=== PATIENT | male | born 1955 | race Two or more races ===

== ENCOUNTER 2024-11-05 14:52 | Inpatient (IN) | payer MEDICARE, MEDICAID ==
[~2024-11-05] VITALS: Ht 182.9 cm; Wt 135.0 kg
--- NOTE | 2024-11-05 15:59 | ED.PDOC ---
History of Present Illness HPI Comments Patient is a 69-year-old male with a past medical history of coronary artery disease, [place] s/p CABG, atrial fibrillation type 2 diabetes mellitus, end-stage renal disease on dialysis Friday was brought to the ED via EMS after having chest pain at the dialysis center. Patient was at the dialysis center and about 1.27 L of fluid was removed with a target of 2.5 when he started to complain of chest pain in the left lower chest, nonradiating, pressure-like following which EMS were called. On arrival of the EMS patient is alert pressure was noted to be 66/31 mmHg and was consistently low following which the patient is given about 150 mL of fluid and on rechecking the blood p ressure as per the EMS was at 133/113 mmHg. Patient was confused brought to ED. family reported that this was baseline mental status. Patient has been getting hemodialysis with the last 18 years and recently has been bed-bound. He also has pressure ulcers on his bilateral lower extremities. According with the family patient has not been able to complete his dialysis recently test to be aborted earlier than the planned amount of fluid which has to be referred because the patient gets hypotensive and not able to tolerate it. He has been on midodrine 10 mg b.i.d. because of hypotension. Attestation note: Dr. Funk: I was the supervising attending for this ED encounter. Please see the resident's notes. I was available for questions and consultations. Differential diagnosis: DDX include CVA, TGA, cerebellar ischemia/infarct, carotid stenosis, Intracranial mass/infection/bleed, encephalopathy, electrolyte abnormality, thyroid disease, hydrocephalus, hypoglycemia, drug toxicity, cardiac arrhythmia, seizure, infection in the elderly, Hyperammonemia., kidney failure., sepsis. MDM: Patient presented with the above HPI.---post dialysis hypotension and altered level of consciousness---workup was initiated. patient was found with the above mentioned diagnosis. the following medications were ordered: please refer to order lists of meds and tests obtained by myself Dr. Funk. Patient ED course and VS have been stabilized. Patient has been reassessed in the ED and remained in a stable condition. Pertinent incidental findings were discussed with the patient and/or family. Patient/family voices understanding and is agreeable with plan. Patient has been observed in the ED adequate length of time to insure improvement/stability. Escalation of care considered: Consideration of escalation to observation or admission Patient was ADMITTED to the medicine team for further evaluation and treatment of their presentation. However I was informed that the patient and family are leaving against medical advice. All the reports of any imaging studies that were ordered by myself were reviewed by myself. Chief Complaint: Chest Pain Time Seen by MD: 15:24 Reviewed Notes: Nurses Notes, Track Manager Notes, Medications, Allergies Allergies: Coded Allergies: NO KNOWN ALLERGIES (Unverified , 11/05/24) Home Meds Reported Medications Clindamycin Hcl (CLEOCIN) 150 Mg Cap, 300 MG PO TID for 14 Days, CAP 11/07/24 Levofloxacin Hemihydrate (LEVOFLOXACIN) 500 Mg Tab, 500 MG PO DAILY, MG 11/07/24 Atorvastatin Calcium (ATORVASTATIN CALCIUM) 40 Mg Tab, 40 MG PO DAILY, TAB 11/05/24 Montelukast Sodium (MONTELUKAST SODIUM) 10 Mg Tab, 1 TAB PO DAILY, #90 TAB 3 Refills 11/05/24 Quetiapine Fumerate (Seroquel) 50 Mg Tab, 25 MG PO DAILY, TAB 11/05/24 B-Complex W/ C & Folic Acid (Jaki-Sharonda) Tab, 1 OR, TAB 11/05/24 Pantoprazole Sodium (PANTOPRAZOLE SODIUM) 40 Mg Inj, 40 MG PO DAILY, INJ 11/05/24 Midodrine HCl (Midodrine HCl) 10 Mg Tab, 10 MG GT BID, TAB 11/05/24 Levetiracetam (Keppra) 500 Mg Tab, 100 MG PO BID, TAB 11/05/24 Apixaban Base (ELIQUIS) 2.5 Mg Tab, 2.5 MG PO BID, TAB 11/05/24 Gabapentin (Gabapentin) 300 Mg Cap, 300 MG PO BID, CAP 11/05/24 Calcium Acetate (CALCIUM ACETATE) 667 Mg Tab, 667 MG PO TID, TAB 11/05/24 Ferric Citrate (Auryxia) 210 Mg Tab, 210 MG PO TID, TAB 11/05/24 Information Source: Patient, Relative (Child) Mode of Arrival: EMS Past Medical History PAST MEDICAL HISTORY: AFIB, Anemia, CAD, DM, ESRD, Hypotension Surgical History: CABG Family History Family History: Reviewed,noncontributory to illness, No family hx of Cancer, No family hx of DM, No family hx of Heart alyssia, No family hx of HTN, No family hx ofKidney alyssia, No family hx of Liver alyssia, No family hx of Lung alyssia, No family hx of Stroke Social History Smoker: Non-Smoker Alcohol: Denies ETOH Use Drugs: Denies Drug Use Constitutional: reports: malaise, weakness EENTM: denies: blurred vision, double vision, ear bleeding, ear discharge, ear drainage, ear pain, ear ringing, eye pain, eye redness, hearing loss, mouth pain, mouth swelling, nasal discharge, nose bleeding, nose congestion, nose pain, photophobia, tearing, throat pain, throat swelling, voice changes, others Respiratory: reports: SOB at rest Cardiovascular: reports: chest pain Gastrointestinal: denies: abdomen distended, abdominal pain, blood streaked bowels, constipated, diarrhea, dysphagia, difficulty swallowing, hematemesis, melena, nausea, poor appetite, poor fluid intake, rectal bleeding, rectal pain, vomiting, others Genitourinary: denies: burning, dysuria, flank pain, frequency, hematuria, incontinence, penile discharge, penile sore, pain, testicle pain, testicle swelling, urgency, others Neurological: denies: dizziness, fainting, headache, left sided numbness, left sided weakness, numbness, paresthesia, pre-existing deficit, right sided numbness, right sided weakness, seizure, speech problems, tingling, tremors, weakness, others Musculoskeletal: denies: back pain, gout, joint pain, joint swelling, muscle pain, muscle stiffness, neck pain, others Integumetry: denies: bruises, change in color, change in hair/nails, dryness, laceration, lesions, lumps, rash, wounds, others Allergic/Immunocompromised: denies: Difficulty Healing, Frequent Infections, Hives, Itching, others Hematologic/Lymphatic: denies: anemia, blood clots, easy bleeding, easy bruising, swollen glands, others Endocrine: denies: excessive hunger, excessive sweating, excessive thirst, excessive urination, flushing, intolerance to cold, intolerance to heat, unexplained weight gain, unexplained weight loss, others Psychiatric: denies: anxiety, bipolar disorder, depression, hopeless, panic disorder, schizophrenia, sleepless, suicidal, others Physical Exam General Appearance: Mild Distress, Moderate Distress, Obese HEENT: Normal ENT Inspection, Pharynx Normal, TMs Normal Neck: Full Range of Motion, Non-Tender, Normal, Normal Inspection Respiratory: Chest Non-Tender, Lungs Clear, No Accessory Muscle Use, No Respiratory Distress, Normal Breath Sounds Cardiovascular: No Edema, No JVD, No Murmur, No Gallop, Normal Peripheral Pulses, Regular Rate/Rhythm Breast Exam: Deferred Gastrointestinal: No Organomegaly, Non Tender, No Pulsatile Mass, Normal Bowel Sounds, Soft Genitalia: Deferred Pelvic: Deferred Rectal: Deferred Extremities: Leg edema, Other (Pressure ulcers on both the feet) Neurologic: Other (At baseline patient is A&O x2 currently at his baseline, bed-bound with history of stroke and right-sided weakness) Cerebellar Function: NOT DONE Reflexes: NOT DONE Skin: Dry, Normal Color, Warm Peripheral Pulses: 1+ Radial (R), 1+ Radial (L) Lymphatic: NOT DONE Was a procedure done? Was a procedure done?: No Differential Dx Considerations may include: Angina, chest wall pain, costochondritis, orthostatic hypotension, X-Ray, Labs, Meds, VS Vital Signs Date Time Temp Pulse Resp B/P (MAP) Pulse Ox O2 Delivery O2 Flow Rate FiO2 11/05/24 19:23 76 16 97 Nasal Cannula* 4 36 11/05/24 19:23 97.4 76 16 97/56 (70) 99 97.4 11/05/24 18:25 84 18 99/59 (72) 97 11/05/24 17:40 86 18 101/36 (57) 99 11/05/24 17:19 83 19 94/26 (48) 100 11/05/24 17:00 95 19 97 Nasal Cannula* 4 36 11/05/24 17:00 97.6 95 19 91/39 (56) 97 97.6 11/05/24 16:35 82 19 91/39 (56) 97 11/05/24 15:00 97.5 93 20 132/113 (119) 98 97.5 11/05/24 14:52 92 Lab Test 11/05/24 16:00 11/05/24 15:38 Range/Units White Blood Count 8.5 4.4-10.8 10^3/uL Red Blood Count 4.15 L 4.5-5.90 10^6/uL Hemoglobin 14.3 13.5-17.5 g/dL Hematocrit 44.0 41.0-53.0 % Mean Corpuscular Volume 106.1 H 80.0-100.0 fL Mean Corpuscular Hemoglobin 34.4 H 28.0-32.0 pg Mean Corpuscular Hemoglobin Concent 32.5 32.0-36.0 g/dL Red Cell Distribution Width 18.1 H 11.8-14.3 % Platelet Count 227 140-450 10^3/uL Mean Platelet Volume 7.3 6.9-10.8 fL Neutrophils (%) (Auto) 76.8 37.0-80.0 % Lymphocytes (%) (Auto) 10.7 10.0-50.0 % Monocytes (%) (Auto) 9.6 0.0-12.0 % Eosinophils (%) (Auto) 1.7 0.0-7.0 % Basophils (%) (Auto) 1.2 0.0-2.0 % Neutrophils # (Auto) 6.5 1.6-8.6 10 ^3/uL Lymphocytes # (Auto) 0.9 0.4-5.4 10 ^3/uL Monocytes # (Auto) 0.8 0-1.3 10 ^3/uL Eosinophils # (Auto) 0.1 0-0.8 10 ^3/uL Basophils # (Auto) 0.1 0-0.2 10 ^3/uL Nucleated Red Blood Cells 0.3 % Prothrombin Time 11.5 9.3-11.8 sec Prothrombin Time INR 1.09 0.9-1.15 Activated Partial Thromboplast Time 31.6 24.5-34.5 SEC Sodium Level 133 L 136-145 mmol/L Potassium Level 3.4 L 3.5-5.1 mmol/L Chloride Level 92 L 98-107 mmol/L Carbon Dioxide Level 28 20-31 mmol/L Anion Gap 13 5-15 Blood Urea Nitrogen 25 H 9-23 mg/dL Creatinine 4.96 H 0.700-1.30 mg/dL Glomerular Filtration Rate Calc 12 >90 mL/min BUN/Creatinine Ratio 5.0 L 10.0-20.0 Serum Glucose 241 H 74-106 mg/dL Lactic Acid Level 1.9 0.4-2.0 mmol/L Calcium Level 10.2 8.7-10.4 mg/dL Total Bilirubin 0.4 0.2-1.0 mg/dL Aspartate Amino Transferase (AST) 30 13-40 U/L Alanine Aminotransferase (ALT) 41 H 7-40 U/L Alkaline Phosphatase 121 H 46-116 U/L Troponin I High Sensitivity 11 9 </=54 ng/L Total Protein 7.2 5.7-8.2 g/dL Albumin 4.1 3.2-4.8 g/dL Patient is a 69-year-old male with a past medical history not limited to end- stage renal disease on dialysis, coronary artery disease s/p CABG was brought to the ED after experiencing chest pain. Initial ECG was done which showed sinus rhythm without any evidence of acute ST or T-wave changes , troponin levels were within normal limits. Patient at the dialysis center was found to be hypotensive with the EMS reported blood pressure being 66/31 mmHg following which he was given 150 mL of fluid and is repeat blood pressure was 133/113 as reported by the EMS. While in the ER patient continued to be hypotensive with a SBP in the 90s. He was given midodrine 10 mg(patient takes midodrine b.i.d. but did not receive his dose in the morning). Initial investigations including head CT did not show any acute intracranial abnormality, chest x-ray showed pulmonary edema with cardiomegaly CT abdomen pelvis without contrast was done whose findings are as follows -Colonic diverticulosis with mild short segmental diverticulitis of the asc ending colon. -Small to moderate amount of fecal material within the colon. -Atrophy of bilateral kidneys with multiple bilateral renal cysts and additional subcentimeter hypodense bilateral renal lesions that are too small to characterize. -1.8 cm exophytic right renal lower pole soft tissue density lesion. Renal ultrasound is recommended for further evaluation. -Cholelithiasis without evidence of acute cholecystitis. Patient will need further inpatient management as he is not able to tolerate his dialysis recently and has been getting hypotensive. Patient and the family agreed to the plan of management and inpatient admission. Time of 1ST Reevaluation: 16:41 (Patient was seen to be hypotensive and was gi serina midodrine 10 mg p.o.) Reevaluation 1ST: Unchanged Patient Education/Counseling: Diagnosis, Treatment Family Education/Counseling: Diagnosis, Treatment SEPSIS Sepsis Screen Physician Orders Electrocardigram (11/05/24 15:19) Head Without Contrast (11/05/24 15:19) Ct Ab Pel Wo Con-No Oral Or Iv (11/05/24 15:19) Chest Xray 1 View (11/05/24 15:19) Famotidine Injection (Pepcid Injection) (11/05/24 22:00) Levetiracetam 500 Mg/100ml (Levetiraceta (11/05/24 22:00) Atorvastatin (Lipitor) (11/05/24 22:00) B-Complex W/ C & Folic Tablet (Nephro-Vi (11/06/24 10:00) Sevelamer (Renagel) (11/06/24 08:00) Code Status (11/05/24 20:54) Sodium Chloride Lock (Saline Lock Ns) (11/05/24 22:00) Oxygen Per Hour (11/05/24 20:54) Hydrocodone-Acet 5/325mg Tab ([place] 5/32 (11/05/24 21:00) Ondansetron Hcl (Zofran) (11/05/24 21:00) Docusate Sodium Capsule (Colace Capsule) (11/05/24 21:00) Condition: Serious (11/05/24 20:54) Acetaminophen Tablet (Tylenol Tablet) (11/05/24 21:00) Bedrest With Bathroom Privileg (11/05/24 20:54) Vital Signs Date Time Temp Pulse Resp B/P (MAP) Pulse Ox O2 Delivery O2 Flow Rate FiO2 11/05/24 19:23 76 16 97 Nasal Cannula* 4 36 11/05/24 19:23 97.4 76 16 97/56 (70) 99 97.4 11/05/24 18:25 84 18 99/59 (72) 97 11/05/24 17:40 86 18 101/36 (57) 99 11/05/24 17:19 83 19 94/26 (48) 100 11/05/24 17:00 95 19 97 Nasal Cannula* 4 36 11/05/24 17:00 97.6 95 19 91/39 (56) 97 97.6 11/05/24 16:35 82 19 91/39 (56) 97 11/05/24 15:00 97.5 93 20 132/113 (119) 98 97.5 11/05/24 14:52 92 Laboratory Tests Test 11/05/24 16:00 Lactic Acid Level 1.9 mmol/L (0.4-2.0) White Blood Count 8.5 10^3/uL (4.4-10.8) Departure 1 Departure Time of Disposition: 16:41 Impression: Primary Impression: End-stage renal disease on hemodialysis Additional Impressions: Hypotension Pulmonary edema Constipation Disposition: ADMITTED INPATIENT Admit to: Tele Condition: Guarded Discharged With: Self Critical Care Note Critical Care Time?: Yes (35 min-critical care time only) Stability Stability form required: No Heart Score Heart Score: Heart Score Response (Comments) Value History Moderate Suspicious 1 EKG Normal 0 Age >65 2 Risk Factors >3 or Hx ASHD 2 Troponin Normal limit 0 Total 5 KUSH HARDING RESIDENT Nov 05, 2024 15:59 AMBER FUNK DO Nov 05, 2024 16:43
--- NOTE | 2024-11-05 16:19 | DVH ---
EXAM: CT HEAD WITHOUT CONTRAST INDICATION: ALOC TECHNIQUE: CT of the head without intravenous contrast. Radiation Dose Information: CT Dose: CTDI volume is 60.5 mGy. Dose-length product is 1071.07 mGy*cm The dose indicators for CT are the volume Computed Tomography (CT) Dose Index (CTDIvol) and the Dose Length Product (DLP), and are measured in units of mGy and mGy-cm, respectively. These indicators are not patient dose, but values generated from the CT scanner acquisition factors. The report includes radiation exposure data for exposures received during this examination. COMPARISON: None FINDINGS: There is no evidence of acute intracranial hemorrhage, extra-axial collection, mass effect, midline s hift, herniation or hydrocephalus. Encephalomalacia left parietal lobe consistent with old infarcts. No prior studies for comparison. The ventricles, sulci and cisterns are age appropriate. The batista-white differentiation is intact. Patchy periventricular and subcortical white matter hypoattenuation is nonspecific but may be related to small vessel ischemic disease. The visualized paranasal sinuses and mastoid air cells are clear. The surrounding soft tissues and osseous structures are unremarkable. IMPRESSION: 1. No acute hemorrhage. 2. Area of encephalomalacia involving the mid left parietal lobe consistent with old infarct. No find ings of craniotomy defect.
--- NOTE | 2024-11-05 16:19 | DVH ---
CHEST RADIOGRAPH Indication: SOB Technique: Single frontal view of the chest was obtained COMPARISON: None FINDINGS: Lines and Tubes: Median sternotomy. Tunneled right central venous catheter in satisfactory position Lungs: Congestion Pleura: No effusion. No pneumothorax. Cardiomediastinal contours: Cardiomegaly Bones: Unremarkable IMPRESSION: Pulmonary edema
--- NOTE | 2024-11-05 16:26 | DVH ---
Exam: CT CT AB PEL WO CON-NO ORAL OR IV History: LUQ pain Comparison Study: None TECHNIQUE: Multidetector CT of the abdomen and pelvis without IV contrast. Axial, coronal and sagitta l multiplanar reformats were obtained from the axial data set by the technologist. Radiation Dose Information: CT Dose: CTDI volume is 25.31 mGy. Dose-length product is 1492.61 mGy*cm FINDINGS: Bibasilar atelectasis. Trace right-sided pleural effusion. Mild cardiomegaly. Peripherally calcified 1.8 cm lesion within the right lower epigastric fat pad. Mild hepatomegaly. Otherwise, liver, spleen, pancreas and adrenal glands unremarkable. Cholelithiasi s without evidence of acute cholecystitis. Severe atrophy of bilateral kidneys with multiple bilateral cysts measuring up to 1 cm. Additional s ubcentimeter hypodense bilateral renal lesions are noted that are too small to characterize. 1.8 cm e xophytic right renal lesion which measures soft tissue. Punctate bilateral renal calcifications. No h ydro nephrosis bilaterally. Bilateral ureters and urinary bladder unremarkable. Prostate measures 3. 1 x 3.8 by 3.6 cm. Stomach is unremarkable. Small bowel loops unremarkable. Appendix is unremarkable. Small to moderate amount of fecal material within the colon. Colonic diverticulosis with minimal fat stranding adjacen t to initial segment of the ascending colon. No evidence of intraperitoneal free air or free fluid. No evidence of aortic aneurysm. Moderate to heavy atherosclerotic calcification of the aorta and ashley ateral iliacs. No significant lymphadenopathy. Nonspecific foci of calcifications within the abdominal wall . Mild atrophy of abdominal, pelvic and upper extremity muscles. Anterior bridging osteophyte of the lower thoracic spine. IMPRESSION: Colonic diverticulosis with mild short segmental diverticulitis of the ascending colon. Small to moderate amount of fecal material within the colon. Atrophy of bilateral kidneys with multiple bilateral renal cysts and additional subcentimeter hypoden se bilateral renal lesions that are too small to characterize. 1.8 cm exophytic right renal lower pole soft tissue density lesion. Renal ultrasound is recommended f or further evaluation. Cholelithiasis without evidence of acute cholecystitis.
[2024-11-05 16:28] LABS: Hematocrit 44.0 % (41.0-53.0); Hemoglobin 14.3 g/dL (13.5-17.5); Mean Corpuscular Hemoglobin 34.4 pg (28.0-32.0); Mean Corpuscular Volume 106.1 fL (80.0-100.0); Nucleated Red Blood Cells % 0.3 %
[2024-11-05 16:43] LABS: INR 1.09 (0.9-1.15); Partial Thromboplastin Time 31.6 SEC (24.5-34.5); Prothrombin Time 11.5 sec (9.3-11.8)
[2024-11-05 16:46] LABS: Anion Gap 13 (5-15); BUN/Creatinine Ratio 5.0 (10.0-20.0); Calcium 10.2 mg/dL (8.7-10.4); Carbon Dioxide 28 mmol/L (20-31); Total Protein 7.2 g/dL (5.7-8.2)
[2024-11-05 16:47] LABS: Alanine Aminotransferase 41 U/L (7-40); Albumin 4.1 g/dL (3.2-4.8); Alkaline Phosphatase 121 U/L (46-116); Bilirubin, Total 0.4 mg/dL (0.2-1.0); Blood Urea Nitrogen 25 mg/dL (9-23); Chloride 92 mmol/L (98-107); Glucose 241 mg/dL (74-106); Potassium 3.4 mmol/L (3.5-5.1); Sodium 133 mmol/L (136-145)
[2024-11-05 17:00] VITALS: PULSE 95; RESP 19; O2SAT 97
[2024-11-05] MEDS: MIDODRINE HCL 10 MG TAB PO ONE ×2 (17:50→23:50)
[2024-11-05] MEDS ORDERED: LEVE500T40 PO (18:53)
[2024-11-05] MEDS ORDERED: MID10T GT (18:53)
[2024-11-05] MEDS ORDERED: B-CO-5 OR (18:53)
[2024-11-05] MEDS ORDERED: PANT1INJ3 PO (18:53)
[2024-11-05] MEDS ORDERED: GABA-1250 PO (18:53)
[2024-11-05] MEDS ORDERED: FERR1TAB17 PO (18:53)
[2024-11-05] MEDS ORDERED: QUET50TA PO (18:53)
[2024-11-05] MEDS ORDERED: MONT-8 PO (18:53)
[2024-11-05] MEDS ORDERED: APIX2.5T PO (18:53)
[2024-11-05] MEDS ORDERED: CALC10TA PO (18:53)
[2024-11-05] MEDS ORDERED: ATOR40TA52 PO (18:53)
[2024-11-05 19:23] VITALS: PULSE 76; RESP 16; O2SAT 97
[2024-11-05] MEDS ORDERED: ONDANSETRON HCL 4 MG/2 ML VIAL IV PRN (21:00)
[2024-11-05] MEDS ORDERED: DOCUSATE SOD 100 MG CAP PO PRN (21:00)
--- NOTE | 2024-11-05 21:15 | ECG ---
[facility] Test Date: 2024-11-05 Test Time: 14:45:20 Pat Name: REHAN WESTON Department: ED Room: [address] [place] [address] Gender: M Pt Sitter: garo : [id number] Requested By: KUSH IVERSONJJ Order Number: [id number] Reading MD: Vin Castellanos Measurements Intervals [place] Rate: 92 P: 5 GA: 172 QRS: 0 QRSD: 103 T: 69 QT: 378 QTc: 468 Interpretive Statements Sinus rhythm Borderline low voltage, extremity leads Electronically Signed On 11-08-2024 18:41:46 PDT by Vin Castellanos Please click the below link to view image of tracing.
--- NOTE | 2024-11-05 22:35 | DVHHP2 ---
History of Present Illness Reason for Visit: End-stage renal disease on hemodialysis History of Present Illness The patient is a 69-year-old male with past medical history of AFib, anemia, Coronary artery disease, diabetes mellitus, end-stage renal disease on hemodialysis, and hypotension presented to [facility] ED with complaint of chest pain during dialysis session. Patient was at the dialysis center and about 1.27 L of fluid was removed with a target of 2.5 when he started to complain of chest pain in the left lower chest, nonradiating, pressure-like following which EMS were called. When EMS arrived on the scene, patient was alert blood pressure was noted to be 66/31 mmHg and was consistently low following which the patient is given about 150 mL of fluid, on rechecking the blood pressure improved to 133/113 mmHg. Patient was seen and evaluated in the ED, laboratory data shows WBC 8.5, platelets 227, sodium 133, potassium 3.4, BUN 25, creatinine 4.96, glucose 241, troponin 9, calcium 10.2, AST 30, ALT 41, blood pressure 97/56, heart rate 76, temperature 97.6 F, O2 saturation 99% on oxygen. Chest x-ray revealing pulmonary edema. Please see medication orders section in the computer. On my assessment, patient denied chest pain, no headache, no dizziness, no diaphoresis, currently on oxygen, no abdominal pain, no diarrhea, no nausea, no vomiting, no fever, no chills. Patient was admitted for further evaluation and medical management. Past Medical History AFIB, Anemia, CAD, DM, ESRD, Hypotension Past Surgical History CABG Family History Reviewed, noncontributory to the management of this case. Past Social History The patient lives at home, denies smoking, alcohol or illicit drugs abuse. Review of Systems Constitutional: Yes: Weakness, Malaise; No: Fever, Chills, Sweats, Other Eyes: No: Pain, Vision change, Conjunctivae inflammation, Eyelid inflammation, Other, Redness ENT: No: Ear pain, Ear discharge, Nose pain, Nose discharge, Nose congestion, Mouth pain, Mouth swelling, Throat pain, Throat swelling, Other Respiratory: Shortness of breath, Other (SOB at rest); No: Cough, Dry, SOB with excertion, Wheezing, Hemoptysis, Pleuritic Pain, Sputum, Wheezing Cardiovascular: Chest Pain; No: Palpitations, Orthopnea, Paroxysmal Noc. Dyspnea, Edema, Lt Headedness, Other Gastrointestinal: No: Nausea, Vomiting, Abdominal Pain, Diarrhea, Constipation, Melena, Hematochezia, Other Genitourinary: No Dysuria, No Frequency, No Incontinence, No Hematuria, No Retention, No Other Musculoskeletal: No: other, neck pain, shoulder pain, arm pain, back pain, hand pain, leg pain, foot pain Skin: No: Rash, Lesions, Jaundice, Bruising, Other Neurological: No: Weakness, Numbness, Incoordination, Change in speech, Co nfusion, Seizures, Other Allergies: Coded Allergies: NO KNOWN ALLERGIES (Unverified , 11/05/24) Medications Current Medications Medications Dose Ordered Sig/Haresh Route Start Time Stop Time Status Last Admin Dose Admin Midodrine 5 mg TID@0600,1200,1800 PO 11/06/24 06:00 Famotidine 20 mg Q2D IV 11/05/24 22:00 Levetiracetam 100 ml @ 400 mls/hr BID IV 11/05/24 22:00 Atorvastatin Calcium 20 mg HS PO 11/05/24 22:00 Multivit/Ca Carb/ B Cmplx/FA/Prenat 1 tab DAILY PO 11/06/24 10:00 Sevelamer HCl 800 mg TIDWM PO 11/06/24 08:00 Quetiapine Fumarate 50 mg HS PO 11/05/24 22:00 Apixaban 2.5 mg BID PO 11/05/24 22:00 Sodium Chloride 10 ml Q8HR IV 11/05/24 22:00 Acetaminophen/ Hydrocodone Bitart 1 tab Q4HP PRN PO 11/05/24 21:00 Ondansetron HCl 4 mg Q4HP PRN IV 11/05/24 21:00 Docusate Sodium 100 mg BIDPRN PRN PO 11/05/24 21:00 Acetaminophen 650 mg Q6HP PRN PO 11/05/24 21:00 Exam Vital Signs Vital Signs Date Time Temp Pulse Resp B/P (MAP) Pulse Ox O2 Delivery O2 Flow Rate FiO2 11/05/24 19:23 76 16 97 Nasal Cannula* 4 36 11/05/24 19:23 97.4 97/56 (70) 97.4 General Appearance: Alert, Oriented X3, Cooperative, No acute distress HEENT: Atraumatic, PERRLA, EOMI, Mucous membr. moist/pink Respiratory: Normal air movement Cardiovascular: Regular rate, Normal S1, Normal S2, No murmurs Abdominal: Normal bowel sounds, Soft, No tenderness, No hepatospenomegaly, No masses Extremities: No clubbing, No cyanosis, No edema, Normal pulses, No tenderness/swelling Skin: No rashes, No breakdown, No significant lesion Neuro: Normal speech, Normal tone, Sensation intact, Cranial nerves 3-12 NL, Reflexes 2+, Other (RN) Psych/Mental Status: Mental status NL, Mood NL Labs/Xrays Labs Test 11/05/24 16:00 Range/Units White Blood Count 8.5 4.4-10.8 10^3/uL Red Blood Count 4.15 L 4.5-5.90 10^6/uL Hemoglobin 14.3 13.5-17.5 g/dL Hematocrit 44.0 41.0-53.0 % Mean Corpuscular Volume 106.1 H 80.0-100.0 fL Mean Corpuscular Hemoglobin 34.4 H 28.0-32.0 pg Mean Corpuscular Hemoglobin Concent 32.5 32.0-36.0 g/dL Red Cell Distribution Width 18.1 H 11.8-14.3 % Platelet Count 227 140-450 10^3/uL Mean Platelet Volume 7.3 6.9-10.8 fL Neutrophils (%) (Auto) 76.8 37.0-80.0 % Lymphocytes (%) (Auto) 10.7 10.0-50.0 % Monocytes (%) (Auto) 9.6 0.0-12.0 % Eosinophils (%) (Auto) 1.7 0.0-7.0 % Basophils (%) (Auto) 1.2 0.0-2.0 % Neutrophils # (Auto) 6.5 1.6-8.6 10 ^3/uL Lymphocytes # (Auto) 0.9 0.4-5.4 10 ^3/uL Monocytes # (Auto) 0.8 0-1.3 10 ^3/uL Eosinophils # (Auto) 0.1 0-0.8 10 ^3/uL Basophils # (Auto) 0.1 0-0.2 10 ^3/uL Nucleated Red Blood Cells 0.3 % Prothrombin Time 11.5 9.3-11.8 sec Prothrombin Time INR 1.09 0.9-1.15 Activated Partial Thromboplast Time 31.6 24.5-34.5 SEC Sodium Level 133 L 136-145 mmol/L Potassium Level 3.4 L 3.5-5.1 mmol/L Chloride Level 92 L 98-107 mmol/L Carbon Dioxide Level 28 20-31 mmol/L Anion Gap 13 5-15 Blood Urea Nitrogen 25 H 9-23 mg/dL Creatinine 4.96 H 0.700-1.30 mg/dL Glomerular Filtration Rate Calc 12 >90 mL/min BUN/Creatinine Ratio 5.0 L 10.0-20.0 Serum Glucose 241 H 74-106 mg/dL Lactic Acid Level 1.9 0.4-2.0 mmol/L Calcium Level 10.2 8.7-10.4 mg/dL Total Bilirubin 0.4 0.2-1.0 mg/dL Aspartate Amino Transferase (AST) 30 13-40 U/L Alanine Aminotransferase (ALT) 41 H 7-40 U/L Alkaline Phosphatase 121 H 46-116 U/L Troponin I High Sensitivity 11 </=54 ng/L Total Protein 7.2 5.7-8.2 g/dL Albumin 4.1 3.2-4.8 g/dL PATIENT: REHAN WESTON ACCT: [id number] UNIT: [id number] : 1955 LOC: ER ROOM / BED: / AGE / SEX: 69 / M ADM STATUS: REG ER SERVICE 1519 ORDERING PHYSICIAN: KUSH HARDING RESIDENT PROCEDURE(s): ABPL - CT AB PEL WO CON-NO ORAL OR IV REASON: LUQ pain ORDER NUMBER(s): [id number], ACCESSION NUMBER(s): [id number] Exam: CT CT AB PEL WO CON-NO ORAL OR IV History: LUQ pain Comparison Study: None TECHNIQUE: Multidetector CT of the abdomen and pelvis without IV contrast. Axial, coronal and sagittal multiplanar reformats were obtained from the axial data set by the technologist. Radiation Dose Information: CT Dose: CTDI volume is 25.31 mGy. Dose-length product is 1492.61 mGy*cm FINDINGS: Bibasilar atelectasis. Trace right-sided pleural effusion. Mild cardiomegaly. Peripherally calcified 1.8 cm lesion within the right lower epigastric fat pad. Mild hepatomegaly. Otherwise, liver, spleen, pancreas and adrenal glands unremarkable. Cholelithiasis without evidence of acute cholecystitis. Severe atrophy of bilateral kidneys with multiple bilateral cysts measuring up to 1 cm. Additional subcentimeter hypodense bilateral renal lesions are noted that are too small to characterize. 1.8 cm exophytic right renal lesion which measures soft tissue. Punctate bilateral renal calcifications. No hydro nephrosis bilaterally. Bilateral ureters and urinary bladder unremarkable. Prostate measures 3.1 x 3.8 by 3.6 cm. Stomach is unremarkable. Small bowel loops unremarkable. Appendix is unremarkable. Small to moderate amount of fecal material within the colon. Colonic diverticulosis with minimal fat stranding adjacent to initial segment of the ascending colon. No evidence of intraperitoneal free air or free fluid. No evidence of aortic aneurysm. Moderate to heavy atherosclerotic calcification of the aorta and bilateral iliacs. No significant lymphadenopathy. Nonspecific foci of calcifications within the abdominal wall. Mild atrophy of abdominal, pelvic and upper extremity muscles. Anterior bridging osteophyte of the lower thoracic spine. IMPRESSION: Colonic diverticulosis with mild short segmental diverticulitis of the ascending colon. Small to moderate amount of fecal material within the colon. Atrophy of bilateral kidneys with multiple bilateral renal cysts and additional subcentimeter hypodense bilateral renal lesions that are too small to characterize. 1.8 cm exophytic right renal lower pole soft tissue density lesion. Renal ultrasound is recommended for further evaluation. Cholelithiasis without evidence of acute cholecystitis. ORDERING PHYSICIAN: KUSH HARDING RESIDENT PROCEDURE(s): CXR1 - CHEST XRAY 1 VIEW REASON: SOB ORDER NUMBER(s): [id number], ACCESSION NUMBER(s): [id number] CHEST RADIOGRAPH Indication: SOB Technique: Single frontal view of the chest was obtained COMPARISON: None FINDINGS: Lines and Tubes: Median sternotomy. Tunneled right central venous catheter in satisfactory position Lungs: Congestion Pleura: No effusion. No pneumothorax. Cardiomediastinal contours: Cardiomegaly Bones: Unremarkable IMPRESSION: Pulmonary edema ORDERING PHYSICIAN: KUSH HARDING PROCEDURE(s): HWOCT - HEAD WITHOUT CONTRAST REASON: ALOC ORDER NUMBER(s): [id number], ACCESSION NUMBER(s): [id number] EXAM: CT HEAD WITHOUT CONTRAST INDICATION: ALOC TECHNIQUE: CT of the head without intravenous contrast. Radiation Dose Information: CT Dose: CTDI volume is 60.5 mGy. Dose-length product is 1071.07 mGy*cm The dose indicators for CT are the volume Computed Tomography (CT) Dose Index (CTDIvol) and the Dose Length Product (DLP), and are measured in units of mGy and mGy-cm, respectively. These indicators are not patient dose, but values generated from the CT scanner acquisition factors. The report includes radiation exposure data for exposures received during this examination. COMPARISON: None FINDINGS: There is no evidence of acute intracranial hemorrhage, extra-axial collection, mass effect, midline shift, herniation or hydrocephalus. Encephalomalacia left parietal lobe consistent with old infarcts. No prior studies for comparison. The ventricles, sulci and cisterns are age appropriate. The batista-white differentiation is intact. Patchy periventricular and subcortical white matter hypoattenuation is nonspecific but may be related to small vessel ischemic disease. The visualized paranasal sinuses and mastoid air cells are clear. The surrounding soft tissues and osseous structures are unremarkable. IMPRESSION: 1. No acute hemorrhage. 2. Area of encephalomalacia involving the mid left parietal lobe consistent with old infarct. No findings of craniotomy defect. SEPSIS Sepsis Screen Date sepsis recognized/suspect: Nov 05, 2024 Time Sepsis recognized/suspect: 1922 Recent Procedure: No On Antibiotic Therapy: No Respiratory Rate >20: No Heart Rate >90: No Temp<36 C (96.8 F) or >38.3 C: No SBP <90 or MAP <65 mmHG: No New Acute Mental Status Change: No Is the patient on CPAP, BIPAP,: No Physician Orders Head Without Contrast (11/05/24 15:19) Ct Ab Pel Wo Con-No Oral Or Iv (11/05/24 15:19) Chest Xray 1 View (11/05/24 15:19) Midodrine Tablet (Proamatine Tablet) (11/06/24 06:00) Famotidine Injection (Pepcid Injection) (11/05/24 22:00) Levetiracetam 500 Mg/100ml (Levetiraceta (11/05/24 22:00) Atorvastatin (Lipitor) (11/05/24 22:00) B-Complex W/ C & Folic Tablet (Nephro-Vi (11/06/24 10:00) Sevelamer (Renagel) (11/06/24 08:00) Quetiapine Fumarate Tablet (Seroquel Tab (11/05/24 22:00) *[facility] (11/05/24 20:54) Apixaban (Eliquis) (11/05/24 22:00) Allergies (11/05/24 20:54) Code Status (11/05/24 20:54) Renal Standard(2gna,3gk,Lopho) (11/06/24 Breakfast) Sodium Chloride Lock (Saline Lock Ns) (11/05/24 22:00) Oxygen Per Hour (11/05/24 20:54) Hydrocodone-Acet 5/325mg Tab ([place] 5/32 (11/05/24 21:00) Ondansetron Hcl (Zofran) (11/05/24 21:00) Docusate Sodium Capsule (Colace Capsule) (11/05/24 21:00) Complete Blood Count (11/06/24 04:00) Comprehensive Metabolic Panel (11/06/24 04:00) Condition: Serious (11/05/24 20:54) Acetaminophen Tablet (Tylenol Tablet) (11/05/24 21:00) Bedrest With Bathroom Privileg (11/05/24 20:54) Sequential Compression Device (11/05/24 ) Vital Signs Date Time Temp Pulse Resp B/P (MAP) Pulse Ox O2 Delivery O2 Flow Rate FiO2 11/05/24 19:23 76 16 97 Nasal Cannula* 4 36 11/05/24 19:23 97.4 76 16 97/56 (70) 99 97.4 11/05/24 18:25 84 18 99/59 (72) 97 11/05/24 17:40 86 18 101/36 (57) 99 11/05/24 17:19 83 19 94/26 (48) 100 11/05/24 17:00 95 19 97 Nasal Cannula* 4 36 11/05/24 17:00 97.6 95 19 91/39 (56) 97 97.6 11/05/24 16:35 82 19 91/39 (56) 97 11/05/24 15:00 97.5 93 20 132/113 (119) 98 97.5 11/05/24 14:52 92 Laboratory Tests Test 11/05/24 16:00 Lactic Acid Level 1.9 mmol/L (0.4-2.0) White Blood Count 8.5 10^3/uL (4.4-10.8) Medications Medications Dose Ordered Sig/Haresh Route Start Time Stop Time Status Last Admin Dose Admin Midodrine 10 mg ONCE ONCE PO 11/05/24 17:30 11/05/24 17:31 DC 11/05/24 17:50 10 MG Assessment/Plan Assessment/Plan End-stage renal disease on hemodialysis Constipation Hypotension Electrolyte imbalance Pulmonary edema Generalized weakness Plan 1. Admit to intensive care unit 2. Breathing treatment 3. Pain control management 4. Management of fluids and electrolytes 5. Consultation for Nephrology/cardiology 6. Diagnostic tests chest x-ray 7. DVT prophylaxis-on Eliquis 8. Repeat labs CBC, CMP in a.m. 9. Continue with current medical management 10. Treatment plan discussed with patient and RN. Patient verbalized understanding. Plan discussed with: Patient, Other (RN) My Orders Orders - HAKAN EMERSON DNP Procedure Category Date Status Time Midodrine Tablet PHA 11/06/24 In Process (Proamatine Tablet) 06:00 Famotidine Injection PHA 11/05/24 In Process (Pepcid Injection) 22:00 Levetiracetam 500 PHA 11/05/24 In Process Mg/100ml (Levetiraceta 22:00 Atorvastatin (Lipitor) PHA 11/05/24 In Process 22:00 B-Complex W/ C & PHA 11/06/24 In Process Folic Tablet 10:00 Sevelamer (Renagel) PHA 11/06/24 In Process 08:00 Quetiapine Fumarate PHA 11/05/24 In Process Tablet (Seroquel Tab 22:00 *[facility] CONS 11/05/24 Transmitted -[place] 20:54 Apixaban (Eliquis) PHA 11/05/24 In Process 22:00 Allergies ROGERS 11/05/24 In Process 20:54 Code Status CODE 11/05/24 Transmitted 20:54 Renal DIET 11/06/24 Transmitted Standard(2gna,3gk,Lopho) Breakfast Sodium Chloride Lock PHA 11/05/24 In Process (Saline Lock Ns) 22:00 Oxygen Per Hour RT 11/05/24 Transmitted 20:54 Hydrocodone-Acet PHA 11/05/24 In Process 5/325mg Tab ([place] 21:00 Ondansetron Hcl PHA 11/05/24 In Process (Zofran) 21:00 Docusate Sodium PHA 11/05/24 In Process Capsule (Colace 21:00 Complete Blood Count LAB 11/06/24 Verified 04:00 Comprehensive LAB 11/06/24 Verified Metabolic Panel 04:00 Condition: Serious ROGERS 11/05/24 In Process 20:54 Acetaminophen Tablet PHA 11/05/24 In Process (Tylenol Tablet) 21:00 Bedrest With Bathroom ROGERS 11/05/24 In Process Privileg 20:54 Sequential ROGERS 11/05/24 In Process Compression Device Problem List: (1) End-stage renal disease on hemodialysis (2) Constipation (3) Hypotension (4) Electrolyte imbalance (5) Pulmonary edema (6) Generalized weakness Date of Service: Nov 05, 2024 Billing Provider: HAKAN EMERSON DNP Common Visit Codes: [id number] INP/OBS CARE (HIGH) HAKAN EMERSON DNP Nov 05, 2024 22:35
[2024-11-05] MEDS ORDERED: NITROGLYCERIN 0.4 MG SL TAB SL PRN (22:45)
[2024-11-05] MEDS ORDERED: MORPHINE SULFATE INJ 2 MG/ml SYRG IV PRN (22:45)
[2024-11-05] MEDS: FAMOTIDINE (10MG/ML) 2ML VL IV SCH (22:54)
[2024-11-05] MEDS: ATORVASTATIN 20 MG TAB PO SCH (22:54)
[2024-11-05] MEDS: APIXABAN 2.5 MG TAB PO SCH (22:54)
[2024-11-05] MEDS: levETIRAcetam 500 mg/100ml 100 ML IV SCH (22:54)
[2024-11-05] MEDS: SODIUM CHLOR 0.9% PF (SALINE LOCK) 10ML VIAL/SYR IV SCH (22:55)
[2024-11-06] VITALS (54 sets, daily range): BP systolic 74–151; BP diastolic 23–118; PULSE 84–110; RESP 9–41; TEMP 98–99.2; O2SAT 89–99
[2024-11-06] MEDS: HYDROcodone-ACET 5/325MG TAB PO PRN (01:47)
[2024-11-06] MEDS: MIDODRINE HCL 10 MG TAB PO ONE (04:05)
[2024-11-06] MEDS: NOREPINEPHRINE 8 MG/250ML KIT 250 ML IV SCH (04:45)
[2024-11-06] MEDS: MIDODRINE HCL 10 MG TAB PO SCH (05:42)
[2024-11-06 06:00] LABS: Hematocrit 42.3 % (41.0-53.0); Hemoglobin 13.9 g/dL (13.5-17.5); Mean Corpuscular Hemoglobin 34.3 pg (28.0-32.0); Mean Corpuscular Volume 104.9 fL (80.0-100.0); Nucleated Red Blood Cells % 0.5 %
[2024-11-06 06:06] LABS: Alanine Aminotransferase 33 U/L (7-40); Albumin 3.9 g/dL (3.2-4.8); Alkaline Phosphatase 101 U/L (46-116); Anion Gap 12 (5-15); BUN/Creatinine Ratio 5.4 (10.0-20.0); Carbon Dioxide 28 mmol/L (20-31)
[2024-11-06 06:07] LABS: Total Protein 6.8 g/dL (5.7-8.2)
[2024-11-06 06:08] LABS: Bilirubin, Total 0.4 mg/dL (0.2-1.0); Blood Urea Nitrogen 30 mg/dL (9-23); Calcium 10.5 mg/dL (8.7-10.4); Chloride 93 mmol/L (98-107); Glucose 179 mg/dL (74-106); Potassium 3.4 mmol/L (3.5-5.1); Sodium 133 mmol/L (136-145)
[2024-11-06] MEDS: PHENYLEPHRINE IV 250 ML IV SCH (06:50)
[2024-11-06] MEDS: SEVELAMER 800 MG TAB PO SCH (08:00)
[2024-11-06] MEDS: B-COMPLEX W/ C & FOLIC ACID(NEPHROVITE TAB) PO SCH (10:00)
--- NOTE | 2024-11-06 15:51 | DVHINCON2 ---
Date of service: Nov 06, 2024 Referring Physician Dayanna KEYES Reason for Consultation End-stage renal disease management History of Present Illness 69-year-old patient with significant history of end-stage renal disease on hemodialysis Friday, CAD status post CABG, diabetes type 2, atrial fibrillation, hypertension, wounds in the feet undergoing wound care and podiatry care, history of CVA who presents to the hospital with chief complaint of generalized weakness and hypotension at the dialysis unit as well as left- sided chest pain. His last dialysis was yesterday meanwhile he was in the dialysis unit patient became hypotensive upon arrival of the EMS his blood pressure was 66/31 and he achieved a total UF of 1 L only from his usual target of 3 L. He denies any fever chills nausea vomiting the denies dale melanotic stools or hematochezia all the reports dark stool from phosphate binders. The patient complains of left-sided chest pain as well along with the hypotension he was given IV fluid bolus with improvement of the blood pressure systolic 133. Patient is undergoing debridement of the wounds on his feet and last debridement was yesterday which was deep according to the . Otherwise patient's and caregiver denies intake of any antihypertensive meds denies any other acute issue. Initial evaluation revealed hemoglobin with a normal range, labs from compatible with a stable end-stage renal disease and normal kalemia. Past Medical History AFIB, Anemia, CAD, DM, ESRD, Hypotension, CAD Past Surgical History Av fistula creation, CABG Allergies: Coded Allergies: NO KNOWN ALLERGIES (Unverified , 11/05/24) Home Meds Reported Medications Atorvastatin Calcium (ATORVASTATIN CALCIUM) 40 Mg Tab, 40 MG PO DAILY, TAB 11/05/24 Montelukast Sodium (MONTELUKAST SODIUM) 10 Mg Tab, 1 TAB PO DAILY, #90 TAB 3 Refills 11/05/24 Quetiapine Fumerate (Seroquel) 50 Mg Tab, 25 MG PO DAILY, TAB 11/05/24 B-Complex W/ C & Folic Acid (Jaki-Sharonda) Tab, 1 OR, TAB 11/05/24 Pantoprazole Sodium (PANTOPRAZOLE SODIUM) 40 Mg Inj, 40 MG PO DAILY, INJ 11/05/24 Midodrine HCl (Midodrine HCl) 10 Mg Tab, 10 MG GT BID, TAB 11/05/24 Levetiracetam (Keppra) 500 Mg Tab, 100 MG PO BID, TAB 11/05/24 Apixaban Base (ELIQUIS) 2.5 Mg Tab, 2.5 MG PO BID, TAB 11/05/24 Gabapentin (Gabapentin) 300 Mg Cap, 300 MG PO BID, CAP 11/05/24 Calcium Acetate (CALCIUM ACETATE) 667 Mg Tab, 667 MG PO TID, TAB 11/05/24 Ferric Citrate (Auryxia) 210 Mg Tab, 210 MG PO TID, TAB 11/05/24 Current Medications Current Medications Medications (Trade) Dose Ordered Sig/Haresh Route PRN Reason Start Time Stop Time Status Last Admin Midodrine (Proamatine Tablet) 5 mg TID@0600,1200,1800 PO 11/06/24 06:00 11/06/24 05:42 Famotidine (Pepcid Injection) 20 mg Q2D IV 11/05/24 22:00 11/05/24 22:54 Levetiracetam 100 ml @ 400 mls/hr BID IV 11/05/24 22:00 11/06/24 10:04 Atorvastatin Calcium (Lipitor) 20 mg HS PO 11/05/24 22:00 11/05/24 22:54 Multivit/Ca Carb/ B Cmplx/FA/Prenat (Nephro-Sharonda Tablet) 1 tab DAILY PO 11/06/24 10:00 Sevelamer HCl (Renagel) 800 mg TIDWM PO 11/06/24 08:00 Quetiapine Fumarate (SEROquel TABLET) 50 mg HS PO 11/05/24 22:00 11/05/24 22:54 Apixaban (Eliquis) 2.5 mg BID PO 11/05/24 22:00 11/06/24 10:04 Sodium Chloride (Saline Lock Ns) 10 ml Q8HR IV 11/05/24 22:00 11/06/24 14:24 Acetaminophen/ Hydrocodone Bitart ([place] 5/325MG Tab) 1 tab Q4HP PRN PO MODERATE PAIN (4-6 PAIN SCALE) 11/05/24 21:00 11/06/24 01:47 Ondansetron HCl (Zofran) 4 mg Q4HP PRN IV NAUSEA / VOMITING 11/05/24 21:00 Docusate Sodium (Colace Capsule) 100 mg BIDPRN PRN PO FOR CONSTIPATION 11/05/24 21:00 Acetaminophen (Tylenol Tablet) 650 mg Q6HP PRN PO PAIN SCALE 1-3 OR TEMP>100.4 11/05/24 21:00 Nitroglycerin (Ntrostat Sublingual) 0.4 mg Q5MINP PRN SL FOR CHEST PAIN 11/05/24 22:45 Morphine Sulfate 2 mg Q30M PRN IV FOR CHEST PAIN 11/05/24 22:45 Norepinephrine Bitartrate 250 ml @ 3.75 mls/hr Q24H IV 11/06/24 04:30 11/06/24 14:22 Phenylephrine HCl 250 ml @ 30 mls/hr Q8H20M IV 11/06/24 06:30 11/06/24 06:50 Family History: Patient reports no known family medical history. Social History He denies smoking alcohol or drug abuse Review of Systems HEENT: Oral mucosa dry Neck no JVD Cardiovascular: Positive for chest pain denies orthopnea or PND Respiratory: Denies cough or shortness of breath Gastrointestinal: Denies for nausea vomiting Musculoskeletal: Denies myalgias Neurological: Denies focal weakness Dermatological: Denies any rash Positive for wounds in both feet The rest of the review of systems were reviewed pertinent positives and pertinent negatives are as per HPI up to 12 points review of systems H&P Exam Vital Signs/I&O Vital Sign Date Time Temp Pulse Resp B/P (MAP) Pulse Ox O2 Delivery O2 Flow Rate FiO2 11/06/24 14:50 148/34 11/06/24 14:15 93 10 94 11/06/24 14:00 Nasal Cannula* 2 28 11/06/24 12:00 98.8 98.8 Intake and Output 11/05/24 11/06/24 19:00 07:00 Intake Total 100 ml Balance 100 ml Intake IV Total 100 ml Physical Exam HEENT: No evidence of JVD, no oral ulcers. Pulmonary: Diminished at the bases on auscultation bilaterally Cardiovascular S1-S2, no S3 or S4 Abdomen: Bowel sounds positive, soft no rebound tenderness Skin: No rash Neurological: Patient is sleepy Musculoskeletal: Dressed bilateral feet with protective boots Labs/Diagnostic Data Labs/Diagnostic Data Laboratory Tests Test 11/06/24 04:54 11/05/24 16:00 11/05/24 15:38 Range/Units White Blood Count 6.8 8.5 4.4-10.8 10^3/uL Red Blood Count 4.04 L 4.15 L 4.5-5.90 10^6/uL Hemoglobin 13.9 14.3 13.5-17.5 g/dL Hematocrit 42.3 44.0 41.0-53.0 % Mean Corpuscular Volume 104.9 H 106.1 H 80.0-100.0 fL Mean Corpuscular Hemoglobin 34.3 H 34.4 H 28.0-32.0 pg Mean Corpuscular Hemoglobin Concent 32.7 32.5 32.0-36.0 g/dL Red Cell Distribution Width 17.6 H 18.1 H 11.8-14.3 % Platelet Count 223 227 140-450 10^3/uL Mean Platelet Volume 7.3 7.3 6.9-10.8 fL Neutrophils (%) (Auto) 71.9 76.8 37.0-80.0 % Lymphocytes (%) (Auto) 12.6 10.7 10.0-50.0 % Monocytes (%) (Auto) 11.0 9.6 0.0-12.0 % Eosinophils (%) (Auto) 3.5 1.7 0.0-7.0 % Basophils (%) (Auto) 1.0 1.2 0.0-2.0 % Neutrophils # (Auto) 4.9 6.5 1.6-8.6 10 ^3/uL Lymphocytes # (Auto) 0.9 0.9 0.4-5.4 10 ^3/uL Monocytes # (Auto) 0.7 0.8 0-1.3 10 ^3/uL Eosinophils # (Auto) 0.2 0.1 0-0.8 10 ^3/uL Basophils # (Auto) 0.1 0.1 0-0.2 10 ^3/uL Nucleated Red Blood Cells 0.5 0.3 % Sodium Level 133 L 133 L 136-145 mmol/L Potassium Level 3.4 L 3.4 L 3.5-5.1 mmol/L Chloride Level 93 L 92 L 98-107 mmol/L Carbon Dioxide Level 28 28 20-31 mmol/L Anion Gap 12 13 5-15 Blood Urea Nitrogen 30 H 25 H 9-23 mg/dL Creatinine 5.53 H 4.96 H 0.700-1.30 mg/dL Glomerular Filtration Rate Calc 10 12 >90 mL/min BUN/Creatinine Ratio 5.4 L 5.0 L 10.0-20.0 Serum Glucose 179 H 241 H 74-106 mg/dL Calcium Level 10.5 H 10.2 8.7-10.4 mg/dL Total Bilirubin 0.4 0.4 0.2-1.0 mg/dL Aspartate Amino Transferase (AST) 19 30 13-40 U/L Alanine Aminotransferase (ALT) 33 41 H 7-40 U/L Alkaline Phosphatase 101 121 H 46-116 U/L Total Protein 6.8 7.2 5.7-8.2 g/dL Albumin 3.9 4.1 3.2-4.8 g/dL Prothrombin Time 11.5 9.3-11.8 sec Prothrombin Time INR 1.09 0.9-1.15 Activated Partial Thromboplast Time 31.6 24.5-34.5 SEC Lactic Acid Level 1.9 0.4-2.0 mmol/L Troponin I High Sensitivity 11 9 </=54 ng/L CT scan abdomen pelvis, constipation, renal cyst right-sided Chest x-ray mild pulmonary edema Assessment Assessment: 1. End-stage renal disease on hemodialysis Friday 2. Intra dialytic hypotension Needs to rule out bacteremia, no evidence of GI bleed, cardiac etiology, other 3. Chest pain 4. CAD 5. Bilateral feet wounds 6. History of CVA 7. Diabetes type 2 Plan: Obtain blood cultures, x-ray of the feet, podiatry consult. Hold off on dialysis today(only received 1 hour yesterday). Plan for HD tomorrow Hold off on antihypertensive med Midodrine t.i.d. Monitor H&H Cardiology consult Pressor support p.r.n. Thank you very much for allowing us to participate in the care of this patient please contact if you have any questions. Plan discussed with: Patient SAMY RCUZ MD Nov 06, 2024 15:51
[2024-11-06] MEDS ORDERED: VANCOMYCIN PER PHARMACY 0 MG IV SCH (16:15)
--- NOTE | 2024-11-06 16:21 | DVHPN2 ---
Subjective Patient is aphasic Reviewed: Care Plan, H&P, Labs, Medications, Previous Orders Changes from previous H/P or p: No Changes General: Per HPI Eyes: No Pain, No Vision change, No Conjunctivae inflammation, No Eyelid inflammation, No Other, No Redness ENT: No Ear pain, No Ear discharge, No Nose pain, No Nose discharge, No Nose congestion, No Mouth pain, No Mouth swelling, No Throat pain, No Throat swelling, No Other Cardiovascular: Chest Pain; No Palpitations, No Orthopnea, No Paroxysmal Noc. Dyspnea, No Edema, No Lt Headedness, No Other Respiratory: No Cough, No Dry; Shortness of breath; No SOB with excertion, No Wheezing, No Hemoptysis, No Pleuritic Pain, No Sputum; Other (SOB at rest) Gastrointestinal: No Nausea, No Vomiting, No Abdominal Pain, No Diarrhea, No Constipation, No Melena, No Hematochezia, No Other Genitourinary: No Dysuria, No Frequency, No Incontinence, No Hematuria, No Retention, No Other Musculoskeletal: No other, No neck pain, No shoulder pain, No arm pain, No back pain, No hand pain, No leg pain, No foot pain Skin: No Rash, No Lesions, No Jaundice, No Bruising, No Other Objective Vitals Vital Signs Date Time Temp Pulse Resp B/P (MAP) Pulse Ox O2 Delivery O2 Flow Rate FiO2 11/06/24 16:00 98.9 92 11 115/31 (59) 96 98.9 11/06/24 16:00 Nasal Cannula* 2 28 Intake/Output Intake and Output 11/06/24 07:00 Intake Total 100 ml Balance 100 ml Intake IV Total 100 ml General Appearance: Alert, moderate distress, Other (Encephalopathic) HEENT: Atraumatic, PERRLA Lungs: Clear to auscultation, Normal air movement Cardiovascular: Normal S1, Normal S2 Abdomen: Normal bowel sounds, Soft, No tenderness, No hepatospenomegaly Skin: Wounds (See nurse notes and pictures) Medications Current Medications Medications Dose Ordered Sig/Haresh Route Start Time Stop Time Status Last Admin Dose Admin Midodrine 5 mg TID@0600,1200,1800 PO 11/06/24 06:00 11/06/24 05:42 5 MG Famotidine 20 mg Q2D IV 11/05/24 22:00 11/05/24 22:54 20 MG Levetiracetam 100 ml @ 400 mls/hr BID IV 11/05/24 22:00 11/06/24 10:04 400 MLS/HR Atorvastatin Calcium 20 mg HS PO 11/05/24 22:00 11/05/24 22:54 20 MG Multivit/Ca Carb/ B Cmplx/FA/Prenat 1 tab DAILY PO 11/06/24 10:00 Sevelamer HCl 800 mg TIDWM PO 11/06/24 08:00 Quetiapine Fumarate 50 mg HS PO 11/05/24 22:00 11/05/24 22:54 50 MG Apixaban 2.5 mg BID PO 11/05/24 22:00 11/06/24 10:04 2.5 MG Sodium Chloride 10 ml Q8HR IV 11/05/24 22:00 11/06/24 14:24 10 ML Acetaminophen/ Hydrocodone Bitart 1 tab Q4HP PRN PO 11/05/24 21:00 11/06/24 01:47 1 TAB Ondansetron HCl 4 mg Q4HP PRN IV 11/05/24 21:00 Docusate Sodium 100 mg BIDPRN PRN PO 11/05/24 21:00 Acetaminophen 650 mg Q6HP PRN PO 11/05/24 21:00 Nitroglycerin 0.4 mg Q5MINP PRN SL 11/05/24 22:45 Morphine Sulfate 2 mg Q30M PRN IV 11/05/24 22:45 Norepinephrine Bitartrate 250 ml @ 3.75 mls/hr Q24H IV 11/06/24 04:30 11/06/24 14:22 56.25 MLS/HR Phenylephrine HCl 250 ml @ 30 mls/hr Q8H20M IV 11/06/24 06:30 11/06/24 06:50 30 MLS/HR Laboratory Results Laboratory Tests 11/06/24 04:54 Chemistry Test 11/06/24 04:54 Albumin 3.9 g/dL (3.2-4.8) Calcium Level 10.5 mg/dL (8.7-10.4) H Total Protein 6.8 g/dL (5.7-8.2) LFT Test 11/06/24 04:54 Alanine Aminotransferase (ALT) 33 U/L (7-40) Alkaline Phosphatase 101 U/L (46-116) Aspartate Amino Transferase (AST) 19 U/L (13-40) Total Bilirubin 0.4 mg/dL (0.2-1.0) Labs and/or images reviewed: Labs reviewed by me, Image(s) reviewed by me Assessment/Plan Assessment/Plan Impression: -ESRD with hemodialysis -coronary artery disease with previous CABG -obesity -history of CVA -bilateral heel wounds -probable septic shock Plan: -blood and wound culture -start antibiotic therapy with Rocephin and vancomycin -check ESR, CRP -nephrology consultation -wound care consultation -continue norepinephrine drip, add hydrocortisone 50 mg IV b.i.d. -PUD prophylaxis -PICC line consultation -repeat labs in a.m. Critical care time spent with patient discussing and formulating plan of care: 40 minutes. This does not include time spent performing procedures. This medical document was created using an electronic medical record system with [email or web address] dictation system. Although this document has been carefully reviewed, there may still be some phonetic and typographical errors. These areas are purely typographical due to imperfections of the software programs, and do not reflect any compromise in the patient's medical care. Plan discussed with: Patient, Spouse, Other (RN) My Orders Orders - INESSA HANSEN NP Procedure Category Date Status Time Erythrocyte LAB 11/06/24 Verified Sedimentation Rate 16:09 C-Reactive Protein LAB 11/06/24 Verified 16:09 * Wound Consult CONS 11/06/24 Verified * Picc Line Consult CONS 11/06/24 Verified 16:09 D-Dimer LAB 11/06/24 Verified 16:09 Basic Metabolic Panel LAB 11/07/24 Verified 04:00 Complete Blood Count LAB 11/07/24 Verified 04:00 Hydrocortisone PHA 11/06/24 Verified Succinate Inj 22:00 Vancomycin Per PHA 11/06/24 Verified Pharmacy 16:15 Ceftriaxone Ivpb PHA 11/07/24 Verified Rocephin 09:00 Date of Service: Nov 06, 2024 Billing Provider: INESSA HANSEN NP Common Visit Codes: [id number] CARE 30-74 MIN INESSA HANSEN NP Nov 06, 2024 16:21
[2024-11-06] MEDS: VANCOMYCIN 1GM/200ML PM 200 ML IV ONE (16:58)
--- NOTE | 2024-11-06 17:34 | DVH ---
CLINICAL INDICATION: Feet wounds R/O osteo TECHNIQUE: 2 radiographic views of the RIGHT FOOT were obtained. Comparison: None FINDINGS/IMPRESSION: POSTOP CHANGES DISTAL TIBIA WITH INTRAMEDULLARY GENIE IN PLACE. Questionable nondisplaced fracture distal aspect proximal phalanx right 2nd toe. Correlate with point of maximum tenderness.
--- NOTE | 2024-11-06 18:04 | DVH ---
CLINICAL INDICATION: R/O osteo TECHNIQUE: 2 radiographic views of the left foot were obtained. Comparison: None FINDINGS/IMPRESSION: No gas is seen in the soft tissues. Osteoporotic changes. Especially of the distal tuft of the distal phalanx of the left great toe and d istal phalanx left 3rd toe.
[2024-11-06] MEDS: MORPHINE SULFATE INJ 2 MG/ml SYRG IV ONE (18:37)
[2024-11-06] MEDS: HYDROCORTISONE SOD SUCC 100 MG/2ML INJ VIAL IV SCH (22:00)
[2024-11-07] VITALS (97 sets, daily range): BP systolic 85–185; BP diastolic 17–138; PULSE 92–120; RESP 7–20; TEMP 98.5–98.9; O2SAT 90–100
[2024-11-07] MEDS ORDERED: CLIN150C PO (00:41)
[2024-11-07] MEDS ORDERED: LEVO500T91 PO (00:41)
[2024-11-07] MEDS ORDERED: DEXTROSE (50%) 50ML SYRG IV PRN ×2 (01:30→07:15)
[2024-11-07 04:06] LABS: Hematocrit 54.2 % (41.0-53.0); Hemoglobin 16.7 g/dL (13.5-17.5); Mean Corpuscular Hemoglobin 33.5 pg (28.0-32.0); Mean Corpuscular Volume 108.5 fL (80.0-100.0); Nucleated Red Blood Cells % 0.3 %
[2024-11-07] MEDS: InsuLIN REG 1unit/0.01ml Soln (100units/ml) SC SCH (04:09)
[2024-11-07] MEDS: ACCU-CHEK COMFORT CURVE STRIP VI SCH ×2 (04:13→07:30)
[2024-11-07 04:38] LABS: Potassium 4.7 mmol/L (3.5-5.1)
[2024-11-07 04:39] LABS: Anion Gap 21 (5-15)
[2024-11-07 04:42] LABS: Calcium 10.8 mg/dL (8.7-10.4); Carbon Dioxide 17 mmol/L (20-31); Chloride 93 mmol/L (98-107); Sodium 131 mmol/L (136-145)
[2024-11-07 04:44] LABS: BUN/Creatinine Ratio 5.5 (10.0-20.0)
[2024-11-07 04:45] LABS: Blood Urea Nitrogen 35 mg/dL (9-23); Glucose 385 mg/dL (74-106)
[2024-11-07 07:27] LABS: Base Excess -4.3 mmol/L (-2.0-3.0)
[2024-11-07] MEDS: cefTRIAXone 1GM/50ML D5W 50 ML IV SCH (08:23)
[2024-11-07 08:28] LABS: Hemoglobin 15.9 g/dL (13.5-17.5); Mean Corpuscular Hemoglobin 34.1 pg (28.0-32.0)
[2024-11-07 08:31] LABS: Hematocrit 49.6 % (41.0-53.0); Mean Corpuscular Volume 106.5 fL (80.0-100.0); Nucleated Red Blood Cells % 0.2 %
[2024-11-07 08:37] LABS: Potassium 4.5 mmol/L (3.5-5.1)
[2024-11-07 08:38] LABS: Anion Gap 17 (5-15); Carbon Dioxide 21 mmol/L (20-31)
[2024-11-07 08:40] LABS: Calcium 10.7 mg/dL (8.7-10.4); Chloride 94 mmol/L (98-107); Sodium 132 mmol/L (136-145)
[2024-11-07 08:43] LABS: BUN/Creatinine Ratio 5.3 (10.0-20.0)
[2024-11-07 08:44] LABS: Magnesium 2.3 mg/dL (1.6-2.6)
[2024-11-07 08:47] LABS: Blood Urea Nitrogen 36 mg/dL (9-23); Glucose 322 mg/dL (74-106)
[2024-11-07] MEDS: INSULIN LANTUS (GLARGINE) 1 /0.01ml (100units/ml) SC ONE (09:13)
[2024-11-07] MEDS: INSULIN DRIP 100 UNIT/100ML 100 ML IV SCH (09:16)
--- NOTE | 2024-11-07 09:27 | DVHPN2 ---
Subjective Patient more awake. Denies any symptoms. Reviewed: Care Plan, H&P, Labs, Medications, Previous Orders Changes from previous H/P or p: No Changes General: Per HPI Eyes: No Pain, No Vision change, No Conjunctivae inflammation, No Eyelid inflammation, No Other, No Redness ENT: No Ear pain, No Ear discharge, No Nose pain, No Nose discharge, No Nose congestion, No Mouth pain, No Mouth swelling, No Throat pain, No Throat swelling, No Other Cardiovascular: Chest Pain; No Palpitations, No Orthopnea, No Paroxysmal Noc. Dyspnea, No Edema, No Lt Headedness, No Other Respiratory: No Cough, No Dry; Shortness of breath; No SOB with excertion, No Wheezing, No Hemoptysis, No Pleuritic Pain, No Sputum; Other (SOB at rest) Gastrointestinal: No Nausea, No Vomiting, No Abdominal Pain, No Diarrhea, No Constipation, No Melena, No Hematochezia, No Other Genitourinary: No Dysuria, No Frequency, No Incontinence, No Hematuria, No Retention, No Other Musculoskeletal: No other, No neck pain, No shoulder pain, No arm pain, No back pain, No hand pain, No leg pain, No foot pain Skin: No Rash, No Lesions, No Jaundice, No Bruising, No Other Objective Vitals Vital Signs Date Time Temp Pulse Resp B/P (MAP) Pulse Ox O2 Delivery O2 Flow Rate FiO2 11/07/24 08:01 98.9 109 12 112/30 (57) 94 98.9 11/07/24 08:00 Room Air* 0 21 Intake/Output Intake and Output 11/07/24 07:00 Intake Total 1686.25 ml Output Total 0 ml Balance 1686.25 ml Intake Oral 150 ml IV Total 1536.25 ml Output Urine Total 0 ml General Appearance: Alert, mild distress, Other (Encephalopathic) HEENT: Atraumatic, PERRLA Lungs: Clear to auscultation, Normal air movement Cardiovascular: Normal S1, Normal S2 Abdomen: Normal bowel sounds, Soft, No tenderness, No hepatospenomegaly Skin: Wounds (See nurse notes and pictures) Medications Current Medications Medications Dose Ordered Sig/Haresh Route Start Time Stop Time Status Last Admin Dose Admin Midodrine 5 mg TID@0600,1200,1800 PO 11/06/24 06:00 11/06/24 05:42 5 MG Famotidine 20 mg Q2D IV 11/05/24 22:00 11/05/24 22:54 20 MG Levetiracetam 100 ml @ 400 mls/hr BID IV 11/05/24 22:00 11/06/24 22:00 400 MLS/HR Atorvastatin Calcium 20 mg HS PO 11/05/24 22:00 11/05/24 22:54 20 MG Multivit/Ca Carb/ B Cmplx/FA/Prenat 1 tab DAILY PO 11/06/24 10:00 Sevelamer HCl 800 mg TIDWM PO 11/06/24 08:00 Quetiapine Fumarate 50 mg HS PO 11/05/24 22:00 11/05/24 22:54 50 MG Apixaban 2.5 mg BID PO 11/05/24 22:00 11/06/24 10:04 2.5 MG Sodium Chloride 10 ml Q8HR IV 11/05/24 22:00 11/07/24 05:56 10 ML Acetaminophen/ Hydrocodone Bitart 1 tab Q4HP PRN PO 11/05/24 21:00 11/06/24 01:47 1 TAB Ondansetron HCl 4 mg Q4HP PRN IV 11/05/24 21:00 Docusate Sodium 100 mg BIDPRN PRN PO 11/05/24 21:00 Acetaminophen 650 mg Q6HP PRN PO 11/05/24 21:00 Nitroglycerin 0.4 mg Q5MINP PRN SL 11/05/24 22:45 Morphine Sulfate 2 mg Q30M PRN IV 11/05/24 22:45 Norepinephrine Bitartrate 250 ml @ 3.75 mls/hr Q24H IV 11/06/24 04:30 11/07/24 01:34 33.75 MLS/HR Phenylephrine HCl 250 ml @ 30 mls/hr Q8H20M IV 11/06/24 06:30 11/06/24 06:50 30 MLS/HR Hydrocortisone Sodium Succinate 50 mg Q12HR IV 11/06/24 22:00 11/06/24 22:00 50 MG Vancomycin HCl 0 ml @ 0 mls/hr UD IV 11/06/24 16:15 Ceftriaxone Sodium 50 ml @ 100 mls/hr DAILY@09 IV 11/07/24 09:00 11/07/24 08:23 100 MLS/HR Sodium Chloride 1,000 ml @ 500 mls/hr Q2H IV 11/07/24 07:15 11/07/24 11:14 Sodium Chloride 1,000 ml @ 250 mls/hr Q4H IV 11/07/24 11:15 11/07/24 13:14 Sodium Chloride 1,000 ml @ 150 mls/hr Q6H40M IV 11/07/24 13:15 Insulin Human (Reg)/Sodium Chloride 100 ml @ 0.5 mls/hr Q24H IV 11/07/24 07:15 11/07/24 09:16 4 MLS/HR Dextrose 50 ml UD PRN IV 11/07/24 07:15 Diagnostic Test (Pha) 1 strip Q90MIN 11/07/24 07:30 Insulin Glargine 15 units DAILY SC 11/08/24 10:00 Laboratory Results Laboratory Tests 11/07/24 07:52 Chemistry Test 11/07/24 03:17 11/07/24 07:52 Calcium Level 10.8 mg/dL (8.7-10.4) H 10.7 mg/dL (8.7-10.4) H Magnesium Level 2.3 mg/dL (1.6-2.6) Phosphorus Level 6.3 mg/dL (2.4-5.1) H Coagulation Test 11/06/24 20:44 D-Dimer, Quantitative 1.52 mg/L FEU (0.0-0.49) H Blood Gas Results Test 11/07/24 07:24 Arterial Blood pH 7.350 (7.350-7.450) FiO2 % 28.0 Labs and/or images reviewed: Labs reviewed by me, Image(s) reviewed by me Assessment/Plan Assessment/Plan Impression: -ESRD with hemodialysis -coronary artery disease with previous CABG -obesity -history of CVA -bilateral heel wounds -probable septic shock Plan: Events: Unable to place HD catheter. Norepinephrine drip now at 6 micrograms/minute. Noted to be in gap acidosis with increased blood sugars. Probable DKA. Start insulin drip per protocol. -continue vancomycin and Rocephin -nephrology consultation -wound care consultation -continue hydrocortisone until shock resolves -PUD prophylaxis -PICC line consultation -repeat labs in a.m. Critical care time spent with patient discussing and formulating plan of care: 40 minutes. This does not include time spent performing procedures. This medical document was created using an electronic medical record system with [employer] dictation system. Although this document has been carefully reviewed, there may still be some phonetic and typographical errors. These areas are purely typographical due to imperfections of the software programs, and do not reflect any compromise in the patient's medical care. Plan discussed with: Patient, Spouse, Other (RN) My Orders Orders - INESSA HANSEN DIP UNIT OPERATOR Procedure Category Date Status Time * Wound Consult CONS 11/06/24 Transmitted Hydrocortisone PHA 11/06/24 In Process Succinate Inj 22:00 Vancomycin Per PHA 11/06/24 In Process Pharmacy 16:15 Ceftriaxone 1gm/50ml PHA 11/07/24 In Process D5w (Rocephin) 09:00 * Wound Consult CONS 11/06/24 Transmitted Wound Culture W/ Gs MICHELLE 11/06/24 Logged 16:16 * Swallow Request ST 11/06/24 Transmitted 22:48 Npo (Nothing By DIET 11/07/24 Transmitted Mouth) Diet Breakfast Insulin Drip Protocol ROGERS 11/07/24 In Process Sodium Chloride 0.9% PHA 11/07/24 In Process 07:15 Sodium Chloride 0.9% PHA 11/07/24 In Process 11:15 Sodium Chloride 0.9% PHA 11/07/24 In Process 13:15 Insulin Drip 100 PHA 11/07/24 In Process Unit/100ml (Myxredlin 07:15 Dextrose 50% Syringe PHA 11/07/24 In Process 07:15 Glucose Blood PHA 11/07/24 In Process (Accu-Chek Comfort 07:30 Osmolality, Serum LAB 11/07/24 In Process 07:05 Abg W/ Co-Ox RT 11/07/24 Logged 07:05 Basic Metabolic Panel LAB 11/07/24 Logged 13:05 Basic Metabolic Panel LAB 11/07/24 Logged 19:05 Basic Metabolic Panel LAB 11/08/24 Verified 01:05 Urinalysis LAB 11/07/24 Logged 07:05 Neurological ROGERS 11/07/24 In Process Assessment 07:05 Vs/Hemodynamics ROGERS 11/07/24 In Process 07:05 Acetone LAB 11/07/24 In Process 07:05 Insulin Lantus PHA 11/08/24 In Process (Glargine) (Lantus) 10:00 Date of Service: Nov 07, 2024 Billing Provider: INESSA HANSEN NP Common Visit Codes: [id number] CARE 30-74 MIN INESSA HANSEN NP Nov 07, 2024 09:26
[2024-11-07] MEDS ORDERED: INSULIN LANTUS (GLARGINE) 1 /0.01ml (100units/ml) SC SCH (10:00)
[2024-11-07] MEDS: SODIUM CHLORIDE 0.9% 1,000 ML IV SCH ×3 (12:18→16:27)
[2024-11-07 13:40] LABS: Anion Gap 17 (5-15); Calcium 10.2 mg/dL (8.7-10.4); Carbon Dioxide 21 mmol/L (20-31); Potassium 4.3 mmol/L (3.5-5.1)
[2024-11-07 13:45] LABS: Chloride 97 mmol/L (98-107); Sodium 135 mmol/L (136-145)
[2024-11-07 13:46] LABS: BUN/Creatinine Ratio 6.3 (10.0-20.0); Blood Urea Nitrogen 44 mg/dL (9-23); Glucose 222 mg/dL (74-106)
--- NOTE | 2024-11-07 15:32 | DVHPN2 ---
Progress Note - Dictate Date Seen: Nov 07, 2024 Has the PT tested + for MRSA If YES, has PT been informed?: Yes Medical Necessity Reason Pt with a Central, PICC or Fol: No Subjective Patient is back to his baseline mentation vital signs Vital Sign Date Time Temp Pulse Resp B/P (MAP) Pulse Ox O2 Delivery O2 Flow Rate FiO2 11/07/24 14:00 11 97 Nasal Cannula* 2 28 11/07/24 14:00 106 11/07/24 13:30 154/35 11/07/24 12:00 98.5 98.5 Total Intake and Output 11/06/24 11/06/24 11/07/24 15:00 23:00 07:00 Intake Total 550.00 ml 802.50 ml 341.25 ml Output Total 0 ml 0 ml Balance 550.00 ml 802.50 ml 341.25 ml medications Current Medications Medications Dose Ordered Sig/Haresh Route Start Time Stop Time Status Last Admin Dose Admin Midodrine 5 mg TID@0600,1200,1800 PO 11/06/24 06:00 11/06/24 05:42 5 MG Famotidine 20 mg Q2D IV 11/05/24 22:00 11/05/24 22:54 20 MG Levetiracetam 100 ml @ 400 mls/hr BID IV 11/05/24 22:00 11/07/24 10:00 400 MLS/HR Atorvastatin Calcium 20 mg HS PO 11/05/24 22:00 11/05/24 22:54 20 MG Multivit/Ca Carb/ B Cmplx/FA/Prenat 1 tab DAILY PO 11/06/24 10:00 Sevelamer HCl 800 mg TIDWM PO 11/06/24 08:00 Quetiapine Fumarate 50 mg HS PO 11/05/24 22:00 11/05/24 22:54 50 MG Apixaban 2.5 mg BID PO 11/05/24 22:00 11/07/24 10:48 2.5 MG Sodium Chloride 10 ml Q8HR IV 11/05/24 22:00 11/07/24 14:23 10 ML Acetaminophen/ Hydrocodone Bitart 1 tab Q4HP PRN PO 11/05/24 21:00 11/06/24 01:47 1 TAB Ondansetron HCl 4 mg Q4HP PRN IV 11/05/24 21:00 Docusate Sodium 100 mg BIDPRN PRN PO 11/05/24 21:00 Acetaminophen 650 mg Q6HP PRN PO 11/05/24 21:00 Nitroglycerin 0.4 mg Q5MINP PRN SL 11/05/24 22:45 Morphine Sulfate 2 mg Q30M PRN IV 11/05/24 22:45 Norepinephrine Bitartrate 250 ml @ 3.75 mls/hr Q24H IV 11/06/24 04:30 11/07/24 01:34 33.75 MLS/HR Phenylephrine HCl 250 ml @ 30 mls/hr Q8H20M IV 11/06/24 06:30 11/06/24 06:50 30 MLS/HR Hydrocortisone Sodium Succinate 50 mg Q12HR IV 11/06/24 22:00 11/07/24 10:48 50 MG Vancomycin HCl 0 ml @ 0 mls/hr UD IV 11/06/24 16:15 Ceftriaxone Sodium 50 ml @ 100 mls/hr DAILY@09 IV 11/07/24 09:00 11/07/24 08:23 100 MLS/HR Sodium Chloride 1,000 ml @ 150 mls/hr Q6H40M IV 11/07/24 13:15 Insulin Human (Reg)/Sodium Chloride 100 ml @ 0.5 mls/hr Q24H IV 11/07/24 07:15 11/07/24 09:16 4 MLS/HR Dextrose 50 ml UD PRN IV 11/07/24 07:15 Diagnostic Test (Pha) 1 strip Q90MIN 11/07/24 07:30 11/07/24 13:33 1 STRIP Insulin Glargine 15 units DAILY SC 11/08/24 10:00 objective HEENT: No evidence of JVD, no oral ulcers. Pulmonary: Diminished on auscultation bilaterally Cardiovascular S1-S2, no S3 or S4 Abdomen: Bowel sounds positive, soft no rebound tenderness Skin: No rash Neurological: Alert, oriented, bed-bound, leg weakness Extremities: 1+ edema in the lower extremities laboratory and microbiology Laboratory Tests 11/07/24 12:41 11/07/24 07:52 Test 11/07/24 12:41 Range/Units Serum Glucose 222 #H 74-106 mg/dL Assessment/Plan Assessment 1. End-stage renal disease on hemodialysis Friday 2. Intra dialytic hypotension Needs to rule out bacteremia, no evidence of GI bleed, cardiac etiology, other 3. Chest pain 4. CAD 5. Bilateral feet wounds 6. History of CVA 7. Diabetes type 2, uncontrolled with hyperglycemia Plan/recommendation: HD today, UF 0-1L as tolerated, (only received 1 hour Friday). His schedule is Friday. Blood cultures are pending Obtain blood cultures, x-ray of the feet, podiatry consult. Hold off on antihypertensive med Midodrine t.i.d. Monitor H&H Cardiology consult Pressor support p.r.n. Thank you very much for allowing us to participate in the care of this patient please contact if you have any questions. Dietary Evaluation Review Comments: 1) Initiate Pro-Stat @ 30 mL qd 2) If patient remains NPO > 7 days, consider EN/TPN to meet at least 75% of estimated daily needs 3) If GI is preferred, consider Nepro @ 35 mL/hr goalrate as tolerated. EN regimen (including Pro-Stat) provides 1612 kcals, 83g Pro, and 611 mL free H2O per 24 hrs. EN rate (including Pro-Stat) will meet 91% estimated energy needs and ~51% estimated protein needs 4) Advance to 60 CCHO renal diet when medically feasible, pending ST approval 5) Collect HbA1c 6) Refer to outpatient RD/CD[facility] for weight management 7) Follow-up with nephrology and cardiology 8) Continue to monitor I&O, labs, and skin integrity Expected Outcomes/Goals: 1) patient to receive nutrition support within 7 days of NPO status 2) labs and wounds to improve 3) diet to advance 4) gradual wt loss 5) f/u in 2-3 days Plan discussed with: Patient, Son ARI SAMY ZAMBRANO MD Nov 07, 2024 15:32
[2024-11-07] MEDS: ALBUMIN 25% 100 ML IV ONE (15:35)
[2024-11-07] MEDS: SODIUM CHL 0.9% 1000 ML BAG XX ONE (17:57)
[2024-11-07 21:18] LABS: Chloride 100 mmol/L (98-107); Potassium 3.6 mmol/L (3.5-5.1); Sodium 137 mmol/L (136-145)
[2024-11-07 21:19] LABS: Anion Gap 11 (5-15); Carbon Dioxide 26 mmol/L (20-31)
[2024-11-07 21:20] LABS: Calcium 9.8 mg/dL (8.7-10.4)
[2024-11-07 21:24] LABS: BUN/Creatinine Ratio 4.9 (10.0-20.0); Blood Urea Nitrogen 21 mg/dL (9-23)
[2024-11-07 21:28] LABS: Glucose 167 mg/dL (74-106)
[2024-11-07] MEDS: VANCOMYCIN 500mg/100mL 100 ML IV ONE (22:33)
[2024-11-08] VITALS (54 sets, daily range): BP systolic 101–178; BP diastolic 23–115; PULSE 94–115; RESP 8–19; TEMP 97.4–98.7; O2SAT 95–100
[2024-11-08 02:04] LABS: Sodium 136 mmol/L (136-145)
[2024-11-08 02:05] LABS: Anion Gap 11 (5-15); Calcium 9.9 mg/dL (8.7-10.4); Carbon Dioxide 27 mmol/L (20-31)
[2024-11-08 02:09] LABS: Chloride 98 mmol/L (98-107); Potassium 4.5 mmol/L (3.5-5.1)
[2024-11-08 02:10] LABS: Glucose 144 mg/dL (74-106)
[2024-11-08 02:35] LABS: BUN/Creatinine Ratio 4.9 (10.0-20.0)
[2024-11-08 02:59] LABS: Blood Urea Nitrogen 22 mg/dL (9-23)
[2024-11-08] MEDS: SODIUM CHL 0.9% 1000 ML BAG XX ONE (07:00)
--- NOTE | 2024-11-08 09:11 | DVHPN2 ---
Subjective Patient more awake. Denies any symptoms. Reviewed: Care Plan, H&P, Labs, Medications, Previous Orders Changes from previous H/P or p: No Changes General: Per HPI Eyes: No Pain, No Vision change, No Conjunctivae inflammation, No Eyelid inflammation, No Other, No Redness ENT: No Ear pain, No Ear discharge, No Nose pain, No Nose discharge, No Nose congestion, No Mouth pain, No Mouth swelling, No Throat pain, No Throat swelling, No Other Cardiovascular: Chest Pain; No Palpitations, No Orthopnea, No Paroxysmal Noc. Dyspnea, No Edema, No Lt Headedness, No Other Respiratory: No Cough, No Dry; Shortness of breath; No SOB with excertion, No Wheezing, No Hemoptysis, No Pleuritic Pain, No Sputum; Other (SOB at rest) Gastrointestinal: No Nausea, No Vomiting, No Abdominal Pain, No Diarrhea, No Constipation, No Melena, No Hematochezia, No Other Genitourinary: No Dysuria, No Frequency, No Incontinence, No Hematuria, No Retention, No Other Musculoskeletal: No other, No neck pain, No shoulder pain, No arm pain, No back pain, No hand pain, No leg pain, No foot pain Skin: No Rash, No Lesions, No Jaundice, No Bruising, No Other Objective Vitals Vital Signs Date Time Temp Pulse Resp B/P (MAP) Pulse Ox O2 Delivery O2 Flow Rate FiO2 11/08/24 08:00 99 10 100 Nasal Cannula* 2 28 11/08/24 06:45 132/42 (72) 11/08/24 04:00 97.7 97.7 Intake/Output Intake and Output 11/08/24 07:00 Intake Total 3567.25 ml Output Total 0 ml Balance 3567.25 ml Intake Oral 50 ml IV Total 3517.25 ml Output Urine Total 0 ml General Appearance: Alert, mild distress, Other (Encephalopathic) HEENT: Atraumatic, PERRLA Lungs: Clear to auscultation, Normal air movement Cardiovascular: Normal S1, Normal S2 Abdomen: Normal bowel sounds, Soft, No tenderness, No hepatospenomegaly Skin: Wounds (See nurse notes and pictures) Medications Current Medications Medications Dose Ordered Sig/Haresh Route Start Time Stop Time Status Last Admin Dose Admin Midodrine 5 mg TID@0600,1200,1800 PO 11/06/24 06:00 11/08/24 05:57 5 MG Famotidine 20 mg Q2D IV 11/05/24 22:00 11/07/24 22:06 20 MG Levetiracetam 100 ml @ 400 mls/hr BID IV 11/05/24 22:00 11/07/24 22:07 400 MLS/HR Atorvastatin Calcium 20 mg HS PO 11/05/24 22:00 11/07/24 22:13 20 MG Multivit/Ca Carb/ B Cmplx/FA/Prenat 1 tab DAILY PO 11/06/24 10:00 Sevelamer HCl 800 mg TIDWM PO 11/06/24 08:00 Quetiapine Fumarate 50 mg HS PO 11/05/24 22:00 11/07/24 22:13 50 MG Apixaban 2.5 mg BID PO 11/05/24 22:00 11/07/24 22:13 2.5 MG Sodium Chloride 10 ml Q8HR IV 11/05/24 22:00 11/08/24 06:08 10 ML Acetaminophen/ Hydrocodone Bitart 1 tab Q4HP PRN PO 11/05/24 21:00 11/06/24 01:47 1 TAB Ondansetron HCl 4 mg Q4HP PRN IV 11/05/24 21:00 Docusate Sodium 100 mg BIDPRN PRN PO 11/05/24 21:00 Acetaminophen 650 mg Q6HP PRN PO 11/05/24 21:00 Nitroglycerin 0.4 mg Q5MINP PRN SL 11/05/24 22:45 Morphine Sulfate 2 mg Q30M PRN IV 11/05/24 22:45 Norepinephrine Bitartrate 250 ml @ 3.75 mls/hr Q24H IV 11/06/24 04:30 11/07/24 01:34 33.75 MLS/HR Phenylephrine HCl 250 ml @ 30 mls/hr Q8H20M IV 11/06/24 06:30 11/06/24 06:50 30 MLS/HR Hydrocortisone Sodium Succinate 50 mg Q12HR IV 11/06/24 22:00 11/07/24 22:06 50 MG Vancomycin HCl 0 ml @ 0 mls/hr UD IV 11/06/24 16:15 Ceftriaxone Sodium 50 ml @ 100 mls/hr DAILY@09 IV 11/07/24 09:00 7/13/25 08:23 100 MLS/HR Sodium Chloride 1,000 ml @ 150 mls/hr Q6H40M IV 11/07/24 13:15 11/08/24 02:35 150 MLS/HR Dextrose 50 ml UD PRN IV 11/07/24 07:15 Insulin Glargine 15 units DAILY SC 11/08/24 10:00 Diagnostic Test (Pha) 1 strip IQ4HR 11/08/24 12:00 UNV Insulin Human Regular IQ4HR SC 11/08/24 12:00 UNV Dextrose 50 ml UD PRN IV 11/08/24 09:15 UNV Laboratory Results Laboratory Tests 11/07/24 07:52 11/08/24 01:18 Chemistry Test 11/07/24 12:41 11/07/24 20:55 11/08/24 01:18 Calcium Level 10.2 mg/dL (8.7-10.4) 9.8 mg/dL (8.7-10.4) 9.9 mg/dL (8.7-10.4) Microbiology Microbiology Date/Time Source Procedure Growth Status 11/06/24 23:50 Nose MRSA Screen - Final Complete 11/06/24 20:44 Blood Blood Culture - Preliminary NO GROWTH AFTER 24 HOURS OF INCUBATION. Resulted Labs and/or images reviewed: Labs reviewed by me, Image(s) reviewed by me Assessment/Plan Assessment/Plan Impression: -ESRD with hemodialysis -coronary artery disease with previous CABG -obesity -history of CVA -bilateral heel wounds -probable septic shock Plan: Events: Off vasopressors. Anion gap closed. Blood sugars now controlled. Patient more awake and following some commands. -CT scan of bilateral feet -stop insulin drip -continue Lantus, sliding scale -start pureed consistent carbohydrate diet -continue vancomycin and Rocephin -nephrology consultation -wound care consultation -PUD prophylaxis -repeat labs in a.m. Critical care time spent with patient discussing and formulating plan of care: 40 minutes. This does not include time spent performing procedures. This medical document was created using an electronic medical record system with [employer] system. Although this document has been carefully reviewed, there may still be some phonetic and typographical errors. These areas are purely typographical due to imperfections of the software programs, and do not reflect any compromise in the patient's medical care. Plan discussed with: Patient, Other (RN) My Orders Orders - INESSA HANSEN NP Procedure Category Date Status Time Vancomycin Per [facility] 11/07/24 In Process Pharmacy Protoc 22:00 Cleanse Wound With ROGERS 11/07/24 In Process Wound Clean 10:55 Apply Z-Guard ROGERS 11/07/24 In Process 10:55 Wound Culture W/ Gs MICHELLE 11/07/24 In Process 15:42 Wound Culture W/ Gs MICHELLE 11/07/24 In Process 15:42 Complete Blood Count LAB 11/09/24 Verified 05:00 Complete Blood Count LAB 11/10/24 Verified 05:00 Complete Blood Count LAB 11/11/24 Verified 05:00 Basic Metabolic Panel LAB 11/09/24 Verified 05:00 Basic Metabolic Panel LAB 11/10/24 Verified 05:00 Basic Metabolic Panel LAB 11/11/24 Verified 05:00 Glucose Blood PHA 11/08/24 Logged (Accu-Chek Comfort 12:00 Insulin R (Human) PHA 11/08/24 Logged (Insulin R) 12:00 Dextrose 50% Syringe PHA 11/08/24 Logged 09:15 Ct L Foot Wo Contrast CT 11/08/24 Logged 09:03 Ct R Foot Wo Contrast CT 11/08/24 Logged 09:03 Consistent DIET 11/08/24 Verified Carb([facility])Diabetes Breakfast Date of Service: Nov 08, 2024 Billing Provider: INESSA HANSEN NP Common Visit Codes: [id number] CARE 30-74 MIN INESSA HANSEN NP Nov 08, 2024 09:11
[2024-11-08] MEDS ORDERED: DEXTROSE (50%) 50ML SYRG IV PRN (09:15)
[2024-11-08] MEDS: INSULIN LANTUS (GLARGINE) 1 /0.01ml (100units/ml) SC SCH (10:26)
[2024-11-08] MEDS: ACCU-CHEK COMFORT CURVE STRIP VI SCH (12:00)
[2024-11-08] MEDS: InsuLIN REG 1unit/0.01ml Soln (100units/ml) SC SCH (12:00)
[2024-11-08] MEDS: VANCOMYCIN 500mg/100mL 100 ML IV ONE (15:00)
--- NOTE | 2024-11-08 16:03 | DVHPN2 ---
Progress Note - Dictate Date Seen: Nov 08, 2024 Has the PT tested + for MRSA If YES, has PT been informed?: Yes Medical Necessity Reason Pt with a Central, PICC or Fol: No Subjective No new complaints vital signs Vital Sign Date Time Temp Pulse Resp B/P (MAP) Pulse Ox O2 Delivery O2 Flow Rate FiO2 11/08/24 14:00 10 99 Nasal Cannula* 2 28 11/08/24 14:00 105 11/08/24 13:00 130/52 (78) 11/08/24 08:00 98.7 98.7 Total Intake and Output 11/07/24 11/07/24 11/08/24 15:00 23:00 07:00 Intake Total 2543.5 ml 215.25 ml 960.0 ml Output Total 0 ml 0 ml Balance 2543.5 ml 215.25 ml 960.0 ml medications Current Medications Medications Dose Ordered Sig/Haresh Route Start Time Stop Time Status Last Admin Dose Admin Midodrine 5 mg TID@0600,1200,1800 PO 11/06/24 06:00 11/08/24 05:57 5 MG Famotidine 20 mg Q2D IV 11/05/24 22:00 11/07/24 22:06 20 MG Levetiracetam 100 ml @ 400 mls/hr BID IV 11/05/24 22:00 11/08/24 10:11 400 MLS/HR Atorvastatin Calcium 20 mg HS PO 11/05/24 22:00 11/07/24 22:13 20 MG Multivit/Ca Carb/ B Cmplx/FA/Prenat 1 tab DAILY PO 11/06/24 10:00 11/08/24 10:00 1 TAB Sevelamer HCl 800 mg TIDWM PO 11/06/24 08:00 Quetiapine Fumarate 50 mg HS PO 11/05/24 22:00 11/07/24 22:13 50 MG Apixaban 2.5 mg BID PO 11/05/24 22:00 11/08/24 10:00 2.5 MG Sodium Chloride 10 ml Q8HR IV 11/05/24 22:00 11/08/24 14:00 10 ML Acetaminophen/ Hydrocodone Bitart 1 tab Q4HP PRN PO 11/05/24 21:00 11/06/24 01:47 1 TAB Ondansetron HCl 4 mg Q4HP PRN IV 11/05/24 21:00 Docusate Sodium 100 mg BIDPRN PRN PO 11/05/24 21:00 Acetaminophen 650 mg Q6HP PRN PO 11/05/24 21:00 Nitroglycerin 0.4 mg Q5MINP PRN SL 11/05/24 22:45 Morphine Sulfate 2 mg Q30M PRN IV 11/05/24 22:45 Norepinephrine Bitartrate 250 ml @ 3.75 mls/hr Q24H IV 11/06/24 04:30 11/07/24 01:34 33.75 MLS/HR Phenylephrine HCl 250 ml @ 30 mls/hr Q8H20M IV 11/06/24 06:30 11/06/24 06:50 30 MLS/HR Vancomycin HCl 0 ml @ 0 mls/hr UD IV 11/06/24 16:15 Ceftriaxone Sodium 50 ml @ 100 mls/hr DAILY@09 IV 11/07/24 09:00 11/08/24 10:12 100 MLS/HR Sodium Chloride 1,000 ml @ 150 mls/hr Q6H40M IV 11/07/24 13:15 11/08/24 09:15 150 MLS/HR Dextrose 50 ml UD PRN IV 11/07/24 07:15 Cancel Insulin Glargine 15 units DAILY SC 11/08/24 10:00 11/08/24 10:26 15 UNITS Diagnostic Test (Pha) 1 strip IQ4HR 11/08/24 12:00 11/08/24 12:00 1 STRIP Insulin Human Regular IQ4HR SC 11/08/24 12:00 Dextrose 50 ml UD PRN IV 11/08/24 09:15 objective HEENT: No evidence of JVD, no oral ulcers. Pulmonary: Diminished on auscultation bilaterally Cardiovascular S1-S2, no S3 or S4 Abdomen: Bowel sounds positive, soft no rebound tenderness Skin: No rash Neurological: Alert, oriented, bed-bound, leg weakness Extremities: 1+ edema in the lower extremities laboratory and microbiology Laboratory Tests 11/08/24 01:18 11/07/24 07:52 Test 11/08/24 01:18 Range/Units Serum Glucose 144 H 74-106 mg/dL Problem List Assessment 1. End-stage renal disease on hemodialysis Friday 2. Intra dialytic hypotension Needs to rule out bacteremia, no evidence of GI bleed, cardiac etiology, other 3. Chest pain 4. CAD 5. Bilateral feet wounds 6. History of CVA 7. Diabetes type 2, uncontrolled with hyperglycemia Plan/recommendation: Continue HD on Friday. Hold off on antihypertensive med Midodrine t.i.d. Monitor H&H Cardiology consult Pressor support p.r.n. Dietary Evaluation Review Comments: 1) Initiate Pro-Stat @ 30 mL qd 2) If patient remains NPO > 7 days, consider EN/TPN to meet at least 75% of estimated daily needs 3) If GI is preferred, consider Nepro @ 35 mL/hr goalrate as tolerated. EN regimen (including Pro-Stat) provides 1612 kcals, 83g Pro, and 611 mL free H2O per 24 hrs. EN rate (including Pro-Stat) will meet 91% estimated energy needs and ~51% estimated protein needs 4) Advance to 60 CCHO renal diet when medically feasible, pending ST approval 5) Collect HbA1c 6) Refer to outpatient RD/CDCES for weight management 7) Follow-up with nephrology and cardiology 8) Continue to monitor I&O, labs, and skin integrity Expected Outcomes/Goals: 1) patient to receive nutrition support within 7 days of NPO status 2) labs and wounds to improve 3) diet to advance 4) gradual wt loss 5) f/u in 2-3 days Plan discussed with: Patient KULDEEP HOOD MD Nov 08, 2024 16:03
--- NOTE | 2024-11-08 17:19 | DVH ---
EXAM: CT CT L FOOT WO CONTRAST INDICATION: Bilateral foot wound, osteomyelitis TECHNIQUE: Axial images of left foot have been obtained along with coronal and sagittal reformatted i mages. All CT scans at this facility use dose modulation, iterative reconstruction, and/or weight bas ed dosing when appropriate to reduce radiation dose to as low as reasonably achievable. COMPARISON: None FINDINGS: BONES: Significant soft tissue ulceration overlying broad-base loss of the posterior heel fat pad the posterior calcaneal tuberosity. Inconspicuous overlying areas of soft tissue calcification and/or e nhancement with possible inconspicuous osseous erosion of the posterior calcaneal tuberosity ( series 608, image 52). Imaging finding likely compatible with osteomyelitis. Inconspicuous possible osseous lucency surface of the 2nd, 3rd, 4th, 5th metatarsal head/necks. Consider further evaluation with MR I. Intraosseous ganglion cysts along the plantar aspect of the cuneiform. MUSCLES: Minimal fatty infiltration intrinsic musculature JOINT SPACES: No joint effusion. TENDONS/LIGAMENTS: Intact. OTHER: Vascular calcifications. IMPRESSION: 1. Consideration for osteomyelitis of the posterior calcaneal tuberosity with broad-based posterior h eel fat pad ulceration. 2. Inconspicuous possible osseous lucencies of the undersurface of the 2nd, 3rd, 4th, 5th metatarsal head/necks. Consider further evaluation with MRI given differential also includes osteomyelitis howev er no overlying deep soft tissue ulceration of the regions and therefore imaging finding may be relat ed to aggressive decreased bone mineralization.
--- NOTE | 2024-11-08 18:50 | DVH ---
EXAM: CT CT R FOOT WO CONTRAST INDICATION: Bilateral foot wound, osteomyelitis TECHNIQUE: Axial images of without contrast have been obtained along with coronal and sagittal reform atted images. All CT scans at this facility use dose modulation, iterative reconstruction, and/or charanjit ght based dosing when appropriate to reduce radiation dose to as low as reasonably achievable. COMPARISON: None FINDINGS: BONES: Osseous fusion with intramedullary koko and screw fixation through the tibiotalar and subtalar articulation. Successful fusion of the tibiotalar articulation and posterior subtalar articulation. Diffusely decreased bone mineral density. No CT evidence of an acute fracture status post distal rese ction of the distal fibula with subsequent bridging callus formation with the distal tibia. Scattered areas of heterotopic ossification in the area resection. Significant possible posterior extension ex ternally to the skin of the posterior calcaneal screw consider correlation with clinical exam to excl ude osteomyelitis. MUSCLES: Severe fatty atrophy of the intrinsic musculature. JOINT SPACES: No joint effusion. Degenerative change of the 1st metatarsophalangeal joint. TENDONS/LIGAMENTS: Question slight mass effect with slight posterior displacement secondary to convex ity of posttraumatic deformity of the medial malleolus (2-73.). Correlate with clinical exam to exclu de impingement symptoms OTHER: None. IMPRESSION: 1. No definitive CT evidence of osteomyelitis however maintain elevated suspicion given extrusion of posterior calcaneal screw possibly through the skin. 2. No drainable fluid collection. 3. Severe air reversible fatty atrophy of the intrinsic visualized musculature
[2024-11-09] VITALS (9 sets, daily range): BP systolic 137–181; BP diastolic 67–76; PULSE 70–106; RESP 10–22; TEMP 97.7–98.6; O2SAT 78–100
[2024-11-09 10:53] LABS: Hematocrit 41.8 % (41.0-53.0); Hemoglobin 13.3 g/dL (13.5-17.5); Mean Corpuscular Hemoglobin 33.4 pg (28.0-32.0); Mean Corpuscular Volume 104.9 fL (80.0-100.0); Nucleated Red Blood Cells % 0.1 %
[2024-11-09 11:02] LABS: Chloride 105 mmol/L (98-107); Potassium 4.0 mmol/L (3.5-5.1); Sodium 139 mmol/L (136-145)
[2024-11-09 11:03] LABS: Anion Gap 9 (5-15); Calcium 9.3 mg/dL (8.7-10.4); Carbon Dioxide 25 mmol/L (20-31)
[2024-11-09 11:08] LABS: BUN/Creatinine Ratio 4.9 (10.0-20.0); Blood Urea Nitrogen 18 mg/dL (9-23); Glucose 159 mg/dL (74-106)
[2024-11-09] MEDS: LABETALOL HCL 20 MG/4 ML VL IV PRN (13:02)
--- NOTE | 2024-11-09 15:51 | DVHPN2 ---
Subjective Patient more awake. Denies any symptoms. Reviewed: Care Plan, H&P, Labs, Medications, Previous Orders Changes from previous H/P or p: No Changes General: Per HPI Eyes: No Pain, No Vision change, No Conjunctivae inflammation, No Eyelid inflammation, No Other, No Redness ENT: No Ear pain, No Ear discharge, No Nose pain, No Nose discharge, No Nose congestion, No Mouth pain, No Mouth swelling, No Throat pain, No Throat swelling, No Other Cardiovascular: Chest Pain; No Palpitations, No Orthopnea, No Paroxysmal Noc. Dyspnea, No Edema, No Lt Headedness, No Other Respiratory: No Cough, No Dry; Shortness of breath; No SOB with excertion, No Wheezing, No Hemoptysis, No Pleuritic Pain, No Sputum; Other (SOB at rest) Gastrointestinal: No Nausea, No Vomiting, No Abdominal Pain, No Diarrhea, No Constipation, No Melena, No Hematochezia, No Other Genitourinary: No Dysuria, No Frequency, No Incontinence, No Hematuria, No Retention, No Other Musculoskeletal: No other, No neck pain, No shoulder pain, No arm pain, No back pain, No hand pain, No leg pain, No foot pain Skin: No Rash, No Lesions, No Jaundice, No Bruising, No Other Objective Vitals Vital Signs Date Time Temp Pulse Resp B/P (MAP) Pulse Ox O2 Delivery O2 Flow Rate FiO2 11/09/24 14:05 83 146/43 11/09/24 13:00 97.7 18 100 97.7 11/09/24 08:00 Nasal Cannula* 2 28 Intake/Output Intake and Output 11/09/24 07:00 Intake Total 3452 ml Output Total 0 ml Balance 3452 ml Intake Oral 50 ml IV Total 3402 ml Output Urine Total 0 ml General Appearance: Alert, Cooperative, mild distress, Other (Encephalopathic) HEENT: Atraumatic, PERRLA Lungs: Clear to auscultation, Normal air movement Cardiovascular: Normal S1, Normal S2 Abdomen: Normal bowel sounds, Soft, No tenderness, No hepatospenomegaly Skin: Wounds (See nurse notes and pictures) Psych/Mental Status: Mental status NL, Mood NL Medications Current Medications Medications Dose Ordered Sig/Haresh Route Start Time Stop Time Status Last Admin Dose Admin Famotidine 20 mg Q2D IV 11/05/24 22:00 11/07/24 22:06 20 MG Levetiracetam 100 ml @ 400 mls/hr BID IV 11/05/24 22:00 11/09/24 09:02 400 MLS/HR Atorvastatin Calcium 20 mg HS PO 11/05/24 22:00 11/07/24 22:13 20 MG Multivit/Ca Carb/ B Cmplx/FA/Prenat 1 tab DAILY PO 11/06/24 10:00 11/09/24 08:56 1 TAB Sevelamer HCl 800 mg TIDWM PO 11/06/24 08:00 Quetiapine Fumarate 50 mg HS PO 11/05/24 22:00 11/07/24 22:13 50 MG Apixaban 2.5 mg BID PO 11/05/24 22:00 11/09/24 08:56 2.5 MG Sodium Chloride 10 ml Q8HR IV 11/05/24 22:00 11/09/24 05:55 10 ML Acetaminophen/ Hydrocodone Bitart 1 tab Q4HP PRN PO 11/05/24 21:00 11/06/24 01:47 1 TAB Ondansetron HCl 4 mg Q4HP PRN IV 11/05/24 21:00 Docusate Sodium 100 mg BIDPRN PRN PO 11/05/24 21:00 Acetaminophen 650 mg Q6HP PRN PO 11/05/24 21:00 Nitroglycerin 0.4 mg Q5MINP PRN SL 11/05/24 22:45 Morphine Sulfate 2 mg Q30M PRN IV 11/05/24 22:45 Vancomycin HCl 0 ml @ 0 mls/hr UD IV 11/06/24 16:15 Sodium Chloride 1,000 ml @ 150 mls/hr Q6H40M IV 11/07/24 13:15 11/09/24 11:19 150 MLS/HR Dextrose 50 ml UD PRN IV 11/07/24 07:15 Cancel Insulin Glargine 15 units DAILY SC 11/08/24 10:00 11/09/24 08:53 15 UNITS Diagnostic Test (Pha) 1 strip IQ4HR 11/08/24 12:00 11/09/24 11:09 1 STRIP Insulin Human Regular IQ4HR SC 11/08/24 12:00 11/09/24 11:12 3 UNITS Dextrose 50 ml UD PRN IV 11/08/24 09:15 Cefepime HCl 50 ml @ 12.5 mls/hr DAILY IV 11/10/24 10:00 Labetalol HCl 10 mg Q4HPRN PRN IV 11/09/24 12:45 11/09/24 13:02 10 MG Laboratory Results Laboratory Tests 11/09/24 10:36 Chemistry Test 11/09/24 10:36 Calcium Level 9.3 mg/dL (8.7-10.4) Microbiology Microbiology Date/Time Source Procedure Growth Status 11/07/24 12:33 Foot Right Gram Stain - Final Resulted 11/07/24 12:33 Foot Right Wound Culture - Preliminary Resulted 11/06/24 20:44 Blood Blood Culture - Preliminary NO GROWTH AFTER 48 HOURS OF INCUBATION. Resulted Labs and/or images reviewed: Labs reviewed by me, Image(s) reviewed by me Assessment/Plan Assessment/Plan Impression: -ESRD with hemodialysis -coronary artery disease with previous CABG -obesity -history of CVA -bilateral heel wounds -probable septic shock Plan: Events: Patient now hypertensive. Difficulty swallowing lunch. CT scan performed of both feet. Questionable osteo to left foot. -stop midodrine given hypertension -change sliding scale to a.c. HS. Continue Lantus antibiotics: Continue vancomycin, change Rocephin to cefepime given noted Gram-negative rods in wound culture -swallow evaluation -podiatry consultation -nephrology consultation -wound care consultation -PUD prophylaxis -repeat labs in a.m. Total time spent with patient discussing and formulating plan of care: 35 minutes. This medical document was created using an electronic medical record system with [email or web address] dictation system. Although this document has been carefully reviewed, there may still be some phonetic and typographical errors. These areas are purely typographical due to imperfections of the software programs, and do not reflect any compromise in the patient's medical care. 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 Procedure Category Date Status Time *Podiatry Consult CONS 11/09/24 Transmitted [facility](Dvmg) 12:15 Cefepime 1gm/ 50ml PHA 11/10/24 In Process (Maxipime 1gm/50ml) 10:00 * Swallow Request ST 11/09/24 Transmitted 12:44 Npo Except For ROGERS 11/09/24 In Process Medications 12:44 Npo (Nothing By DIET 11/09/24 Transmitted Mouth) Diet Lunch Labetalol Hcl PHA 11/09/24 In Process (Labetalol Hcl) 12:45 Vancomycin,Random LAB 11/10/24 Verified 05:00 Vancomycin 500mg/100ml PHA 11/09/24 Logged 15:00 Glucose Blood PHA 11/09/24 Verified (Accu-Chek Comfort 17:00 Mild Sliding Scale PHA 11/09/24 Verified 17:00 Dextrose 50% Syringe PHA 11/09/24 Verified 16:00 Date of Service: Nov 09, 2024 Billing Provider: INESSA HANSEN NP Common Visit Codes: [id number] INP/OBS CARE(HIGH) INESSA HANSEN NP Nov 09, 2024 15:51
[2024-11-09] MEDS ORDERED: DEXTROSE (50%) 50ML SYRG IV PRN (16:00)
[2024-11-09] MEDS: InsuLIN REG 1unit/0.01ml Soln (100units/ml) SC SCH (16:00)
[2024-11-09] MEDS: ACCU-CHEK COMFORT CURVE STRIP VI SCH (16:00)
[2024-11-09] MEDS: VANCOMYCIN 500mg/100mL 100 ML IV ONE (16:12)
--- NOTE | 2024-11-09 18:30 | DVHPN2 ---
Progress Note - Dictate Date Seen: Nov 09, 2024 Has the PT tested + for MRSA If YES, has PT been informed?: Yes Medical Necessity Reason Pt with a Central, PICC or Fol: No Subjective No new complaints vital signs Vital Sign Date Time Temp Pulse Resp B/P (MAP) Pulse Ox O2 Delivery O2 Flow Rate FiO2 11/09/24 17:00 98.0 80 20 159/67 (97) 100 98.0 11/09/24 08:00 Nasal Cannula* 2 28 Total Intake and Output 11/08/24 11/08/24 11/09/24 15:00 23:00 07:00 Intake Total 1352 ml 950 ml 1150 ml Output Total 0 ml Balance 1352 ml 950 ml 1150 ml medications Current Medications Medications Dose Ordered Sig/Haresh Route Start Time Stop Time Status Last Admin Dose Admin Famotidine 20 mg Q2D IV 11/05/24 22:00 11/07/24 22:06 20 MG Levetiracetam 100 ml @ 400 mls/hr BID IV 11/05/24 22:00 11/09/24 09:02 400 MLS/HR Atorvastatin Calcium 20 mg HS PO 11/05/24 22:00 11/07/24 22:13 20 MG Multivit/Ca Carb/ B Cmplx/FA/Prenat 1 tab DAILY PO 11/06/24 10:00 11/09/24 08:56 1 TAB Sevelamer HCl 800 mg TIDWM PO 11/06/24 08:00 Quetiapine Fumarate 50 mg HS PO 11/05/24 22:00 11/07/24 22:13 50 MG Apixaban 2.5 mg BID PO 11/05/24 22:00 11/09/24 08:56 2.5 MG Sodium Chloride 10 ml Q8HR IV 11/05/24 22:00 11/09/24 05:55 10 ML Acetaminophen/ Hydrocodone Bitart 1 tab Q4HP PRN PO 11/05/24 21:00 11/09/24 17:19 1 TAB Ondansetron HCl 4 mg Q4HP PRN IV 11/05/24 21:00 Docusate Sodium 100 mg BIDPRN PRN PO 11/05/24 21:00 Acetaminophen 650 mg Q6HP PRN PO 11/05/24 21:00 Nitroglycerin 0.4 mg Q5MINP PRN SL 11/05/24 22:45 Morphine Sulfate 2 mg Q30M PRN IV 11/05/24 22:45 Vancomycin HCl 0 ml @ 0 mls/hr UD IV 11/06/24 16:15 Sodium Chloride 1,000 ml @ 150 mls/hr Q6H40M IV 11/07/24 13:15 11/09/24 18:10 150 MLS/HR Dextrose 50 ml UD PRN IV 11/07/24 07:15 Cancel Insulin Glargine 15 units DAILY SC 11/08/24 10:00 11/09/24 08:53 15 UNITS Cefepime HCl 50 ml @ 12.5 mls/hr DAILY IV 11/10/24 10:00 Labetalol HCl 10 mg Q4HPRN PRN IV 11/09/24 12:45 11/09/24 13:02 10 MG Diagnostic Test (Pha) 1 strip ACHS 11/09/24 17:00 11/09/24 16:00 1 STRIP Insulin Human Regular ACHS SC 11/09/24 17:00 11/09/24 16:00 2 UNITS Dextrose 50 ml UD PRN IV 11/09/24 16:00 objective HEENT: No evidence of JVD, no oral ulcers. Pulmonary: Diminished on auscultation bilaterally Cardiovascular S1-S2, no S3 or S4 Abdomen: Bowel sounds positive, soft no rebound tenderness Skin: No rash Neurological: Alert, oriented, bed-bound, leg weakness Extremities: 1+ edema in the lower extremities laboratory and microbiology Laboratory Tests 11/09/24 10:36 Test 11/09/24 10:36 Range/Units Serum Glucose 159 H 74-106 mg/dL Problem List Assessment 1. End-stage renal disease on hemodialysis Friday 2. Intra dialytic hypotension Needs to rule out bacteremia, no evidence of GI bleed, cardiac etiology, other 3. Chest pain 4. CAD 5. Bilateral feet wounds 6. History of CVA 7. Diabetes type 2, uncontrolled with hyperglycemia Plan/recommendation: Continue HD on Friday. Hold off on antihypertensive med Midodrine t.i.d. Monitor H&H Cardiology consult Pressor support p.r.n. Dietary Evaluation Review Comments: 1) Initiate Pro-Stat @ 30 mL qd 2) If patient remains NPO > 7 days, consider EN/TPN to meet at least 75% of estimated daily needs 3) If GI is preferred, consider Nepro @ 35 mL/hr goalrate as tolerated. EN regimen (including Pro-Stat) provides 1612 kcals, 83g Pro, and 611 mL free H2O per 24 hrs. EN rate (including Pro-Stat) will meet 91% estimated energy needs and ~51% estimated protein needs 4) Advance to 60 CCHO renal diet when medically feasible, pending ST approval 5) Collect HbA1c 6) Refer to outpatient RD/[facility] for weight management 7) Follow-up with nephrology and cardiology 8) Continue to monitor I&O, labs, and skin integrity Expected Outcomes/Goals: 1) patient to receive nutrition support within 7 days of NPO status 2) labs and wounds to improve 3) diet to advance 4) gradual wt loss 5) f/u in 2-3 days Plan discussed with: Spouse KULDEEP HOOD MD Nov 09, 2024 18:30
[2024-11-10] VITALS (11 sets, daily range): BP systolic 115–144; BP diastolic 61–81; PULSE 78–100; RESP 14–21; TEMP 98–100; O2SAT 95–100
[2024-11-10] MEDS: CEFEPIME 1GM/ 50ML 50 ML IV SCH (09:06)
[2024-11-10 09:32] LABS: Hemoglobin 13.0 g/dL (13.5-17.5)
[2024-11-10 09:34] LABS: Hematocrit 41.6 % (41.0-53.0); Mean Corpuscular Hemoglobin 33.6 pg (28.0-32.0); Mean Corpuscular Volume 107.3 fL (80.0-100.0); Nucleated Red Blood Cells % 0.0 %
[2024-11-10 09:53] LABS: Anion Gap 12 (5-15); Carbon Dioxide 22 mmol/L (20-31); Potassium 4.0 mmol/L (3.5-5.1); Sodium 142 mmol/L (136-145)
[2024-11-10 09:54] LABS: Calcium 9.9 mg/dL (8.7-10.4)
[2024-11-10 09:58] LABS: Glucose 84 mg/dL (74-106)
[2024-11-10 09:59] LABS: BUN/Creatinine Ratio 5.1 (10.0-20.0); Blood Urea Nitrogen 22 mg/dL (9-23); Chloride 108 mmol/L (98-107)
--- NOTE | 2024-11-10 11:13 | DVHPN2 ---
Subjective Patient more awake. Denies any symptoms. Reviewed: Care Plan, H&P, Labs, Medications, Previous Orders Changes from previous H/P or p: No Changes General: Per HPI Eyes: No Pain, No Vision change, No Conjunctivae inflammation, No Eyelid inflammation, No Other, No Redness ENT: No Ear pain, No Ear discharge, No Nose pain, No Nose discharge, No Nose congestion, No Mouth pain, No Mouth swelling, No Throat pain, No Throat swelling, No Other Cardiovascular: Chest Pain; No Palpitations, No Orthopnea, No Paroxysmal Noc. Dyspnea, No Edema, No Lt Headedness, No Other Respiratory: No Cough, No Dry; Shortness of breath; No SOB with excertion, No Wheezing, No Hemoptysis, No Pleuritic Pain, No Sputum; Other (SOB at rest) Gastrointestinal: No Nausea, No Vomiting, No Abdominal Pain, No Diarrhea, No Constipation, No Melena, No Hematochezia, No Other Genitourinary: No Dysuria, No Frequency, No Incontinence, No Hematuria, No Retention, No Other Musculoskeletal: No other, No neck pain, No shoulder pain, No arm pain, No back pain, No hand pain, No leg pain, No foot pain Skin: No Rash, No Lesions, No Jaundice, No Bruising, No Other Objective Vitals Vital Signs Date Time Temp Pulse Resp B/P (MAP) Pulse Ox O2 Delivery O2 Flow Rate FiO2 11/10/24 08:50 98.8 87 21 144/61 (88) 96 98.8 11/10/24 07:37 Nasal Cannula* 2 28 Intake/Output Intake and Output 11/10/24 07:00 Intake Total 3843 ml Output Total 1000 ml Balance 2843 ml Intake Oral 0 ml IV Total 3843 ml Output Urine Total 1000 ml General Appearance: Alert, mild distress, Other (Encephalopathic) HEENT: Atraumatic, PERRLA Lungs: Clear to auscultation, Normal air movement Cardiovascular: Normal S1, Normal S2 Abdomen: Normal bowel sounds, Soft, No tenderness, No hepatospenomegaly Skin: Wounds (See nurse notes and pictures) Psych/Mental Status: Mental status NL, Mood NL Medications Current Medications Medications Dose Ordered Sig/Haresh Route Start Time Stop Time Status Last Admin Dose Admin Famotidine 20 mg Q2D IV 11/05/24 22:00 11/09/24 21:05 20 MG Levetiracetam 100 ml @ 400 mls/hr BID IV 11/05/24 22:00 11/10/24 09:06 400 MLS/HR Atorvastatin Calcium 20 mg HS PO 11/05/24 22:00 11/09/24 21:05 20 MG Multivit/Ca Carb/ B Cmplx/FA/Prenat 1 tab DAILY PO 11/06/24 10:00 11/10/24 09:07 1 TAB Sevelamer HCl 800 mg TIDWM PO 11/06/24 08:00 Quetiapine Fumarate 50 mg HS PO 11/05/24 22:00 11/09/24 21:05 50 MG Apixaban 2.5 mg BID PO 11/05/24 22:00 11/10/24 09:07 2.5 MG Sodium Chloride 10 ml Q8HR IV 11/05/24 22:00 11/10/24 06:07 10 ML Acetaminophen/ Hydrocodone Bitart 1 tab Q4HP PRN PO 11/05/24 21:00 11/09/24 17:19 1 TAB Ondansetron HCl 4 mg Q4HP PRN IV 11/05/24 21:00 Docusate Sodium 100 mg BIDPRN PRN PO 11/05/24 21:00 Acetaminophen 650 mg Q6HP PRN PO 11/05/24 21:00 Nitroglycerin 0.4 mg Q5MINP PRN SL 11/05/24 22:45 Morphine Sulfate 2 mg Q30M PRN IV 11/05/24 22:45 Vancomycin HCl 0 ml @ 0 mls/hr UD IV 11/06/24 16:15 Sodium Chloride 1,000 ml @ 150 mls/hr Q6H40M IV 11/07/24 13:15 11/10/24 06:21 150 MLS/HR Dextrose 50 ml UD PRN IV 11/07/24 07:15 Cancel Cefepime HCl 50 ml @ 12.5 mls/hr DAILY IV 11/10/24 10:00 11/10/24 09:06 12.5 MLS/HR Labetalol HCl 10 mg Q4HPRN PRN IV 11/09/24 12:45 11/09/24 13:02 10 MG Diagnostic Test (Pha) 1 strip ACHS 11/09/24 17:00 11/10/24 06:08 1 STRIP Insulin Human Regular ACHS SC 11/09/24 17:00 11/09/24 16:00 2 UNITS Dextrose 50 ml UD PRN IV 11/09/24 16:00 Amino Acids 0 ml @ 0 mls/hr PER PHARMACY IV 11/10/24 11:15 UNV Laboratory Results Laboratory Tests 11/10/24 09:14 Chemistry Test 11/10/24 09:14 Calcium Level 9.9 mg/dL (8.7-10.4) Microbiology Microbiology Date/Time Source Procedure Growth Status 11/07/24 12:33 Foot Right Gram Stain - Final Resulted 11/07/24 12:33 Foot Right Wound Culture - Preliminary Resulted 11/06/24 20:44 Blood Blood Culture - Preliminary NO GROWTH AFTER 72 HOURS OF INCUBATION. Resulted Labs and/or images reviewed: Labs reviewed by me, Image(s) reviewed by me Assessment/Plan Assessment/Plan Impression: -ESRD with hemodialysis -coronary artery disease with previous CABG -obesity -history of CVA -bilateral heel wounds -probable septic shock Plan: Events: Awaiting podiatry consultation. Continues to have ALOC. Start Clinimix. CT scan of the head. -change sliding scale to a.c. HS. Stop Lantus -continue antibiotic therapy with vancomycin and cefepime -swallow evaluation -podiatry consultation -nephrology consultation -wound care consultation -PUD prophylaxis -repeat labs in a.m. Total time spent with patient discussing and formulating plan of care: 35 minutes. This medical document was created using an electronic medical record system with [employer] dictation system. Although this document has been carefully reviewed, there may still be some phonetic and typographical errors. These areas are purely typographical due to imperfections of the software programs, and do not reflect any compromise in the patient's medical care. 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 Procedure Category Date Status Time *Podiatry Consult CONS 11/09/24 Transmitted [facility](Dvmg) 12:15 Cefepime 1gm/ 50ml PHA 11/10/24 In Process (Maxipime 1gm/50ml) 10:00 * Swallow Request ST 11/09/24 Transmitted 12:44 Npo Except For ROGERS 11/09/24 In Process Medications 12:44 Npo (Nothing By DIET 11/09/24 Transmitted Mouth) Diet Lunch Labetalol Hcl PHA 11/09/24 In Process (Labetalol Hcl) 12:45 Glucose Blood PHA 11/09/24 In Process (Accu-Chek Comfort 17:00 Insulin R (Human) PHA 11/09/24 In Process (Insulin R) 17:00 Dextrose 50% Syringe PHA 11/09/24 In Process 16:00 Vancomycin,Random LAB 11/11/24 Verified 05:[address] 11/10/24 Logged 10:59 Clinimix Per Pharmacy PHA 11/10/24 Logged 11:15 Date of Service: Nov 10, 2024 Billing Provider: INESSA HANSEN NP Common Visit Codes: [id number] INP/OBS CARE(HIGH) INESSA HANSEN NP Nov 10, 2024 11:13
[2024-11-10] MEDS ORDERED: CLINIMIX PER PHARMACY 0 ML IV SCH (11:15)
[2024-11-10] MEDS ORDERED: DEXTROSE (50%) 50ML SYRG IV SCH (11:45)
[2024-11-10] MEDS: InsuLIN REG 1unit/0.01ml Soln (100units/ml) SC SCH (12:00)
[2024-11-10] MEDS: ACCU-CHEK COMFORT CURVE STRIP VI SCH (12:00)
[2024-11-10 12:16] LABS: Magnesium 1.9 mg/dL (1.6-2.6)
--- NOTE | 2024-11-10 12:59 | DVH ---
CT HEAD WITHOUT CONTRAST Indication: altered status EXAM DATE: 11/10/2024 12:10 PM COMPARISON: CT HEAD WITHOUT CONTRAST on DOS: 11/05/24 TECHNIQUE: CT of the head without intravenous contrast. RADIATION DOSE: CTDIvol: 740.55 mGy, DLP: 738.84 mGy*cm FINDINGS: There is no intracranial hemorrhage. There is no extra-axial fluid, mass, mass effect or midline shif t. The ventricles are midline and normal in size. Basilar cisterns are patent. Left frontal encephalo malacia. Moderate periventricular and subcortical white matter chronic microvascular ischemic changes . Moderate global cerebral volume loss. The paranasal sinuses and mastoids are well-pneumatized. Imaged portion of the orbits are unremarkabl e. IMPRESSION: No intracranial hemorrhage or mass effect. Moderate chronic microvascular ischemic changes. Moderate global cerebral volume loss. Left frontal encephalomalacia.
--- NOTE | 2024-11-10 14:13 | DVHINCON2 ---
Date Seen: Nov 10, 2024 Reason for Consultation Bilateral heel wounds History of Present Illness The patient is a 69-year-old male with past medical history of AFib, anemia, Coronary artery disease, diabetes mellitus, end-stage renal disease on hemodialysis, and hypotension presented to [facility] ED with complaint of chest pain during dialysis session. Patient was at the dialysis center and about 1.27 L of fluid was removed with a target of 2.5 when he started to complain of chest pain in the left lower chest, nonradiating, pressure-like following which EMS were called. When EMS arrived on the scene, patient was alert blood pressure was noted to be 66/31 mmHg and was consistently low following which the patient is given about 150 mL of fluid, on rechecking the blood pressure improved to 133/113 mmHg. Patient was seen and evaluated in the ED, laboratory data shows WBC 8.5, platelets 227, sodium 133, potassium 3.4, BUN 25, creatinine 4.96, glucose 241, troponin 9, calcium 10.2, AST 30, ALT 41, blood pressure 97/56, heart rate 76, temperature 97.6 F, O2 saturation 99% on oxygen. Chest x-ray revealing pulmonary edema. Please see medication orders section in the computer. On my assessment, patient denied chest pain, no headache, no dizziness, no diaphoresis, currently on oxygen, no abdominal pain, no diarrhea, no nausea, no vomiting, no fever, no chills. Patient was admitted for further evaluation and medical management. Past Medical History See H&P Past Surgical History See H&P Family History: Patient reports no known family medical history. Allergies: Coded Allergies: NO KNOWN ALLERGIES (Unverified , 11/05/24) Home Meds Reported Medications Clindamycin Hcl (CLEOCIN) 150 Mg Cap, 300 MG PO TID for 14 Days, CAP 11/07/24 Levofloxacin Hemihydrate (LEVOFLOXACIN) 500 Mg Tab, 500 MG PO DAILY, MG 11/07/24 Atorvastatin Calcium (ATORVASTATIN CALCIUM) 40 Mg Tab, 40 MG PO DAILY, TAB 11/05/24 Montelukast Sodium (MONTELUKAST SODIUM) 10 Mg Tab, 1 TAB PO DAILY, #90 TAB 3 Refills 11/05/24 Quetiapine Fumerate (Seroquel) 50 Mg Tab, 25 MG PO DAILY, TAB 11/05/24 B-Complex W/ C & Folic Acid (Jaki-Sharonda) Tab, 1 OR, TAB 11/05/24 Pantoprazole Sodium (PANTOPRAZOLE SODIUM) 40 Mg Inj, 40 MG PO DAILY, INJ 11/05/24 Midodrine HCl (Midodrine HCl) 10 Mg Tab, 10 MG GT BID, TAB 11/05/24 Levetiracetam (Keppra) 500 Mg Tab, 100 MG PO BID, TAB 11/05/24 Apixaban Base (ELIQUIS) 2.5 Mg Tab, 2.5 MG PO BID, TAB 11/05/24 Gabapentin (Gabapentin) 300 Mg Cap, 300 MG PO BID, CAP 11/05/24 Calcium Acetate (CALCIUM ACETATE) 667 Mg Tab, 667 MG PO TID, TAB 11/05/24 Ferric Citrate (Auryxia) 210 Mg Tab, 210 MG PO TID, TAB 11/05/24 Current Medications Current Medications Medications (Trade) Dose Ordered Sig/Haresh Route PRN Reason Start Time Stop Time Status Last Admin Cefepime HCl 50 ml @ 12.5 mls/hr DAILY IV 11/10/24 10:00 11/10/24 09:06 Diagnostic Test (Pha) (Accu-Chek Comfort Curve T) 1 strip ACHS 11/09/24 17:00 11/10/24 11:48 DC 11/10/24 11:25 Insulin Human Regular (InsuLIN R) ACHS SC 11/09/24 17:00 11/10/24 11:48 DC 11/09/24 16:00 Dextrose 50 ml UD PRN IV Blood Sugar LESS THAN 60 11/09/24 16:00 Cancel Amino Acids 0 ml @ 0 mls/hr PER PHARMACY IV 11/10/24 11:15 Diagnostic Test (Pha) (Accu-Chek Comfort Curve T) 1 strip Q6HR 11/10/24 12:00 11/10/24 12:00 Insulin Human Regular (InsuLIN R) FOLLOW SLIDING SCALE Q6HR SC 11/10/24 12:00 Dextrose 50 ml UD IV 11/10/24 11:45 Amino Acids 1,000 ml @ 41 mls/hr DAILY@2200 IV 11/10/24 22:00 Vital Signs Vital Signs Date Time Temp Pulse Resp B/P (MAP) Pulse Ox O2 Delivery O2 Flow Rate FiO2 11/10/24 13:00 100.0 92 21 133/66 (88) 100 100.0 11/10/24 07:37 Nasal Cannula* 2 28 Physical Exam Dermatological: Skin is dry with mild erythema and some maceration around the wound site No gross deformities noted Mild non-pitting edema present bilaterally Bilateral heel ulcerations full-thickness with exposed fibrotic and bone Vascular: Dorsalis pedis and posterior tibial pulses are 1+ bilaterally Capillary refill is under 2 seconds Skin temperature is warm bilaterally Neurologic: Protective sensation is absent on the plantar forefoot bilaterally Monofilament testing reveals decreased sensation in multiple plantar sites Musculoskeletal: Range of motion at the ankle and MTP joints is within normal limits. Strength is 5/5 in all tested muscle groups. Gait is antalgic due to offloading of the affected limb. Labs/Diagnostic Data Labs Test 11/10/24 11:19 11/10/24 09:14 11/07/24 07:52 11/07/24 07:24 Range/Units POC Glucose 86 70-106 mg/dl White Blood Count 11.7 #H 4.4-10.8 10^3/uL Red Blood Count 3.88 L 4.5-5.90 10^6/uL Hemoglobin 13.0 L 13.5-17.5 g/dL Hematocrit 41.6 41.0-53.0 % Mean Corpuscular Volume 107.3 H 80.0-100.0 fL Mean Corpuscular Hemoglobin 33.6 H 28.0-32.0 pg Mean Corpuscular Hemoglobin Concent 31.3 L 32.0-36.0 g/dL Red Cell Distribution Width 18.0 H 11.8-14.3 % Platelet Count 225 140-450 10^3/uL Mean Platelet Volume 7.3 6.9-10.8 fL Neutrophils (%) (Auto) 87.4 H 37.0-80.0 % Lymphocytes (%) (Auto) 2.3 L 10.0-50.0 % Monocytes (%) (Auto) 8.3 0.0-12.0 % Eosinophils (%) (Auto) 1.7 0.0-7.0 % Basophils (%) (Auto) 0.3 0.0-2.0 % Neutrophils # (Auto) 10.2 H 1.6-8.6 10 ^3/uL Lymphocytes # (Auto) 0.3 L 0.4-5.4 10 ^3/uL Monocytes # (Auto) 1.0 0-1.3 10 ^3/uL Eosinophils # (Auto) 0.2 0-0.8 10 ^3/uL Basophils # (Auto) 0 0-0.2 10 ^3/uL Nucleated Red Blood Cells 0.0 % Sodium Level 142 136-145 mmol/L Potassium Level 4.0 3.5-5.1 mmol/L Chloride Level 108 H 98-107 mmol/L Carbon Dioxide Level 22 20-31 mmol/L Anion Gap 12 5-15 Blood Urea Nitrogen 22 9-23 mg/dL Creatinine 4.29 H 0.700-1.30 mg/dL Glomerular Filtration Rate Calc 14 >90 mL/min BUN/Creatinine Ratio 5.1 L 10.0-20.0 Serum Glucose 84 74-106 mg/dL Calcium Level 9.9 8.7-10.4 mg/dL Phosphorus Level 4.4 2.4-5.1 mg/dL Magnesium Level 1.9 1.6-2.6 mg/dL Random Vancomycin Level 21.3 H 5-10 ug/mL Serum Osmolality 321 H 278-298 mOsm/kg Beta-Hydroxybutyric Acid 0.701 H < 0.4 mmol/L Hepatitis B Surface Antigen Negative Negative Blood Gas Specimen Type Arterial Blood Gas Sample Site Right radial Blood Gas Patient Temperature 37.0 Arterial Blood Date Drawn [id number] Arterial Blood pH 7.350 7.350-7.450 Arterial Blood Partial Pressure CO2 38.6 35.0-48.0 mmHg Arterial Blood Partial Pressure O2 94.8 83.0-108.0 mmHg Arterial Blood HCO3 20.8 L 21.0-28.0 mmol/L Arterial Blood Oxygen Saturation 96.3 94.0-98.0 % Arterial Blood Base Excess -4.3 L -2.0-3.0 mmol/L Arterial Blood Oxyhemoglobin 95.0 94.0-98.0 % Arterial Blood Carboxyhemoglobin 1.1 0.5-1.5 % Arterial Blood Methemoglobin 0.2 0.0-1.5 % Bucky Test Yes Blood Gas Total Hemoglobin 15.90 13.5-17.5 g/dL Blood Gas Liter Flow 2.00 Blood Gas Modality Nasal cannula FiO2 % 28.0 Test 11/06/24 20:44 11/06/24 05:54 11/06/24 04:54 11/05/24 16:00 Range/Units D-Dimer, Quantitative 1.52 H 0.0-0.49 mg/L FEU Erythrocyte Sedimentation Rate 70 H 0-20 mm/hr C-Reactive Protein High Sensitivity 11.98 H <1.0 mg/dL Total Bilirubin 0.4 0.2-1.0 mg/dL Aspartate Amino Transferase (AST) 19 13-40 U/L Alanine Aminotransferase (ALT) 33 7-40 U/L Alkaline Phosphatase 101 46-116 U/L Total Protein 6.8 5.7-8.2 g/dL Albumin 3.9 3.2-4.8 g/dL Prothrombin Time 11.5 9.3-11.8 sec Prothrombin Time INR 1.09 0.9-1.15 Activated Partial Thromboplast Time 31.6 24.5-34.5 SEC Lactic Acid Level 1.9 0.4-2.0 mmol/L Troponin I High Sensitivity 11 </=54 ng/L Microbiology Date/Time Source Procedure Growth Status 11/07/24 12:33 Foot Right Gram Stain - Final Resulted 11/07/24 12:33 Foot Right Wound Culture - Preliminary Resulted 11/06/24 20:44 Blood Blood Culture - Preliminary NO GROWTH AFTER 72 HOURS OF INCUBATION. Resulted Problems(with codes): (1) Constipation (2) Pulmonary edema (3) Hypotension (4) End-stage renal disease on hemodialysis (5) Generalized weakness (6) Electrolyte imbalance Plan/Recommendation ASSESSMENT: Patient is a 69 year old seen on the floor for a worsening ulcer PLAN: - The patients chart was reviewed, clinical findings were discussed with the patient, the etiologies of the conditions were discussed in detail, and a treatment plan was agreed to at this time, with both oral and written instructions provided. - reviewed advanced imaging - recommend that we get an MRI to rule out osteomyelitis - if concern, possible intervention with I and D to remove all the necrotic bone - if it appears to be superficial an MRI just 6 weeks of IV antibiotics - Betadine on the heels - continue offload the heels All questions were answered and concerns addressed to the patient's satisfaction. The patient was given the phone number to the clinic and was told how to make contact with the clinic should any concerns or questions arise. Patient understands that if any questions or concerns arise prior to the next appointment, we should be contacted immediately. FOLLOW-UP: Continue to follow while inpatient Plan discussed with: Patient Date of Service: Nov 10, 2024 Billing Provider: ANTHONY CELAYA DPM Common Visit Codes: CONSULT ONLY Consultation Codes: [id number] CONSULT <80MIN ANTHONY CELAYA DPM Nov 10, 2024 14:13
--- NOTE | 2024-11-10 16:25 | DVHPN2 ---
Progress Note - Dictate Date Seen: Nov 10, 2024 Has the PT tested + for MRSA If YES, has PT been informed?: Yes Medical Necessity Reason Pt with a Central, PICC or Fol: No Subjective Seen during Hd vital signs Vital Sign Date Time Temp Pulse Resp B/P (MAP) Pulse Ox O2 Delivery O2 Flow Rate FiO2 11/10/24 13:00 100.0 92 21 133/66 (88) 100 100.0 11/10/24 07:37 Nasal Cannula* 2 28 Total Intake and Output 11/09/24 11/09/24 11/10/24 15:00 23:00 07:00 Intake Total 788 ml 1130 ml 1925 ml Output Total 1000 ml 0 ml Balance 788 ml 130 ml 1925 ml medications Current Medications Medications Dose Ordered Sig/Haresh Route Start Time Stop Time Status Last Admin Dose Admin Famotidine 20 mg Q2D IV 11/05/24 22:00 11/09/24 21:05 20 MG Levetiracetam 100 ml @ 400 mls/hr BID IV 11/05/24 22:00 11/10/24 09:06 400 MLS/HR Atorvastatin Calcium 20 mg HS PO 11/05/24 22:00 11/09/24 21:05 20 MG Multivit/Ca Carb/ B Cmplx/FA/Prenat 1 tab DAILY PO 11/06/24 10:00 11/10/24 09:07 1 TAB Sevelamer HCl 800 mg TIDWM PO 11/06/24 08:00 Quetiapine Fumarate 50 mg HS PO 11/05/24 22:00 11/09/24 21:05 50 MG Sodium Chloride 10 ml Q8HR IV 11/05/24 22:00 11/10/24 13:01 10 ML Acetaminophen/ Hydrocodone Bitart 1 tab Q4HP PRN PO 11/05/24 21:00 11/09/24 17:19 1 TAB Ondansetron HCl 4 mg Q4HP PRN IV 11/05/24 21:00 Docusate Sodium 100 mg BIDPRN PRN PO 11/05/24 21:00 Acetaminophen 650 mg Q6HP PRN PO 11/05/24 21:00 Nitroglycerin 0.4 mg Q5MINP PRN SL 11/05/24 22:45 Morphine Sulfate 2 mg Q30M PRN IV 11/05/24 22:45 Vancomycin HCl 0 ml @ 0 mls/hr UD IV 11/06/24 16:15 Sodium Chloride 1,000 ml @ 150 mls/hr Q6H40M IV 11/07/24 13:15 11/10/24 14:53 150 MLS/HR Dextrose 50 ml UD PRN IV 11/07/24 07:15 Cancel Cefepime HCl 50 ml @ 12.5 mls/hr DAILY IV 11/10/24 10:00 11/10/24 09:06 12.5 MLS/HR Labetalol HCl 10 mg Q4HPRN PRN IV 11/09/24 12:45 11/09/24 13:02 10 MG Dextrose 50 ml UD PRN IV 11/09/24 16:00 Cancel Amino Acids 0 ml @ 0 mls/hr PER PHARMACY IV 11/10/24 11:15 Diagnostic Test (Pha) 1 strip Q6HR 11/10/24 12:00 11/10/24 12:00 1 STRIP Insulin Human Regular FOLLOW SLIDING SCALE Q6HR SC 11/10/24 12:00 Dextrose 50 ml UD IV 11/10/24 11:45 Amino Acids 1,000 ml @ 41 mls/hr DAILY@2200 IV 11/10/24 22:00 objective HEENT: No evidence of JVD, no oral ulcers. Pulmonary: Diminished on auscultation bilaterally Cardiovascular S1-S2, no S3 or S4 Abdomen: Bowel sounds positive, soft no rebound tenderness Skin: No rash Neurological: Alert, oriented, bed-bound, leg weakness Extremities: 1+ edema in the lower extremities laboratory and microbiology Laboratory Tests 11/10/24 09:14 Test 11/10/24 09:14 Range/Units Serum Glucose 84 74-106 mg/dL Problem List Assessment 1. End-stage renal disease on hemodialysis Friday 2. Intra dialytic hypotension, he has chronic hypotension 3. Chest pain 4. CAD 5. Bilateral feet wounds 6. History of CVA 7. Diabetes type 2, uncontrolled with hyperglycemia Plan/recommendation: Continue HD on Friday. Hold off on antihypertensive med Midodrine t.i.d. IV antibiotics Monitor H&H Cardiology consult Pressor support p.r.n. Dietary Evaluation Review Comments: 1) Initiate Pro-Stat @ 30 mL qd 2) If patient remains NPO > 7 days, consider EN/TPN to meet at least 75% of estimated daily needs 3) If GI is preferred, consider Nepro @ 35 mL/hr goalrate as tolerated. EN regimen (including Pro-Stat) provides 1612 kcals, 83g Pro, and 611 mL free H2O per 24 hrs. EN rate (including Pro-Stat) will meet 91% estimated energy needs and ~51% estimated protein needs 4) Advance to 60 CCHO renal diet when medically feasible, pending ST approval 5) Collect HbA1c 6) Refer to outpatient RD/[facility] for weight management 7) Follow-up with nephrology and cardiology 8) Continue to monitor I&O, labs, and skin integrity Expected Outcomes/Goals: 1) patient to receive nutrition support within 7 days of NPO status 2) labs and wounds to improve 3) diet to advance 4) gradual wt loss 5) f/u in 2-3 days Plan discussed with: Patient KULDEEP HOOD MD Nov 10, 2024 16:25
[2024-11-10] MEDS: AMINO ACID INFUSION IN D5W 1,000 ML IV SCH (22:37)
[2024-11-11 05:00] VITALS: BP 153/79; PULSE 86; RESP 19; O2SAT 92
[2024-11-11 07:26] LABS: Alkaline Phosphatase 116 U/L (46-116); Anion Gap 12 (5-15); BUN/Creatinine Ratio 5.6 (10.0-20.0); Blood Urea Nitrogen 20 mg/dL (9-23); Calcium 9.6 mg/dL (8.7-10.4); Carbon Dioxide 25 mmol/L (20-31); Chloride 105 mmol/L (98-107); Glucose 105 mg/dL (74-106); Potassium 3.8 mmol/L (3.5-5.1); Sodium 142 mmol/L (136-145)
[2024-11-11 07:27] LABS: Alanine Aminotransferase 45 U/L (7-40); Magnesium 1.9 mg/dL (1.6-2.6); Total Protein 5.8 g/dL (5.7-8.2)
[2024-11-11 07:28] LABS: Albumin 3.3 g/dL (3.2-4.8); Bilirubin, Total 0.5 mg/dL (0.2-1.0)
[2024-11-11 07:33] LABS: Hematocrit 39.0 % (41.0-53.0); Hemoglobin 12.5 g/dL (13.5-17.5); Mean Corpuscular Hemoglobin 34.2 pg (28.0-32.0); Mean Corpuscular Volume 106.3 fL (80.0-100.0); Nucleated Red Blood Cells % 0.3 %
[2024-11-11 08:30] VITALS: BP 155/75; PULSE 89; RESP 16; TEMP 98.9; O2SAT 98
[2024-11-11 12:30] VITALS: BP 141/71; PULSE 85; RESP 14; TEMP 99.2; O2SAT 89
[2024-11-11] MEDS: VANCOMYCIN 500mg/100mL 100 ML IV ONE (14:00)
--- NOTE | 2024-11-11 14:08 | DVH ---
CLINICAL HISTORY: Infection, wound, rule out osteomyelitis. TECHNIQUE: Multi sequence multi planar MRI images of the left foot were obtained without IV contrast . COMPARISON: CT CT R FOOT WO CONTRAST on DOS: 11/08/24, CT CT L FOOT WO CONTRAST on DOS: 11/08/24 FINDINGS: Wound at the posterior plantar aspect of the foot adjacent to the plantar aspect of the po sterior calcaneus. There are areas of subcutaneous edema associated with the wound, possible cellulit is in the appropriate clinical setting. No organized fluid collection identified to suggest abscess. There is prominent STIR hyperintense signal of the posterior calcaneus adjacent to the wound with pat case areas of T1 hypointense signal, suspicious for osteomyelitis in the appropriate clinical setting. No other Evidence for Osteomyelitis in the rest of the osseous structures of the left foot. Marked f atty atrophy of the intrinsic musculature of the forefoot and in the abductor digiti minimi and quadr atus plantae muscles at the hindfoot. There are areas of prominent T2 hyperintense signal in the abdu ctor hallucis and flexor digitorum brevis muscles, which may be seen with acute or subacute denervati on changes. There is mild Achilles tendinosis with mild peritendinitis. The marrow signal changes in the posterior calcaneus extend adjacent to the Achilles tendon insertion. No evidence of Achilles ten don tear. The calcaneal attachments of the plantar fascia are intact. Minimal edema adjacent to the c alcaneal attachment of the plantar fascia. IMPRESSION: 1. Wound at the posterior plantar aspect of the foot adjacent to the posterior plantar aspect of the calcaneus with surrounding subcutaneous edema, possible cellulitis in the appropriate clinical settin g. No organized fluid collection identified to suggest abscess. Marrow signal changes of the posterio r calcaneus with associated STIR hyperintense and T1 hypointense signal, suspected osteomyelitis in t he appropriate clinical setting. Correlate with clinical findings. 2. Additional findings as described above.
--- NOTE | 2024-11-11 15:00 | DVHPN2 ---
Subjective Patient more awake. Denies any symptoms. Reviewed: Care Plan, H&P, Labs, Medications, Previous Orders Changes from previous H/P or p: No Changes General: Per HPI Eyes: No Pain, No Vision change, No Conjunctivae inflammation, No Eyelid inflammation, No Other, No Redness ENT: No Ear pain, No Ear discharge, No Nose pain, No Nose discharge, No Nose congestion, No Mouth pain, No Mouth swelling, No Throat pain, No Throat swelling, No Other Cardiovascular: Chest Pain; No Palpitations, No Orthopnea, No Paroxysmal Noc. Dyspnea, No Edema, No Lt Headedness, No Other Respiratory: No Cough, No Dry; Shortness of breath; No SOB with excertion, No Wheezing, No Hemoptysis, No Pleuritic Pain, No Sputum; Other (SOB at rest) Gastrointestinal: No Nausea, No Vomiting, No Abdominal Pain, No Diarrhea, No Constipation, No Melena, No Hematochezia, No Other Genitourinary: No Dysuria, No Frequency, No Incontinence, No Hematuria, No Retention, No Other Musculoskeletal: No other, No neck pain, No shoulder pain, No arm pain, No back pain, No hand pain, No leg pain, No foot pain Skin: No Rash, No Lesions, No Jaundice, No Bruising, No Other Objective Vitals Vital Signs Date Time Temp Pulse Resp B/P (MAP) Pulse Ox O2 Delivery O2 Flow Rate FiO2 11/11/24 12:30 99.2 85 14 141/71 (94) 89 99.2 11/10/24 20:00 Nasal Cannula* 2 28 Intake/Output Intake and Output 11/11/24 07:00 Intake Total 150 ml Balance 150 ml Intake Oral 0 ml IV Total 150 ml General Appearance: Alert, Oriented X3, mild distress, Other (Encephalopathic) HEENT: Atraumatic, PERRLA Lungs: Clear to auscultation, Normal air movement Cardiovascular: Normal S1, Normal S2 Abdomen: Normal bowel sounds, Soft, No tenderness, No hepatospenomegaly Skin: Wounds (See nurse notes and pictures) Psych/Mental Status: Mental status NL, Mood NL Medications Current Medications Medications Dose Ordered Sig/Haresh Route Start Time Stop Time Status Last Admin Dose Admin Famotidine 20 mg Q2D IV 11/05/24 22:00 11/09/24 21:05 20 MG Levetiracetam 100 ml @ 400 mls/hr BID IV 11/05/24 22:00 11/11/24 09:43 400 MLS/HR Atorvastatin Calcium 20 mg HS PO 11/05/24 22:00 11/10/24 22:36 20 MG Multivit/Ca Carb/ B Cmplx/FA/Prenat 1 tab DAILY PO 11/06/24 10:00 11/11/24 10:13 1 TAB Sevelamer HCl 800 mg TIDWM PO 11/06/24 08:00 11/11/24 12:23 800 MG Sodium Chloride 10 ml Q8HR IV 11/05/24 22:00 11/11/24 06:06 10 ML Acetaminophen/ Hydrocodone Bitart 1 tab Q4HP PRN PO 11/05/24 21:00 11/11/24 10:07 1 TAB Ondansetron HCl 4 mg Q4HP PRN IV 11/05/24 21:00 Docusate Sodium 100 mg BIDPRN PRN PO 11/05/24 21:00 Acetaminophen 650 mg Q6HP PRN PO 11/05/24 21:00 Nitroglycerin 0.4 mg Q5MINP PRN SL 11/05/24 22:45 Morphine Sulfate 2 mg Q30M PRN IV 11/05/24 22:45 Vancomycin HCl 0 ml @ 0 mls/hr UD IV 11/06/24 16:15 Sodium Chloride 1,000 ml @ 150 mls/hr Q6H40M IV 11/07/24 13:15 11/11/24 09:43 150 MLS/HR Dextrose 50 ml UD PRN IV 11/07/24 07:15 Cancel Cefepime HCl 50 ml @ 12.5 mls/hr DAILY IV 11/10/24 10:00 11/11/24 12:23 12.5 MLS/HR Labetalol HCl 10 mg Q4HPRN PRN IV 11/09/24 12:45 11/09/24 13:02 10 MG Dextrose 50 ml UD PRN IV 11/09/24 16:00 Cancel Amino Acids 0 ml @ 0 mls/hr PER PHARMACY IV 11/10/24 11:15 Diagnostic Test (Pha) 1 strip Q6HR 11/10/24 12:00 11/11/24 12:00 1 STRIP Insulin Human Regular FOLLOW SLIDING SCALE Q6HR SC 11/10/24 12:00 11/11/24 12:33 2 UNITS Dextrose 50 ml UD IV 11/10/24 11:45 Amino Acids 1,000 ml @ 41 mls/hr DAILY@2200 IV 11/10/24 22:00 11/10/24 22:37 41 MLS/HR Laboratory Results Laboratory Tests 11/11/24 06:00 Chemistry Test 11/11/24 06:00 Albumin 3.3 g/dL (3.2-4.8) Calcium Level 9.6 mg/dL (8.7-10.4) Magnesium Level 1.9 mg/dL (1.6-2.6) Phosphorus Level 3.5 mg/dL (2.4-5.1) Total Protein 5.8 g/dL (5.7-8.2) LFT Test 11/11/24 06:00 Alanine Aminotransferase (ALT) 45 U/L (7-40) H Alkaline Phosphatase 116 U/L (46-116) Aspartate Amino Transferase (AST) 50 U/L (13-40) H Total Bilirubin 0.5 mg/dL (0.2-1.0) Microbiology Microbiology Date/Time Source Procedure Growth Status 11/07/24 12:33 Foot Right Gram Stain - Final Resulted 11/07/24 12:33 Wound Culture - Preliminary Acinetobacter baumannii Enterococcus faecalis Acinetobacter baumanii/haemol Resulted 11/06/24 20:44 Blood Blood Culture - Preliminary NO GROWTH AFTER 72 HOURS OF INCUBATION. Resulted Labs and/or images reviewed: Labs reviewed by me, Image(s) reviewed by me Assessment/Plan Assessment/Plan Impression: -ESRD with hemodialysis -coronary artery disease with previous CABG -obesity -history of CVA -bilateral heel wounds -septic shock -Metabolic Encephalopathy -Osteomyelitis of left foot. Acinetobacter Baumannii, Enterococcus faecalis Plan: Events: Awaiting podiatry consultation. MRI of the left foot reviewed. Podiatry consultation board. Given MDRO, ID consultation placed. -continue Clinimix -continue antibiotic therapy with vancomycin and cefepime -MDRO -swallow evaluation: Reviewed -podiatry consultation -nephrology consultation: Hemodialysis on MWF -wound care consultation -PUD prophylaxis -repeat labs in a.m. Total time spent with patient discussing and formulating plan of care: 35 minutes. This medical document was created using an electronic medical record system with Dragon computerized dictation system. Although this document has been carefully reviewed, there may still be some phonetic and typographical errors. These areas are purely typographical due to imperfections of the software programs, and do not reflect any compromise in the patient's medical care. Plan discussed with: Patient, Other (RN) My Orders Orders - INESSA HANSEN NP Procedure Category Date Status Time Vancomycin,Random LAB 11/12/24 Verified 05:00 * Infectious [place]- Dr. CONS 11/11/24 Transmitted [facility] 13:03 Renal Function Test LAB 11/12/24 Verified 05:00 Magnesium LAB 11/12/24 Verified 05:00 Clinimix Per [facility] 11/11/24 In Process 22:00 Date of Service: Nov 11, 2024 Billing Provider: INESSA HANSEN NP Common Visit Codes: [id number] INP/OBS CARE(HIGH) INESSA HANSEN NP Nov 11, 2024 15:00
[2024-11-11 17:30] VITALS: BP 110/36; PULSE 64; RESP 18; TEMP 98.6; O2SAT 90
--- NOTE | 2024-11-11 17:31 | DVHPN2 ---
Progress Note - Dictate Date Seen: Nov 11, 2024 Has the PT tested + for MRSA If YES, has PT been informed?: Yes Medical Necessity Reason Pt with a Central, PICC or Fol: No vital signs Vital Sign Date Time Temp Pulse Resp B/P (MAP) Pulse Ox O2 Delivery O2 Flow Rate FiO2 11/11/24 12:30 99.2 85 14 141/71 (94) 89 99.2 11/10/24 20:00 Nasal Cannula* 2 28 Total Intake and Output 11/10/24 11/10/24 11/11/24 15:00 23:00 07:00 Intake Total 50 ml 0 ml 100 ml Balance 50 ml 0 ml 100 ml medications Current Medications Medications Dose Ordered Sig/Haresh Route Start Time Stop Time Status Last Admin Dose Admin Famotidine 20 mg Q2D IV 11/05/24 22:00 11/09/24 21:05 20 MG Levetiracetam 100 ml @ 400 mls/hr BID IV 11/05/24 22:00 11/11/24 09:43 400 MLS/HR Atorvastatin Calcium 20 mg HS PO 11/05/24 22:00 11/10/24 22:36 20 MG Multivit/Ca Carb/ B Cmplx/FA/Prenat 1 tab DAILY PO 11/06/24 10:00 11/11/24 10:13 1 TAB Sevelamer HCl 800 mg TIDWM PO 11/06/24 08:00 11/11/24 12:23 800 MG Sodium Chloride 10 ml Q8HR IV 11/05/24 22:00 11/11/24 14:00 10 ML Acetaminophen/ Hydrocodone Bitart 1 tab Q4HP PRN PO 11/05/24 21:00 11/11/24 15:40 1 TAB Ondansetron HCl 4 mg Q4HP PRN IV 11/05/24 21:00 Docusate Sodium 100 mg BIDPRN PRN PO 11/05/24 21:00 Acetaminophen 650 mg Q6HP PRN PO 11/05/24 21:00 Nitroglycerin 0.4 mg Q5MINP PRN SL 11/05/24 22:45 Morphine Sulfate 2 mg Q30M PRN IV 11/05/24 22:45 Vancomycin HCl 0 ml @ 0 mls/hr UD IV 11/06/24 16:15 Sodium Chloride 1,000 ml @ 150 mls/hr Q6H40M IV 11/07/24 13:15 11/11/24 09:43 150 MLS/HR Dextrose 50 ml UD PRN IV 11/07/24 07:15 Cancel Cefepime HCl 50 ml @ 12.5 mls/hr DAILY IV 11/10/24 10:00 11/11/24 12:23 12.5 MLS/HR Labetalol HCl 10 mg Q4HPRN PRN IV 11/09/24 12:45 11/09/24 13:02 10 MG Dextrose 50 ml UD PRN IV 11/09/24 16:00 Cancel Amino Acids 0 ml @ 0 mls/hr PER PHARMACY IV 11/10/24 11:15 Diagnostic Test (Pha) 1 strip Q6HR 11/10/24 12:00 11/11/24 12:00 1 STRIP Insulin Human Regular FOLLOW SLIDING SCALE Q6HR SC 11/10/24 12:00 11/11/24 12:33 2 UNITS Dextrose 50 ml UD IV 11/10/24 11:45 Amino Acids 1,000 ml @ 41 mls/hr DAILY@2200 IV 11/10/24 22:00 11/10/24 22:37 41 MLS/HR objective HEENT: No evidence of JVD, no oral ulcers. Pulmonary: Diminished on auscultation bilaterally Cardiovascular S1-S2, no S3 or S4 Abdomen: Bowel sounds positive, soft no rebound tenderness Skin: No rash Neurological: Alert, oriented, bed-bound, leg weakness Extremities: 1+ edema in the lower extremities laboratory and microbiology Laboratory Tests 11/11/24 06:00 Test 11/11/24 06:00 Range/Units Serum Glucose 105 74-106 mg/dL Assessment/Plan End-stage renal disease on hemodialysis Intra dialytic hypotension, he has chronic hypotension CAD s/p CABG Bilateral feet wounds History of CVA Diabetes type 2, uncontrolled with hyperglycemia Osteomyelitis of left foot. Acinetobacter Baumannii, Enterococcus faecalis Plan/recommendation: s/p HD Friday Next HD on Friday Continue HD on Friday. Hold off on antihypertensive med Midodrine t.i.d. IV antibiotics Monitor H&H Podiatry consult Dietary Evaluation Review Comments: 1) Initiate Pro-Stat @ 30 mL qd 2) If patient remains NPO > 7 days, consider EN/TPN to meet at least 75% of estimated daily needs 3) If GI is preferred, consider Nepro @ 35 mL/hr goalrate as tolerated. EN regimen (including Pro-Stat) provides 1612 kcals, 83g Pro, and 611 mL free H2O per 24 hrs. EN rate (including Pro-Stat) will meet 91% estimated energy needs and ~51% estimated protein needs 4) Advance to 60 CCHO renal diet when medically feasible, pending ST approval 5) Collect HbA1c 6) Refer to outpatient RD/CDCES for weight management 7) Follow-up with nephrology and cardiology 8) Continue to monitor I&O, labs, and skin integrity Expected Outcomes/Goals: 1) patient to receive nutrition support within 7 days of NPO status 2) labs and wounds to improve 3) diet to advance 4) gradual wt loss 5) f/u in 2-3 days Plan discussed with: Patient, Other PAULETTE BREAUX MD Nov 11, 2024 17:31
[2024-11-11 20:00] VITALS: PULSE 100; PULSE 83; RESP 18; O2SAT 92
--- NOTE | 2024-11-11 20:07 | DVHINCON2 ---
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 At baseline, he is usually alert and able to have conversation as per family. upon admission, he was hypotensive presented to the hospital with complaint of chest pain during dialysis session as well. He has been in hospital for few days now. blood cx negative. ID was consulted for decub wounds on bilateral feet. Seen by podiatry who recommended MRI of feet These wounds are chronic, he has home health and home podiatry once a month. In between he also had wound vac. Chest x-ray revealed pulmonary edema. On 11/07, patient was back to his baseline mentation. Past Medical History Patient's Past Medical History is significant for AFIB, Anemia, CAD, Diabetes Mellitus, ESRD and Hypotension Past Surgical History Past Surgical History: CABG Family History: Patient reports no known family medical history. Family History Social History Patient lives at home, denies smoking, alcohol or illicit drugs abuse. Allergies: Coded Allergies: NO KNOWN ALLERGIES (Unverified , 11/05/24) Home Meds Reported Medications Clindamycin Hcl (CLEOCIN) 150 Mg Cap, 300 MG PO TID for 14 Days, CAP 11/07/24 Levofloxacin Hemihydrate (LEVOFLOXACIN) 500 Mg Tab, 500 MG PO DAILY, MG 11/07/24 Atorvastatin Calcium (ATORVASTATIN CALCIUM) 40 Mg Tab, 40 MG PO DAILY, TAB 11/05/24 Montelukast Sodium (MONTELUKAST SODIUM) 10 Mg Tab, 1 TAB PO DAILY, #90 TAB 3 Refills 11/05/24 Quetiapine Fumerate (Seroquel) 50 Mg Tab, 25 MG PO DAILY, TAB 11/05/24 B-Complex W/ C & Folic Acid (Jaki-Sharonda) Tab, 1 OR, TAB 11/05/24 Pantoprazole Sodium (PANTOPRAZOLE SODIUM) 40 Mg Inj, 40 MG PO DAILY, INJ 11/05/24 Midodrine HCl (Midodrine HCl) 10 Mg Tab, 10 MG GT BID, TAB 11/05/24 Levetiracetam (Keppra) 500 Mg Tab, 100 MG PO BID, TAB 11/05/24 Apixaban Base (ELIQUIS) 2.5 Mg Tab, 2.5 MG PO BID, TAB 11/05/24 Gabapentin (Gabapentin) 300 Mg Cap, 300 MG PO BID, CAP 11/05/24 Calcium Acetate (CALCIUM ACETATE) 667 Mg Tab, 667 MG PO TID, TAB 11/05/24 Ferric Citrate (Auryxia) 210 Mg Tab, 210 MG PO TID, TAB 11/05/24 Current Medications Current Medications Medications (Trade) Dose Ordered Sig/Haresh Route PRN Reason Start Time Stop Time Status Last Admin Amino Acids 1,000 ml @ 41 mls/hr DAILY@2200 IV 11/10/24 22:00 11/10/24 22:37 Review of Systems limited, he was asleep Vital Signs Vital Signs Date Time Temp Pulse Resp B/P (MAP) Pulse Ox O2 Delivery O2 Flow Rate FiO2 11/11/24 17:30 98.6 64 18 110/36 (60) 90 98.6 11/10/24 20:00 Nasal Cannula* 2 28 Physical Exam General Appearance: sleepy, , No acute distress, Obese HEENT: Atraumatic, PERRLA, EOMI, Mucous membrane. moist/pink Respiratory: Normal air movement Cardiovascular: Regular rate, Normal S1, Normal S2, No murmurs Abdominal: Normal bowel sounds, Soft, No tenderness, No hepatospenomegaly, No masses Extremities: edema +, No clubbing, No cyanosis, No edema, Normal pulses, No ten derness/swelling Skin: Bilateral feet Wounds has some debreis Neuro:unable to assess, baseline he is bedbound due to stroke Labs/Diagnostic Data Labs Test 11/11/24 12:09 11/11/24 06:00 11/07/24 07:52 11/07/24 07:24 Range/Units POC Glucose 143 H 70-106 mg/dl White Blood Count 10.0 4.4-10.8 10^3/uL Red Blood Count 3.67 L 4.5-5.90 10^6/uL Hemoglobin 12.5 L 13.5-17.5 g/dL Hematocrit 39.0 L 41.0-53.0 % Mean Corpuscular Volume 106.3 H 80.0-100.0 fL Mean Corpuscular Hemoglobin 34.2 H 28.0-32.0 pg Mean Corpuscular Hemoglobin Concent 32.2 32.0-36.0 g/dL Red Cell Distribution Width 17.7 H 11.8-14.3 % Platelet Count 241 140-450 10^3/uL Mean Platelet Volume 7.4 6.9-10.8 fL Neutrophils (%) (Auto) 82.2 H 37.0-80.0 % Lymphocytes (%) (Auto) 4.3 L 10.0-50.0 % Monocytes (%) (Auto) 10.4 0.0-12.0 % Eosinophils (%) (Auto) 2.6 0.0-7.0 % Basophils (%) (Auto) 0.5 0.0-2.0 % Neutrophils # (Auto) 8.2 1.6-8.6 10 ^3/uL Lymphocytes # (Auto) 0.4 0.4-5.4 10 ^3/uL Monocytes # (Auto) 1.0 0-1.3 10 ^3/uL Eosinophils # (Auto) 0.3 0-0.8 10 ^3/uL Basophils # (Auto) 0 0-0.2 10 ^3/uL Nucleated Red Blood Cells 0.3 % Sodium Level 142 136-145 mmol/L Potassium Level 3.8 3.5-5.1 mmol/L Chloride Level 105 98-107 mmol/L Carbon Dioxide Level 25 20-31 mmol/L Anion Gap 12 5-15 Blood Urea Nitrogen 20 9-23 mg/dL Creatinine 3.58 H 0.700-1.30 mg/dL Glomerular Filtration Rate Calc 17 >90 mL/min BUN/Creatinine Ratio 5.6 L 10.0-20.0 Serum Glucose 105 74-106 mg/dL Calcium Level 9.6 8.7-10.4 mg/dL Phosphorus Level 3.5 2.4-5.1 mg/dL Magnesium Level 1.9 1.6-2.6 mg/dL Total Bilirubin 0.5 0.2-1.0 mg/dL Aspartate Amino Transferase (AST) 50 H 13-40 U/L Alanine Aminotransferase (ALT) 45 H 7-40 U/L Alkaline Phosphatase 116 46-116 U/L Total Protein 5.8 5.7-8.2 g/dL Albumin 3.3 3.2-4.8 g/dL Random Vancomycin Level 15.4 H 5-10 ug/mL Serum Osmolality 321 H 278-298 mOsm/kg Beta-Hydroxybutyric Acid 0.701 H < 0.4 mmol/L Hepatitis B Surface Antigen Negative Negative Blood Gas Specimen Type Arterial Blood Gas Sample Site Right radial Blood Gas Patient Temperature 37.0 Arterial Blood Date Drawn [id number] Arterial Blood pH 7.350 7.350-7.450 Arterial Blood Partial Pressure CO2 38.6 35.0-48.0 mmHg Arterial Blood Partial Pressure O2 94.8 83.0-108.0 mmHg Arterial Blood HCO3 20.8 L 21.0-28.0 mmol/L Arterial Blood Oxygen Saturation 96.3 94.0-98.0 % Arterial Blood Base Excess -4.3 L -2.0-3.0 mmol/L Arterial Blood Oxyhemoglobin 95.0 94.0-98.0 % Arterial Blood Carboxyhemoglobin 1.1 0.5-1.5 % Arterial Blood Methemoglobin 0.2 0.0-1.5 % Bucky Test Yes Blood Gas Total Hemoglobin 15.90 13.5-17.5 g/dL Blood Gas Liter Flow 2.00 Blood Gas Modality Nasal cannula FiO2 % 28.0 Test 11/06/24 20:44 11/06/24 05:54 11/05/24 16:00 Range/Units D-Dimer, Quantitative 1.52 H 0.0-0.49 mg/L FEU Erythrocyte Sedimentation Rate 70 H 0-20 mm/hr C-Reactive Protein High Sensitivity 11.98 H <1.0 mg/dL Prothrombin Time 11.5 9.3-11.8 sec Prothrombin Time INR 1.09 0.9-1.15 Activated Partial Thromboplast Time 31.6 24.5-34.5 SEC Lactic Acid Level 1.9 0.4-2.0 mmol/L Troponin I High Sensitivity 11 </=54 ng/L Microbiology Date/Time Source Procedure Growth Status 11/07/24 12:33 Foot Right Gram Stain - Final Resulted 11/07/24 12:33 Wound Culture - Preliminary Acinetobacter baumannii Enterococcus faecalis Acinetobacter baumanii/haemol Resulted 11/06/24 20:44 Blood Blood Culture - Preliminary NO GROWTH AFTER 72 HOURS OF INCUBATION. Resulted Assessment Patient is a 69year-old male presents to the hospital with: sepsis resolved hypotension resolved Acinetobacter baumanii/haemol, Enterococcus faecalis in wound cultures Bilateral feet wounds; chronic Osteomyelitis of left foot End-stage renal disease on hemodialysis Diabetes mellitus Pulmonary edema/ anasarca Stroke baseline weakness/ bedbound Morbid obesity CAD S/P CABG Recommendations: Patient is on IV Vancomycin and IV Cefepime, continue wbc has trended down 11/06 Blood cx no growth Wound culture showed Acinetobacter baumanii/haemol and Enterococcus faecalis The wound cultures are superficial, wounds have debris hence these cultures are not reliable. reviewed podiatry notes, recommend debridement. Chronic pressure ulcer, I dont see halfway IV antibiotics will resolve the problem plus underlying problem is that he is bedbound due to stroke Foot MRI showed Wound at the posterior plantar aspect of the foot adjacent to the posterior plantar aspect of the calcaneus with surrounding subcutaneous edema, possible cellulitis in the appropriate clinical setting. No organized fluid collection identified to suggest abscess. Marrow signal changes of the posterior calcaneus with associated STIR hyperintense and T1 hypointense signal, suspected osteomyelitis in the appropriate clinical setting. Foot CT showed No definitive CT evidence of osteomyelitis however maintain elevated suspicion given extrusion of posterior calcaneal screw possibly through the skin. No drainable fluid collection. Severe air reversible fatty atrophy of the intrinsic visualized musculature prognosis gaurded plan discussed with Abhi Total 80 minutes spent during the encounter Thank you for consult. Plan discussed with: Spouse, Other DENNIS,JOE Cortez MD Nov 11, 2024 20:07
[2024-11-11 21:00] VITALS: BP 122/95; PULSE 87; RESP 22; TEMP 98.2; O2SAT 90
[2024-11-12] VITALS (8 sets, daily range): BP systolic 97–155; BP diastolic 27–71; PULSE 82–99; RESP 16–24; TEMP 98–98.7; O2SAT 90–99
--- NOTE | 2024-11-12 06:53 | DVHPN2 ---
Progress Note - Dictate Date Seen: Nov 12, 2024 Has the PT tested + for MRSA If YES, has PT been informed?: Yes Medical Necessity Reason Pt with a Central, PICC or Fol: No Subjective no new symptoms vital signs Vital Sign Date Time Temp Pulse Resp B/P (MAP) Pulse Ox O2 Delivery O2 Flow Rate FiO2 11/12/24 05:00 98.2 85 18 111/29 (56) 95 98.2 11/11/24 20:00 Room Air* 0 21 Total Intake and Output 11/11/24 11/11/24 11/12/24 15:00 23:00 07:00 Intake Total 50 ml Output Total 0 ml Balance 50 ml medications Current Medications Medications Dose Ordered Sig/Haresh Route Start Time Stop Time Status Last Admin Dose Admin Famotidine 20 mg Q2D IV 11/05/24 22:00 11/11/24 22:53 20 MG Levetiracetam 100 ml @ 400 mls/hr BID IV 11/05/24 22:00 11/11/24 22:09 400 MLS/HR Atorvastatin Calcium 20 mg HS PO 11/05/24 22:00 11/11/24 22:11 20 MG Multivit/Ca Carb/ B Cmplx/FA/Prenat 1 tab DAILY PO 11/06/24 10:00 11/11/24 10:13 1 TAB Sevelamer HCl 800 mg TIDWM PO 11/06/24 08:00 11/11/24 22:10 800 MG Sodium Chloride 10 ml Q8HR IV 11/05/24 22:00 11/11/24 22:11 10 ML Acetaminophen/ Hydrocodone Bitart 1 tab Q4HP PRN PO 11/05/24 21:00 11/11/24 22:11 1 TAB Ondansetron HCl 4 mg Q4HP PRN IV 11/05/24 21:00 Docusate Sodium 100 mg BIDPRN PRN PO 11/05/24 21:00 Acetaminophen 650 mg Q6HP PRN PO 11/05/24 21:00 Nitroglycerin 0.4 mg Q5MINP PRN SL 11/05/24 22:45 Morphine Sulfate 2 mg Q30M PRN IV 11/05/24 22:45 Vancomycin HCl 0 ml @ 0 mls/hr UD IV 11/06/24 16:15 Sodium Chloride 1,000 ml @ 150 mls/hr Q6H40M IV 11/07/24 13:15 11/12/24 00:10 150 MLS/HR Dextrose 50 ml UD PRN IV 11/07/24 07:15 Cancel Cefepime HCl 50 ml @ 12.5 mls/hr DAILY IV 11/10/24 10:00 11/11/24 12:23 12.5 MLS/HR Labetalol HCl 10 mg Q4HPRN PRN IV 11/09/24 12:45 11/09/24 13:02 10 MG Dextrose 50 ml UD PRN IV 11/09/24 16:00 Cancel Amino Acids 0 ml @ 0 mls/hr PER PHARMACY IV 11/10/24 11:15 Diagnostic Test (Pha) 1 strip Q6HR 11/10/24 12:00 11/12/24 00:09 1 STRIP Insulin Human Regular FOLLOW SLIDING SCALE Q6HR SC 11/10/24 12:00 11/12/24 00:09 2 UNITS Dextrose 50 ml UD IV 11/10/24 11:45 Amino Acids 1,000 ml @ 41 mls/hr DAILY@2200 IV 11/10/24 22:00 11/11/24 22:53 41 MLS/HR objective HEENT: No evidence of JVD, no oral ulcers. Pulmonary: Diminished on auscultation bilaterally Cardiovascular S1-S2, no S3 or S4 Abdomen: Bowel sounds positive, soft no rebound tenderness Skin: No rash Neurological: Alert, oriented, bed-bound, leg weakness Extremities: 1+ edema in the lower extremities laboratory and microbiology Laboratory Tests 11/11/24 06:00 Test 11/11/24 06:00 Range/Units Serum Glucose 105 74-106 mg/dL Assessment/Plan End-stage renal disease on hemodialysis Intra dialytic hypotension, he has chronic hypotension CAD s/p CABG Bilateral feet wounds History of CVA Diabetes type 2, uncontrolled with hyperglycemia Osteomyelitis of left foot. Acinetobacter Baumannii, Enterococcus faecalis Plan/recommendation: HD scheduled for Friday Continue HD on Friday. Hold off on antihypertensive med Midodrine t.i.d. IV antibiotics Monitor H&H Podiatry consult Dietary Evaluation Review Comments: 1) Initiate Pro-Stat @ 30 mL qd 2) If patient remains NPO > 7 days, consider EN/TPN to meet at least 75% of estimated daily needs 3) If GI is preferred, consider Nepro @ 35 mL/hr goalrate as tolerated. EN regimen (including Pro-Stat) provides 1612 kcals, 83g Pro, and 611 mL free H2O per 24 hrs. EN rate (including Pro-Stat) will meet 91% estimated energy needs and ~51% estimated protein needs 4) Advance to 60 CCHO renal diet when medically feasible, pending ST approval 5) Collect HbA1c 6) Refer to outpatient RD/[facility] for weight management 7) Follow-up with nephrology and cardiology 8) Continue to monitor I&O, labs, and skin integrity Expected Outcomes/Goals: 1) patient to receive nutrition support within 7 days of NPO status 2) labs and wounds to improve 3) diet to advance 4) gradual wt loss 5) f/u in 2-3 days Plan discussed with: Patient PAULETTE BREAUX MD Nov 12, 2024 06:53
--- NOTE | 2024-11-12 09:30 | DVHPN2 ---
Progress Note - Dictate Date Seen: Nov 12, 2024 Has the PT tested + for MRSA If YES, has PT been informed?: Yes Medical Necessity Reason Pt with a Central, PICC or Fol: No Subjective No new acute complaints noted. vital signs Vital Sign Date Time Temp Pulse Resp B/P (MAP) Pulse Ox O2 Delivery O2 Flow Rate FiO2 11/12/24 05:00 98.2 85 18 111/29 (56) 95 98.2 11/11/24 20:00 Room Air* 0 21 Total Intake and Output 11/11/24 11/11/24 11/12/24 15:00 23:00 07:00 Intake Total 50 ml 1000 ml Output Total 0 ml Balance 50 ml 1000 ml medications Current Medications Medications Dose Ordered Sig/Haresh Route Start Time Stop Time Status Last Admin Dose Admin Famotidine 20 mg Q2D IV 11/05/24 22:00 11/11/24 22:53 20 MG Levetiracetam 100 ml @ 400 mls/hr BID IV 11/05/24 22:00 11/11/24 22:09 400 MLS/HR Atorvastatin Calcium 20 mg HS PO 11/05/24 22:00 11/11/24 22:11 20 MG Multivit/Ca Carb/ B Cmplx/FA/Prenat 1 tab DAILY PO 11/06/24 10:00 11/11/24 10:13 1 TAB Sevelamer HCl 800 mg TIDWM PO 11/06/24 08:00 11/11/24 22:10 800 MG Sodium Chloride 10 ml Q8HR IV 11/05/24 22:00 11/12/24 07:03 10 ML Acetaminophen/ Hydrocodone Bitart 1 tab Q4HP PRN PO 11/05/24 21:00 11/11/24 22:11 1 TAB Ondansetron HCl 4 mg Q4HP PRN IV 11/05/24 21:00 Docusate Sodium 100 mg BIDPRN PRN PO 11/05/24 21:00 Acetaminophen 650 mg Q6HP PRN PO 11/05/24 21:00 Nitroglycerin 0.4 mg Q5MINP PRN SL 11/05/24 22:45 Morphine Sulfate 2 mg Q30M PRN IV 11/05/24 22:45 Vancomycin HCl 0 ml @ 0 mls/hr UD IV 11/06/24 16:15 Sodium Chloride 1,000 ml @ 150 mls/hr Q6H40M IV 11/07/24 13:15 11/12/24 07:04 150 MLS/HR Dextrose 50 ml UD PRN IV 11/07/24 07:15 Cancel Cefepime HCl 50 ml @ 12.5 mls/hr DAILY IV 11/10/24 10:00 11/11/24 12:23 12.5 MLS/HR Labetalol HCl 10 mg Q4HPRN PRN IV 11/09/24 12:45 11/09/24 13:02 10 MG Dextrose 50 ml UD PRN IV 11/09/24 16:00 Cancel Amino Acids 0 ml @ 0 mls/hr PER PHARMACY IV 11/10/24 11:15 Diagnostic Test (Pha) 1 strip Q6HR 11/10/24 12:00 11/12/24 06:00 1 STRIP Insulin Human Regular FOLLOW SLIDING SCALE Q6HR SC 11/10/24 12:00 11/12/24 00:09 2 UNITS Dextrose 50 ml UD IV 11/10/24 11:45 Amino Acids 1,000 ml @ 41 mls/hr DAILY@2200 IV 11/10/24 22:00 11/11/24 22:53 41 MLS/HR objective General Appearance: Alert, Oriented X3, Cooperative, No acute distress, Other (Encephalopathic) HEENT: Atraumatic, PERRLA, EOMI, Mucous membrane. moist/pink Respiratory: Normal air movement Cardiovascular: Regular rate, Normal S1, Normal S2, No murmurs Abdominal: Normal bowel sounds, Soft, No tenderness, No hepatospenomegaly, No masses Extremities: No clubbing, No cyanosis, No edema, Normal pulses, No tenderness/swelling Skin: Bilateral feet Wounds Neuro: Normal speech, Normal tone, Sensation intact Psych/Mental Status: Mental status NL, Mood NL laboratory and microbiology Laboratory Tests 11/11/24 06:00 Test 11/12/24 09:03 Range/Units Serum Glucose Pending Assessment/Plan Patient is a 69year-old male presents to the hospital with: sepsis resolved hypotension resolved Acinetobacter baumanii/haemol, Enterococcus faecalis in wound cultures Bilateral feet wounds; chronic Osteomyelitis of left foot End-stage renal disease on hemodialysis Diabetes mellitus Pulmonary edema/ anasarca Stroke baseline weakness/ bedbound Morbid obesity CAD S/P CABG Recommendations: Patient is on IV Vancomycin and IV Cefepime, continue wbc has trended down 11/06 Blood cx no growth Wound culture showed Acinetobacter baumanii/haemol and Enterococcus faecalis The wound cultures are superficial, wounds have debris hence these cultures are not reliable. reviewed podiatry notes, recommend debridement. 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 He is clinically slowly deteriorating, the bilateral feet wounds are large.. At risk of them infecting HD catheter in future or causing sepsis or septic shock and even . Antibiotics will also drive resistance These current cx are colonization likely, clinically he is improving on Vancomycin and cefepime. I will plan for 2 weeks total with HD for infection however prolonged course is not going to heal the wound. I asked them to consider goals of care discussion. He also has issues with Line issue as per son. They all are understanding that his prognosis looks poor. He said he had discussion with patient, Son explained to mother in armenian. They will consider goals of care discussion as family. They are aware of poor prognosis follow up with home podiatry care, . Foot MRI showed Wound at the posterior plantar aspect of the foot adjacent to the posterior plantar aspect of the calcaneus with surrounding subcutaneous edema, possible cellulitis in the appropriate clinical setting. No organized fluid collection identified to suggest abscess. Marrow signal changes of the posterior calcaneus with associated STIR hyperintense and T1 hypointense signal, suspected osteomyelitis in the appropriate clinical setting. Foot CT showed No definitive CT evidence of osteomyelitis however maintain elevated suspicion given extrusion of posterior calcaneal screw possibly through the skin. No drainable fluid collection. Severe air reversible fatty atrophy of the intrinsic visualized musculature prognosis gaurded plan discussed with Abhi Total 65 minutes spent during the encounter Thank you for consult. Dietary Evaluation Review Comments: 1) Initiate Pro-Stat @ 30 mL qd 2) If patient remains NPO > 7 days, consider EN/TPN to meet at least 75% of estimated daily needs 3) If GI is preferred, consider Nepro @ 35 mL/hr goalrate as tolerated. EN regimen (including Pro-Stat) provides 1612 kcals, 83g Pro, and 611 mL free H2O per 24 hrs. EN rate (including Pro-Stat) will meet 91% estimated energy needs and ~51% estimated protein needs 4) Advance to 60 CCHO renal diet when medically feasible, pending ST approval 5) Collect HbA1c 6) Refer to outpatient RD/[facility] for weight management 7) Follow-up with nephrology and cardiology 8) Continue to monitor I&O, labs, and skin integrity Expected Outcomes/Goals: 1) patient to receive nutrition support within 7 days of NPO status 2) labs and wounds to improve 3) diet to advance 4) gradual wt loss 5) f/u in 2-3 days Plan discussed with: Spouse, Son, Other JOE COLLINS MD Nov 12, 2024 09:30
[2024-11-12 10:08] LABS: Anion Gap 11.0 (5-15); Carbon Dioxide 25.0 mmol/L (20-31)
[2024-11-12 10:14] LABS: BUN/Creatinine Ratio 8.5 (10.0-20.0)
[2024-11-12 10:17] LABS: Blood Urea Nitrogen 25.0 mg/dL (9-23); Calcium 8.4 mg/dL (8.7-10.4); Chloride 105.0 mmol/L (98-107); Glucose 114.0 mg/dL (74-106); Sodium 141.0 mmol/L (136-145)
[2024-11-12 10:18] LABS: Albumin 2.4 g/dL (3.2-4.8); Magnesium 1.6 mg/dL (1.6-2.6)
[2024-11-12 10:19] LABS: Potassium 2.4 mmol/L (3.5-5.1)
--- NOTE | 2024-11-12 15:14 | DVHPN2 ---
Subjective Patient more awake. Denies any symptoms. Reviewed: Care Plan, H&P, Labs, Medications, Previous Orders Changes from previous H/P or p: No Changes General: Per HPI Eyes: No Pain, No Vision change, No Conjunctivae inflammation, No Eyelid inflammation, No Other, No Redness ENT: No Ear pain, No Ear discharge, No Nose pain, No Nose discharge, No Nose congestion, No Mouth pain, No Mouth swelling, No Throat pain, No Throat swelling, No Other Cardiovascular: Chest Pain; No Palpitations, No Orthopnea, No Paroxysmal Noc. Dyspnea, No Edema, No Lt Headedness, No Other Respiratory: No Cough, No Dry; Shortness of breath; No SOB with excertion, No Wheezing, No Hemoptysis, No Pleuritic Pain, No Sputum; Other (SOB at rest) Gastrointestinal: No Nausea, No Vomiting, No Abdominal Pain, No Diarrhea, No Constipation, No Melena, No Hematochezia, No Other Genitourinary: No Dysuria, No Frequency, No Incontinence, No Hematuria, No Retention, No Other Musculoskeletal: No other, No neck pain, No shoulder pain, No arm pain, No back pain, No hand pain, No leg pain, No foot pain Skin: No Rash, No Lesions, No Jaundice, No Bruising, No Other Objective Vitals Vital Signs Date Time Temp Pulse Resp B/P (MAP) Pulse Ox O2 Delivery O2 Flow Rate FiO2 11/12/24 13:00 98.4 99 20 97/53 (68) 94 98.4 11/11/24 20:00 Room Air* 0 21 Intake/Output Intake and Output 11/12/24 07:00 Intake Total 1050 ml Output Total 0 ml Balance 1050 ml IV Total 1050 ml Output Urine Total 0 ml Stool Total 0 ml General Appearance: Alert, Oriented X3, mild distress, Other (Encephalopathic) HEENT: Atraumatic, PERRLA Lungs: Clear to auscultation, Normal air movement Cardiovascular: Normal S1, Normal S2 Abdomen: Normal bowel sounds, Soft, No tenderness, No hepatospenomegaly Skin: Wounds (See nurse notes and pictures) Psych/Mental Status: Mental status NL, Mood NL Medications Current Medications Medications Dose Ordered Sig/Haresh Route Start Time Stop Time Status Last Admin Dose Admin Famotidine 20 mg Q2D IV 11/05/24 22:00 11/11/24 22:53 20 MG Levetiracetam 100 ml @ 400 mls/hr BID IV 11/05/24 22:00 11/12/24 13:03 400 MLS/HR Atorvastatin Calcium 20 mg HS PO 11/05/24 22:00 11/11/24 22:11 20 MG Multivit/Ca Carb/ B Cmplx/FA/Prenat 1 tab DAILY PO 11/06/24 10:00 11/12/24 13:00 1 TAB Sevelamer HCl 800 mg TIDWM PO 11/06/24 08:00 11/12/24 12:58 800 MG Sodium Chloride 10 ml Q8HR IV 11/05/24 22:00 11/12/24 07:03 10 ML Acetaminophen/ Hydrocodone Bitart 1 tab Q4HP PRN PO 11/05/24 21:00 11/11/24 22:11 1 TAB Ondansetron HCl 4 mg Q4HP PRN IV 11/05/24 21:00 Docusate Sodium 100 mg BIDPRN PRN PO 11/05/24 21:00 Acetaminophen 650 mg Q6HP PRN PO 11/05/24 21:00 Nitroglycerin 0.4 mg Q5MINP PRN SL 11/05/24 22:45 Morphine Sulfate 2 mg Q30M PRN IV 11/05/24 22:45 Vancomycin HCl 0 ml @ 0 mls/hr UD IV 11/06/24 16:15 Dextrose 50 ml UD PRN IV 11/07/24 07:15 Cancel Cefepime HCl 50 ml @ 12.5 mls/hr DAILY IV 11/10/24 10:00 11/12/24 13:03 12.5 MLS/HR Labetalol HCl 10 mg Q4HPRN PRN IV 11/09/24 12:45 11/09/24 13:02 10 MG Dextrose 50 ml UD PRN IV 11/09/24 16:00 Cancel Amino Acids 0 ml @ 0 mls/hr PER PHARMACY IV 11/10/24 11:15 Diagnostic Test (Pha) 1 strip Q6HR 11/10/24 12:00 11/12/24 12:08 1 STRIP Insulin Human Regular FOLLOW SLIDING SCALE Q6HR SC 11/10/24 12:00 11/12/24 00:09 2 UNITS Dextrose 50 ml UD IV 11/10/24 11:45 Amino Acids 1,000 ml @ 41 mls/hr DAILY@2200 IV 11/10/24 22:00 11/11/24 22:53 41 MLS/HR Laboratory Results Laboratory Tests 11/11/24 06:00 11/12/24 09:03 Chemistry Test 11/12/24 09:03 Albumin 2.4 g/dL (3.2-4.8) L Calcium Level 8.4 mg/dL (8.7-10.4) L Magnesium Level 1.6 mg/dL (1.6-2.6) Phosphorus Level 2.4 mg/dL (2.4-5.1) Microbiology Microbiology Date/Time Source Procedure Growth Status 11/07/24 12:33 Foot Right Gram Stain - Final Resulted 11/07/24 12:33 Wound Culture - Preliminary Acinetobacter baumannii Enterococcus faecalis Acinetobacter baumanii/haemol Resulted 11/06/24 20:44 Blood Blood Culture - Final NO GROWTH AFTER 5 DAYS OF INCUBATION. Complete Labs and/or images reviewed: Labs reviewed by me, Image(s) reviewed by me Assessment/Plan Assessment/Plan Impression: -ESRD with hemodialysis -coronary artery disease with previous CABG -obesity -history of CVA -bilateral heel wounds -septic shock -Metabolic Encephalopathy -Osteomyelitis of left foot. Acinetobacter Baumannii, Enterococcus faecalis Plan: Events: Awaiting for determination if patient needs surgical intervention on left heel. Discussed case with Infectious Disease. Patient more alert today. Restart oral intake. Continue current antibiotic therapy per Infectious Disease. If no surgical intervention is deemed necessary at this time, extended antibiotic therapy per Infectious Disease doctor recommendations can be coordinated with Nephrology for possible administration with the hemodialysis. Otherwise patient will need PICC line placement if daily IV antibiotics are required. -continue Clinimix -continue antibiotic therapy with vancomycin and cefepime -swallow evaluation: Reviewed -podiatry consultation -nephrology consultation: Hemodialysis on MWF -wound care consultation -PUD prophylaxis -repeat labs in a.m. Total time spent with patient discussing and formulating plan of care: 35 minutes. This medical document was created using an electronic medical record system with [employer] system. Although this document has been carefully reviewed, there may still be some phonetic and typographical errors. These areas are purely typographical due to imperfections of the software programs, and do not reflect any compromise in the patient's medical care. Plan discussed with: Patient, Spouse, Son, Other (RN) My Orders Orders - INESSA HANSEN NP Procedure Category Date Status Time Vancomycin 1gm/200ml PHA 11/12/24 In Process Pm 18:00 Vancomycin,Random LAB 11/14/24 Verified 05:00 Vancomycin Per [facility] 11/12/24 In Process Pharmacy Protoc 18:00 Consistent DIET 11/12/24 Verified Carb([facility])Diabetes Dinner Date of Service: Nov 12, 2024 Billing Provider: INSESA HANSEN NP Common Visit Codes: [id number] INP/OBS CARE(HIGH) INESSA HANSEN NP Nov 12, 2024 15:14
[2024-11-12] MEDS ORDERED: MAGNESIUM SULFATE 1GM/100ML 100 ML IV ONE ×2 (15:15→15:30)
[2024-11-12] MEDS ORDERED: POTASSIUM CHL 20MEQ/100ML 100 ML IV SCH (15:15)
[2024-11-12] MEDS: MAGNESIUM SULFATE 1GM/100ML 100 ML IV ONE (15:30)
[2024-11-12 16:44] LABS: Chloride 104 mmol/L (98-107); Sodium 140 mmol/L (136-145)
[2024-11-12 16:45] LABS: Anion Gap 12 (5-15); Calcium 9.1 mg/dL (8.7-10.4); Carbon Dioxide 24 mmol/L (20-31)
[2024-11-12 16:46] LABS: Potassium 3.2 mmol/L (3.5-5.1)
[2024-11-12 16:50] LABS: BUN/Creatinine Ratio 7.1 (10.0-20.0); Blood Urea Nitrogen 21 mg/dL (9-23)
[2024-11-12 16:56] LABS: Glucose 117 mg/dL (74-106)
[2024-11-12] MEDS: VANCOMYCIN 1GM/200ML PM 200 ML IV ONE (17:49)
[2024-11-12] MEDS ORDERED: POTASSIUM PHOSPHATE 22 MEQ in SODIUM CHL 0.9% 100 ML IV ONE (19:30)
[2024-11-13] VITALS (8 sets, daily range): BP systolic 110–145; BP diastolic 49–114; PULSE 85–104; RESP 15–21; TEMP 97.5–99; O2SAT 98–100
[2024-11-13] MEDS: diphenhdrAMINE HCL 50 MG/1 ML VL IV ONE (03:00)
[2024-11-13 07:29] LABS: Hemoglobin 12.3 g/dL (13.5-17.5)
[2024-11-13 07:31] LABS: Hematocrit 38.0 % (41.0-53.0); Mean Corpuscular Hemoglobin 33.6 pg (28.0-32.0); Mean Corpuscular Volume 103.9 fL (80.0-100.0); Nucleated Red Blood Cells % 0.1 %
[2024-11-13 07:36] LABS: Chloride 103.0 mmol/L (98-107); Sodium 138.0 mmol/L (136-145)
[2024-11-13 07:37] LABS: Anion Gap 12.0 (5-15); Carbon Dioxide 23.0 mmol/L (20-31)
[2024-11-13 07:38] LABS: Calcium 9.5 mg/dL (8.7-10.4)
[2024-11-13 07:43] LABS: Albumin 3.2 g/dL (3.2-4.8); BUN/Creatinine Ratio 6.6 (10.0-20.0); Blood Urea Nitrogen 23.0 mg/dL (9-23); Glucose 144.0 mg/dL (74-106); Magnesium 1.9 mg/dL (1.6-2.6); Potassium 3.0 mmol/L (3.5-5.1)
[2024-11-13] MEDS ORDERED: QUETIAPINE FUMERATE PO SCH (10:00)
--- NOTE | 2024-11-13 13:43 | DVHPN2 ---
Progress Note - Dictate Date Seen: Nov 13, 2024 Has the PT tested + for MRSA If YES, has PT been informed?: Yes Medical Necessity Reason Pt with a Central, PICC or Fol: No Subjective no new symptoms vital signs Vital Sign Date Time Temp Pulse Resp B/P (MAP) Pulse Ox O2 Delivery O2 Flow Rate FiO2 11/13/24 12:34 99.0 100 21 145/114 (124) 100 99.0 11/13/24 07:30 Nasal Cannula* 2 28 Total Intake and Output 11/12/24 11/12/24 11/13/24 15:00 23:00 07:00 Intake Total 0 ml 50 ml Balance 0 ml 50 ml medications Current Medications Medications Dose Ordered Sig/Haresh Route Start Time Stop Time Status Last Admin Dose Admin Famotidine 20 mg Q2D IV 11/05/24 22:00 11/11/24 22:53 20 MG Levetiracetam 100 ml @ 400 mls/hr BID IV 11/05/24 22:00 11/13/24 10:07 400 MLS/HR Atorvastatin Calcium 20 mg HS PO 11/05/24 22:00 11/11/24 22:11 20 MG Multivit/Ca Carb/ B Cmplx/FA/Prenat 1 tab DAILY PO 11/06/24 10:00 11/12/24 13:00 1 TAB Sevelamer HCl 800 mg TIDWM PO 11/06/24 08:00 11/12/24 18:05 800 MG Sodium Chloride 10 ml Q8HR IV 11/05/24 22:00 11/13/24 05:34 10 ML Acetaminophen/ Hydrocodone Bitart 1 tab Q4HP PRN PO 11/05/24 21:00 11/11/24 22:11 1 TAB Ondansetron HCl 4 mg Q4HP PRN IV 11/05/24 21:00 Docusate Sodium 100 mg BIDPRN PRN PO 11/05/24 21:00 Acetaminophen 650 mg Q6HP PRN PO 11/05/24 21:00 Nitroglycerin 0.4 mg Q5MINP PRN SL 11/05/24 22:45 Morphine Sulfate 2 mg Q30M PRN IV 11/05/24 22:45 Vancomycin HCl 0 ml @ 0 mls/hr UD IV 11/06/24 16:15 Dextrose 50 ml UD PRN IV 11/07/24 07:15 Cancel Cefepime HCl 50 ml @ 12.5 mls/hr DAILY IV 11/10/24 10:00 11/13/24 10:08 12.5 MLS/HR Labetalol HCl 10 mg Q4HPRN PRN IV 11/09/24 12:45 11/09/24 13:02 10 MG Dextrose 50 ml UD PRN IV 11/09/24 16:00 Cancel Amino Acids 0 ml @ 0 mls/hr PER PHARMACY IV 11/10/24 11:15 Diagnostic Test (Pha) 1 strip Q6HR 11/10/24 12:00 11/13/24 05:34 1 STRIP Insulin Human Regular FOLLOW SLIDING SCALE Q6HR SC 11/10/24 12:00 11/13/24 05:35 4 UNITS Dextrose 50 ml UD IV 11/10/24 11:45 Amino Acids 1,000 ml @ 41 mls/hr DAILY@2200 IV 11/10/24 22:00 11/12/24 21:52 41 MLS/HR Patient Own Medication 25 mg DAILY PO 11/13/24 10:00 UNV Potassium Chloride 100 ml @ 50 mls/hr Q2H IV 11/12/24 15:15 11/12/24 19:14 UNV Quetiapine Fumarate 25 mg DAILY PO 11/13/24 10:00 objective HEENT: No evidence of JVD, no oral ulcers. Pulmonary: Diminished on auscultation bilaterally Cardiovascular S1-S2, no S3 or S4 Abdomen: Bowel sounds positive, soft no rebound tenderness Skin: No rash Neurological: Alert, oriented, bed-bound, leg weakness Extremities: 1+ edema in the lower extremities laboratory and microbiology Laboratory Tests 11/13/24 06:48 Test 11/13/24 06:48 Range/Units Serum Glucose 144 H 74-106 mg/dL Assessment/Plan End-stage renal disease on hemodialysis Intra dialytic hypotension, he has chronic hypotension Hypokalemia CAD s/p CABG Bilateral feet wounds History of CVA Diabetes type 2, uncontrolled with hyperglycemia Osteomyelitis of left foot. Acinetobacter Baumannii, Enterococcus faecalis Plan/recommendation: s/p HD Friday Next HD on Friday Continue HD on Friday. on Clinimix Hold off on antihypertensive med Midodrine t.i.d. IV antibiotics Monitor H&H Podiatry consult Dietary Evaluation Review Comments: 1) Initiate Pro-Stat @ 30 mL qd 2) If patient remains NPO > 7 days, consider EN/TPN to meet at least 75% of estimated daily needs 3) If GI is preferred, consider Nepro @ 35 mL/hr goalrate as tolerated. EN regimen (including Pro-Stat) provides 1612 kcals, 83g Pro, and 611 mL free H2O per 24 hrs. EN rate (including Pro-Stat) will meet 91% estimated energy needs and ~51% estimated protein needs 4) Advance to 60 CCHO renal diet when medically feasible, pending ST approval 5) Collect HbA1c 6) Refer to outpatient RD/CDCES for weight management 7) Follow-up with nephrology and cardiology 8) Continue to monitor I&O, labs, and skin integrity Expected Outcomes/Goals: 1) patient to receive nutrition support within 7 days of NPO status 2) labs and wounds to improve 3) diet to advance 4) gradual wt loss 5) f/u in 2-3 days Plan discussed with: Patient, Other PAULETTE BREAUX MD Nov 13, 2024 13:42
--- NOTE | 2024-11-13 14:13 | DVHPN2 ---
Subjective The patient is seen and examined at bedside. No complaint today Reviewed: Care Plan, H&P, Labs, Medications, Previous Orders Changes from previous H/P or p: No Changes General: Per HPI Eyes: No Pain, No Vision change, No Conjunctivae inflammation, No Eyelid inflammation, No Other, No Redness ENT: No Ear pain, No Ear discharge, No Nose pain, No Nose discharge, No Nose congestion, No Mouth pain, No Mouth swelling, No Throat pain, No Throat swelling, No Other Cardiovascular: Chest Pain; No Palpitations, No Orthopnea, No Paroxysmal Noc. Dyspnea, No Edema, No Lt Headedness, No Other Respiratory: No Cough, No Dry; Shortness of breath; No SOB with excertion, No Wheezing, No Hemoptysis, No Pleuritic Pain, No Sputum; Other (SOB at rest) Gastrointestinal: No Nausea, No Vomiting, No Abdominal Pain, No Diarrhea, No Constipation, No Melena, No Hematochezia, No Other Genitourinary: No Dysuria, No Frequency, No Incontinence, No Hematuria, No Retention, No Other Musculoskeletal: No other, No neck pain, No shoulder pain, No arm pain, No back pain, No hand pain, No leg pain, No foot pain Skin: No Rash, No Lesions, No Jaundice, No Bruising, No Other Objective Vitals Vital Signs Date Time Temp Pulse Resp B/P (MAP) Pulse Ox O2 Delivery O2 Flow Rate FiO2 11/13/24 12:34 99.0 100 21 145/114 (124) 100 99.0 11/13/24 07:30 Nasal Cannula* 2 28 Intake/Output Intake and Output 11/13/24 06:59 Intake Total 50 ml Balance 50 ml Intake Oral 0 ml IV Total 50 ml General Appearance: Alert, Oriented X3, mild distress, Other (Encephalopathic) HEENT: Atraumatic, PERRLA Lungs: Clear to auscultation, Normal air movement Cardiovascular: Normal S1, Normal S2 Abdomen: Normal bowel sounds, Soft, No tenderness, No hepatospenomegaly Skin: Wounds (See nurse notes and pictures) Psych/Mental Status: Mental status NL, Mood NL Medications Current Medications Medications Dose Ordered Sig/Haresh Route Start Time Stop Time Status Last Admin Dose Admin Famotidine 20 mg Q2D IV 11/05/24 22:00 11/11/24 22:53 20 MG Levetiracetam 100 ml @ 400 mls/hr BID IV 11/05/24 22:00 11/13/24 10:07 400 MLS/HR Atorvastatin Calcium 20 mg HS PO 11/05/24 22:00 11/11/24 22:11 20 MG Multivit/Ca Carb/ B Cmplx/FA/Prenat 1 tab DAILY PO 11/06/24 10:00 11/12/24 13:00 1 TAB Sevelamer HCl 800 mg TIDWM PO 11/06/24 08:00 11/12/24 18:05 800 MG Sodium Chloride 10 ml Q8HR IV 11/05/24 22:00 11/13/24 05:34 10 ML Acetaminophen/ Hydrocodone Bitart 1 tab Q4HP PRN PO 11/05/24 21:00 11/11/24 22:11 1 TAB Ondansetron HCl 4 mg Q4HP PRN IV 11/05/24 21:00 Docusate Sodium 100 mg BIDPRN PRN PO 11/05/24 21:00 Acetaminophen 650 mg Q6HP PRN PO 11/05/24 21:00 Nitroglycerin 0.4 mg Q5MINP PRN SL 11/05/24 22:45 Morphine Sulfate 2 mg Q30M PRN IV 11/05/24 22:45 Vancomycin HCl 0 ml @ 0 mls/hr UD IV 11/06/24 16:15 Dextrose 50 ml UD PRN IV 11/07/24 07:15 Cancel Cefepime HCl 50 ml @ 12.5 mls/hr DAILY IV 11/10/24 10:00 11/13/24 10:08 12.5 MLS/HR Labetalol HCl 10 mg Q4HPRN PRN IV 11/09/24 12:45 11/09/24 13:02 10 MG Dextrose 50 ml UD PRN IV 11/09/24 16:00 Cancel Amino Acids 0 ml @ 0 mls/hr PER PHARMACY IV 11/10/24 11:15 Diagnostic Test (Pha) 1 strip Q6HR 11/10/24 12:00 11/13/24 05:34 1 STRIP Insulin Human Regular FOLLOW SLIDING SCALE Q6HR SC 11/10/24 12:00 11/13/24 05:35 4 UNITS Dextrose 50 ml UD IV 11/10/24 11:45 Amino Acids 1,000 ml @ 41 mls/hr DAILY@2200 IV 11/10/24 22:00 11/12/24 21:52 41 MLS/HR Patient Own Medication 25 mg DAILY PO 11/13/24 10:00 UNV Potassium Chloride 100 ml @ 50 mls/hr Q2H IV 11/12/24 15:15 11/12/24 19:14 UNV Quetiapine Fumarate 25 mg DAILY PO 11/13/24 10:00 Laboratory Results Laboratory Tests 11/13/24 06:48 Chemistry Test 11/12/24 16:00 11/13/24 06:48 Calcium Level 9.1 mg/dL (8.7-10.4) 9.5 mg/dL (8.7-10.4) Albumin 3.2 g/dL (3.2-4.8) Magnesium Level 1.9 mg/dL (1.6-2.6) Phosphorus Level 2.8 mg/dL (2.4-5.1) Microbiology Microbiology Date/Time Source Procedure Growth Status 11/07/24 12:33 Foot Right Gram Stain - Final Resulted 11/07/24 12:33 Wound Culture - Preliminary Acinetobacter baumannii Enterococcus faecalis Acinetobacter baumanii/haemol Resulted 11/06/24 20:44 Blood Blood Culture - Final NO GROWTH AFTER 5 DAYS OF INCUBATION. Complete Labs and/or images reviewed: Labs reviewed by me Assessment/Plan Assessment/Plan -ESRD with hemodialysis -coronary artery disease with previous CABG -obesity -history of CVA -bilateral heel wounds -septic shock -Metabolic Encephalopathy -Osteomyelitis of left foot. Acinetobacter Baumannii, Enterococcus faecalis Plan: Continuing current management. Still waiting to see if the patient needs surgery intervention for the left heel. Continuing with IV antibiotic: Vancomycin and cefepime Continuing with hemodialysis Continuing with Clinimix Patient is still not pass swallow eval. We will reevaluate later Continuing hemodialysis Friday. Discussed with his son and daughter at bedside. This medical document was created using an electronic medical record system with [employer] computerized dictation system. Although this document has been carefully reviewed, there may still be some phonetic and typographical errors. These areas are purely typographical due to imperfections of the software programs, and do not reflect any compromise in the patient's medical care. Plan discussed with: Patient, Daughter, Son Date of Service: Nov 13, 2024 Billing Provider: VON ANAND MD Common Visit Codes: [id number] INP/OBS CARE(HIGH) VON ANAND MD Nov 13, 2024 14:13
[2024-11-13] MEDS: MORPHINE SULFATE INJ 2 MG/ml SYRG IV PRN ×2 (16:33→21:50)
[2024-11-13] MEDS: POTASSIUM CHL 20MEQ/100ML 100 ML IV ONE (19:29)
[2024-11-14] VITALS (8 sets, daily range): BP systolic 109–162; BP diastolic 33–72; PULSE 83–94; RESP 15–18; TEMP 97.6–98.7; O2SAT 96–100
[2024-11-14 06:33] LABS: Anion Gap 12 (5-15); BUN/Creatinine Ratio 9.3 (10.0-20.0); Calcium 9.5 mg/dL (8.7-10.4); Carbon Dioxide 24 mmol/L (20-31); Chloride 102 mmol/L (98-107); Magnesium 1.8 mg/dL (1.6-2.6); Sodium 138 mmol/L (136-145)
[2024-11-14 06:34] LABS: Alanine Aminotransferase 40 U/L (7-40); Albumin 2.9 g/dL (3.2-4.8); Alkaline Phosphatase 118 U/L (46-116); Bilirubin, Total 0.5 mg/dL (0.2-1.0); Blood Urea Nitrogen 38 mg/dL (9-23); Glucose 130 mg/dL (74-106); Potassium 3.4 mmol/L (3.5-5.1); Total Protein 5.1 g/dL (5.7-8.2)
--- NOTE | 2024-11-14 11:16 | DVHPN2 ---
Progress Note - Dictate Date Seen: Nov 14, 2024 Has the PT tested + for MRSA If YES, has PT been informed?: Yes Medical Necessity Reason Pt with a Central, PICC or Fol: No Subjective No new acute complaints noted. vital signs Vital Sign Date Time Temp Pulse Resp B/P (MAP) Pulse Ox O2 Delivery O2 Flow Rate FiO2 11/14/24 10:15 94 18 126/52 11/14/24 09:00 97.6 99 97.6 11/14/24 07:30 Nasal Cannula* 2 28 Total Intake and Output 11/13/24 11/13/24 11/14/24 15:00 23:00 07:00 Intake Total 150 ml 58 ml 0 ml Output Total 1 ml Balance 150 ml 57 ml 0 ml medications Current Medications Medications Dose Ordered Sig/Haresh Route Start Time Stop Time Status Last Admin Dose Admin Famotidine 20 mg Q2D IV 11/05/24 22:00 11/13/24 21:49 20 MG Levetiracetam 100 ml @ 400 mls/hr BID IV 11/05/24 22:00 11/14/24 09:06 400 MLS/HR Atorvastatin Calcium 20 mg HS PO 11/05/24 22:00 11/11/24 22:11 20 MG Multivit/Ca Carb/ B Cmplx/FA/Prenat 1 tab DAILY PO 11/06/24 10:00 11/12/24 13:00 1 TAB Sevelamer HCl 800 mg TIDWM PO 11/06/24 08:00 11/12/24 18:05 800 MG Sodium Chloride 10 ml Q8HR IV 11/05/24 22:00 11/14/24 05:46 10 ML Acetaminophen/ Hydrocodone Bitart 1 tab Q4HP PRN PO 11/05/24 21:00 11/11/24 22:11 1 TAB Ondansetron HCl 4 mg Q4HP PRN IV 11/05/24 21:00 Docusate Sodium 100 mg BIDPRN PRN PO 11/05/24 21:00 Acetaminophen 650 mg Q6HP PRN PO 11/05/24 21:00 Nitroglycerin 0.4 mg Q5MINP PRN SL 11/05/24 22:45 Morphine Sulfate 2 mg Q30M PRN IV 11/05/24 22:45 Vancomycin HCl 0 ml @ 0 mls/hr UD IV 11/06/24 16:15 Dextrose 50 ml UD PRN IV 11/07/24 07:15 Cancel Cefepime HCl 50 ml @ 12.5 mls/hr DAILY IV 11/10/24 10:00 11/14/24 09:06 12.5 MLS/HR Labetalol HCl 10 mg Q4HPRN PRN IV 11/09/24 12:45 11/09/24 13:02 10 MG Dextrose 50 ml UD PRN IV 11/09/24 16:00 Cancel Amino Acids 0 ml @ 0 mls/hr PER PHARMACY IV 11/10/24 11:15 Diagnostic Test (Pha) 1 strip Q6HR 11/10/24 12:00 11/14/24 10:31 1 STRIP Insulin Human Regular FOLLOW SLIDING SCALE Q6HR SC 11/10/24 12:00 11/14/24 05:45 2 UNITS Dextrose 50 ml UD IV 11/10/24 11:45 Amino Acids 1,000 ml @ 41 mls/hr DAILY@2200 IV 11/10/24 22:00 11/13/24 21:51 41 MLS/HR Patient Own Medication 25 mg DAILY PO 11/13/24 10:00 UNV Potassium Chloride 100 ml @ 50 mls/hr Q2H IV 11/12/24 15:15 11/12/24 19:14 UNV Quetiapine Fumarate 25 mg DAILY PO 11/13/24 10:00 Morphine Sulfate 1 mg Q6HP PRN IV 11/13/24 19:45 11/14/24 10:15 1 MG objective General Appearance: Altered HEENT: Atraumatic, PERRLA, EOMI, Mucous membrane. moist/pink Respiratory: Normal air movement Cardiovascular: Regular rate, Normal S1, Normal S2, No murmurs Abdominal: Normal bowel sounds, Soft, No tenderness, No hepatospenomegaly, No masses Extremities: No clubbing, No cyanosis, No edema, Normal pulses, No tenderness/swelling Skin: Bilateral feet Wounds laboratory and microbiology Laboratory Tests 11/14/24 05:09 11/13/24 06:48 Test 11/14/24 05:09 Range/Units Serum Glucose 130 H 74-106 mg/dL Assessment/Plan Patient is a 69year-old male presents to the hospital with: sepsis resolved hypotension resolved Acinetobacter baumanii/haemol, Enterococcus faecalis in wound cultures Bilateral feet wounds; chronic Osteomyelitis of left foot End-stage renal disease on hemodialysis Diabetes mellitus Pulmonary edema/ anasarca Stroke baseline weakness/ bedbound Morbid obesity CAD S/P CABG Recommendations: Patient is on IV Vancomycin and IV Cefepime, continue WBC has trended down 11/06 Blood cx no growth Wound culture showed Acinetobacter baumanii/haemol and Enterococcus faecalis The wound cultures are superficial, wounds have debris hence these cultures are not reliable. reviewed podiatry notes, recommend debridement. 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 I will plan for 2 weeks total with HD for infection however prolonged course is not going to heal the wound. I asked them to consider goals of care discussion. He also has issues with Line issue as per son. They all are understanding that his prognosis looks poor. He said he had discussion with patient, Foot MRI showed Wound at the posterior plantar aspect of the foot adjacent to the posterior plantar aspect of the calcaneus with surrounding subcutaneous edema, possible cellulitis in the appropriate clinical setting. No organized fluid collection identified to suggest abscess. Marrow signal changes of the posterior calcaneus with associated STIR hyperintense and T1 hypointense signal, suspected osteomyelitis in the appropriate clinical setting. Foot CT showed No definitive CT evidence of osteomyelitis however maintain elevated suspicion given extrusion of posterior calcaneal screw possibly through the skin. No drainable fluid collection. Severe air reversible fatty atrophy of the intrinsic visualized musculature Prognosis guarded Total 50 minutes spent during the encounter Thank you for consult. Dietary Evaluation Review Comments: 1) Initiate Pro-Stat @ 30 mL qd 2) If patient remains NPO > 7 days, consider EN/TPN to meet at least 75% of estimated daily needs 3) If GI is preferred, consider Nepro @ 35 mL/hr goalrate as tolerated. EN regimen (including Pro-Stat) provides 1612 kcals, 83g Pro, and 611 mL free H2O per 24 hrs. EN rate (including Pro-Stat) will meet 91% estimated energy needs and ~51% estimated protein needs 4) Advance to 60 CCHO renal diet when medically feasible, pending ST approval 5) Collect HbA1c 6) Refer to outpatient RD/[facility] for weight management 7) Follow-up with nephrology and cardiology 8) Continue to monitor I&O, labs, and skin integrity Expected Outcomes/Goals: 1) patient to receive nutrition support within 7 days of NPO status 2) labs and wounds to improve 3) diet to advance 4) gradual wt loss 5) f/u in 2-3 days Plan discussed with: JOE Mar MD Nov 14, 2024 11:15
[2024-11-14] MEDS: POTASSIUM CHL 20MEQ/100ML 100 ML IV ONE (11:47)
[2024-11-14] MEDS: LORazepam 2MG/ML-1ML VIAL IV PRN (13:06)
--- NOTE | 2024-11-14 14:04 | DVHPN2 ---
Progress Note - Dictate Date Seen: Nov 14, 2024 Has the PT tested + for MRSA If YES, has PT been informed?: Yes Medical Necessity Reason Pt with a Central, PICC or Fol: No Subjective no new symptoms vital signs Vital Sign Date Time Temp Pulse Resp B/P (MAP) Pulse Ox O2 Delivery O2 Flow Rate FiO2 11/14/24 13:00 97.9 83 16 131/62 (85) 100 97.9 11/14/24 07:30 Nasal Cannula* 2 28 Total Intake and Output 11/13/24 11/13/24 11/14/24 15:00 23:00 07:00 Intake Total 150 ml 58 ml 0 ml Output Total 1 ml Balance 150 ml 57 ml 0 ml medications Current Medications Medications Dose Ordered Sig/Haresh Route Start Time Stop Time Status Last Admin Dose Admin Famotidine 20 mg Q2D IV 11/05/24 22:00 11/13/24 21:49 20 MG Levetiracetam 100 ml @ 400 mls/hr BID IV 11/05/24 22:00 11/14/24 09:06 400 MLS/HR Atorvastatin Calcium 20 mg HS PO 11/05/24 22:00 11/11/24 22:11 20 MG Multivit/Ca Carb/ B Cmplx/FA/Prenat 1 tab DAILY PO 11/06/24 10:00 11/12/24 13:00 1 TAB Sevelamer HCl 800 mg TIDWM PO 11/06/24 08:00 11/12/24 18:05 800 MG Sodium Chloride 10 ml Q8HR IV 11/05/24 22:00 11/14/24 05:46 10 ML Acetaminophen/ Hydrocodone Bitart 1 tab Q4HP PRN PO 11/05/24 21:00 11/11/24 22:11 1 TAB Ondansetron HCl 4 mg Q4HP PRN IV 11/05/24 21:00 Docusate Sodium 100 mg BIDPRN PRN PO 11/05/24 21:00 Acetaminophen 650 mg Q6HP PRN PO 11/05/24 21:00 Nitroglycerin 0.4 mg Q5MINP PRN SL 11/05/24 22:45 Morphine Sulfate 2 mg Q30M PRN IV 11/05/24 22:45 Vancomycin HCl 0 ml @ 0 mls/hr UD IV 11/06/24 16:15 Dextrose 50 ml UD PRN IV 11/07/24 07:15 Cancel Cefepime HCl 50 ml @ 12.5 mls/hr DAILY IV 11/10/24 10:00 11/14/24 09:06 12.5 MLS/HR Labetalol HCl 10 mg Q4HPRN PRN IV 11/09/24 12:45 11/09/24 13:02 10 MG Dextrose 50 ml UD PRN IV 11/09/24 16:00 Cancel Amino Acids 0 ml @ 0 mls/hr PER PHARMACY IV 11/10/24 11:15 Diagnostic Test (Pha) 1 strip Q6HR 11/10/24 12:00 11/14/24 10:31 1 STRIP Insulin Human Regular FOLLOW SLIDING SCALE Q6HR SC 11/10/24 12:00 11/14/24 05:45 2 UNITS Dextrose 50 ml UD IV 11/10/24 11:45 Amino Acids 1,000 ml @ 41 mls/hr DAILY@2200 IV 11/10/24 22:00 11/13/24 21:51 41 MLS/HR Patient Own Medication 25 mg DAILY PO 11/13/24 10:00 UNV Potassium Chloride 100 ml @ 50 mls/hr Q2H IV 11/12/24 15:15 11/12/24 19:14 UNV Quetiapine Fumarate 25 mg DAILY PO 11/13/24 10:00 Morphine Sulfate 1 mg Q6HP PRN IV 11/13/24 19:45 11/14/24 10:15 1 MG Lorazepam 1 mg Q4HP PRN IV 11/14/24 12:30 11/14/24 13:06 1 MG objective HEENT: No evidence of JVD, no oral ulcers. Pulmonary: Diminished on auscultation bilaterally Cardiovascular S1-S2, no S3 or S4 Abdomen: Bowel sounds positive, soft no rebound tenderness Skin: No rash Neurological: Alert, oriented, bed-bound, leg weakness Extremities: 1+ edema in the lower extremities laboratory and microbiology Laboratory Tests 11/14/24 05:09 11/13/24 06:48 Test 11/14/24 05:09 Range/Units Serum Glucose 130 H 74-106 mg/dL Assessment/Plan End-stage renal disease on hemodialysis Intra dialytic hypotension, he has chronic hypotension Hypokalemia CAD s/p CABG Bilateral feet wounds History of CVA Diabetes type 2, uncontrolled with hyperglycemia Osteomyelitis of left foot. Acinetobacter Baumannii, Enterococcus faecalis Plan/recommendation: s/p HD Friday Next HD on Friday Continue HD on Friday. on Clinimix Hold off on antihypertensive med Midodrine t.i.d. IV antibiotics Monitor H&H Podiatry consult Dietary Evaluation Review Comments: 1) Initiate Pro-Stat @ 30 mL qd 2) If patient remains NPO > 7 days, consider EN/TPN to meet at least 75% of estimated daily needs 3) If GI is preferred, consider Nepro @ 35 mL/hr goalrate as tolerated. EN regimen (including Pro-Stat) provides 1612 kcals, 83g Pro, and 611 mL free H2O per 24 hrs. EN rate (including Pro-Stat) will meet 91% estimated energy needs and ~51% estimated protein needs 4) Advance to 60 CCHO renal diet when medically feasible, pending ST approval 5) Collect HbA1c 6) Refer to outpatient RD/CD[facility] for weight management 7) Follow-up with nephrology and cardiology 8) Continue to monitor I&O, labs, and skin integrity Expected Outcomes/Goals: 1) patient to receive nutrition support within 7 days of NPO status 2) labs and wounds to improve 3) diet to advance 4) gradual wt loss 5) f/u in 2-3 days Plan discussed with: Patient, Other PAULETTE BREAUX MD Nov 14, 2024 14:04
--- NOTE | 2024-11-14 15:05 | DVHPN2 ---
Subjective The patient is seen and examined at bedside. The patient is very tired and sleepy today. Patient also complained of severe pain. Every time he wake up he was screaming in pain. Patient also very anxious today. Daughter and son at bedside. Reviewed: Care Plan, H&P, Labs, Medications, Previous Orders Changes from previous H/P or p: No Changes General: Per HPI Eyes: No Pain, No Vision change, No Conjunctivae inflammation, No Eyelid inflammation, No Other, No Redness ENT: No Ear pain, No Ear discharge, No Nose pain, No Nose discharge, No Nose congestion, No Mouth pain, No Mouth swelling, No Throat pain, No Throat swelling, No Other Cardiovascular: Chest Pain; No Palpitations, No Orthopnea, No Paroxysmal Noc. Dyspnea, No Edema, No Lt Headedness, No Other Respiratory: No Cough, No Dry; Shortness of breath; No SOB with excertion, No Wheezing, No Hemoptysis, No Pleuritic Pain, No Sputum; Other (SOB at rest) Gastrointestinal: No Nausea, No Vomiting, No Abdominal Pain, No Diarrhea, No Constipation, No Melena, No Hematochezia, No Other Genitourinary: No Dysuria, No Frequency, No Incontinence, No Hematuria, No Retention, No Other Musculoskeletal: No other, No neck pain, No shoulder pain, No arm pain, No back pain, No hand pain, No leg pain, No foot pain Skin: No Rash, No Lesions, No Jaundice, No Bruising, No Other Objective Vitals Vital Signs Date Time Temp Pulse Resp B/P (MAP) Pulse Ox O2 Delivery O2 Flow Rate FiO2 11/14/24 13:00 97.9 83 16 131/62 (85) 100 97.9 11/14/24 07:30 Nasal Cannula* 2 28 Intake/Output Intake and Output 11/14/24 07:00 Intake Total 208 ml Output Total 1 ml Balance 207 ml Intake Oral 58 ml IV Total 150 ml Stool Total 1 ml General Appearance: Alert, Oriented X3, mild distress, Other (Encephalopathic) HEENT: Atraumatic, PERRLA Lungs: Clear to auscultation, Normal air movement Cardiovascular: Normal S1, Normal S2 Abdomen: Normal bowel sounds, Soft, No tenderness, No hepatospenomegaly Skin: Wounds (See nurse notes and pictures) Psych/Mental Status: Mental status NL, Mood NL Medications Current Medications Medications Dose Ordered Sig/Haresh Route Start Time Stop Time Status Last Admin Dose Admin Famotidine 20 mg Q2D IV 11/05/24 22:00 11/13/24 21:49 20 MG Levetiracetam 100 ml @ 400 mls/hr BID IV 11/05/24 22:00 11/14/24 09:06 400 MLS/HR Atorvastatin Calcium 20 mg HS PO 11/05/24 22:00 11/11/24 22:11 20 MG Multivit/Ca Carb/ B Cmplx/FA/Prenat 1 tab DAILY PO 11/06/24 10:00 11/12/24 13:00 1 TAB Sevelamer HCl 800 mg TIDWM PO 11/06/24 08:00 11/12/24 18:05 800 MG Sodium Chloride 10 ml Q8HR IV 11/05/24 22:00 11/14/24 05:46 10 ML Acetaminophen/ Hydrocodone Bitart 1 tab Q4HP PRN PO 11/05/24 21:00 11/11/24 22:11 1 TAB Ondansetron HCl 4 mg Q4HP PRN IV 11/05/24 21:00 Docusate Sodium 100 mg BIDPRN PRN PO 11/05/24 21:00 Acetaminophen 650 mg Q6HP PRN PO 11/05/24 21:00 Nitroglycerin 0.4 mg Q5MINP PRN SL 11/05/24 22:45 Morphine Sulfate 2 mg Q30M PRN IV 11/05/24 22:45 Vancomycin HCl 0 ml @ 0 mls/hr UD IV 11/06/24 16:15 Dextrose 50 ml UD PRN IV 11/07/24 07:15 Cancel Cefepime HCl 50 ml @ 12.5 mls/hr DAILY IV 11/10/24 10:00 11/14/24 09:06 12.5 MLS/HR Labetalol HCl 10 mg Q4HPRN PRN IV 11/09/24 12:45 11/09/24 13:02 10 MG Dextrose 50 ml UD PRN IV 11/09/24 16:00 Cancel Amino Acids 0 ml @ 0 mls/hr PER PHARMACY IV 11/10/24 11:15 Diagnostic Test (Pha) 1 strip Q6HR 11/10/24 12:00 11/14/24 10:31 1 STRIP Insulin Human Regular FOLLOW SLIDING SCALE Q6HR SC 11/10/24 12:00 11/14/24 05:45 2 UNITS Dextrose 50 ml UD IV 11/10/24 11:45 Amino Acids 1,000 ml @ 41 mls/hr DAILY@2200 IV 11/10/24 22:00 11/13/24 21:51 41 MLS/HR Patient Own Medication 25 mg DAILY PO 11/13/24 10:00 UNV Potassium Chloride 100 ml @ 50 mls/hr Q2H IV 11/12/24 15:15 11/12/24 19:14 UNV Quetiapine Fumarate 25 mg DAILY PO 11/13/24 10:00 Morphine Sulfate 1 mg Q6HP PRN IV 11/13/24 19:45 11/14/24 10:15 1 MG Lorazepam 1 mg Q4HP PRN IV 11/14/24 12:30 11/14/24 13:06 1 MG Laboratory Results Laboratory Tests 11/13/24 06:48 11/14/24 05:09 Chemistry Test 11/14/24 05:09 Albumin 2.9 g/dL (3.2-4.8) L Calcium Level 9.5 mg/dL (8.7-10.4) Magnesium Level 1.8 mg/dL (1.6-2.6) Phosphorus Level 3.1 mg/dL (2.4-5.1) Total Protein 5.1 g/dL (5.7-8.2) L LFT Test 11/14/24 05:09 Alanine Aminotransferase (ALT) 40 U/L (7-40) Alkaline Phosphatase 118 U/L (46-116) H Aspartate Amino Transferase (AST) 38 U/L (13-40) Total Bilirubin 0.5 mg/dL (0.2-1.0) Microbiology Microbiology Date/Time Source Procedure Growth Status 11/07/24 12:33 Foot Right Gram Stain - Final Resulted 11/07/24 12:33 Wound Culture - Preliminary Acinetobacter baumannii Enterococcus faecalis Acinetobacter baumanii/haemol Resulted 11/06/24 20:44 Blood Blood Culture - Final NO GROWTH AFTER 5 DAYS OF INCUBATION. Complete Labs and/or images reviewed: Labs reviewed by me Assessment/Plan Assessment/Plan -ESRD with hemodialysis -coronary artery disease with previous CABG -obesity -history of CVA -bilateral heel wounds -septic shock -Metabolic Encephalopathy -Osteomyelitis of left foot. Acinetobacter Baumannii, Enterococcus faecalis Plan: Continuing current management. Still waiting to see if the patient needs surgery intervention for the left heel. Continuing with IV antibiotic: Vancomycin and cefepime Continuing with hemodialysis Continuing with Clinimix Patient is still not pass swallow eval. We will reevaluate later Continuing hemodialysis Friday. Discussed with his son and daughter at bedside. I will Give the patient morphine 1 mg IV q.6 hours p.r.n. for severe pain I also we will give him Ativan 1 mg IV q.4 p.r.n. for severe anxiety. This medical document was created using an electronic medical record system with [employer] direct computerized dictation system. Although this document has been carefully reviewed, there may still be some phonetic and typographical errors. These areas are purely typographical due to imperfections of the software programs, and do not reflect any compromise in the patient's medical care. Plan discussed with: Patient, Daughter, Son My Orders Orders - VON ANAND MD Procedure Category Date Status Time Morphine Sulfate PHA 11/13/24 In Process Injection 19:45 Lorazepam 2mg/Ml Inj PHA 11/14/24 In Process (Ativan Inj) 12:30 Date of Service: Nov 14, 2024 Billing Provider: VON ANAND MD Common Visit Codes: [id number] INP/OBS CARE(HIGH) VON ANAND MD Nov 14, 2024 15:05
[2024-11-15] VITALS (8 sets, daily range): BP systolic 100–190; BP diastolic 51–76; PULSE 79–94; RESP 15–20; TEMP 97.8–98.5; O2SAT 92–100
--- NOTE | 2024-11-15 10:05 | DVHPN2 ---
Progress Note - Dictate Date Seen: Nov 15, 2024 Has the PT tested + for MRSA If YES, has PT been informed?: Yes Medical Necessity Reason Pt with a Central, PICC or Fol: No Subjective Plan for HD today. vital signs Vital Sign Date Time Temp Pulse Resp B/P (MAP) Pulse Ox O2 Delivery O2 Flow Rate FiO2 11/15/24 08:46 98.3 88 16 109/51 (70) 96 98.3 11/15/24 08:00 Nasal Cannula* 2 28 Total Intake and Output 11/14/24 11/14/24 11/15/24 15:00 23:00 07:00 Intake Total 1110 ml 0 ml 0 ml Output Total 0 ml Balance 1110 ml 0 ml 0 ml medications Current Medications Medications Dose Ordered Sig/Haresh Route Start Time Stop Time Status Last Admin Dose Admin Famotidine 20 mg Q2D IV 11/05/24 22:00 11/13/24 21:49 20 MG Levetiracetam 100 ml @ 400 mls/hr BID IV 11/05/24 22:00 11/14/24 21:34 400 MLS/HR Atorvastatin Calcium 20 mg HS PO 11/05/24 22:00 11/11/24 22:11 20 MG Multivit/Ca Carb/ B Cmplx/FA/Prenat 1 tab DAILY PO 11/06/24 10:00 11/12/24 13:00 1 TAB Sevelamer HCl 800 mg TIDWM PO 11/06/24 08:00 11/12/24 18:05 800 MG Sodium Chloride 10 ml Q8HR IV 11/05/24 22:00 11/15/24 05:37 10 ML Acetaminophen/ Hydrocodone Bitart 1 tab Q4HP PRN PO 11/05/24 21:00 11/11/24 22:11 1 TAB Ondansetron HCl 4 mg Q4HP PRN IV 11/05/24 21:00 Docusate Sodium 100 mg BIDPRN PRN PO 11/05/24 21:00 Acetaminophen 650 mg Q6HP PRN PO 11/05/24 21:00 Nitroglycerin 0.4 mg Q5MINP PRN SL 11/05/24 22:45 Morphine Sulfate 2 mg Q30M PRN IV 11/05/24 22:45 Vancomycin HCl 0 ml @ 0 mls/hr UD IV 11/06/24 16:15 Dextrose 50 ml UD PRN IV 11/07/24 07:15 Cancel Cefepime HCl 50 ml @ 12.5 mls/hr DAILY IV 11/10/24 10:00 11/14/24 09:06 12.5 MLS/HR Labetalol HCl 10 mg Q4HPRN PRN IV 11/09/24 12:45 11/09/24 13:02 10 MG Dextrose 50 ml UD PRN IV 11/09/24 16:00 Cancel Amino Acids 0 ml @ 0 mls/hr PER PHARMACY IV 11/10/24 11:15 Diagnostic Test (Pha) 1 strip Q6HR 11/10/24 12:00 11/15/24 05:39 1 STRIP Insulin Human Regular FOLLOW SLIDING SCALE Q6HR SC 11/10/24 12:00 11/15/24 05:37 2 UNITS Dextrose 50 ml UD IV 11/10/24 11:45 Amino Acids 1,000 ml @ 41 mls/hr DAILY@2200 IV 11/10/24 22:00 11/14/24 21:34 41 MLS/HR Patient Own Medication 25 mg DAILY PO 11/13/24 10:00 UNV Potassium Chloride 100 ml @ 50 mls/hr Q2H IV 11/12/24 15:15 11/12/24 19:14 UNV Quetiapine Fumarate 25 mg DAILY PO 11/13/24 10:00 Morphine Sulfate 1 mg Q6HP PRN IV 11/13/24 19:45 11/14/24 10:15 1 MG Lorazepam 1 mg Q4HP PRN IV 11/14/24 12:30 11/15/24 04:55 1 MG objective General Appearance: Altered HEENT: Atraumatic, PERRLA, EOMI, Mucous membrane. moist/pink Respiratory: Normal air movement Cardiovascular: Regular rate, Normal S1, Normal S2, No murmurs Abdominal: Normal bowel sounds, Soft, No tenderness, No hepatospenomegaly, No masses Extremities: No clubbing, No cyanosis, No edema, Normal pulses, No tenderness/swelling Skin: Bilateral feet Wounds laboratory and microbiology Laboratory Tests 11/14/24 05:09 11/13/24 06:48 Test 11/14/24 05:09 Range/Units Serum Glucose 130 H 74-106 mg/dL Assessment/Plan Patient is a 69year-old male presents to the hospital with: sepsis resolved hypotension resolved Acinetobacter baumanii/haemol, Enterococcus faecalis in wound cultures Bilateral feet wounds; chronic Osteomyelitis of left foot End-stage renal disease on hemodialysis Diabetes mellitus Pulmonary edema/ anasarca Stroke baseline weakness/ bedbound Morbid obesity CAD S/P CABG Recommendations: Patient is on IV Vancomycin and IV Cefepime, continue WBC has trended down 11/06 Blood cx no growth Wound culture showed Acinetobacter baumanii/haemol and Enterococcus faecalis The wound cultures are superficial, wounds have debris hence these cultures are not reliable. reviewed podiatry notes, recommend debridement. Chronic pressure ulcer, I don't see shelter IV antibiotics will resolve the problem plus underlying problem is that he is bedbound due to stroke These current cx are colonization likely, clinically he is improving on Vancomycin and cefepime. I will plan for 2 weeks total with HD for infection however prolonged course is not going to heal the wound. I asked them to consider goals of care discussion. He also has issues with Line issue as per son. They all are understanding that his prognosis looks poor. He said he had discussion with patient, Foot MRI showed Wound at the posterior plantar aspect of the foot adjacent to the posterior plantar aspect of the calcaneus with surrounding subcutaneous edema, possible cellulitis in the appropriate clinical setting. No organized fluid collection identified to suggest abscess. Marrow signal changes of the posterior calcaneus with associated STIR hyperintense and T1 hypointense signal, suspected osteomyelitis in the appropriate clinical setting. Foot CT showed No definitive CT evidence of osteomyelitis however maintain elevated suspicion given extrusion of posterior calcaneal screw possibly through the skin. No drainable fluid collection. Severe air reversible fatty atrophy of the intrinsic visualized musculature Prognosis guarded Total 50 minutes spent during the encounter Thank you for consult. Dietary Evaluation Review Comments: 1) Initiate Pro-Stat @ 30 mL qd 2) If patient remains NPO > 7 days, consider EN/TPN to meet at least 75% of estimated daily needs 3) If GI is preferred, consider Nepro @ 35 mL/hr goalrate as tolerated. EN regimen (including Pro-Stat) provides 1612 kcals, 83g Pro, and 611 mL free H2O per 24 hrs. EN rate (including Pro-Stat) will meet 91% estimated energy needs and ~51% estimated protein needs 4) [facility] when medically feasible, pending ST approval 5) Collect HbA1c 6) Refer to outpatient RD/[facility] for weight management 7) Follow-up with nephrology and cardiology 8) Continue to monitor I&O, labs, and skin integrity Expected Outcomes/Goals: 1) patient to receive nutrition support within 7 days of NPO status 2) labs and wounds to improve 3) diet to advance 4) gradual wt loss 5) f/u in 2-3 days Plan discussed with: Other JOE COLLINS MD Nov 15, 2024 10:05
[2024-11-15 11:38] LABS: Alanine Aminotransferase 29 U/L (7-40); Alkaline Phosphatase 96 U/L (46-116)
[2024-11-15 11:39] LABS: Anion Gap 12 (5-15); BUN/Creatinine Ratio 11.0 (10.0-20.0); Bilirubin, Total 0.4 mg/dL (0.2-1.0); Calcium 9.1 mg/dL (8.7-10.4); Carbon Dioxide 22 mmol/L (20-31); Chloride 102 mmol/L (98-107); Magnesium 1.7 mg/dL (1.6-2.6); Potassium 3.7 mmol/L (3.5-5.1); Sodium 136 mmol/L (136-145)
[2024-11-15 11:49] LABS: Albumin 2.7 g/dL (3.2-4.8); Blood Urea Nitrogen 53 mg/dL (9-23); Glucose 125 mg/dL (74-106); Total Protein 4.7 g/dL (5.7-8.2)
--- NOTE | 2024-11-15 13:43 | DVHPN2 ---
Subjective The patient is a 69-year-old male with past medical history of AFib, anemia, Coronary artery disease, diabetes mellitus, end-stage renal disease on hemodialysis, and hypotension presented to [facility] ED with complaint of chest pain during dialysis session. Patient was at the dialysis center and about 1.27 L of fluid was removed with a target of 2.5 when he started to complain of chest pain in the left lower chest, nonradiating, pressure-like following which EMS were called. When EMS arrived on the scene, patient was alert blood pressure was noted to be 66/31 mmHg and was consistently low following which the patient is given about 150 mL of fluid, on rechecking the blood pressure improved to 133/113 mmHg. Patient was seen and evaluated in the ED, laboratory data shows WBC 8.5, platelets 227, sodium 133, potassium 3.4, BUN 25, creatinine 4.96, glucose 241, troponin 9, calcium 10.2, AST 30, ALT 41, blood pressure 97/56, heart rate 76, temperature 97.6 F, O2 saturation 99% on oxygen. Chest x-ray revealing pulmonary edema. Please see medication orders section in the computer. On my assessment, patient denied chest pain, no headache, no dizziness, no diaphoresis, currently on oxygen, no abdominal pain, no diarrhea, no nausea, no vomiting, no fever, no chills. Patient was admitted for further evaluation and medical management. Reviewed: Care Plan, H&P, Labs, Medications, Previous Orders Changes from previous H/P or p: No Changes General: Per HPI Eyes: No Pain, No Vision change, No Conjunctivae inflammation, No Eyelid inflammation, No Other, No Redness ENT: No Ear pain, No Ear discharge, No Nose pain, No Nose discharge, No Nose congestion, No Mouth pain, No Mouth swelling, No Throat pain, No Throat swelling, No Other Cardiovascular: Chest Pain; No Palpitations, No Orthopnea, No Paroxysmal Noc. Dyspnea, No Edema, No Lt Headedness, No Other Respiratory: No Cough, No Dry; Shortness of breath; No SOB with excertion, No Wheezing, No Hemoptysis, No Pleuritic Pain, No Sputum; Other (SOB at rest) Gastrointestinal: No Nausea, No Vomiting, No Abdominal Pain, No Diarrhea, No Constipation, No Melena, No Hematochezia, No Other Genitourinary: No Dysuria, No Frequency, No Incontinence, No Hematuria, No Retention, No Other Musculoskeletal: No other, No neck pain, No shoulder pain, No arm pain, No back pain, No hand pain, No leg pain, No foot pain Skin: No Rash, No Lesions, No Jaundice, No Bruising, No Other Objective Vitals Vital Signs Date Time Temp Pulse Resp B/P (MAP) Pulse Ox O2 Delivery O2 Flow Rate FiO2 11/15/24 12:33 97.8 94 18 138/76 (96) 92 97.8 11/15/24 08:00 Nasal Cannula* 2 28 Intake/Output Intake and Output 11/15/24 07:00 Intake Total 1110 ml Output Total 0 ml Balance 1110 ml Intake Oral 0 ml IV Total 1110 ml Output Urine Total 0 ml # Bowel Movements 1 Exam Dermatological: Skin is dry with mild erythema and some maceration around the wound site No gross deformities noted Mild non-pitting edema present bilaterally Bilateral heel ulcerations full-thickness with exposed fibrotic and bone Vascular: Dorsalis pedis and posterior tibial pulses are 1+ bilaterally Capillary refill is under 2 seconds Skin temperature is warm bilaterally Neurologic: Protective sensation is absent on the plantar forefoot bilaterally Monofilament testing reveals decreased sensation in multiple plantar sites Musculoskeletal: Range of motion at the ankle and MTP joints is within normal limits. Strength is 5/5 in all tested muscle groups. Gait is antalgic due to offloading of the affected limb. General Appearance: Alert, Oriented X3, mild distress, Other (Encephalopathic) HEENT: Atraumatic, PERRLA Lungs: Clear to auscultation, Normal air movement Cardiovascular: Normal S1, Normal S2 Abdomen: Normal bowel sounds, Soft, No tenderness, No hepatospenomegaly Skin: Wounds (See nurse notes and pictures) Psych/Mental Status: Mental status NL, Mood NL Medications Current Medications Medications Dose Ordered Sig/Haresh Route Start Time Stop Time Status Last Admin Dose Admin Famotidine 20 mg Q2D IV 11/05/24 22:00 11/13/24 21:49 20 MG Levetiracetam 100 ml @ 400 mls/hr BID IV 11/05/24 22:00 11/15/24 10:18 400 MLS/HR Atorvastatin Calcium 20 mg HS PO 11/05/24 22:00 11/11/24 22:11 20 MG Multivit/Ca Carb/ B Cmplx/FA/Prenat 1 tab DAILY PO 11/06/24 10:00 11/12/24 13:00 1 TAB Sevelamer HCl 800 mg TIDWM PO 11/06/24 08:00 11/12/24 18:05 800 MG Sodium Chloride 10 ml Q8HR IV 11/05/24 22:00 11/15/24 05:37 10 ML Acetaminophen/ Hydrocodone Bitart 1 tab Q4HP PRN PO 11/05/24 21:00 11/11/24 22:11 1 TAB Ondansetron HCl 4 mg Q4HP PRN IV 11/05/24 21:00 Docusate Sodium 100 mg BIDPRN PRN PO 11/05/24 21:00 Acetaminophen 650 mg Q6HP PRN PO 11/05/24 21:00 Nitroglycerin 0.4 mg Q5MINP PRN SL 11/05/24 22:45 Morphine Sulfate 2 mg Q30M PRN IV 11/05/24 22:45 Vancomycin HCl 0 ml @ 0 mls/hr UD IV 11/06/24 16:15 Dextrose 50 ml UD PRN IV 11/07/24 07:15 Cancel Cefepime HCl 50 ml @ 12.5 mls/hr DAILY IV 11/10/24 10:00 11/15/24 10:18 12.5 MLS/HR Labetalol HCl 10 mg Q4HPRN PRN IV 11/09/24 12:45 11/09/24 13:02 10 MG Dextrose 50 ml UD PRN IV 11/09/24 16:00 Cancel Amino Acids 0 ml @ 0 mls/hr PER PHARMACY IV 11/10/24 11:15 Diagnostic Test (Pha) 1 strip Q6HR 11/10/24 12:00 11/15/24 05:39 1 STRIP Insulin Human Regular FOLLOW SLIDING SCALE Q6HR SC 11/10/24 12:00 11/15/24 05:37 2 UNITS Dextrose 50 ml UD IV 11/10/24 11:45 Amino Acids 1,000 ml @ 41 mls/hr DAILY@2200 IV 11/10/24 22:00 11/14/24 21:34 41 MLS/HR Patient Own Medication 25 mg DAILY PO 11/13/24 10:00 UNV Potassium Chloride 100 ml @ 50 mls/hr Q2H IV 11/12/24 15:15 11/12/24 19:14 UNV Quetiapine Fumarate 25 mg DAILY PO 11/13/24 10:00 Morphine Sulfate 1 mg Q6HP PRN IV 11/13/24 19:45 11/14/24 10:15 1 MG Lorazepam 1 mg Q4HP PRN IV 11/14/24 12:30 11/15/24 04:55 1 MG Laboratory Results Laboratory Tests 11/13/24 06:48 11/15/24 10:30 Chemistry Test 11/15/24 10:30 Albumin 2.7 g/dL (3.2-4.8) L Calcium Level 9.1 mg/dL (8.7-10.4) Magnesium Level 1.7 mg/dL (1.6-2.6) Phosphorus Level 3.6 mg/dL (2.4-5.1) Total Protein 4.7 g/dL (5.7-8.2) L LFT Test 11/15/24 10:30 Alanine Aminotransferase (ALT) 29 U/L (7-40) Alkaline Phosphatase 96 U/L (46-116) Aspartate Amino Transferase (AST) 27 U/L (13-40) Total Bilirubin 0.4 mg/dL (0.2-1.0) Microbiology Microbiology Date/Time Source Procedure Growth Status 11/07/24 12:33 Foot Right Gram Stain - Final Resulted 11/07/24 12:33 Wound Culture - Preliminary Acinetobacter baumannii Enterococcus faecalis Acinetobacter baumanii/haemol Resulted 11/06/24 20:44 Blood Blood Culture - Final NO GROWTH AFTER 5 DAYS OF INCUBATION. Complete Assessment/Plan Assessment/Plan ASSESSMENT: Patient is a 69 year old seen on the floor for a worsening ulcer PLAN: - The patients chart was reviewed, clinical findings were discussed with the patient, the etiologies of the conditions were discussed in detail, and a treatment plan was agreed to at this time, with both oral and written instructions provided. - MRI did show osteomyelitis of the left heel - pending triple phase bone scan of the right - once positive for osteo of both heels we will take to the OR for calcanectomy - aggressive calcanectomy would be the only way to salvage the limb - we will continue to follow up for a bone scan All questions were answered and concerns addressed to the patient's satisfaction. The patient was given the phone number to the clinic and was told how to make contact with the clinic should any concerns or questions arise. Patient understands that if any questions or concerns arise prior to the next appointment, we should be contacted immediately. FOLLOW-UP: Continue to follow while inpatient Plan discussed with: Patient Problem List: (1) Constipation (2) Pulmonary edema (3) Hypotension (4) End-stage renal disease on hemodialysis (5) Generalized weakness (6) Electrolyte imbalance Date of Service: Nov 15, 2024 Billing Provider: ANTHONY CELAYA DPM Common Visit Codes: [id number] INP/OBS CARE(HIGH) ANTHONY CELAYA DPM Nov 15, 2024 13:43
[2024-11-15] MEDS: SODIUM CHL 0.9% 1000 ML BAG XX ONE (15:01)
--- NOTE | 2024-11-15 15:23 | DVHPN2 ---
Subjective Patient more awake. Denies any symptoms. Reviewed: Care Plan, H&P, Labs, Medications, Previous Orders Changes from previous H/P or p: No Changes General: Per HPI Eyes: No Pain, No Vision change, No Conjunctivae inflammation, No Eyelid inflammation, No Other, No Redness ENT: No Ear pain, No Ear discharge, No Nose pain, No Nose discharge, No Nose congestion, No Mouth pain, No Mouth swelling, No Throat pain, No Throat swelling, No Other Cardiovascular: Chest Pain; No Palpitations, No Orthopnea, No Paroxysmal Noc. Dyspnea, No Edema, No Lt Headedness, No Other Respiratory: No Cough, No Dry; Shortness of breath; No SOB with excertion, No Wheezing, No Hemoptysis, No Pleuritic Pain, No Sputum; Other (SOB at rest) Gastrointestinal: No Nausea, No Vomiting, No Abdominal Pain, No Diarrhea, No Constipation, No Melena, No Hematochezia, No Other Genitourinary: No Dysuria, No Frequency, No Incontinence, No Hematuria, No Retention, No Other Musculoskeletal: No other, No neck pain, No shoulder pain, No arm pain, No back pain, No hand pain, No leg pain, No foot pain Skin: No Rash, No Lesions, No Jaundice, No Bruising, No Other Objective Vitals Vital Signs Date Time Temp Pulse Resp B/P (MAP) Pulse Ox O2 Delivery O2 Flow Rate FiO2 11/15/24 12:33 97.8 94 18 138/76 (96) 92 97.8 11/15/24 08:00 Nasal Cannula* 2 28 Intake/Output Intake and Output 11/15/24 07:00 Intake Total 1110 ml Output Total 0 ml Balance 1110 ml Intake Oral 0 ml IV Total 1110 ml Output Urine Total 0 ml # Bowel Movements 1 General Appearance: Alert, Cooperative, mild distress, Other (Encephalopathic) HEENT: Atraumatic, PERRLA Lungs: Clear to auscultation, Normal air movement Cardiovascular: Normal S1, Normal S2 Abdomen: Normal bowel sounds, Soft, No tenderness, No hepatospenomegaly Skin: Wounds (See nurse notes and pictures) Psych/Mental Status: Mental status NL, Mood NL Medications Current Medications Medications Dose Ordered Sig/Haresh Route Start Time Stop Time Status Last Admin Dose Admin Famotidine 20 mg Q2D IV 11/05/24 22:00 11/13/24 21:49 20 MG Levetiracetam 100 ml @ 400 mls/hr BID IV 11/05/24 22:00 11/15/24 10:18 400 MLS/HR Atorvastatin Calcium 20 mg HS PO 11/05/24 22:00 11/11/24 22:11 20 MG Multivit/Ca Carb/ B Cmplx/FA/Prenat 1 tab DAILY PO 11/06/24 10:00 11/12/24 13:00 1 TAB Sevelamer HCl 800 mg TIDWM PO 11/06/24 08:00 11/12/24 18:05 800 MG Sodium Chloride 10 ml Q8HR IV 11/05/24 22:00 11/15/24 15:04 10 ML Acetaminophen/ Hydrocodone Bitart 1 tab Q4HP PRN PO 11/05/24 21:00 11/11/24 22:11 1 TAB Ondansetron HCl 4 mg Q4HP PRN IV 11/05/24 21:00 Docusate Sodium 100 mg BIDPRN PRN PO 11/05/24 21:00 Acetaminophen 650 mg Q6HP PRN PO 11/05/24 21:00 Nitroglycerin 0.4 mg Q5MINP PRN SL 11/05/24 22:45 Morphine Sulfate 2 mg Q30M PRN IV 11/05/24 22:45 Vancomycin HCl 0 ml @ 0 mls/hr UD IV 11/06/24 16:15 Dextrose 50 ml UD PRN IV 11/07/24 07:15 Cancel Cefepime HCl 50 ml @ 12.5 mls/hr DAILY IV 11/10/24 10:00 11/15/24 10:18 12.5 MLS/HR Labetalol HCl 10 mg Q4HPRN PRN IV 11/09/24 12:45 11/09/24 13:02 10 MG Dextrose 50 ml UD PRN IV 11/09/24 16:00 Cancel Amino Acids 0 ml @ 0 mls/hr PER PHARMACY IV 11/10/24 11:15 Diagnostic Test (Pha) 1 strip Q6HR 11/10/24 12:00 11/15/24 15:03 1 STRIP Insulin Human Regular FOLLOW SLIDING SCALE Q6HR SC 11/10/24 12:00 11/15/24 05:37 2 UNITS Dextrose 50 ml UD IV 11/10/24 11:45 Amino Acids 1,000 ml @ 41 mls/hr DAILY@2200 IV 11/10/24 22:00 11/14/24 21:34 41 MLS/HR Patient Own Medication 25 mg DAILY PO 11/13/24 10:00 UNV Potassium Chloride 100 ml @ 50 mls/hr Q2H IV 11/12/24 15:15 11/12/24 19:14 UNV Quetiapine Fumarate 25 mg DAILY PO 11/13/24 10:00 Morphine Sulfate 1 mg Q6HP PRN IV 11/13/24 19:45 11/14/24 10:15 1 MG Lorazepam 1 mg Q4HP PRN IV 11/14/24 12:30 11/15/24 04:55 1 MG Hydralazine HCl 10 mg Q6HP PRN IV 11/15/24 15:15 UNV Laboratory Results Laboratory Tests 11/13/24 06:48 11/15/24 10:30 Chemistry Test 11/15/24 10:30 Albumin 2.7 g/dL (3.2-4.8) L Calcium Level 9.1 mg/dL (8.7-10.4) Magnesium Level 1.7 mg/dL (1.6-2.6) Phosphorus Level 3.6 mg/dL (2.4-5.1) Total Protein 4.7 g/dL (5.7-8.2) L LFT Test 11/15/24 10:30 Alanine Aminotransferase (ALT) 29 U/L (7-40) Alkaline Phosphatase 96 U/L (46-116) Aspartate Amino Transferase (AST) 27 U/L (13-40) Total Bilirubin 0.4 mg/dL (0.2-1.0) Microbiology Microbiology Date/Time Source Procedure Growth Status 11/07/24 12:33 Foot Right Gram Stain - Final Resulted 11/07/24 12:33 Wound Culture - Preliminary Acinetobacter baumannii Enterococcus faecalis Acinetobacter baumanii/haemol Resulted 11/06/24 20:44 Blood Blood Culture - Final NO GROWTH AFTER 5 DAYS OF INCUBATION. Complete Labs and/or images reviewed: Labs reviewed by me, Image(s) reviewed by me Assessment/Plan Assessment/Plan Impression: -ESRD with hemodialysis -coronary artery disease with previous CABG -obesity -history of CVA -bilateral heel wounds -septic shock -Metabolic Encephalopathy -Osteomyelitis of left foot. Acinetobacter Baumannii, Enterococcus faecalis Plan: Events: Discussed plan of care with the patient's family were bedside as well as son Zeferino over the phone. Given patient's multiple comorbidities, family meeting will be held tomorrow for possible hospice placement. Family declining NG tube for nutrition and medications. -continue Clinimix -continue antibiotic therapy with vancomycin and cefepime -swallow evaluation: Reviewed -podiatry consultation -nephrology consultation: Hemodialysis on MWF -wound care consultation -PUD prophylaxis -repeat labs in a.m. Total time spent with patient discussing and formulating plan of care: 35 minutes. This medical document was created using an electronic medical record system with [employer] dictation system. Although this document has been carefully reviewed, there may still be some phonetic and typographical errors. These areas are purely typographical due to imperfections of the software programs, and do not reflect any compromise in the patient's medical care. Plan discussed with: Patient, Other (RN) My Orders Orders - INESSA HANSEN NP Procedure Category Date Status Time Creatinine LAB 11/16/24 Verified 04:00 Comprehensive LAB 11/16/24 Verified Metabolic Panel 04:00 Magnesium LAB 11/16/24 Verified 04:00 Phosphorus LAB 11/16/24 Verified 04:00 Clinimix Per [facility] 11/15/24 In Process 22:00 Hydralazine Injection PHA 11/15/24 Logged (Apresoline Inject 15:15 Date of Service: Nov 15, 2024 Billing Provider: INESSA HANSEN NP Common Visit Codes: [id number] INP/OBS CARE(HIGH) Secondary Visit Codes: [id number] CARE PLAN 30 MINUTES INESSA HANSEN NP Nov 15, 2024 15:23
--- NOTE | 2024-11-15 18:31 | DVHPN2 ---
Progress Note - Dictate Date Seen: Nov 15, 2024 Has the PT tested + for MRSA If YES, has PT been informed?: Yes Medical Necessity Reason Pt with a Central, PICC or Fol: No Subjective no new symptoms vital signs Vital Sign Date Time Temp Pulse Resp B/P (MAP) Pulse Ox O2 Delivery O2 Flow Rate FiO2 11/15/24 16:45 97.8 94 16 184/57 (99) 100 97.8 11/15/24 08:00 Nasal Cannula* 2 28 Total Intake and Output 11/14/24 11/14/24 11/15/24 15:00 23:00 07:00 Intake Total 1110 ml 0 ml 0 ml Output Total 0 ml Balance 1110 ml 0 ml 0 ml medications Current Medications Medications Dose Ordered Sig/Haresh Route Start Time Stop Time Status Last Admin Dose Admin Famotidine 20 mg Q2D IV 11/05/24 22:00 11/13/24 21:49 20 MG Levetiracetam 100 ml @ 400 mls/hr BID IV 11/05/24 22:00 11/15/24 10:18 400 MLS/HR Atorvastatin Calcium 20 mg HS PO 11/05/24 22:00 11/11/24 22:11 20 MG Multivit/Ca Carb/ B Cmplx/FA/Prenat 1 tab DAILY PO 11/06/24 10:00 11/12/24 13:00 1 TAB Sevelamer HCl 800 mg TIDWM PO 11/06/24 08:00 11/12/24 18:05 800 MG Sodium Chloride 10 ml Q8HR IV 11/05/24 22:00 11/15/24 15:04 10 ML Acetaminophen/ Hydrocodone Bitart 1 tab Q4HP PRN PO 11/05/24 21:00 11/11/24 22:11 1 TAB Ondansetron HCl 4 mg Q4HP PRN IV 11/05/24 21:00 Docusate Sodium 100 mg BIDPRN PRN PO 11/05/24 21:00 Acetaminophen 650 mg Q6HP PRN PO 11/05/24 21:00 Nitroglycerin 0.4 mg Q5MINP PRN SL 11/05/24 22:45 Morphine Sulfate 2 mg Q30M PRN IV 11/05/24 22:45 Vancomycin HCl 0 ml @ 0 mls/hr UD IV 11/06/24 16:15 Dextrose 50 ml UD PRN IV 11/07/24 07:15 Cancel Cefepime HCl 50 ml @ 12.5 mls/hr DAILY IV 11/10/24 10:00 11/15/24 10:18 12.5 MLS/HR Labetalol HCl 10 mg Q4HPRN PRN IV 11/09/24 12:45 11/09/24 13:02 10 MG Dextrose 50 ml UD PRN IV 11/09/24 16:00 Cancel Amino Acids 0 ml @ 0 mls/hr PER PHARMACY IV 11/10/24 11:15 Diagnostic Test (Pha) 1 strip Q6HR 11/10/24 12:00 11/15/24 15:03 1 STRIP Insulin Human Regular FOLLOW SLIDING SCALE Q6HR SC 11/10/24 12:00 11/15/24 05:37 2 UNITS Dextrose 50 ml UD IV 11/10/24 11:45 Amino Acids 1,000 ml @ 41 mls/hr DAILY@2200 IV 11/10/24 22:00 11/14/24 21:34 41 MLS/HR Patient Own Medication 25 mg DAILY PO 11/13/24 10:00 UNV Potassium Chloride 100 ml @ 50 mls/hr Q2H IV 11/12/24 15:15 11/12/24 19:14 UNV Quetiapine Fumarate 25 mg DAILY PO 11/13/24 10:00 Morphine Sulfate 1 mg Q6HP PRN IV 11/13/24 19:45 11/15/24 15:39 1 MG Lorazepam 1 mg Q4HP PRN IV 11/14/24 12:30 11/15/24 04:55 1 MG Hydralazine HCl 10 mg Q6HP PRN IV 11/15/24 15:15 objective HEENT: No evidence of JVD, no oral ulcers. Pulmonary: Diminished on auscultation bilaterally Cardiovascular S1-S2, no S3 or S4 Abdomen: Bowel sounds positive, soft no rebound tenderness Skin: No rash Neurological: Alert, oriented, bed-bound, leg weakness Extremities: 1+ edema in the lower extremities laboratory and microbiology Laboratory Tests 11/15/24 10:30 11/13/24 06:48 Test 11/15/24 10:30 Range/Units Serum Glucose 125 H 74-106 mg/dL Assessment/Plan End-stage renal disease on hemodialysis Intra dialytic hypotension, he has chronic hypotension Hypokalemia CAD s/p CABG Bilateral feet wounds History of CVA Diabetes type 2, uncontrolled with hyperglycemia Osteomyelitis of left foot. Acinetobacter Baumannii, Enterococcus faecalis Plan/recommendation: Scheduled for HD today- Friday s/p HD Friday Continue HD on Friday. on Clinimix Hold off on antihypertensive med Midodrine t.i.d. IV antibiotics Monitor H&H Podiatry consult Dietary Evaluation Review Comments: 1) Initiate Pro-Stat @ 30 mL qd 2) If patient remains NPO > 7 days, consider EN/TPN to meet at least 75% of estimated daily needs 3) If GI is preferred, consider Nepro @ 35 mL/hr goalrate as tolerated. EN regimen (including Pro-Stat) provides 1612 kcals, 83g Pro, and 611 mL free H2O per 24 hrs. EN rate (including Pro-Stat) will meet 91% estimated energy needs and ~51% estimated protein needs 4) Advance to 60 CCHO renal diet when medically feasible, pending ST approval 5) Collect HbA1c 6) Refer to outpatient RD/[facility] for weight management 7) Follow-up with nephrology and cardiology 8) Continue to monitor I&O, labs, and skin integrity Expected Outcomes/Goals: 1) patient to receive nutrition support within 7 days of NPO status 2) labs and wounds to improve 3) diet to advance 4) gradual wt loss 5) f/u in 2-3 days Plan discussed with: Patient, Daughter, Son PAULETTE BREAUX MD Nov 15, 2024 18:31
[2024-11-15] MEDS: hydrALAZINE HCL 20 MG/ML VL IV PRN (18:32)
[2024-11-16] VITALS (8 sets, daily range): BP systolic 135–195; BP diastolic 35–53; PULSE 80–99; RESP 16–18; TEMP 97.2–98.4; O2SAT 97–100
[2024-11-16] MEDS: SODIUM CHL 0.9% 1000 ML BAG XX ONE (07:00)
[2024-11-16 07:27] LABS: Alanine Aminotransferase 27 U/L (7-40); Alkaline Phosphatase 99 U/L (46-116); Anion Gap 11 (5-15); Calcium 9.7 mg/dL (8.7-10.4); Carbon Dioxide 26 mmol/L (20-31); Chloride 99 mmol/L (98-107); Potassium 3.8 mmol/L (3.5-5.1); Sodium 136 mmol/L (136-145)
[2024-11-16 07:28] LABS: Albumin 3.4 g/dL (3.2-4.8); BUN/Creatinine Ratio 9.3 (10.0-20.0)
[2024-11-16 07:29] LABS: Magnesium 1.8 mg/dL (1.6-2.6); Total Protein 5.9 g/dL (5.7-8.2)
[2024-11-16 07:30] LABS: Bilirubin, Total 0.5 mg/dL (0.2-1.0)
[2024-11-16 07:31] LABS: Blood Urea Nitrogen 34 mg/dL (9-23); Glucose 155 mg/dL (74-106)
--- NOTE | 2024-11-16 09:22 | DVHPN2 ---
Subjective Altered Mental status Reviewed: Care Plan, H&P, Labs, Medications, Previous Orders Changes from previous H/P or p: No Changes General: Per HPI Eyes: No Pain, No Vision change, No Conjunctivae inflammation, No Eyelid inflammation, No Other, No Redness ENT: No Ear pain, No Ear discharge, No Nose pain, No Nose discharge, No Nose congestion, No Mouth pain, No Mouth swelling, No Throat pain, No Throat swelling, No Other Cardiovascular: Chest Pain; No Palpitations, No Orthopnea, No Paroxysmal Noc. Dyspnea, No Edema, No Lt Headedness, No Other Respiratory: No Cough, No Dry; Shortness of breath; No SOB with excertion, No Wheezing, No Hemoptysis, No Pleuritic Pain, No Sputum; Other (SOB at rest) Gastrointestinal: No Nausea, No Vomiting, No Abdominal Pain, No Diarrhea, No Constipation, No Melena, No Hematochezia, No Other Genitourinary: No Dysuria, No Frequency, No Incontinence, No Hematuria, No Retention, No Other Musculoskeletal: No other, No neck pain, No shoulder pain, No arm pain, No back pain, No hand pain, No leg pain, No foot pain Skin: No Rash, No Lesions, No Jaundice, No Bruising, No Other Objective Vitals Vital Signs Date Time Temp Pulse Resp B/P (MAP) Pulse Ox O2 Delivery O2 Flow Rate FiO2 11/16/24 06:53 180/41 11/16/24 05:00 97.2 90 17 99 97.2 11/15/24 20:00 Nasal Cannula* 2 28 Intake/Output Intake and Output 11/16/24 07:00 Intake Total 0 ml Balance 0 ml Intake Oral 0 ml General Appearance: Alert, mild distress, Other (Encephalopathic) HEENT: Atraumatic, PERRLA Lungs: Clear to auscultation, Normal air movement Cardiovascular: Normal S1, Normal S2 Abdomen: Normal bowel sounds, Soft, No tenderness, No hepatospenomegaly Skin: Wounds (See nurse notes and pictures) Psych/Mental Status: Other (Altered mental status) Medications Current Medications Medications Dose Ordered Sig/Haresh Route Start Time Stop Time Status Last Admin Dose Admin Famotidine 20 mg Q2D IV 11/05/24 22:00 11/15/24 22:23 20 MG Levetiracetam 100 ml @ 400 mls/hr BID IV 11/05/24 22:00 11/15/24 22:07 400 MLS/HR Atorvastatin Calcium 20 mg HS PO 11/05/24 22:00 11/11/24 22:11 20 MG Multivit/Ca Carb/ B Cmplx/FA/Prenat 1 tab DAILY PO 11/06/24 10:00 11/12/24 13:00 1 TAB Sevelamer HCl 800 mg TIDWM PO 11/06/24 08:00 11/12/24 18:05 800 MG Sodium Chloride 10 ml Q8HR IV 11/05/24 22:00 11/16/24 06:16 10 ML Acetaminophen/ Hydrocodone Bitart 1 tab Q4HP PRN PO 11/05/24 21:00 11/11/24 22:11 1 TAB Ondansetron HCl 4 mg Q4HP PRN IV 11/05/24 21:00 Docusate Sodium 100 mg BIDPRN PRN PO 11/05/24 21:00 Acetaminophen 650 mg Q6HP PRN PO 11/05/24 21:00 Nitroglycerin 0.4 mg Q5MINP PRN SL 11/05/24 22:45 Morphine Sulfate 2 mg Q30M PRN IV 11/05/24 22:45 Vancomycin HCl 0 ml @ 0 mls/hr UD IV 11/06/24 16:15 Dextrose 50 ml UD PRN IV 11/07/24 07:15 Cancel Cefepime HCl 50 ml @ 12.5 mls/hr DAILY IV 11/10/24 10:00 11/15/24 10:18 12.5 MLS/HR Labetalol HCl 10 mg Q4HPRN PRN IV 11/09/24 12:45 11/09/24 13:02 10 MG Dextrose 50 ml UD PRN IV 11/09/24 16:00 Cancel Amino Acids 0 ml @ 0 mls/hr PER PHARMACY IV 11/10/24 11:15 Diagnostic Test (Pha) 1 strip Q6HR 11/10/24 12:00 11/16/24 06:15 1 STRIP Insulin Human Regular FOLLOW SLIDING SCALE Q6HR SC 11/10/24 12:00 11/16/24 06:12 4 UNITS Dextrose 50 ml UD IV 11/10/24 11:45 Amino Acids 1,000 ml @ 41 mls/hr DAILY@2200 IV 11/10/24 22:00 11/15/24 22:07 41 MLS/HR Patient Own Medication 25 mg DAILY PO 11/13/24 10:00 UNV Potassium Chloride 100 ml @ 50 mls/hr Q2H IV 11/12/24 15:15 11/12/24 19:14 UNV Quetiapine Fumarate 25 mg DAILY PO 11/13/24 10:00 Morphine Sulfate 1 mg Q6HP PRN IV 11/13/24 19:45 11/15/24 15:39 1 MG Lorazepam 1 mg Q4HP PRN IV 11/14/24 12:30 11/16/24 02:54 1 MG Hydralazine HCl 10 mg Q6HP PRN IV 11/15/24 15:15 11/16/24 06:53 10 MG Laboratory Results Laboratory Tests 11/13/24 06:48 11/16/24 06:48 Chemistry Test 11/15/24 10:30 11/16/24 06:48 Albumin 2.7 g/dL (3.2-4.8) L 3.4 g/dL (3.2-4.8) Calcium Level 9.1 mg/dL (8.7-10.4) 9.7 mg/dL (8.7-10.4) Magnesium Level 1.7 mg/dL (1.6-2.6) 1.8 mg/dL (1.6-2.6) Phosphorus Level 3.6 mg/dL (2.4-5.1) 2.6 mg/dL (2.4-5.1) Total Protein 4.7 g/dL (5.7-8.2) L 5.9 g/dL (5.7-8.2) LFT Test 11/15/24 10:30 11/16/24 06:48 Alanine Aminotransferase (ALT) 29 U/L (7-40) 27 U/L (7-40) Alkaline Phosphatase 96 U/L (46-116) 99 U/L (46-116) Aspartate Amino Transferase (AST) 27 U/L (13-40) 26 U/L (13-40) Total Bilirubin 0.4 mg/dL (0.2-1.0) 0.5 mg/dL (0.2-1.0) Microbiology Microbiology Date/Time Source Procedure Growth Status 11/07/24 12:33 Foot Right Gram Stain - Final Resulted 11/07/24 12:33 Wound Culture - Preliminary Acinetobacter baumannii Enterococcus faecalis Acinetobacter baumanii/haemol Resulted 11/06/24 20:44 Blood Blood Culture - Final NO GROWTH AFTER 5 DAYS OF INCUBATION. Complete Labs and/or images reviewed: Labs reviewed by me, Image(s) reviewed by me Assessment/Plan Assessment/Plan Impression: -ESRD with hemodialysis -coronary artery disease with previous CABG -obesity -history of CVA -bilateral heel wounds -septic shock -Metabolic Encephalopathy -Osteomyelitis of left foot. Acinetobacter Baumannii, Enterococcus faecalis Plan: Events: Receiving HD. Family meeting today regarding possible hospice. -continue Clinimix -continue antibiotic therapy with vancomycin and cefepime -swallow evaluation: Reviewed -podiatry consultation -nephrology consultation: Hemodialysis on MWF -wound care consultation -PUD prophylaxis -repeat labs in a.m. Total time spent with patient discussing and formulating plan of care: 35 minutes. This medical document was created using an electronic medical record system with [employer] dictation system. Although this document has been carefully reviewed, there may still be some phonetic and typographical errors. These areas are purely typographical due to imperfections of the software programs, and do not reflect any compromise in the patient's medical care. Plan discussed with: Patient, Other (RN) My Orders Orders - INESSA HANSEN NP Procedure Category Date Status Time Clinimix Per Pharmacy ROGERS 11/15/24 In Process 22:00 Hydralazine Injection PHA 11/15/24 In Process (Apresoline Inject 15:15 Communication Order ORDERS 11/15/24 Transmitted 17:21 Creatinine LAB 11/17/24 Verified 04:00 Vancomycin 500mg/100ml PHA 11/16/24 Logged 11:00 Date of Service: Nov 16, 2024 Billing Provider: INESSA HANSEN NP Common Visit Codes: [id number] INP/OBS CARE(HIGH) INESSA HANSEN NP Nov 16, 2024 09:22
--- NOTE | 2024-11-16 10:45 | DVHPN2 ---
Progress Note - Dictate Date Seen: Nov 16, 2024 Has the PT tested + for MRSA If YES, has PT been informed?: Yes Medical Necessity Reason Pt with a Central, PICC or Fol: No Subjective No new acute complaints noted. vital signs Vital Sign Date Time Temp Pulse Resp B/P (MAP) Pulse Ox O2 Delivery O2 Flow Rate FiO2 11/16/24 06:53 180/41 11/16/24 05:00 97.2 90 17 99 97.2 11/15/24 20:00 Nasal Cannula* 2 28 Total Intake and Output 11/15/24 11/15/24 11/16/24 15:00 23:00 07:00 Intake Total 0 ml 0 ml Balance 0 ml 0 ml medications Current Medications Medications Dose Ordered Sig/Haresh Route Start Time Stop Time Status Last Admin Dose Admin Famotidine 20 mg Q2D IV 11/05/24 22:00 11/15/24 22:23 20 MG Levetiracetam 100 ml @ 400 mls/hr BID IV 11/05/24 22:00 11/15/24 22:07 400 MLS/HR Atorvastatin Calcium 20 mg HS PO 11/05/24 22:00 11/11/24 22:11 20 MG Multivit/Ca Carb/ B Cmplx/FA/Prenat 1 tab DAILY PO 11/06/24 10:00 11/12/24 13:00 1 TAB Sevelamer HCl 800 mg TIDWM PO 11/06/24 08:00 11/12/24 18:05 800 MG Sodium Chloride 10 ml Q8HR IV 11/05/24 22:00 11/16/24 06:16 10 ML Acetaminophen/ Hydrocodone Bitart 1 tab Q4HP PRN PO 11/05/24 21:00 11/11/24 22:11 1 TAB Ondansetron HCl 4 mg Q4HP PRN IV 11/05/24 21:00 Docusate Sodium 100 mg BIDPRN PRN PO 11/05/24 21:00 Acetaminophen 650 mg Q6HP PRN PO 11/05/24 21:00 Nitroglycerin 0.4 mg Q5MINP PRN SL 11/05/24 22:45 Morphine Sulfate 2 mg Q30M PRN IV 11/05/24 22:45 Vancomycin HCl 0 ml @ 0 mls/hr UD IV 11/06/24 16:15 Dextrose 50 ml UD PRN IV 11/07/24 07:15 Cancel Cefepime HCl 50 ml @ 12.5 mls/hr DAILY IV 11/10/24 10:00 11/15/24 10:18 12.5 MLS/HR Labetalol HCl 10 mg Q4HPRN PRN IV 11/09/24 12:45 11/09/24 13:02 10 MG Dextrose 50 ml UD PRN IV 11/09/24 16:00 Cancel Amino Acids 0 ml @ 0 mls/hr PER PHARMACY IV 11/10/24 11:15 Diagnostic Test (Pha) 1 strip Q6HR 11/10/24 12:00 11/16/24 06:15 1 STRIP Insulin Human Regular FOLLOW SLIDING SCALE Q6HR SC 11/10/24 12:00 11/16/24 06:12 4 UNITS Dextrose 50 ml UD IV 11/10/24 11:45 Amino Acids 1,000 ml @ 41 mls/hr DAILY@2200 IV 11/10/24 22:00 11/15/24 22:07 41 MLS/HR Patient Own Medication 25 mg DAILY PO 11/13/24 10:00 UNV Potassium Chloride 100 ml @ 50 mls/hr Q2H IV 11/12/24 15:15 11/12/24 19:14 UNV Quetiapine Fumarate 25 mg DAILY PO 11/13/24 10:00 Morphine Sulfate 1 mg Q6HP PRN IV 11/13/24 19:45 11/15/24 15:39 1 MG Lorazepam 1 mg Q4HP PRN IV 11/14/24 12:30 11/16/24 02:54 1 MG Hydralazine HCl 10 mg Q6HP PRN IV 11/15/24 15:15 11/16/24 06:53 10 MG objective General Appearance: Altered HEENT: Atraumatic, PERRLA, EOMI, Mucous membrane. moist/pink Respiratory: Normal air movement Cardiovascular: Regular rate, Normal S1, Normal S2, No murmurs Abdominal: Normal bowel sounds, Soft, No tenderness, No hepatospenomegaly, No masses Extremities: No clubbing, No cyanosis, No edema, Normal pulses, No tenderness/swelling Skin: Bilateral feet Wounds Neuro: Bedbound. Baseline deficit present laboratory and microbiology Laboratory Tests 11/16/24 06:48 11/13/24 06:48 Test 7/22/25 06:48 Range/Units Serum Glucose 155 H 74-106 mg/dL Assessment/Plan Patient is a 69year-old male presents to the hospital with: sepsis resolved hypotension resolved Acinetobacter baumanii/haemol, Enterococcus faecalis in wound cultures Bilateral feet wounds; chronic Osteomyelitis of left foot End-stage renal disease on hemodialysis Diabetes mellitus Pulmonary edema/ anasarca Stroke baseline weakness/ bedbound Morbid obesity CAD S/P CABG Recommendations: Patient is on IV Vancomycin and IV Cefepime, continue WBC has trended down 11/06 Blood cx no growth Podiatry recommended bone scan. Possible plan for Calcanectomy. Recommend sending bone samples for OR culture. Wound culture showed Acinetobacter baumanii/haemol and Enterococcus faecalis The wound cultures are superficial, wounds have debris hence these cultures are not reliable. reviewed podiatry notes, recommend debridement. 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 I will plan for 2 or more weeks total with HD based on plan for surgery however prolonged course will drive resistance. I asked them to consider goals of care discussion. He also has issues with Line issue as per son. They all are understanding that his prognosis looks poor. He said he had discussion with patient, Foot MRI showed Wound at the posterior plantar aspect of the foot adjacent to the posterior plantar aspect of the calcaneus with surrounding subcutaneous edema, possible cellulitis in the appropriate clinical setting. No organized fluid collection identified to suggest abscess. Marrow signal changes of the posterior calcaneus with associated STIR hyperintense and T1 hypointense signal, suspected osteomyelitis in the appropriate clinical setting. Foot CT showed No definitive CT evidence of osteomyelitis however maintain elevated suspicion given extrusion of posterior calcaneal screw possibly through the skin. No drainable fluid collection. Severe air reversible fatty atrophy of the intrinsic visualized musculature Prognosis guarded Total 50 minutes spent during the encounter Thank you for consult. Dietary Evaluation Review Comments: 1) Initiate Pro-Stat @ 30 mL qd 2) If patient remains NPO > 7 days, consider EN/TPN to meet at least 75% of estimated daily needs 3) If GI is preferred, consider Nepro @ 35 mL/hr goalrate as tolerated. EN regimen (including Pro-Stat) provides 1612 kcals, 83g Pro, and 611 mL free H2O per 24 hrs. EN rate (including Pro-Stat) will meet 91% estimated energy needs and ~51% estimated protein needs 4) Advance to 60 CCHO renal diet when medically feasible, pending ST approval 5) Collect HbA1c 6) Refer to outpatient RD/[facility] for weight management 7) Follow-up with nephrology and cardiology 8) Continue to monitor I&O, labs, and skin integrity Expected Outcomes/Goals: 1) patient to receive nutrition support within 7 days of NPO status 2) labs and wounds to improve 3) diet to advance 4) gradual wt loss 5) f/u in 2-3 days Plan discussed with: JOE Mar MD Nov 16, 2024 10:45
[2024-11-16] MEDS: VANCOMYCIN 500mg/100mL 100 ML IV ONE (14:46)
--- NOTE | 2024-11-16 18:29 | DVHPN2 ---
Progress Note - Dictate Date Seen: Nov 16, 2024 Has the PT tested + for MRSA If YES, has PT been informed?: Yes Medical Necessity Reason Pt with a Central, PICC or Fol: No Subjective no new symptoms vital signs Vital Sign Date Time Temp Pulse Resp B/P (MAP) Pulse Ox O2 Delivery O2 Flow Rate FiO2 11/16/24 17:00 80 18 149/35 (73) 100 11/16/24 13:00 98.3 98.3 11/16/24 08:00 Nasal Cannula* 2 28 Total Intake and Output 11/15/24 11/15/24 11/16/24 15:00 23:00 07:00 Intake Total 0 ml 0 ml Balance 0 ml 0 ml medications Current Medications Medications Dose Ordered Sig/Haresh Route Start Time Stop Time Status Last Admin Dose Admin Famotidine 20 mg Q2D IV 11/05/24 22:00 11/15/24 22:23 20 MG Levetiracetam 100 ml @ 400 mls/hr BID IV 11/05/24 22:00 11/16/24 10:42 400 MLS/HR Atorvastatin Calcium 20 mg HS PO 11/05/24 22:00 11/11/24 22:11 20 MG Multivit/Ca Carb/ B Cmplx/FA/Prenat 1 tab DAILY PO 11/06/24 10:00 11/12/24 13:00 1 TAB Sevelamer HCl 800 mg TIDWM PO 11/06/24 08:00 11/12/24 18:05 800 MG Sodium Chloride 10 ml Q8HR IV 11/05/24 22:00 11/16/24 13:51 10 ML Acetaminophen/ Hydrocodone Bitart 1 tab Q4HP PRN PO 11/05/24 21:00 11/11/24 22:11 1 TAB Ondansetron HCl 4 mg Q4HP PRN IV 11/05/24 21:00 Docusate Sodium 100 mg BIDPRN PRN PO 11/05/24 21:00 Acetaminophen 650 mg Q6HP PRN PO 11/05/24 21:00 Nitroglycerin 0.4 mg Q5MINP PRN SL 11/05/24 22:45 Morphine Sulfate 2 mg Q30M PRN IV 11/05/24 22:45 Vancomycin HCl 0 ml @ 0 mls/hr UD IV 11/06/24 16:15 Dextrose 50 ml UD PRN IV 11/07/24 07:15 Cancel Cefepime HCl 50 ml @ 12.5 mls/hr DAILY IV 11/10/24 10:00 11/15/24 10:18 12.5 MLS/HR Labetalol HCl 10 mg Q4HPRN PRN IV 11/09/24 12:45 11/09/24 13:02 10 MG Dextrose 50 ml UD PRN IV 11/09/24 16:00 Cancel Amino Acids 0 ml @ 0 mls/hr PER PHARMACY IV 11/10/24 11:15 Diagnostic Test (Pha) 1 strip Q6HR 11/10/24 12:00 11/16/24 17:04 1 STRIP Insulin Human Regular FOLLOW SLIDING SCALE Q6HR SC 11/10/24 12:00 11/16/24 17:04 2 UNITS Dextrose 50 ml UD IV 11/10/24 11:45 Amino Acids 1,000 ml @ 41 mls/hr DAILY@2200 IV 11/10/24 22:00 11/15/24 22:07 41 MLS/HR Patient Own Medication 25 mg DAILY PO 11/13/24 10:00 UNV Potassium Chloride 100 ml @ 50 mls/hr Q2H IV 11/12/24 15:15 11/12/24 19:14 UNV Quetiapine Fumarate 25 mg DAILY PO 11/13/24 10:00 Morphine Sulfate 1 mg Q6HP PRN IV 11/13/24 19:45 11/16/24 14:46 1 MG Lorazepam 1 mg Q4HP PRN IV 11/14/24 12:30 11/16/24 02:54 1 MG Hydralazine HCl 10 mg Q6HP PRN IV 11/15/24 15:15 11/16/24 06:53 10 MG objective HEENT: No evidence of JVD, no oral ulcers. Pulmonary: Diminished on auscultation bilaterally Cardiovascular S1-S2, no S3 or S4 Abdomen: Bowel sounds positive, soft no rebound tenderness Skin: No rash Neurological: Alert, oriented, bed-bound, leg weakness Extremities: 1+ edema in the lower extremities laboratory and microbiology Laboratory Tests 11/16/24 06:48 11/13/24 06:48 Test 11/16/24 06:48 Range/Units Serum Glucose 155 H 74-106 mg/dL Assessment/Plan End-stage renal disease on hemodialysis Intra dialytic hypotension, he has chronic hypotension Hypokalemia CAD s/p CABG Bilateral feet wounds History of CVA Diabetes type 2, uncontrolled with hyperglycemia Osteomyelitis of left foot. Acinetobacter Baumannii, Enterococcus faecalis Plan/recommendation: repeat HD today (Friday) for fluid overload s/p HD Friday on Clinimix IV antibiotics Monitor H&H Podiatry consult Dietary Evaluation Review Comments: 1) Initiate Pro-Stat @ 30 mL qd 2) If patient remains NPO > 7 days, consider EN/TPN to meet at least 75% of estimated daily needs 3) If GI is preferred, consider Nepro @ 35 mL/hr goalrate as tolerated. EN regimen (including Pro-Stat) provides 1612 kcals, 83g Pro, and 611 mL free H2O per 24 hrs. EN rate (including Pro-Stat) will meet 91% estimated energy needs and ~51% estimated protein needs 4) Advance to 60 CCHO renal diet when medically feasible, pending ST approval 5) Collect HbA1c 6) Refer to outpatient RD/[facility] for weight management 7) Follow-up with nephrology and cardiology 8) Continue to monitor I&O, labs, and skin integrity Expected Outcomes/Goals: 1) patient to receive nutrition support within 7 days of NPO status 2) labs and wounds to improve 3) diet to advance 4) gradual wt loss 5) f/u in 2-3 days Plan discussed with: PAULETTE Dooley MD Nov 16, 2024 18:29
[2024-11-17] VITALS (8 sets, daily range): BP systolic 135–193; BP diastolic 42–80; PULSE 80–100; RESP 15–20; TEMP 97.5–98.1; O2SAT 97–100
[2024-11-17 07:33] LABS: Alanine Aminotransferase 27 U/L (7-40); Albumin 3.0 g/dL (3.2-4.8); Alkaline Phosphatase 92 U/L (46-116); Anion Gap 13 (5-15); BUN/Creatinine Ratio 8.0 (10.0-20.0); Bilirubin, Total 0.4 mg/dL (0.2-1.0); Blood Urea Nitrogen 27 mg/dL (9-23); Calcium 9.5 mg/dL (8.7-10.4); Carbon Dioxide 23 mmol/L (20-31); Chloride 100 mmol/L (98-107); Glucose 134 mg/dL (74-106); Magnesium 2.0 mg/dL (1.6-2.6); Potassium 4.0 mmol/L (3.5-5.1); Sodium 136 mmol/L (136-145); Total Protein 5.6 g/dL (5.7-8.2)
--- NOTE | 2024-11-17 11:53 | DVHPN2 ---
Progress Note - Dictate Date Seen: Nov 17, 2024 Has the PT tested + for MRSA If YES, has PT been informed?: Yes Medical Necessity Reason Pt with a Central, PICC or Fol: No Subjective No new acute complaints noted. S/P HD on 11/16. vital signs Vital Sign Date Time Temp Pulse Resp B/P (MAP) Pulse Ox O2 Delivery O2 Flow Rate FiO2 11/17/24 09:03 97.5 92 18 135/42 (73) 97 97.5 11/17/24 08:00 Nasal Cannula* 2 28 Total Intake and Output 11/16/24 11/16/24 11/17/24 15:00 23:00 07:00 Intake Total 100 ml 100 ml 0 ml Output Total 0 ml Balance 100 ml 100 ml 0 ml medications Current Medications Medications Dose Ordered Sig/Haresh Route Start Time Stop Time Status Last Admin Dose Admin Famotidine 20 mg Q2D IV 11/05/24 22:00 11/15/24 22:23 20 MG Levetiracetam 100 ml @ 400 mls/hr BID IV 11/05/24 22:00 11/17/24 09:24 400 MLS/HR Atorvastatin Calcium 20 mg HS PO 11/05/24 22:00 11/11/24 22:11 20 MG Multivit/Ca Carb/ B Cmplx/FA/Prenat 1 tab DAILY PO 11/06/24 10:00 11/12/24 13:00 1 TAB Sevelamer HCl 800 mg TIDWM PO 11/06/24 08:00 11/12/24 18:05 800 MG Sodium Chloride 10 ml Q8HR IV 11/05/24 22:00 11/17/24 05:11 10 ML Acetaminophen/ Hydrocodone Bitart 1 tab Q4HP PRN PO 11/05/24 21:00 11/11/24 22:11 1 TAB Ondansetron HCl 4 mg Q4HP PRN IV 11/05/24 21:00 Docusate Sodium 100 mg BIDPRN PRN PO 11/05/24 21:00 Acetaminophen 650 mg Q6HP PRN PO 11/05/24 21:00 Nitroglycerin 0.4 mg Q5MINP PRN SL 11/05/24 22:45 Morphine Sulfate 2 mg Q30M PRN IV 11/05/24 22:45 Vancomycin HCl 0 ml @ 0 mls/hr UD IV 11/06/24 16:15 Dextrose 50 ml UD PRN IV 11/07/24 07:15 Cancel Cefepime HCl 50 ml @ 12.5 mls/hr DAILY IV 11/10/24 10:00 11/15/24 10:18 12.5 MLS/HR Labetalol HCl 10 mg Q4HPRN PRN IV 11/09/24 12:45 11/09/24 13:02 10 MG Dextrose 50 ml UD PRN IV 11/09/24 16:00 Cancel Amino Acids 0 ml @ 0 mls/hr PER PHARMACY IV 11/10/24 11:15 Diagnostic Test (Pha) 1 strip Q6HR 11/10/24 12:00 11/17/24 05:11 1 STRIP Insulin Human Regular FOLLOW SLIDING SCALE Q6HR SC 11/10/24 12:00 11/17/24 06:22 4 UNITS Dextrose 50 ml UD IV 11/10/24 11:45 Amino Acids 1,000 ml @ 41 mls/hr DAILY@2200 IV 11/10/24 22:00 11/16/24 22:18 41 MLS/HR Patient Own Medication 25 mg DAILY PO 11/13/24 10:00 UNV Potassium Chloride 100 ml @ 50 mls/hr Q2H IV 11/12/24 15:15 11/12/24 19:14 UNV Quetiapine Fumarate 25 mg DAILY PO 11/13/24 10:00 Morphine Sulfate 1 mg Q6HP PRN IV 11/13/24 19:45 11/16/24 14:46 1 MG Lorazepam 1 mg Q4HP PRN IV 11/14/24 12:30 11/17/24 05:11 1 MG Hydralazine HCl 10 mg Q6HP PRN IV 11/15/24 15:15 11/17/24 05:12 10 MG objective General Appearance: Altered HEENT: Atraumatic, PERRLA, EOMI, Mucous membrane. moist/pink Respiratory: Normal air movement Cardiovascular: Regular rate, Normal S1, Normal S2, No murmurs Abdominal: Normal bowel sounds, Soft, No tenderness, No hepatospenomegaly, No masses Extremities: No clubbing, No cyanosis, No edema, Normal pulses, No tenderness/swelling Skin: Bilateral feet Wounds Neuro: Bedbound. Baseline deficit present. laboratory and microbiology Laboratory Tests 11/17/24 05:35 Test 11/17/24 05:35 Range/Units Serum Glucose 134 H 74-106 mg/dL Assessment/Plan Patient is a 69year-old male presents to the hospital with: sepsis resolved hypotension resolved Acinetobacter baumanii/haemol, Enterococcus faecalis in wound cultures Bilateral feet wounds; chronic Osteomyelitis of left foot End-stage renal disease on hemodialysis Diabetes mellitus Pulmonary edema/ anasarca Stroke baseline weakness/ bedbound Morbid obesity CAD S/P CABG Recommendations: Patient is on IV Vancomycin and IV Cefepime, continue WBC has trended down 11/06 Blood cx no growth Podiatry recommended bone scan. Possible plan for Calcanectomy. Recommend sending bone samples for OR culture. Wound culture showed Acinetobacter baumanii/haemol and Enterococcus faecalis The wound cultures are superficial, wounds have debris hence these cultures are not reliable. reviewed podiatry notes, recommend debridement. 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 I will plan for 2 or more weeks total with HD based on plan for surgery however prolonged course will drive resistance. I asked them to consider goals of care discussion. He also has issues with Line issue as per son. They all are understanding that his prognosis looks poor. He said he had discussion with patient, Foot MRI showed Wound at the posterior plantar aspect of the foot adjacent to the posterior plantar aspect of the calcaneus with surrounding subcutaneous edema, possible cellulitis in the appropriate clinical setting. No organized fluid collection identified to suggest abscess. Marrow signal changes of the posterior calcaneus with associated STIR hyperintense and T1 hypointense signal, suspected osteomyelitis in the appropriate clinical setting. Foot CT showed No definitive CT evidence of osteomyelitis however maintain elevated suspicion given extrusion of posterior calcaneal screw possibly through the skin. No drainable fluid collection. Severe air reversible fatty atrophy of the intrinsic visualized musculature Prognosis guarded Total 50 minutes spent during the encounter Thank you for consult. Dietary Evaluation Review Comments: 1) Initiate Pro-Stat @ 30 mL qd 2) If patient remains NPO > 7 days, consider EN/TPN to meet at least 75% of estimated daily needs 3) If GI is preferred, consider Nepro @ 35 mL/hr goalrate as tolerated. EN regimen (including Pro-Stat) provides 1612 kcals, 83g Pro, and 611 mL free H2O per 24 hrs. EN rate (including Pro-Stat) will meet 91% estimated energy needs and ~51% estimated protein needs 4) Advance to 60 CCHO renal diet when medically feasible, pending ST approval 5) Collect HbA1c 6) Refer to outpatient RD/[facility] for weight management 7) Follow-up with nephrology and cardiology 8) Continue to monitor I&O, labs, and skin integrity Expected Outcomes/Goals: 1) patient to receive nutrition support within 7 days of NPO status 2) labs and wounds to improve 3) diet to advance 4) gradual wt loss 5) f/u in 2-3 days Plan discussed with: JOE Mar MD Nov 17, 2024 11:53
[2024-11-17 11:58] LABS: Hematocrit 39.3 % (41.0-53.0); Hemoglobin 12.8 g/dL (13.5-17.5); Mean Corpuscular Hemoglobin 33.3 pg (28.0-32.0); Mean Corpuscular Volume 102.4 fL (80.0-100.0); Nucleated Red Blood Cells % 0.1 %
--- NOTE | 2024-11-17 14:27 | DVHPN2 ---
Subjective Altered Mental status Reviewed: Care Plan, H&P, Labs, Medications, Previous Orders Changes from previous H/P or p: No Changes General: Per HPI Eyes: No Pain, No Vision change, No Conjunctivae inflammation, No Eyelid inflammation, No Other, No Redness ENT: No Ear pain, No Ear discharge, No Nose pain, No Nose discharge, No Nose congestion, No Mouth pain, No Mouth swelling, No Throat pain, No Throat swelling, No Other Cardiovascular: Chest Pain; No Palpitations, No Orthopnea, No Paroxysmal Noc. Dyspnea, No Edema, No Lt Headedness, No Other Respiratory: No Cough, No Dry; Shortness of breath; No SOB with excertion, No Wheezing, No Hemoptysis, No Pleuritic Pain, No Sputum; Other (SOB at rest) Gastrointestinal: No Nausea, No Vomiting, No Abdominal Pain, No Diarrhea, No Constipation, No Melena, No Hematochezia, No Other Genitourinary: No Dysuria, No Frequency, No Incontinence, No Hematuria, No Retention, No Other Musculoskeletal: No other, No neck pain, No shoulder pain, No arm pain, No back pain, No hand pain, No leg pain, No foot pain Skin: No Rash, No Lesions, No Jaundice, No Bruising, No Other Objective Vitals Vital Signs Date Time Temp Pulse Resp B/P (MAP) Pulse Ox O2 Delivery O2 Flow Rate FiO2 11/17/24 13:00 98.0 100 20 140/60 (86) 97 98.0 11/17/24 08:00 Nasal Cannula* 2 28 Intake/Output Intake and Output 11/17/24 07:00 Intake Total 200 ml Output Total 0 ml Balance 200 ml Intake Oral 0 ml IV Total 200 ml Output Urine Total 0 ml # Voids 100 General Appearance: Alert, mild distress, Other (Encephalopathic) HEENT: Atraumatic, PERRLA Lungs: Clear to auscultation, Normal air movement Cardiovascular: Normal S1, Normal S2 Abdomen: Normal bowel sounds, Soft, No tenderness, No hepatospenomegaly Skin: Wounds (See nurse notes and pictures) Psych/Mental Status: Other (Altered mental status) Medications Current Medications Medications Dose Ordered Sig/Haresh Route Start Time Stop Time Status Last Admin Dose Admin Famotidine 20 mg Q2D IV 11/05/24 22:00 11/15/24 22:23 20 MG Levetiracetam 100 ml @ 400 mls/hr BID IV 11/05/24 22:00 11/17/24 09:24 400 MLS/HR Atorvastatin Calcium 20 mg HS PO 11/05/24 22:00 11/11/24 22:11 20 MG Multivit/Ca Carb/ B Cmplx/FA/Prenat 1 tab DAILY PO 11/06/24 10:00 11/12/24 13:00 1 TAB Sevelamer HCl 800 mg TIDWM PO 11/06/24 08:00 11/12/24 18:05 800 MG Sodium Chloride 10 ml Q8HR IV 11/05/24 22:00 11/17/24 13:53 10 ML Acetaminophen/ Hydrocodone Bitart 1 tab Q4HP PRN PO 11/05/24 21:00 11/11/24 22:11 1 TAB Ondansetron HCl 4 mg Q4HP PRN IV 11/05/24 21:00 Docusate Sodium 100 mg BIDPRN PRN PO 11/05/24 21:00 Acetaminophen 650 mg Q6HP PRN PO 11/05/24 21:00 Nitroglycerin 0.4 mg Q5MINP PRN SL 11/05/24 22:45 Morphine Sulfate 2 mg Q30M PRN IV 11/05/24 22:45 Vancomycin HCl 0 ml @ 0 mls/hr UD IV 11/06/24 16:15 Dextrose 50 ml UD PRN IV 11/07/24 07:15 Cancel Cefepime HCl 50 ml @ 12.5 mls/hr DAILY IV 11/10/24 10:00 11/17/24 12:09 12.5 MLS/HR Labetalol HCl 10 mg Q4HPRN PRN IV 11/09/24 12:45 11/09/24 13:02 10 MG Dextrose 50 ml UD PRN IV 11/09/24 16:00 Cancel Amino Acids 0 ml @ 0 mls/hr PER PHARMACY IV 11/10/24 11:15 Diagnostic Test (Pha) 1 strip Q6HR 11/10/24 12:00 11/17/24 12:21 1 STRIP Insulin Human Regular FOLLOW SLIDING SCALE Q6HR SC 11/10/24 12:00 11/17/24 12:23 2 UNITS Dextrose 50 ml UD IV 11/10/24 11:45 Amino Acids 1,000 ml @ 41 mls/hr DAILY@2200 IV 11/10/24 22:00 11/16/24 22:18 41 MLS/HR Patient Own Medication 25 mg DAILY PO 11/13/24 10:00 UNV Potassium Chloride 100 ml @ 50 mls/hr Q2H IV 11/12/24 15:15 11/12/24 19:14 UNV Quetiapine Fumarate 25 mg DAILY PO 11/13/24 10:00 Morphine Sulfate 1 mg Q6HP PRN IV 11/13/24 19:45 11/16/24 14:46 1 MG Lorazepam 1 mg Q4HP PRN IV 11/14/24 12:30 11/17/24 12:59 1 MG Hydralazine HCl 10 mg Q6HP PRN IV 11/15/24 15:15 11/17/24 05:12 10 MG Laboratory Results Laboratory Tests 11/17/24 05:35 11/17/24 11:11 Chemistry Test 11/17/24 05:35 Albumin 3.0 g/dL (3.2-4.8) L Calcium Level 9.5 mg/dL (8.7-10.4) Magnesium Level 2.0 mg/dL (1.6-2.6) Phosphorus Level 2.7 mg/dL (2.4-5.1) Total Protein 5.6 g/dL (5.7-8.2) L LFT Test 11/17/24 05:35 Alanine Aminotransferase (ALT) 27 U/L (7-40) Alkaline Phosphatase 92 U/L (46-116) Aspartate Amino Transferase (AST) 36 U/L (13-40) Total Bilirubin 0.4 mg/dL (0.2-1.0) Microbiology Microbiology Date/Time Source Procedure Growth Status 11/07/24 12:33 Foot Right Gram Stain - Final Complete 11/07/24 12:33 Wound Culture - Final Acinetobacter baumannii Enterococcus faecalis Acinetobacter baumanii/haemol Complete 11/06/24 20:44 Blood Blood Culture - Final NO GROWTH AFTER 5 DAYS OF INCUBATION. Complete Labs and/or images reviewed: Labs reviewed by me, Image(s) reviewed by me Assessment/Plan Assessment/Plan Impression: -ESRD with hemodialysis -coronary artery disease with previous CABG -obesity -history of CVA -bilateral heel wounds -septic shock -Metabolic Encephalopathy -Osteomyelitis of left foot. Acinetobacter Baumannii, Enterococcus faecalis Plan: Events: Long discussion made with the patient's family regarding discharge planning with hospice versus continued treatment with possible I and D to bilateral heels. At this time they will discuss amongst themselves direction of care. Plans for three-phase bone scan to right lower extremity -continue Clinimix -continue antibiotic therapy with vancomycin and cefepime -swallow evaluation: Reviewed -podiatry consultation -nephrology consultation: Hemodialysis on MWF -wound care consultation -PUD prophylaxis -repeat labs in a.m. Total time spent with patient discussing and formulating plan of care: 35 minutes. This medical document was created using an electronic medical record system with [employer] dictation system. Although this document has been carefully reviewed, there may still be some phonetic and typographical errors. These areas are purely typographical due to imperfections of the software programs, and do not reflect any compromise in the patient's medical care. Plan discussed with: Patient, Spouse, Daughter, Son, Other (RN) My Orders Orders - INESSA HANSEN NP Procedure Category Date Status Time Vancomycin,Random LAB 11/18/24 Verified 04:00 Renal Function Test LAB 11/18/24 Verified 04:00 Magnesium LAB 11/18/24 Verified 04:00 Clinimix Per [facility] 11/17/24 In Process 22:00 * Swallow Request ST 11/17/24 Transmitted 11:37 Date of Service: Nov 17, 2024 Billing Provider: INESSA HANSEN NP Common Visit Codes: [id number] INP/OBS CARE(HIGH) INESSA HANSEN NP Nov 17, 2024 14:27
--- NOTE | 2024-11-17 16:40 | DVHPN2 ---
Progress Note - Dictate Date Seen: Nov 17, 2024 Has the PT tested + for MRSA If YES, has PT been informed?: Yes Medical Necessity Reason Pt with a Central, PICC or Fol: No Subjective no new symptoms vital signs Vital Sign Date Time Temp Pulse Resp B/P (MAP) Pulse Ox O2 Delivery O2 Flow Rate FiO2 11/17/24 13:00 98.0 100 20 140/60 (86) 97 98.0 11/17/24 08:00 Nasal Cannula* 2 28 Total Intake and Output 11/16/24 11/16/24 11/17/24 15:00 23:00 07:00 Intake Total 100 ml 100 ml 0 ml Output Total 0 ml Balance 100 ml 100 ml 0 ml medications Current Medications Medications Dose Ordered Sig/Haresh Route Start Time Stop Time Status Last Admin Dose Admin Famotidine 20 mg Q2D IV 11/05/24 22:00 11/15/24 22:23 20 MG Levetiracetam 100 ml @ 400 mls/hr BID IV 11/05/24 22:00 11/17/24 09:24 400 MLS/HR Atorvastatin Calcium 20 mg HS PO 11/05/24 22:00 11/11/24 22:11 20 MG Multivit/Ca Carb/ B Cmplx/FA/Prenat 1 tab DAILY PO 11/06/24 10:00 11/12/24 13:00 1 TAB Sevelamer HCl 800 mg TIDWM PO 11/06/24 08:00 11/12/24 18:05 800 MG Sodium Chloride 10 ml Q8HR IV 11/05/24 22:00 11/17/24 13:53 10 ML Acetaminophen/ Hydrocodone Bitart 1 tab Q4HP PRN PO 11/05/24 21:00 11/11/24 22:11 1 TAB Ondansetron HCl 4 mg Q4HP PRN IV 11/05/24 21:00 Docusate Sodium 100 mg BIDPRN PRN PO 11/05/24 21:00 Acetaminophen 650 mg Q6HP PRN PO 11/05/24 21:00 Nitroglycerin 0.4 mg Q5MINP PRN SL 11/05/24 22:45 Morphine Sulfate 2 mg Q30M PRN IV 11/05/24 22:45 Vancomycin HCl 0 ml @ 0 mls/hr UD IV 11/06/24 16:15 Dextrose 50 ml UD PRN IV 11/07/24 07:15 Cancel Cefepime HCl 50 ml @ 12.5 mls/hr DAILY IV 11/10/24 10:00 11/17/24 12:09 12.5 MLS/HR Labetalol HCl 10 mg Q4HPRN PRN IV 11/09/24 12:45 11/09/24 13:02 10 MG Dextrose 50 ml UD PRN IV 11/09/24 16:00 Cancel Amino Acids 0 ml @ 0 mls/hr PER PHARMACY IV 11/10/24 11:15 Diagnostic Test (Pha) 1 strip Q6HR 11/10/24 12:00 11/17/24 12:21 1 STRIP Insulin Human Regular FOLLOW SLIDING SCALE Q6HR SC 11/10/24 12:00 11/17/24 12:23 2 UNITS Dextrose 50 ml UD IV 11/10/24 11:45 Amino Acids 1,000 ml @ 41 mls/hr DAILY@2200 IV 11/10/24 22:00 11/16/24 22:18 41 MLS/HR Patient Own Medication 25 mg DAILY PO 11/13/24 10:00 UNV Potassium Chloride 100 ml @ 50 mls/hr Q2H IV 11/12/24 15:15 11/12/24 19:14 UNV Quetiapine Fumarate 25 mg DAILY PO 11/13/24 10:00 Morphine Sulfate 1 mg Q6HP PRN IV 11/13/24 19:45 11/16/24 14:46 1 MG Lorazepam 1 mg Q4HP PRN IV 11/14/24 12:30 11/17/24 12:59 1 MG Hydralazine HCl 10 mg Q6HP PRN IV 11/15/24 15:15 11/17/24 05:12 10 MG objective HEENT: No evidence of JVD, no oral ulcers. Pulmonary: Diminished on auscultation bilaterally Cardiovascular S1-S2, no S3 or S4 Abdomen: Bowel sounds positive, soft no rebound tenderness Skin: No rash Neurological: Alert, oriented, bed-bound, leg weakness Extremities: 1+ edema in the lower extremities laboratory and microbiology Laboratory Tests 11/17/24 11:11 11/17/24 05:35 Test 11/17/24 05:35 Range/Units Serum Glucose 134 H 74-106 mg/dL Assessment/Plan End-stage renal disease on hemodialysis Intra dialytic hypotension, improved Hypokalemia CAD s/p CABG Bilateral feet wounds History of CVA Diabetes type 2, uncontrolled with hyperglycemia Osteomyelitis of left foot. Acinetobacter Baumannii, Enterococcus faecalis Plan/recommendation: s/p HD Friday Next HD on on Clinimix IV antibiotics Monitor H&H Podiatry consult Dietary Evaluation Review Comments: 1) Initiate Pro-Stat @ 30 mL qd 2) If patient remains NPO > 7 days, consider EN/TPN to meet at least 75% of estimated daily needs 3) If GI is preferred, consider Nepro @ 35 mL/hr goalrate as tolerated. EN regimen (including Pro-Stat) provides 1612 kcals, 83g Pro, and 611 mL free H2O per 24 hrs. EN rate (including Pro-Stat) will meet 91% estimated energy needs and ~51% estimated protein needs 4) Advance to 60 CCHO renal diet when medically feasible, pending ST approval 5) Collect HbA1c 6) Refer to outpatient RD/CDCES for weight management 7) Follow-up with nephrology and cardiology 8) Continue to monitor I&O, labs, and skin integrity Expected Outcomes/Goals: 1) patient to receive nutrition support within 7 days of NPO status 2) labs and wounds to improve 3) diet to advance 4) gradual wt loss 5) f/u in 2-3 days Plan discussed with: Patient, Spouse PAULETTE BREAUX MD Nov 17, 2024 16:40
[2024-11-17] MEDS ORDERED: ARTIFICIAL TEARS 15ml EACHEYE PRN (23:00)
[2024-11-18] VITALS (8 sets, daily range): BP systolic 92–150; BP diastolic 44–84; PULSE 83–96; RESP 14–18; TEMP 97.5–98.9; O2SAT 92–100
[2024-11-18] MEDS: SODIUM CHL 0.9% 1000 ML BAG XX ONE (07:00)
[2024-11-18 08:29] LABS: Chloride 99.0 mmol/L (98-107); Potassium 3.7 mmol/L (3.5-5.1); Sodium 136.0 mmol/L (136-145)
[2024-11-18 08:30] LABS: Anion Gap 12.0 (5-15); Carbon Dioxide 25.0 mmol/L (20-31)
[2024-11-18 08:31] LABS: Calcium 9.8 mg/dL (8.7-10.4)
[2024-11-18 08:35] LABS: Glucose 145.0 mg/dL (74-106)
[2024-11-18 08:36] LABS: BUN/Creatinine Ratio 9.7 (10.0-20.0); Blood Urea Nitrogen 39.0 mg/dL (9-23); Magnesium 1.8 mg/dL (1.6-2.6)
[2024-11-18 08:37] LABS: Albumin 3.4 g/dL (3.2-4.8)
--- NOTE | 2024-11-18 10:52 | DVHPN2 ---
Progress Note - Dictate Date Seen: Nov 18, 2024 Has the PT tested + for MRSA If YES, has PT been informed?: Yes Medical Necessity Reason Pt with a Central, PICC or Fol: No Subjective Plan for HD today. vital signs Vital Sign Date Time Temp Pulse Resp B/P (MAP) Pulse Ox O2 Delivery O2 Flow Rate FiO2 11/18/24 08:42 98.0 91 14 144/70 (94) 100 98.0 11/18/24 08:00 Nasal Cannula* 2 28 Total Intake and Output 11/17/24 11/17/24 11/18/24 15:00 23:00 07:00 Intake Total 50 ml 0 ml Balance 50 ml 0 ml medications Current Medications Medications Dose Ordered Sig/Haresh Route Start Time Stop Time Status Last Admin Dose Admin Famotidine 20 mg Q2D IV 11/05/24 22:00 11/17/24 21:55 20 MG Levetiracetam 100 ml @ 400 mls/hr BID IV 11/05/24 22:00 11/18/24 09:19 400 MLS/HR Atorvastatin Calcium 20 mg HS PO 11/05/24 22:00 11/11/24 22:11 20 MG Multivit/Ca Carb/ B Cmplx/FA/Prenat 1 tab DAILY PO 11/06/24 10:00 11/12/24 13:00 1 TAB Sevelamer HCl 800 mg TIDWM PO 11/06/24 08:00 11/12/24 18:05 800 MG Sodium Chloride 10 ml Q8HR IV 11/05/24 22:00 11/18/24 06:26 10 ML Acetaminophen/ Hydrocodone Bitart 1 tab Q4HP PRN PO 11/05/24 21:00 11/11/24 22:11 1 TAB Ondansetron HCl 4 mg Q4HP PRN IV 11/05/24 21:00 Docusate Sodium 100 mg BIDPRN PRN PO 11/05/24 21:00 Acetaminophen 650 mg Q6HP PRN PO 11/05/24 21:00 Nitroglycerin 0.4 mg Q5MINP PRN SL 11/05/24 22:45 Morphine Sulfate 2 mg Q30M PRN IV 11/05/24 22:45 Vancomycin HCl 0 ml @ 0 mls/hr UD IV 11/06/24 16:15 Dextrose 50 ml UD PRN IV 11/07/24 07:15 Cancel Cefepime HCl 50 ml @ 12.5 mls/hr DAILY IV 11/10/24 10:00 11/17/24 12:09 12.5 MLS/HR Labetalol HCl 10 mg Q4HPRN PRN IV 11/09/24 12:45 11/09/24 13:02 10 MG Dextrose 50 ml UD PRN IV 11/09/24 16:00 Cancel Amino Acids 0 ml @ 0 mls/hr PER PHARMACY IV 11/10/24 11:15 Diagnostic Test (Pha) 1 strip Q6HR 11/10/24 12:00 11/18/24 06:26 1 STRIP Insulin Human Regular FOLLOW SLIDING SCALE Q6HR SC 11/10/24 12:00 11/18/24 06:25 2 UNITS Dextrose 50 ml UD IV 11/10/24 11:45 Amino Acids 1,000 ml @ 41 mls/hr DAILY@2200 IV 11/10/24 22:00 11/17/24 22:11 41 MLS/HR Patient Own Medication 25 mg DAILY PO 11/13/24 10:00 UNV Potassium Chloride 100 ml @ 50 mls/hr Q2H IV 11/12/24 15:15 11/12/24 19:14 UNV Quetiapine Fumarate 25 mg DAILY PO 11/13/24 10:00 Morphine Sulfate 1 mg Q6HP PRN IV 11/13/24 19:45 11/16/24 14:46 1 MG Lorazepam 1 mg Q4HP PRN IV 11/14/24 12:30 11/18/24 00:53 1 MG Hydralazine HCl 10 mg Q6HP PRN IV 11/15/24 15:15 11/17/24 05:12 10 MG Artificial Tears 1 drop Q6HP PRN EACHEYE 11/17/24 23:00 objective General Appearance: Altered HEENT: Atraumatic, PERRLA, EOMI, Mucous membrane. moist/pink Respiratory: Normal air movement Cardiovascular: Regular rate, Normal S1, Normal S2, No murmurs Abdominal: Normal bowel sounds, Soft, No tenderness, No hepatospenomegaly, No masses Extremities: No clubbing, No cyanosis, No edema, Normal pulses, No tenderness/swelling Skin: Bilateral feet Wounds Neuro: Bedbound. Baseline deficit present. laboratory and microbiology Laboratory Tests 11/18/24 07:00 11/17/24 11:11 Test 11/18/24 07:00 Range/Units Serum Glucose 145 H 74-106 mg/dL Assessment/Plan Patient is a 69year-old male presents to the hospital with: sepsis resolved hypotension resolved Acinetobacter baumanii/haemol, Enterococcus faecalis in wound cultures Bilateral feet wounds; chronic Osteomyelitis of left foot End-stage renal disease on hemodialysis Diabetes mellitus Pulmonary edema/ anasarca Stroke baseline weakness/ bedbound Morbid obesity CAD S/P CABG Recommendations: Patient is on IV Vancomycin and IV Cefepime, continue WBC has trended down 11/06 Blood cx no growth Podiatry recommended bone scan. Possible plan for Calcanectomy. Recommend sending bone samples for OR culture. Wound culture showed Acinetobacter baumanii/haemol and Enterococcus faecalis The wound cultures are superficial, wounds have debris hence these cultures are not reliable. reviewed podiatry notes, recommend debridement. Chronic pressure ulcer, I don't see snf IV antibiotics will resolve the problem plus underlying problem is that he is bedbound due to stroke These current cx are colonization likely, clinically he is improving on Vancomycin and cefepime. I will plan for 2 or more weeks total with HD based on plan for surgery however prolonged course will drive resistance. I asked them to consider goals of care discussion. He also has issues with Line issue as per son. They all are understanding that his prognosis looks poor. He said he had discussion with patient, Foot MRI showed Wound at the posterior plantar aspect of the foot adjacent to the posterior plantar aspect of the calcaneus with surrounding subcutaneous edema, possible cellulitis in the appropriate clinical setting. No organized fluid collection identified to suggest abscess. Marrow signal changes of the posterior calcaneus with associated STIR hyperintense and T1 hypointense signal, suspected osteomyelitis in the appropriate clinical setting. Foot CT showed No definitive CT evidence of osteomyelitis however maintain elevated suspicion given extrusion of posterior calcaneal screw possibly through the skin. No drainable fluid collection. Severe air reversible fatty atrophy of the intrinsic visualized musculature Prognosis guarded Total 50 minutes spent during the encounter Thank you for consult. Dietary Evaluation Review Comments: 1) Initiate Pro-Stat @ 30 mL qd 2) If patient remains NPO > 7 days, consider EN/TPN to meet at least 75% of estimated daily needs 3) If GI is preferred, consider Nepro @ 35 mL/hr goalrate as tolerated. EN regimen (including Pro-Stat) provides 1612 kcals, 83g Pro, and 611 mL free H2O per 24 hrs. EN rate (including Pro-Stat) will meet 91% estimated energy needs and ~51% estimated protein needs 4) Advance to 60 CCHO renal diet when medically feasible, pending ST approval 5) Collect HbA1c 6) Refer to outpatient RD/[facility] for weight management 7) Follow-up with nephrology and cardiology 8) Continue to monitor I&O, labs, and skin integrity Expected Outcomes/Goals: 1) patient to receive nutrition support within 7 days of NPO status 2) labs and wounds to improve 3) diet to advance 4) gradual wt loss 5) f/u in 2-3 days Plan discussed with: JOE Mar MD Nov 18, 2024 10:52
--- NOTE | 2024-11-18 10:59 | DVHPN2 ---
Subjective Altered Mental status Reviewed: Care Plan, H&P, Labs, Medications, Previous Orders Changes from previous H/P or p: No Changes General: Per HPI Eyes: No Pain, No Vision change, No Conjunctivae inflammation, No Eyelid inflammation, No Other, No Redness ENT: No Ear pain, No Ear discharge, No Nose pain, No Nose discharge, No Nose congestion, No Mouth pain, No Mouth swelling, No Throat pain, No Throat swelling, No Other Cardiovascular: Chest Pain; No Palpitations, No Orthopnea, No Paroxysmal Noc. Dyspnea, No Edema, No Lt Headedness, No Other Respiratory: No Cough, No Dry; Shortness of breath; No SOB with excertion, No Wheezing, No Hemoptysis, No Pleuritic Pain, No Sputum; Other (SOB at rest) Gastrointestinal: No Nausea, No Vomiting, No Abdominal Pain, No Diarrhea, No Constipation, No Melena, No Hematochezia, No Other Genitourinary: No Dysuria, No Frequency, No Incontinence, No Hematuria, No Retention, No Other Musculoskeletal: No other, No neck pain, No shoulder pain, No arm pain, No back pain, No hand pain, No leg pain, No foot pain Skin: No Rash, No Lesions, No Jaundice, No Bruising, No Other Objective Vitals Vital Signs Date Time Temp Pulse Resp B/P (MAP) Pulse Ox O2 Delivery O2 Flow Rate FiO2 11/18/24 08:42 98.0 91 14 144/70 (94) 100 98.0 11/18/24 08:00 Nasal Cannula* 2 28 Intake/Output Intake and Output 11/18/24 07:00 Intake Total 50 ml Balance 50 ml Intake Oral 0 ml IV Total 50 ml # Bowel Movements 1 General Appearance: Alert, mild distress, Other (Encephalopathic) HEENT: Atraumatic, PERRLA Lungs: Clear to auscultation, Normal air movement Cardiovascular: Normal S1, Normal S2 Abdomen: Normal bowel sounds, Soft, No tenderness, No hepatospenomegaly Skin: Wounds (See nurse notes and pictures) Psych/Mental Status: Other (Altered mental status) Medications Current Medications Medications Dose Ordered Sig/Haresh Route Start Time Stop Time Status Last Admin Dose Admin Famotidine 20 mg Q2D IV 11/05/24 22:00 11/17/24 21:55 20 MG Levetiracetam 100 ml @ 400 mls/hr BID IV 11/05/24 22:00 11/18/24 09:19 400 MLS/HR Atorvastatin Calcium 20 mg HS PO 11/05/24 22:00 11/11/24 22:11 20 MG Multivit/Ca Carb/ B Cmplx/FA/Prenat 1 tab DAILY PO 11/06/24 10:00 11/12/24 13:00 1 TAB Sevelamer HCl 800 mg TIDWM PO 11/06/24 08:00 11/12/24 18:05 800 MG Sodium Chloride 10 ml Q8HR IV 11/05/24 22:00 11/18/24 06:26 10 ML Acetaminophen/ Hydrocodone Bitart 1 tab Q4HP PRN PO 11/05/24 21:00 11/11/24 22:11 1 TAB Ondansetron HCl 4 mg Q4HP PRN IV 11/05/24 21:00 Docusate Sodium 100 mg BIDPRN PRN PO 11/05/24 21:00 Acetaminophen 650 mg Q6HP PRN PO 11/05/24 21:00 Nitroglycerin 0.4 mg Q5MINP PRN SL 11/05/24 22:45 Morphine Sulfate 2 mg Q30M PRN IV 11/05/24 22:45 Vancomycin HCl 0 ml @ 0 mls/hr UD IV 11/06/24 16:15 Dextrose 50 ml UD PRN IV 11/07/24 07:15 Cancel Cefepime HCl 50 ml @ 12.5 mls/hr DAILY IV 11/10/24 10:00 11/17/24 12:09 12.5 MLS/HR Labetalol HCl 10 mg Q4HPRN PRN IV 11/09/24 12:45 11/09/24 13:02 10 MG Dextrose 50 ml UD PRN IV 11/09/24 16:00 Cancel Amino Acids 0 ml @ 0 mls/hr PER PHARMACY IV 11/10/24 11:15 Diagnostic Test (Pha) 1 strip Q6HR 11/10/24 12:00 11/18/24 06:26 1 STRIP Insulin Human Regular FOLLOW SLIDING SCALE Q6HR SC 11/10/24 12:00 11/18/24 06:25 2 UNITS Dextrose 50 ml UD IV 11/10/24 11:45 Amino Acids 1,000 ml @ 41 mls/hr DAILY@2200 IV 11/10/24 22:00 11/17/24 22:11 41 MLS/HR Patient Own Medication 25 mg DAILY PO 11/13/24 10:00 UNV Potassium Chloride 100 ml @ 50 mls/hr Q2H IV 11/12/24 15:15 11/12/24 19:14 UNV Quetiapine Fumarate 25 mg DAILY PO 11/13/24 10:00 Morphine Sulfate 1 mg Q6HP PRN IV 11/13/24 19:45 11/16/24 14:46 1 MG Lorazepam 1 mg Q4HP PRN IV 11/14/24 12:30 11/18/24 00:53 1 MG Hydralazine HCl 10 mg Q6HP PRN IV 11/15/24 15:15 11/17/24 05:12 10 MG Artificial Tears 1 drop Q6HP PRN EACHEYE 11/17/24 23:00 Laboratory Results Laboratory Tests 11/17/24 11:11 11/18/24 07:00 Chemistry Test 11/18/24 07:00 Albumin 3.4 g/dL (3.2-4.8) Calcium Level 9.8 mg/dL (8.7-10.4) Magnesium Level 1.8 mg/dL (1.6-2.6) Phosphorus Level 3.1 mg/dL (2.4-5.1) Microbiology Microbiology Date/Time Source Procedure Growth Status 11/07/24 12:33 Foot Right Gram Stain - Final Complete 11/07/24 12:33 Wound Culture - Final Acinetobacter baumannii Enterococcus faecalis Acinetobacter baumanii/haemol Complete 11/06/24 20:44 Blood Blood Culture - Final NO GROWTH AFTER 5 DAYS OF INCUBATION. Complete Labs and/or images reviewed: Labs reviewed by me, Image(s) reviewed by me Assessment/Plan Assessment/Plan Impression: -ESRD with hemodialysis -coronary artery disease with previous CABG -obesity -history of CVA -bilateral heel wounds -septic shock -Metabolic Encephalopathy -Osteomyelitis of left foot. Acinetobacter Baumannii, Enterococcus faecalis Plan: Events: Discussed plan of care with patient's family including , son, [place], daughter, Maria Dolores. This time they want to keep patient full code status and proceed with all medical modalities. -NG tube, start Nepro with carb steady at 30 mL/hour -discontinue Clinimix -continue antibiotic therapy with vancomycin and cefepime -swallow evaluation: Reviewed -podiatry consultation -nephrology consultation: Hemodialysis on MWF -wound care consultation -PUD prophylaxis -repeat labs in a.m. Total time spent with patient discussing and formulating plan of care: 35 minutes. This medical document was created using an electronic medical record system with [employer] dictation system. Although this document has been carefully reviewed, there may still be some phonetic and typographical errors. These areas are purely typographical due to imperfections of the software programs, and do not reflect any compromise in the patient's medical care. Plan discussed with: Patient, Spouse, Daughter, Son, Other (RN) My Orders Orders - INESSA HANSEN NP Procedure Category Date Status Time * Swallow Request ST 11/17/24 Transmitted 11:37 Vancomycin,Random LAB 11/19/24 Verified 04:00 Creatinine LAB 11/19/24 Verified 04:00 Place Ng ORDERS 11/18/24 Transmitted 10:55 Nutritional PHA 11/18/24 Transmitted Supplements (Nepro 11:00 Basic Metabolic Panel LAB 11/19/24 Verified 05:00 Basic Metabolic Panel LAB 11/20/24 Verified 05:00 Basic Metabolic Panel LAB 11/21/24 Verified 05:00 Date of Service: Nov 18, 2024 Billing Provider: INESSA HANSEN NP Common Visit Codes: [id number] INP/OBS CARE(HIGH) INESSA HANSEN NP Nov 18, 2024 10:59
--- NOTE | 2024-11-18 14:09 | DVHPN2 ---
Progress Note - Dictate Date Seen: Nov 18, 2024 Has the PT tested + for MRSA If YES, has PT been informed?: Yes Medical Necessity Reason Pt with a Central, PICC or Fol: No Subjective No new complaints vital signs Vital Sign Date Time Temp Pulse Resp B/P (MAP) Pulse Ox O2 Delivery O2 Flow Rate FiO2 11/18/24 12:32 98.9 90 16 150/44 (79) 96 98.9 11/18/24 08:00 Nasal Cannula* 2 28 Total Intake and Output 11/17/24 11/17/24 11/18/24 15:00 23:00 07:00 Intake Total 50 ml 0 ml Balance 50 ml 0 ml medications Current Medications Medications Dose Ordered Sig/Haresh Route Start Time Stop Time Status Last Admin Dose Admin Famotidine 20 mg Q2D IV 11/05/24 22:00 11/17/24 21:55 20 MG Levetiracetam 100 ml @ 400 mls/hr BID IV 11/05/24 22:00 11/18/24 09:19 400 MLS/HR Atorvastatin Calcium 20 mg HS PO 11/05/24 22:00 11/11/24 22:11 20 MG Multivit/Ca Carb/ B Cmplx/FA/Prenat 1 tab DAILY PO 11/06/24 10:00 11/12/24 13:00 1 TAB Sevelamer HCl 800 mg TIDWM PO 11/06/24 08:00 11/12/24 18:05 800 MG Sodium Chloride 10 ml Q8HR IV 11/05/24 22:00 11/18/24 06:26 10 ML Acetaminophen/ Hydrocodone Bitart 1 tab Q4HP PRN PO 11/05/24 21:00 11/11/24 22:11 1 TAB Ondansetron HCl 4 mg Q4HP PRN IV 11/05/24 21:00 Docusate Sodium 100 mg BIDPRN PRN PO 11/05/24 21:00 Acetaminophen 650 mg Q6HP PRN PO 11/05/24 21:00 Nitroglycerin 0.4 mg Q5MINP PRN SL 11/05/24 22:45 Morphine Sulfate 2 mg Q30M PRN IV 11/05/24 22:45 Vancomycin HCl 0 ml @ 0 mls/hr UD IV 11/06/24 16:15 Dextrose 50 ml UD PRN IV 11/07/24 07:15 Cancel Cefepime HCl 50 ml @ 12.5 mls/hr DAILY IV 11/10/24 10:00 11/18/24 11:08 12.5 MLS/HR Labetalol HCl 10 mg Q4HPRN PRN IV 11/09/24 12:45 11/09/24 13:02 10 MG Dextrose 50 ml UD PRN IV 11/09/24 16:00 Cancel Amino Acids 0 ml @ 0 mls/hr PER PHARMACY IV 11/10/24 11:15 Diagnostic Test (Pha) 1 strip Q6HR 11/10/24 12:00 11/18/24 11:09 1 STRIP Insulin Human Regular FOLLOW SLIDING SCALE Q6HR SC 11/10/24 12:00 11/18/24 06:25 2 UNITS Dextrose 50 ml UD IV 11/10/24 11:45 Patient Own Medication 25 mg DAILY PO 11/13/24 10:00 UNV Potassium Chloride 100 ml @ 50 mls/hr Q2H IV 11/12/24 15:15 11/12/24 19:14 UNV Quetiapine Fumarate 25 mg DAILY PO 11/13/24 10:00 Morphine Sulfate 1 mg Q6HP PRN IV 11/13/24 19:45 11/16/24 14:46 1 MG Lorazepam 1 mg Q4HP PRN IV 11/14/24 12:30 11/18/24 00:53 1 MG Hydralazine HCl 10 mg Q6HP PRN IV 11/15/24 15:15 11/17/24 05:12 10 MG Artificial Tears 1 drop Q6HP PRN EACHEYE 11/17/24 23:00 Enteral Nutritional Formula 1,000 ml 30ML/HR GT 11/18/24 11:00 objective HEENT: No evidence of JVD, no oral ulcers. Pulmonary: Diminished on auscultation bilaterally Cardiovascular S1-S2, no S3 or S4 Abdomen: Bowel sounds positive, soft no rebound tenderness Skin: No rash Neurological: Alert, oriented, bed-bound, leg weakness Extremities: 1+ edema in the lower extremities laboratory and microbiology Laboratory Tests 11/18/24 07:00 11/17/24 11:11 Test 11/18/24 07:00 Range/Units Serum Glucose 145 H 74-106 mg/dL Problem List Assessment 1. End-stage renal disease on hemodialysis TTS schedule 2. Intra dialytic hypotension, he has chronic hypotension, on midodrine 3. Obesity 4. CAD 5. Bilateral feet wounds 6. History of CVA 7. Diabetes type 2, uncontrolled with hyperglycemia Plan/recommendation: Hd today Midodrine t.i.d. IV antibiotics Monitor H&H Dietary Evaluation Review Comments: 1) Initiate Pro-Stat @ 30 mL qd 2) If patient remains NPO > 7 days, consider EN/TPN to meet at least 75% of estimated daily needs 3) If GI is preferred, consider Nepro @ 35 mL/hr goalrate as tolerated. EN regimen (including Pro-Stat) provides 1612 kcals, 83g Pro, and 611 mL free H2O per 24 hrs. EN rate (including Pro-Stat) will meet 91% estimated energy needs and ~51% estimated protein needs 4) Advance to 60 CCHO renal diet when medically feasible, pending ST approval 5) Collect HbA1c 6) Refer to outpatient RD/CDCES for weight management 7) Follow-up with nephrology and cardiology 8) Continue to monitor I&O, labs, and skin integrity Expected Outcomes/Goals: 1) patient to receive nutrition support within 7 days of NPO status 2) labs and wounds to improve 3) diet to advance 4) gradual wt loss 5) f/u in 2-3 days Plan discussed with: Patient KULDEEP HOOD MD Nov 18, 2024 14:09
--- NOTE | 2024-11-18 22:29 | DVHINCON2 ---
Date of service: Nov 18, 2024 Referring Physician Abhi Reason for Consultation ALOC History of Present Illness Mr. Daniel is a 69 years old gentleman with a history of hypotension, diabetes, coronary artery disease, atrial fibrillation, end-stage kidney failure on hemodialysis, morbid obesity, he was brought to the [facility] on 11/05/2024 with a chief complaint of chest pain. At this time, the patient is awake, but he is nonresponsive to verbal stimuli, he does not vocalize, the history is obtained from his nurse and chart review He developed the chest pain when he is going through hemodialysis, and his blood pressure was noticed to be 66/31, the patient was treated accordingly, and when the EMS came over, the blood pressure was increased to 133/113. In the hospital, he was found to have cellulitis, osteomyelitis, septic shock, According to his daughter, the patient has been mentally altered, physically disabled 18 years ago after heart attack, multiple strokes (all caused right- sided weakness), and hemodialysis. Over the last 18 years, he has difficulty with speech, weak on the right side, and for more than 5-7 years, he is not able to walk. At home, he could only speak a few words, but he recognize his family members when he is mentally better Daughter relates the patient is always in pain [phone] Blood culture, 11/06/2024: Negative Wound code, 11/07/2024: Acinetobacter baumannii, Enterococcus faecalis, chronic pressure sore WBC/HB/PLT/MCV, 11/14/2024: 8.3/12.5/195/102.4 BUN/CR, 11/18/2024: 39/4.02 GFR, 11/18/2024: 19 HCO3, 11/05/24:28, 11/06/24: 28, 11/08/2019 5:17, 21, 21, 26 Glucose, 11/07/2024: 405, 421, 422, 280 Beta hydroxybutyric acid 11/17/2024: 0.701 Liver function tests, 11/07/2024: Unremarkable CT head, 11/05/2024: 1. No acute hemorrhage. 2. Area of encephalomalacia involving the mid left parietal lobe consistent with old infarct. No findings of craniotomy defect CT head, 11/10/2024: No intracranial hemorrhage or mass effect. Moderate chronic microvascular ischemic changes. Moderate global cerebral volume loss. Left frontal encephalomalacia. MRI, left foot, 11/11/2024: 1. Wound at the posterior plantar aspect of the foot adjacent to the posterior plantar aspect of the calcaneus with surrounding subcutaneous edema, possible cellulitis in the appropriate clinical setting. No organized fluid collection identified to suggest abscess. Marrow signal changes of the posterior calcaneus with associated STIR hyperintense and T1 hypointense signal, suspected osteomyelitis in the appropriate clinical setting. Correlate with clinical findings. 2. Additional findings as described above Past Medical History Hypotension, diabetes, coronary artery disease, atrial fibrillation, end-stage kidney failure on hemodialysis, Past Surgical History CABG Family History: Patient reports no known family medical history. Family History Heart disease, cancer Social History He was tobacco smoke, but no history of drug or alcohol abuse. He lives at home, family provide care Allergies: Coded Allergies: NO KNOWN ALLERGIES (Unverified , 11/05/24) Home Meds Reported Medications Clindamycin Hcl (CLEOCIN) 150 Mg Cap, 300 MG PO TID for 14 Days, CAP 11/07/24 Levofloxacin Hemihydrate (LEVOFLOXACIN) 500 Mg Tab, 500 MG PO DAILY, MG 11/07/24 Atorvastatin Calcium (ATORVASTATIN CALCIUM) 40 Mg Tab, 40 MG PO DAILY, TAB 11/05/24 Montelukast Sodium (MONTELUKAST SODIUM) 10 Mg Tab, 1 TAB PO DAILY, #90 TAB 3 Refills 11/05/24 Quetiapine Fumerate (Seroquel) 50 Mg Tab, 25 MG PO DAILY, TAB 11/05/24 B-Complex W/ C & Folic Acid (Jaki-Sharonda) Tab, 1 OR, TAB 11/05/24 Pantoprazole Sodium (PANTOPRAZOLE SODIUM) 40 Mg Inj, 40 MG PO DAILY, INJ 11/05/24 Midodrine HCl (Midodrine HCl) 10 Mg Tab, 10 MG GT BID, TAB 11/05/24 Levetiracetam (Keppra) 500 Mg Tab, 100 MG PO BID, TAB 11/05/24 Apixaban Base (ELIQUIS) 2.5 Mg Tab, 2.5 MG PO BID, TAB 11/05/24 Gabapentin (Gabapentin) 300 Mg Cap, 300 MG PO BID, CAP 11/05/24 Calcium Acetate (CALCIUM ACETATE) 667 Mg Tab, 667 MG PO TID, TAB 11/05/24 Ferric Citrate (Auryxia) 210 Mg Tab, 210 MG PO TID, TAB 11/05/24 Current Medications Current Medications Medications (Trade) Dose Ordered Sig/Haresh Route PRN Reason Start Time Stop Time Status Last Admin Artificial Tears (Tears Naturale) 1 drop Q6HP PRN EACHEYE DRY EYES 11/17/24 23:00 Enteral Nutritional Formula (Nepro With Carb Steady) 1,000 ml 30ML/HR GT 11/18/24 11:00 Amino Acids/ Electrolytes/ Dextrose 1,000 ml @ 41 mls/hr DAILY@2200 IV 11/18/24 22:00 Review of Systems As above, the other systems are negative Vital Signs Vital Signs Date Time Temp Pulse Resp B/P (MAP) Pulse Ox O2 Delivery O2 Flow Rate FiO2 11/18/24 20:49 97.5 92 16 113/57 (75) 94 97.5 11/18/24 08:00 Nasal Cannula* 2 28 Physical Exam GENERAL EXAM: General: the patient is well developed and nourished. No acute distress. HEENT: Normocephalic, neck is supple, no carotid bruits. No mass. RESPIRATORY: Normal respiratory effort with symmetrical lung expansion. Lungs clear to auscultation. CARDIOVASCULAR: Regular rate and rhythm with no murmurs. S1, S2. ABDOMEN: Soft, nontender, normal bowel sound MUSCULOSKELETAL EXAM: Wound in both feet NEUROLOGICAL: MENTAL STATUS: Awake, but he is nonresponsive to verbal stimuli SPEECH, LANGUAGE, HIGHER CORTICAL FUNCTION: He does not vocalize CRANIAL NERVES: #2: Deferred #3,4,6: Deferred #5: Facial sensation fine in all three divisions bilaterally. Mandibular strength intact. #7: Facial muscles symmetrical and strength intact. #8: Deferred #9,10: Deferred #11: Deferred #12: Deferred SENSATION: History painful stimuli bilaterally MOTOR: Normal tone in the upper and lower extremity. Normal muscle bulk. No fasciculations. No abnormal movements or posturing. He only moves the left upper extremity REFLEXES: Deep tendon reflexes are symmetrical. No pathological reflexes. CEREBELLAR/COORDINATION: Deferred GAIT/STATION: deferred. Labs/Diagnostic Data Labs Test 11/18/24 17:41 11/18/24 07:00 11/17/24 11:11 11/17/24 05:35 Range/Units POC Glucose 115 H 70-106 mg/dl Sodium Level 136 136-145 mmol/L Potassium Level 3.7 3.5-5.1 mmol/L Chloride Level 99 98-107 mmol/L Carbon Dioxide Level 25 20-31 mmol/L Anion Gap 12 5-15 Blood Urea Nitrogen 39 #H 9-23 mg/dL Creatinine 4.02 H 0.700-1.30 mg/dL Estimated GFR () 19 mL/min Estimated GFR (Non- 16 mL/min BUN/Creatinine Ratio 9.7 L 10.0-20.0 Serum Glucose 145 H 74-106 mg/dL Calcium Level 9.8 8.7-10.4 mg/dL Phosphorus Level 3.1 2.4-5.1 mg/dL Magnesium Level 1.8 1.6-2.6 mg/dL Albumin 3.4 3.2-4.8 g/dL Random Vancomycin Level 19.0 H 5-10 ug/mL White Blood Count 8.3 4.4-10.8 10^3/uL Red Blood Count 3.84 L 4.5-5.90 10^6/uL Hemoglobin 12.8 L 13.5-17.5 g/dL Hematocrit 39.3 L 41.0-53.0 % Mean Corpuscular Volume 102.4 H 80.0-100.0 fL Mean Corpuscular Hemoglobin 33.3 H 28.0-32.0 pg Mean Corpuscular Hemoglobin Concent 32.5 32.0-36.0 g/dL Red Cell Distribution Width 17.4 H 11.8-14.3 % Platelet Count 195 140-450 10^3/uL Mean Platelet Volume 7.5 6.9-10.8 fL Neutrophils (%) (Auto) 80.6 H 37.0-80.0 % Lymphocytes (%) (Auto) 5.0 L 10.0-50.0 % Monocytes (%) (Auto) 11.5 0.0-12.0 % Eosinophils (%) (Auto) 2.3 0.0-7.0 % Basophils (%) (Auto) 0.6 0.0-2.0 % Neutrophils # (Auto) 6.7 1.6-8.6 10 ^3/uL Lymphocytes # (Auto) 0.4 0.4-5.4 10 ^3/uL Monocytes # (Auto) 1.0 0-1.3 10 ^3/uL Eosinophils # (Auto) 0.2 0-0.8 10 ^3/uL Basophils # (Auto) 0 0-0.2 10 ^3/uL Nucleated Red Blood Cells 0.1 % Glomerular Filtration Rate Calc 19 >90 mL/min Total Bilirubin 0.4 0.2-1.0 mg/dL Aspartate Amino Transferase (AST) 36 13-40 U/L Alanine Aminotransferase (ALT) 27 7-40 U/L Alkaline Phosphatase 92 46-116 U/L Total Protein 5.6 L 5.7-8.2 g/dL Test 11/07/24 07:52 11/07/24 07:24 11/06/24 20:44 11/06/24 05:54 Range/Units Serum Osmolality 321 H 278-298 mOsm/kg Beta-Hydroxybutyric Acid 0.701 H < 0.4 mmol/L Hepatitis B Surface Antigen Negative Negative Blood Gas Specimen Type Arterial Blood Gas Sample Site Right radial Blood Gas Patient Temperature 37.0 Arterial Blood Date Drawn [id number] Arterial Blood pH 7.350 7.350-7.450 Arterial Blood Partial Pressure CO2 38.6 35.0-48.0 mmHg Arterial Blood Partial Pressure O2 94.8 83.0-108.0 mmHg Arterial Blood HCO3 20.8 L 21.0-28.0 mmol/L Arterial Blood Oxygen Saturation 96.3 94.0-98.0 % Arterial Blood Base Excess -4.3 L -2.0-3.0 mmol/L Arterial Blood Oxyhemoglobin 95.0 94.0-98.0 % Arterial Blood Carboxyhemoglobin 1.1 0.5-1.5 % Arterial Blood Methemoglobin 0.2 0.0-1.5 % Bucky Test Yes Blood Gas Total Hemoglobin 15.90 13.5-17.5 g/dL Blood Gas Liter Flow 2.00 Blood Gas Modality Nasal cannula FiO2 % 28.0 D-Dimer, Quantitative 1.52 H 0.0-0.49 mg/L FEU Erythrocyte Sedimentation Rate 70 H 0-20 mm/hr C-Reactive Protein High Sensitivity 11.98 H <1.0 mg/dL Test 11/05/24 16:00 Range/Units Prothrombin Time 11.5 9.3-11.8 sec Prothrombin Time INR 1.09 0.9-1.15 Activated Partial Thromboplast Time 31.6 24.5-34.5 SEC Lactic Acid Level 1.9 0.4-2.0 mmol/L Troponin I High Sensitivity 11 </=54 ng/L Microbiology Date/Time Source Procedure Growth Status 11/07/24 12:33 Foot Right Gram Stain - Final Complete 11/07/24 12:33 Wound Culture - Final Acinetobacter baumannii Enterococcus faecalis Acinetobacter baumanii/haemol Complete 11/06/24 20:44 Blood Blood Culture - Final NO GROWTH AFTER 5 DAYS OF INCUBATION. Complete Assessment Altered mental status Metabolic encephalopathy secondary to sepsis, septic shock Chronic organic brain syndrome Dementia/vascular dementia Multiple stroke with residual right-sided hemiplegia Sepsis Osteomyelitis Kidney failure on hemodialysis Plan/Recommendation Monitoring Supportive treatment Telemetry EEG IV antibiotics Vitamin B12, folic acid, TSH Hemodialysis Wound Care More recommendation per clinical course Prognosis: Poor This medical document was created using an electronic medical record system with [employer] computerized dictation system. Although this document has been carefully reviewed, there may still be some phonetic and typographical errors. These areas are purely typographical due to imperfections of the software programs, and do not reflect any compromise in the patient's medical care. Plan discussed with: Daughter, Other ARELI YANG MD Nov 18, 2024 22:29
[2024-11-18] MEDS: AMINO ACID INFUSION IN D10W 1,000 ML IV SCH (22:45)
[2024-11-19] VITALS (7 sets, daily range): BP systolic 116–153; BP diastolic 42–92; PULSE 84–94; RESP 17–20; TEMP 97.6–98.1; O2SAT 93–100
--- NOTE | 2024-11-19 13:21 | DVHPN2 ---
Progress Note - Dictate Date Seen: Nov 19, 2024 Has the PT tested + for MRSA If YES, has PT been informed?: Yes Medical Necessity Reason Pt with a Central, PICC or Fol: No Subjective S/P EEG at bedside. vital signs Vital Sign Date Time Temp Pulse Resp B/P (MAP) Pulse Ox O2 Delivery O2 Flow Rate FiO2 11/19/24 12:16 94 153/49 11/19/24 08:18 98.1 20 99 98.1 11/18/24 20:00 Nasal Cannula* 2 28 Total Intake and Output 11/18/24 11/18/24 11/19/24 15:00 23:00 07:00 Intake Total 50 ml 0 ml Output Total 0 ml Balance 50 ml 0 ml medications Current Medications Medications Dose Ordered Sig/Haresh Route Start Time Stop Time Status Last Admin Dose Admin Famotidine 20 mg Q2D IV 11/05/24 22:00 11/17/24 21:55 20 MG Levetiracetam 100 ml @ 400 mls/hr BID IV 11/05/24 22:00 11/19/24 12:07 400 MLS/HR Atorvastatin Calcium 20 mg HS PO 11/05/24 22:00 11/11/24 22:11 20 MG Multivit/Ca Carb/ B Cmplx/FA/Prenat 1 tab DAILY PO 11/06/24 10:00 11/12/24 13:00 1 TAB Sevelamer HCl 800 mg TIDWM PO 11/06/24 08:00 11/12/24 18:05 800 MG Sodium Chloride 10 ml Q8HR IV 11/05/24 22:00 11/19/24 12:06 10 ML Acetaminophen/ Hydrocodone Bitart 1 tab Q4HP PRN PO 11/05/24 21:00 11/11/24 22:11 1 TAB Ondansetron HCl 4 mg Q4HP PRN IV 11/05/24 21:00 Docusate Sodium 100 mg BIDPRN PRN PO 11/05/24 21:00 Acetaminophen 650 mg Q6HP PRN PO 11/05/24 21:00 Nitroglycerin 0.4 mg Q5MINP PRN SL 11/05/24 22:45 Morphine Sulfate 2 mg Q30M PRN IV 11/05/24 22:45 Vancomycin HCl 0 ml @ 0 mls/hr UD IV 11/06/24 16:15 Dextrose 50 ml UD PRN IV 11/07/24 07:15 Cancel Cefepime HCl 50 ml @ 12.5 mls/hr DAILY IV 11/10/24 10:00 11/19/24 12:07 12.5 MLS/HR Labetalol HCl 10 mg Q4HPRN PRN IV 11/09/24 12:45 11/19/24 12:16 10 MG Dextrose 50 ml UD PRN IV 11/09/24 16:00 Cancel Amino Acids 0 ml @ 0 mls/hr PER PHARMACY IV 11/10/24 11:15 Diagnostic Test (Pha) 1 strip Q6HR 11/10/24 12:00 11/19/24 12:00 1 STRIP Insulin Human Regular FOLLOW SLIDING SCALE Q6HR SC 11/10/24 12:00 11/18/24 06:25 2 UNITS Dextrose 50 ml UD IV 11/10/24 11:45 Patient Own Medication 25 mg DAILY PO 11/13/24 10:00 UNV Potassium Chloride 100 ml @ 50 mls/hr Q2H IV 11/12/24 15:15 11/12/24 19:14 UNV Quetiapine Fumarate 25 mg DAILY PO 11/13/24 10:00 Morphine Sulfate 1 mg Q6HP PRN IV 11/13/24 19:45 11/18/24 15:20 1 MG Lorazepam 1 mg Q4HP PRN IV 11/14/24 12:30 11/19/24 12:16 1 MG Hydralazine HCl 10 mg Q6HP PRN IV 11/15/24 15:15 11/17/24 05:12 10 MG Artificial Tears 1 drop Q6HP PRN EACHEYE 11/17/24 23:00 Enteral Nutritional Formula 1,000 ml 30ML/HR GT 11/18/24 11:00 Amino Acids/ Electrolytes/ Dextrose 1,000 ml @ 41 mls/hr DAILY@2200 IV 11/18/24 22:00 11/18/24 22:45 41 MLS/HR objective General Appearance: Altered HEENT: Atraumatic, PERRLA, EOMI, Mucous membrane. moist/pink Respiratory: Normal air movement Cardiovascular: Regular rate, Normal S1, Normal S2, No murmurs Abdominal: Normal bowel sounds, Soft, No tenderness, No hepatospenomegaly, No masses Extremities: No clubbing, No cyanosis, No edema, Normal pulses, No tenderness/swelling Skin: Bilateral feet Wounds Neuro: Bedbound. Baseline deficit present. laboratory and microbiology Laboratory Tests 11/17/24 11:11 Test 11/19/24 12:35 Range/Units Serum Glucose Pending Assessment/Plan Patient is a 69year-old male presents to the hospital with: sepsis resolved hypotension resolved Acinetobacter baumanii/haemol, Enterococcus faecalis in wound cultures Bilateral feet wounds; chronic Osteomyelitis of left foot End-stage renal disease on hemodialysis Diabetes mellitus Pulmonary edema/ anasarca Stroke baseline weakness/ bedbound Morbid obesity CAD S/P CABG Recommendations: Patient is on IV Vancomycin and IV Cefepime, continue WBC has trended down 11/06 Blood cx no growth Podiatry recommended bone scan. Possible plan for Calcanectomy. Recommend sending bone samples for OR culture. Wound culture showed Acinetobacter baumanii/haemol and Enterococcus faecalis The wound cultures are superficial, wounds have debris hence these cultures are not reliable. reviewed podiatry notes, recommend debridement. 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 I will plan for 2 or more weeks total with HD based on plan for surgery however prolonged course will drive resistance. I asked them to consider goals of care discussion. He also has issues with Line issue as per son. They all are understanding that his prognosis looks poor. He said he had discussion with patient, Foot MRI showed Wound at the posterior plantar aspect of the foot adjacent to the posterior plantar aspect of the calcaneus with surrounding subcutaneous edema, possible cellulitis in the appropriate clinical setting. No organized fluid collection identified to suggest abscess. Marrow signal changes of the posterior calcaneus with associated STIR hyperintense and T1 hypointense signal, suspected osteomyelitis in the appropriate clinical setting. Foot CT showed No definitive CT evidence of osteomyelitis however maintain elevated suspicion given extrusion of posterior calcaneal screw possibly through the skin. No drainable fluid collection. Severe air reversible fatty atrophy of the intrinsic visualized musculature Prognosis guarded Total 50 minutes spent during the encounter Thank you for consult. Dietary Evaluation Review Comments: 1) Initiate Pro-Stat @ 30 mL qd 2) If patient remains NPO > 7 days, consider EN/TPN to meet at least 75% of estimated daily needs 3) If GI is preferred, consider Nepro @ 35 mL/hr goalrate as tolerated. EN regimen (including Pro-Stat) provides 1612 kcals, 83g Pro, and 611 mL free H2O per 24 hrs. EN rate (including Pro-Stat) will meet 91% estimated energy needs and ~51% estimated protein needs 4) Advance to 60 CCHO renal diet when medically feasible, pending ST approval 5) Collect HbA1c 6) Refer to outpatient RD/[facility] for weight management 7) Follow-up with nephrology and cardiology 8) Continue to monitor I&O, labs, and skin integrity Expected Outcomes/Goals: 1) patient to receive nutrition support within 7 days of NPO status 2) labs and wounds to improve 3) diet to advance 4) gradual wt loss 5) f/u in 2-3 days Plan discussed with: JOE Mar MD Nov 19, 2024 13:21
[2024-11-19 13:31] LABS: Albumin 3.2 g/dL (3.2-4.8); Alkaline Phosphatase 83 U/L (46-116); Anion Gap 11 (5-15); BUN/Creatinine Ratio 8.7 (10.0-20.0); Blood Urea Nitrogen 35 mg/dL (9-23); Calcium 9.8 mg/dL (8.7-10.4); Carbon Dioxide 26 mmol/L (20-31); Chloride 101 mmol/L (98-107); Glucose 182 mg/dL (74-106); Magnesium 1.9 mg/dL (1.6-2.6); Potassium 3.5 mmol/L (3.5-5.1); Sodium 138 mmol/L (136-145); Total Protein 5.6 g/dL (5.7-8.2)
[2024-11-19 13:32] LABS: Bilirubin, Total 0.5 mg/dL (0.2-1.0)
[2024-11-19 13:34] LABS: Free T4 (Free Thyroxine) 1.14 ng/dL (0.89-1.76)
[2024-11-19] MEDS ORDERED: MORPHINE SULFATE INJ 2 MG/ml SYRG IV PRN (13:45)
[2024-11-19 13:46] LABS: Alanine Aminotransferase 22 U/L (7-40)
--- NOTE | 2024-11-19 14:04 | DVHPN2 ---
Subjective Patient encephalopathic Reviewed: Care Plan, H&P, Labs, Medications, Previous Orders Changes from previous H/P or p: No Changes General: Per HPI Eyes: No Pain, No Vision change, No Conjunctivae inflammation, No Eyelid inflammation, No Other, No Redness ENT: No Ear pain, No Ear discharge, No Nose pain, No Nose discharge, No Nose congestion, No Mouth pain, No Mouth swelling, No Throat pain, No Throat swelling, No Other Cardiovascular: Chest Pain; No Palpitations, No Orthopnea, No Paroxysmal Noc. Dyspnea, No Edema, No Lt Headedness, No Other Respiratory: No Cough, No Dry; Shortness of breath; No SOB with excertion, No Wheezing, No Hemoptysis, No Pleuritic Pain, No Sputum; Other (SOB at rest) Gastrointestinal: No Nausea, No Vomiting, No Abdominal Pain, No Diarrhea, No Constipation, No Melena, No Hematochezia, No Other Genitourinary: No Dysuria, No Frequency, No Incontinence, No Hematuria, No Retention, No Other Musculoskeletal: No other, No neck pain, No shoulder pain, No arm pain, No back pain, No hand pain, No leg pain, No foot pain Skin: No Rash, No Lesions, No Jaundice, No Bruising, No Other Objective Vitals Vital Signs Date Time Temp Pulse Resp B/P (MAP) Pulse Ox O2 Delivery O2 Flow Rate FiO2 11/19/24 13:07 11/19/24 12:16 94 11/19/24 08:18 98.1 20 99 98.1 11/18/24 20:00 Nasal Cannula* 2 28 Intake/Output Intake and Output 11/19/24 07:00 Intake Total 50 ml Output Total 0 ml Balance 50 ml Intake Oral 0 ml IV Total 50 ml Tube Feeding 0 ml Output Urine Total 0 ml General Appearance: mild distress, Other (Patient very hard to awaken.) HEENT: Atraumatic, PERRLA Lungs: Clear to auscultation, Normal air movement Cardiovascular: Normal S1, Normal S2 Abdomen: Normal bowel sounds, Soft, No tenderness, No hepatospenomegaly Skin: Wounds (See nurse notes and pictures) Psych/Mental Status: Other (Altered mental status) Medications Current Medications Medications Dose Ordered Sig/Haresh Route Start Time Stop Time Status Last Admin Dose Admin Famotidine 20 mg Q2D IV 11/05/24 22:00 11/17/24 21:55 20 MG Levetiracetam 100 ml @ 400 mls/hr BID IV 11/05/24 22:00 11/19/24 12:07 400 MLS/HR Atorvastatin Calcium 20 mg HS PO 11/05/24 22:00 11/11/24 22:11 20 MG Multivit/Ca Carb/ B Cmplx/FA/Prenat 1 tab DAILY PO 11/06/24 10:00 11/12/24 13:00 1 TAB Sevelamer HCl 800 mg TIDWM PO 11/06/24 08:00 11/12/24 18:05 800 MG Sodium Chloride 10 ml Q8HR IV 11/05/24 22:00 11/19/24 12:06 10 ML Acetaminophen/ Hydrocodone Bitart 1 tab Q4HP PRN PO 11/05/24 21:00 11/11/24 22:11 1 TAB Ondansetron HCl 4 mg Q4HP PRN IV 11/05/24 21:00 Docusate Sodium 100 mg BIDPRN PRN PO 11/05/24 21:00 Acetaminophen 650 mg Q6HP PRN PO 11/05/24 21:00 Nitroglycerin 0.4 mg Q5MINP PRN SL 11/05/24 22:45 Morphine Sulfate 2 mg Q30M PRN IV 11/05/24 22:45 Vancomycin HCl 0 ml @ 0 mls/hr UD IV 11/06/24 16:15 Dextrose 50 ml UD PRN IV 11/07/24 07:15 Cancel Cefepime HCl 50 ml @ 12.5 mls/hr DAILY IV 11/10/24 10:00 11/19/24 12:07 12.5 MLS/HR Labetalol HCl 10 mg Q4HPRN PRN IV 11/09/24 12:45 11/19/24 12:16 10 MG Dextrose 50 ml UD PRN IV 11/09/24 16:00 Cancel Diagnostic Test (Pha) 1 strip Q6HR 11/10/24 12:00 11/19/24 12:00 1 STRIP Insulin Human Regular FOLLOW SLIDING SCALE Q6HR SC 11/10/24 12:00 11/18/24 06:25 2 UNITS Dextrose 50 ml UD IV 11/10/24 11:45 Patient Own Medication 25 mg DAILY PO 11/13/24 10:00 UNV Potassium Chloride 100 ml @ 50 mls/hr Q2H IV 11/12/24 15:15 11/12/24 19:14 UNV Hydralazine HCl 10 mg Q6HP PRN IV 11/15/24 15:15 11/17/24 05:12 10 MG Artificial Tears 1 drop Q6HP PRN EACHEYE 11/17/24 23:00 Enteral Nutritional Formula 1,000 ml 30ML/HR GT 11/18/24 11:00 Amino Acids/ Electrolytes/ Dextrose 1,000 ml @ 41 mls/hr DAILY@2200 IV 11/18/24 22:00 11/18/24 22:45 41 MLS/HR Levothyroxine Sodium 50 mcg QAM IV 11/20/24 07:00 UNV Morphine Sulfate 1 mg Q8HP PRN IV 11/19/24 13:45 Laboratory Results Laboratory Tests 11/17/24 11:11 11/19/24 12:35 Chemistry Test 11/19/24 12:35 Albumin 3.2 g/dL (3.2-4.8) Calcium Level 9.8 mg/dL (8.7-10.4) Magnesium Level 1.9 mg/dL (1.6-2.6) Phosphorus Level 2.8 mg/dL (2.4-5.1) Total Protein 5.6 g/dL (5.7-8.2) L LFT Test 11/19/24 12:35 Alanine Aminotransferase (ALT) 22 U/L (7-40) Alkaline Phosphatase 83 U/L (46-116) Aspartate Amino Transferase (AST) 21 U/L (13-40) Total Bilirubin 0.5 mg/dL (0.2-1.0) Microbiology Microbiology Date/Time Source Procedure Growth Status 11/07/24 12:33 Foot Right Gram Stain - Final Complete 11/07/24 12:33 Wound Culture - Final Acinetobacter baumannii Enterococcus faecalis Acinetobacter baumanii/haemol Complete 11/06/24 20:44 Blood Blood Culture - Final NO GROWTH AFTER 5 DAYS OF INCUBATION. Complete Labs and/or images reviewed: Labs reviewed by me, Image(s) reviewed by me Assessment/Plan Assessment/Plan Impression: -ESRD with hemodialysis -coronary artery disease with previous CABG -obesity -history of CVA -bilateral heel wounds -septic shock -Metabolic Encephalopathy -Osteomyelitis of left foot. Acinetobacter Baumannii, Enterococcus faecalis Plan: Events: Patient failed 2nd swallow evaluation given to mentation, over sedation. NG tube has been placed as ordered. Tube feeding has been started as ordered. According to primary nurse, patient was agitated and was given IV Ativan today. Patient hard to arouse during my assessment. Stop all hypnotics and IV pain medications at this time given patient's continues to be over medicated by nursing staff. -NG tube, start Nepro with carb steady at 30 mL/hour -continue antibiotic therapy with vancomycin and cefepime -swallow evaluation: Reviewed -podiatry consultation -nephrology consultation: Hemodialysis on MWF -wound care consultation -PUD prophylaxis -repeat labs in a.m. Total time spent with patient discussing and formulating plan of care: 35 minutes. This medical document was created using an electronic medical record system with [employer] system. Although this document has been carefully reviewed, there may still be some phonetic and typographical errors. These areas are purely typographical due to imperfections of the software programs, and do not reflect any compromise in the patient's medical care. Plan discussed with: Patient, Son, Other (RN) My Orders Orders - INESSA HANSEN NP Procedure Category Date Status Time Amino Acid Infusion PHA 11/18/24 In Process In D10w (Clinimix 4. 22:00 Clinimix Per Pharmacy ROGERS 11/18/24 In Process 22:00 Levothyroxine PHA 11/20/24 Logged Injection (Synthroid 07:00 Morphine Sulfate PHA 11/19/24 In Process Injection 13:45 Complete Blood Count LAB 11/20/24 Verified 04:00 Date of Service: Nov 19, 2024 Billing Provider: INESSA HANSEN NP Common Visit Codes: [id number] INP/OBS CARE(HIGH) INESSA HANSEN NP Nov 19, 2024 14:04
--- NOTE | 2024-11-19 14:18 | DVHPN2 ---
Progress Note - Dictate Date Seen: Nov 19, 2024 Has the PT tested + for MRSA If YES, has PT been informed?: Yes Medical Necessity Reason Pt with a Central, PICC or Fol: No Subjective Lethargic vital signs Vital Sign Date Time Temp Pulse Resp B/P (MAP) Pulse Ox O2 Delivery O2 Flow Rate FiO2 11/19/24 13:07 11/19/24 12:16 94 11/19/24 08:18 98.1 20 99 98.1 11/18/24 20:00 Nasal Cannula* 2 28 Total Intake and Output 11/18/24 11/18/24 11/19/24 15:00 23:00 07:00 Intake Total 50 ml 0 ml Output Total 0 ml Balance 50 ml 0 ml medications Current Medications Medications Dose Ordered Sig/Haresh Route Start Time Stop Time Status Last Admin Dose Admin Famotidine 20 mg Q2D IV 11/05/24 22:00 11/17/24 21:55 20 MG Levetiracetam 100 ml @ 400 mls/hr BID IV 11/05/24 22:00 11/19/24 12:07 400 MLS/HR Atorvastatin Calcium 20 mg HS PO 11/05/24 22:00 11/11/24 22:11 20 MG Multivit/Ca Carb/ B Cmplx/FA/Prenat 1 tab DAILY PO 11/06/24 10:00 11/12/24 13:00 1 TAB Sevelamer HCl 800 mg TIDWM PO 11/06/24 08:00 11/12/24 18:05 800 MG Sodium Chloride 10 ml Q8HR IV 11/05/24 22:00 11/19/24 12:06 10 ML Acetaminophen/ Hydrocodone Bitart 1 tab Q4HP PRN PO 11/05/24 21:00 11/11/24 22:11 1 TAB Ondansetron HCl 4 mg Q4HP PRN IV 11/05/24 21:00 Docusate Sodium 100 mg BIDPRN PRN PO 11/05/24 21:00 Acetaminophen 650 mg Q6HP PRN PO 11/05/24 21:00 Nitroglycerin 0.4 mg Q5MINP PRN SL 11/05/24 22:45 Morphine Sulfate 2 mg Q30M PRN IV 11/05/24 22:45 Vancomycin HCl 0 ml @ 0 mls/hr UD IV 11/06/24 16:15 Dextrose 50 ml UD PRN IV 11/07/24 07:15 Cancel Cefepime HCl 50 ml @ 12.5 mls/hr DAILY IV 11/10/24 10:00 11/19/24 12:07 12.5 MLS/HR Labetalol HCl 10 mg Q4HPRN PRN IV 11/09/24 12:45 11/19/24 12:16 10 MG Dextrose 50 ml UD PRN IV 11/09/24 16:00 Cancel Diagnostic Test (Pha) 1 strip Q6HR 11/10/24 12:00 11/19/24 12:00 1 STRIP Insulin Human Regular FOLLOW SLIDING SCALE Q6HR SC 11/10/24 12:00 11/18/24 06:25 2 UNITS Dextrose 50 ml UD IV 11/10/24 11:45 Patient Own Medication 25 mg DAILY PO 11/13/24 10:00 UNV Potassium Chloride 100 ml @ 50 mls/hr Q2H IV 11/12/24 15:15 11/12/24 19:14 UNV Hydralazine HCl 10 mg Q6HP PRN IV 11/15/24 15:15 11/17/24 05:12 10 MG Artificial Tears 1 drop Q6HP PRN EACHEYE 11/17/24 23:00 Enteral Nutritional Formula 1,000 ml 30ML/HR GT 11/18/24 11:00 Amino Acids/ Electrolytes/ Dextrose 1,000 ml @ 41 mls/hr DAILY@2200 IV 11/18/24 22:00 11/18/24 22:45 41 MLS/HR Levothyroxine Sodium 50 mcg QAM IV 11/20/24 07:00 UNV objective Lethargic HEENT: No evidence of JVD, no oral ulcers. Pulmonary: Diminished on auscultation bilaterally Cardiovascular S1-S2, no S3 or S4 Abdomen: Bowel sounds positive, soft no rebound tenderness Skin: No rash Neurological: bed-bound, leg weakness Extremities: 1+ edema in the lower extremities laboratory and microbiology Laboratory Tests 11/19/24 12:35 11/17/24 11:11 Test 11/19/24 12:35 Range/Units Serum Glucose 182 H 74-106 mg/dL Problem List Assessment 1. End-stage renal disease on hemodialysis TTS schedule 2. Intra dialytic hypotension, he has chronic hypotension, on midodrine 3. Obesity 4. CAD 5. Bilateral feet wounds 6. History of CVA 7. Diabetes type 2, uncontrolled with hyperglycemia 8. Encephalopathy, oversedation Plan/recommendation: HdD tomorrow Midodrine t.i.d. 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 EN regimen (including Pro-Stat) provides 1612 kcals, 83g Pro, and 611 mL free H2O per 24 hrs. EN rate (including Pro-Stat) will meet 91% estimated energy needs and ~51% estimated protein needs 4) Advance to 60 CCHO renal diet when medically feasible, pending ST approval 5) Collect HbA1c 6) Refer to outpatient RD/[facility] for weight management 7) Follow-up with nephrology and cardiology 8) Continue to monitor I&O, labs, and skin integrity Expected Outcomes/Goals: 1) patient to receive nutrition support within 7 days of NPO status 2) labs and wounds to improve 3) diet to advance 4) gradual wt loss 5) f/u in 2-3 days Plan discussed with: Other KULDEEP HOOD MD Nov 19, 2024 14:18
--- NOTE | 2024-11-19 21:36 | DVHPN2 ---
Progress Note - Dictate Date Seen: Nov 19, 2024 Has the PT tested + for MRSA If YES, has PT been informed?: Yes Medical Necessity Reason Pt with a Central, PICC or Fol: No Subjective Mr. Daniel is a 69 years old gentleman with a history of hypotension, diabetes, coronary artery disease, atrial fibrillation, end-stage kidney failure on hemodialysis, morbid obesity, he was brought to the [facility] on 11/05/2024 with a chief complaint of chest pain. I have seen and examined the patient, I have talked to his nurse, and sitter. He is awake, but is not cooperative, he only vocalize when he is moved. He only moves the left arm Blood culture, 11/06/2024: Negative Wound code, 11/07/2024: Acinetobacter baumannii, Enterococcus faecalis, chronic pressure sore WBC/HB/PLT/MCV, 11/14/2024: 8.3/12.5/195/102.4 BUN/CR, 11/18/2024: 39/4.02 GFR, 11/18/2024: 19 HCO3, 11/05/24:28, 11/06/24: 28, 11/08/2019 5:17, 21, 21, 26 Glucose, 11/07/2024: 405, 421, 422, 280 Beta hydroxybutyric acid 11/17/2024: 0.701 Liver function tests, 11/07/2024: Unremarkable Vitamin B12, 11/19/2024: 1375 Folic acid, 11/19/2024: 19.27 CBC, 11/18/24: 14.44 FT4, 11/19/2024: 1.14 CT head, 11/05/2024: 1. No acute hemorrhage. 2. Area of encephalomalacia involving the mid left parietal lobe consistent with old infarct. No findings of craniotomy defect CT head, 11/10/2024: No intracranial hemorrhage or mass effect. Moderate chronic microvascular ischemic changes. Moderate global cerebral volume loss. Left frontal encephalomalacia. MRI, left foot, 11/11/2024: 1. Wound at the posterior plantar aspect of the foot adjacent to the posterior plantar aspect of the calcaneus with surrounding subcutaneous edema, possible cellulitis in the appropriate clinical setting. No organized fluid collection identified to suggest abscess. Marrow signal changes of the posterior calcaneus with associated STIR hyperintense and T1 hypointense signal, suspected osteomyelitis in the appropriate clinical setting. Correlate with clinical findings. 2. Additional findings as described above vital signs Vital Sign Date Time Temp Pulse Resp B/P (MAP) Pulse Ox O2 Delivery O2 Flow Rate FiO2 11/19/24 17:00 98.0 84 20 131/42 (71) 93 98.0 11/19/24 08:30 Nasal Cannula* 2 28 Total Intake and Output 11/18/24 11/18/24 11/19/24 15:00 23:00 07:00 Intake Total 50 ml 0 ml Output Total 0 ml Balance 50 ml 0 ml medications Current Medications Medications Dose Ordered Sig/Haresh Route Start Time Stop Time Status Last Admin Dose Admin Famotidine 20 mg Q2D IV 11/05/24 22:00 11/17/24 21:55 20 MG Levetiracetam 100 ml @ 400 mls/hr BID IV 11/05/24 22:00 11/19/24 12:07 400 MLS/HR Atorvastatin Calcium 20 mg HS PO 11/05/24 22:00 11/11/24 22:11 20 MG Multivit/Ca Carb/ B Cmplx/FA/Prenat 1 tab DAILY PO 11/06/24 10:00 11/12/24 13:00 1 TAB Sevelamer HCl 800 mg TIDWM PO 11/06/24 08:00 11/12/24 18:05 800 MG Sodium Chloride 10 ml Q8HR IV 11/05/24 22:00 11/19/24 14:00 10 ML Acetaminophen/ Hydrocodone Bitart 1 tab Q4HP PRN PO 11/05/24 21:00 11/11/24 22:11 1 TAB Ondansetron HCl 4 mg Q4HP PRN IV 11/05/24 21:00 Docusate Sodium 100 mg BIDPRN PRN PO 11/05/24 21:00 Acetaminophen 650 mg Q6HP PRN PO 11/05/24 21:00 Nitroglycerin 0.4 mg Q5MINP PRN SL 11/05/24 22:45 Morphine Sulfate 2 mg Q30M PRN IV 11/05/24 22:45 Vancomycin HCl 0 ml @ 0 mls/hr UD IV 11/06/24 16:15 Dextrose 50 ml UD PRN IV 11/07/24 07:15 Cancel Cefepime HCl 50 ml @ 12.5 mls/hr DAILY IV 11/10/24 10:00 11/19/24 12:07 12.5 MLS/HR Labetalol HCl 10 mg Q4HPRN PRN IV 11/09/24 12:45 11/19/24 12:16 10 MG Dextrose 50 ml UD PRN IV 11/09/24 16:00 Cancel Diagnostic Test (Pha) 1 strip Q6HR 11/10/24 12:00 11/19/24 18:00 1 STRIP Insulin Human Regular FOLLOW SLIDING SCALE Q6HR SC 11/10/24 12:00 11/18/24 06:25 2 UNITS Dextrose 50 ml UD IV 11/10/24 11:45 Patient Own Medication 25 mg DAILY PO 11/13/24 10:00 UNV Potassium Chloride 100 ml @ 50 mls/hr Q2H IV 11/12/24 15:15 11/12/24 19:14 UNV Hydralazine HCl 10 mg Q6HP PRN IV 11/15/24 15:15 11/17/24 05:12 10 MG Artificial Tears 1 drop Q6HP PRN EACHEYE 11/17/24 23:00 Enteral Nutritional Formula 1,000 ml 30ML/HR GT 11/18/24 11:00 Amino Acids/ Electrolytes/ Dextrose 1,000 ml @ 41 mls/hr DAILY@2200 IV 11/18/24 22:00 11/19/24 21:59 11/18/24 22:45 41 MLS/HR Levothyroxine Sodium 50 mcg QAM IV 11/20/24 07:00 objective General: the patient is well developed and nourished. No acute distress. MUSCULOSKELETAL EXAM: Wounds in both feet MENTAL STATUS: Subjective for SPEECH, LANGUAGE, HIGHER CORTICAL FUNCTION: Subjective CRANIAL NERVES: #2: Deferred #3,4,6: Deferred #5: Facial sensation fine in all three divisions bilaterally. Mandibular strength intact. #7: Facial muscles symmetrical and strength intact. #8: Deferred #9,10: Deferred #11: Deferred #12: Deferred SENSATION: History painful stimuli bilaterally MOTOR: Normal tone in the upper and lower extremity. Normal muscle bulk. No fasciculations. No abnormal movements or posturing. He only moves the left upper extremity REFLEXES: Deep tendon reflexes are symmetrical. No pathological reflexes. CEREBELLAR/COORDINATION: Deferred GAIT/STATION: deferred laboratory and microbiology Laboratory Tests 11/19/24 12:35 11/17/24 11:11 Test 11/19/24 12:35 Range/Units Serum Glucose 182 H 74-106 mg/dL Problem List Altered mental status Metabolic encephalopathy secondary to sepsis, septic shock Chronic organic brain syndrome Dementia/vascular dementia Multiple stroke with residual right-sided hemiplegia Sepsis Osteomyelitis Kidney failure on hemodialysis For thyroidism Assessment/Plan Monitoring Supportive treatment Telemetry EEG IV antibiotics Synthroid 50 mcg IV daily Hemodialysis Wound Care More recommendation per clinical course He has a poor prognosis for meaningful/overall recovery This medical document was created using an electronic medical record system with [employer] dictation system. Although this document has been carefully reviewed, there may still be some phonetic and typographical errors. These areas are purely typographical due to imperfections of the software programs, and do not reflect any compromise in the patient's medical care. Prognosis poor Dietary Evaluation Review Comments: 1) Initiate Pro-Stat @ 30 mL qd 2) If patient remains NPO > 7 days, consider EN/TPN to meet at least 75% of estimated daily needs 3) If GI is preferred, consider Nepro @ 35 mL/hr goalrate as tolerated. EN regimen (including Pro-Stat) provides 1612 kcals, 83g Pro, and 611 mL free H2O per 24 hrs. EN rate (including Pro-Stat) will meet 91% estimated energy needs and ~51% estimated protein needs 4) Advance to 60 CCHO renal diet when medically feasible, pending ST approval 5) Collect HbA1c 6) Refer to outpatient RD/[facility] for weight management 7) Follow-up with nephrology and cardiology 8) Continue to monitor I&O, labs, and skin integrity Expected Outcomes/Goals: 1) patient to receive nutrition support within 7 days of NPO status 2) labs and wounds to improve 3) diet to advance 4) gradual wt loss 5) f/u in 2-3 days Plan discussed with: ARELI Lord MD Nov 19, 2024 21:35
[2024-11-19] MEDS: ACETAMINOPHEN 325 MG TAB PO PRN (22:48)
[2024-11-19] MEDS: Nepro With Carb Steady 1 Liter Bottle GT SCH (22:49)
--- NOTE | 2024-11-19 23:29 | DVH ---
CHEST RADIOGRAPH Indication: ng tube placement confirmation Technique: Single frontal view of the chest was obtained COMPARISON: XY CHEST XRAY 1 VIEW on DOS: 11/05/24 FINDINGS: Lines and Tubes: Enteric catheter courses below the level of the diaphragm and terminates just beyond the level of the gastroesophageal junction. Right PermCath tip within the proximal superior vena cav a. Lungs: Small right pleural effusion and diffuse increased prominence of the pulmonary vasculature. No pneumothorax. Cardiomediastinal contours: Cardiomegaly status post median sternotomy. Bones: Unremarkable IMPRESSION: 1. Enteric catheter as above. 2. Right PermCath. 3. Cardiomegaly, small right pleural effusion and diffuse increased prominence of the pulmonary vascu lature.
[2024-11-20] VITALS (7 sets, daily range): BP systolic 101–144; BP diastolic 38–62; PULSE 74–94; RESP 16–18; TEMP 97.4–98.5; O2SAT 97–100
[2024-11-20] MEDS: LEVOTHYROXINE SODIUM 100 MCG/5 ML INJ IV SCH (05:43)
[2024-11-20] MEDS: SODIUM CHL 0.9% 1000 ML BAG XX ONE (07:00)
[2024-11-20 07:59] LABS: Chloride 101 mmol/L (98-107); Sodium 137 mmol/L (136-145)
[2024-11-20 08:00] LABS: Anion Gap 11 (5-15); Calcium 10.0 mg/dL (8.7-10.4); Carbon Dioxide 25 mmol/L (20-31)
[2024-11-20 08:01] LABS: Hematocrit 37.3 % (41.0-53.0); Hemoglobin 12.1 g/dL (13.5-17.5); Mean Corpuscular Hemoglobin 33.5 pg (28.0-32.0); Mean Corpuscular Volume 103.2 fL (80.0-100.0); Nucleated Red Blood Cells % 0.1 %
[2024-11-20 08:05] LABS: BUN/Creatinine Ratio 8.9 (10.0-20.0)
[2024-11-20 08:10] LABS: Blood Urea Nitrogen 40 mg/dL (9-23); Glucose 172 mg/dL (74-106); Potassium 3.4 mmol/L (3.5-5.1)
--- NOTE | 2024-11-20 13:13 | DVHPN2 ---
Progress Note - Dictate Date Seen: Nov 20, 2024 Has the PT tested + for MRSA If YES, has PT been informed?: Yes Medical Necessity Reason Pt with a Central, PICC or Fol: No Subjective Lethargic vital signs Vital Sign Date Time Temp Pulse Resp B/P (MAP) Pulse Ox O2 Delivery O2 Flow Rate FiO2 11/20/24 09:00 97.8 88 18 101/62 (75) 97 97.8 11/19/24 20:00 Nasal Cannula* 2 28 Total Intake and Output 11/19/24 11/19/24 11/20/24 14:59 22:59 06:59 Intake Total 0 ml Balance 0 ml medications Current Medications Medications Dose Ordered Sig/Haresh Route Start Time Stop Time Status Last Admin Dose Admin Famotidine 20 mg Q2D IV 11/05/24 22:00 11/19/24 22:48 20 MG Levetiracetam 100 ml @ 400 mls/hr BID IV 11/05/24 22:00 11/20/24 11:19 400 MLS/HR Atorvastatin Calcium 20 mg HS PO 11/05/24 22:00 11/19/24 22:48 20 MG Multivit/Ca Carb/ B Cmplx/FA/Prenat 1 tab DAILY PO 11/06/24 10:00 11/20/24 11:19 1 TAB Sevelamer HCl 800 mg TIDWM PO 11/06/24 08:00 11/12/24 18:05 800 MG Sodium Chloride 10 ml Q8HR IV 11/05/24 22:00 11/20/24 05:44 10 ML Acetaminophen/ Hydrocodone Bitart 1 tab Q4HP PRN PO 11/05/24 21:00 11/11/24 22:11 1 TAB Ondansetron HCl 4 mg Q4HP PRN IV 11/05/24 21:00 Docusate Sodium 100 mg BIDPRN PRN PO 11/05/24 21:00 Acetaminophen 650 mg Q6HP PRN PO 11/05/24 21:00 11/19/24 22:48 650 MG Nitroglycerin 0.4 mg Q5MINP PRN SL 11/05/24 22:45 Morphine Sulfate 2 mg Q30M PRN IV 11/05/24 22:45 Vancomycin HCl 0 ml @ 0 mls/hr UD IV 11/06/24 16:15 Dextrose 50 ml UD PRN IV 11/07/24 07:15 Cancel Cefepime HCl 50 ml @ 12.5 mls/hr DAILY IV 11/10/24 10:00 11/20/24 11:19 12.5 MLS/HR Labetalol HCl 10 mg Q4HPRN PRN IV 11/09/24 12:45 11/19/24 12:16 10 MG Dextrose 50 ml UD PRN IV 11/09/24 16:00 Cancel Diagnostic Test (Pha) 1 strip Q6HR 11/10/24 12:00 11/20/24 12:00 1 STRIP Insulin Human Regular FOLLOW SLIDING SCALE Q6HR SC 11/10/24 12:00 11/20/24 06:09 4 UNITS Dextrose 50 ml UD IV 11/10/24 11:45 Patient Own Medication 25 mg DAILY PO 11/13/24 10:00 UNV Potassium Chloride 100 ml @ 50 mls/hr Q2H IV 11/12/24 15:15 11/12/24 19:14 UNV Hydralazine HCl 10 mg Q6HP PRN IV 11/15/24 15:15 11/17/24 05:12 10 MG Artificial Tears 1 drop Q6HP PRN EACHEYE 11/17/24 23:00 Enteral Nutritional Formula 1,000 ml 30ML/HR GT 11/18/24 11:00 11/19/24 22:49 1,000 ML Levothyroxine Sodium 50 mcg QAM IV 11/20/24 07:00 11/20/24 05:43 50 MCG objective Lethargic HEENT: No evidence of JVD, no oral ulcers. Pulmonary: Diminished on auscultation bilaterally Cardiovascular S1-S2, no S3 or S4 Abdomen: Bowel sounds positive, soft no rebound tenderness Skin: No rash Neurological: bed-bound, leg weakness Extremities: 1+ edema in the lower extremities laboratory and microbiology Laboratory Tests 11/20/24 06:53 Test 11/20/24 06:53 Range/Units Serum Glucose 172 H 74-106 mg/dL Problem List Assessment 1. End-stage renal disease on hemodialysis TTS schedule 2. Intra dialytic hypotension, he has chronic hypotension, on midodrine 3. Obesity 4. CAD 5. Bilateral feet wounds 6. History of CVA 7. Diabetes type 2, uncontrolled with hyperglycemia 8. Encephalopathy, oversedation Plan/recommendation: Having HD today Midodrine t.i.d. IV antibiotics Monitor H&H Avoid CHARACTER ARTIST altering drugs Dietary Evaluation Review Comments: 1) Initiate Pro-Stat @ 30 mL qd 2) If patient remains NPO > 7 days, consider EN/TPN to meet at least 75% of estimated daily needs 3) If GI is preferred, consider Nepro @ 35 mL/hr goalrate as tolerated. EN regimen (including Pro-Stat) provides 1612 kcals, 83g Pro, and 611 mL free H2O per 24 hrs. EN rate (including Pro-Stat) will meet 91% estimated energy needs and ~51% estimated protein needs 4) Advance to 60 CCHO renal diet when medically feasible, pending ST approval 5) Collect HbA1c 6) Refer to outpatient RD/[facility] for weight management 7) Follow-up with nephrology and cardiology 8) Continue to monitor I&O, labs, and skin integrity Expected Outcomes/Goals: 1) patient to receive nutrition support within 7 days of NPO status 2) labs and wounds to improve 3) diet to advance 4) gradual wt loss 5) f/u in 2-3 days Plan discussed with: Spouse KULDEEP HOOD MD Nov 20, 2024 13:13
[2024-11-20] MEDS: VANCOMYCIN 500mg/100mL 100 ML IV ONE (14:39)
--- NOTE | 2024-11-20 15:55 | DVH ---
CHEST RADIOGRAPH Indication: confirm NG placment. patient pulled on tube Technique: Single frontal view of the chest was obtained Comparison: XY CHEST XRAY 1 VIEW on DOS: 11/19/24, XY CHEST XRAY 1 VIEW on DOS: 11/19/24, XY CHEST XRAY 1 VIEW on DOS: 11/05/24 FINDINGS: Lines and Tubes: Enteric tube is in satisfactory position. Possible right IJ approach hemodialysis ca theter is noted terminating over the superior cavoatrial junction. Lungs: Interstitial prominence of the visualized lungs with the patient's chin overlying the right up per to mid lung zone with a left lung apex outside the [id number]. Right mid to lower lung zone l inear atelectasis. Pleura: No effusion. Cardiomediastinal contours: Moderate to severe cardiomegaly. Bones: No acute osseous abnormality. IMPRESSION: Enteric tube is in satisfactory position. Pulmonary vascular congestion. Underlying infectious process can not be excluded. The lung apices ar e outside the field of view.
[2024-11-20] MEDS: POTASSIUM EFFERVESENT TAB 25 MEQ NG ONE (16:56)
--- NOTE | 2024-11-20 18:47 | DVHPN2 ---
Subjective I am assuming the care of the patient from today onwards. Patient's remains confused. Reviewed: Care Plan, H&P, Labs, Medications, Previous Orders Changes from previous H/P or p: No Changes General: Per HPI Eyes: No Pain, No Vision change, No Conjunctivae inflammation, No Eyelid inflammation, No Other, No Redness ENT: No Ear pain, No Ear discharge, No Nose pain, No Nose discharge, No Nose congestion, No Mouth pain, No Mouth swelling, No Throat pain, No Throat swelling, No Other Cardiovascular: Chest Pain; No Palpitations, No Orthopnea, No Paroxysmal Noc. Dyspnea, No Edema, No Lt Headedness, No Other Respiratory: No Cough, No Dry; Shortness of breath; No SOB with excertion, No Wheezing, No Hemoptysis, No Pleuritic Pain, No Sputum; Other (SOB at rest) Gastrointestinal: No Nausea, No Vomiting, No Abdominal Pain, No Diarrhea, No Constipation, No Melena, No Hematochezia, No Other Genitourinary: No Dysuria, No Frequency, No Incontinence, No Hematuria, No Retention, No Other Musculoskeletal: No other, No neck pain, No shoulder pain, No arm pain, No back pain, No hand pain, No leg pain, No foot pain Skin: No Rash, No Lesions, No Jaundice, No Bruising, No Other Objective Vitals Vital Signs Date Time Temp Pulse Resp B/P (MAP) Pulse Ox O2 Delivery O2 Flow Rate FiO2 11/20/24 17:00 97.4 94 16 118/45 (69) 100 97.4 11/20/24 08:00 Nasal Cannula* 2 28 Intake/Output Intake and Output 11/20/24 07:00 Intake Total 0 ml Balance 0 ml Intake Oral 0 ml Exam HEENT pupils are reactive Neck is supple CV is S1-S2 regular rate and rhythm Respiratory diminished breath sounds bases GI positive bowel sound Extremity trace edema 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 General Appearance: mild distress, Other (Patient very hard to awaken.) HEENT: Atraumatic, PERRLA Lungs: Clear to auscultation, Normal air movement Cardiovascular: Normal S1, Normal S2 Abdomen: Normal bowel sounds, Soft, No tenderness, No hepatospenomegaly Skin: Wounds (See nurse notes and pictures) Psych/Mental Status: Other (Altered mental status) Medications Current Medications Medications Dose Ordered Sig/Haresh Route Start Time Stop Time Status Last Admin Dose Admin Famotidine 20 mg Q2D IV 11/05/24 22:00 11/19/24 22:48 20 MG Levetiracetam 100 ml @ 400 mls/hr BID IV 11/05/24 22:00 11/20/24 11:19 400 MLS/HR Atorvastatin Calcium 20 mg HS PO 11/05/24 22:00 11/19/24 22:48 20 MG Multivit/Ca Carb/ B Cmplx/FA/Prenat 1 tab DAILY PO 11/06/24 10:00 11/20/24 11:19 1 TAB Sevelamer HCl 800 mg TIDWM PO 11/06/24 08:00 11/20/24 18:27 800 MG Sodium Chloride 10 ml Q8HR IV 11/05/24 22:00 11/20/24 14:02 10 ML Acetaminophen/ Hydrocodone Bitart 1 tab Q4HP PRN PO 11/05/24 21:00 11/20/24 13:49 1 TAB Ondansetron HCl 4 mg Q4HP PRN IV 11/05/24 21:00 Docusate Sodium 100 mg BIDPRN PRN PO 11/05/24 21:00 Acetaminophen 650 mg Q6HP PRN PO 11/05/24 21:00 11/19/24 22:48 650 MG Nitroglycerin 0.4 mg Q5MINP PRN SL 11/05/24 22:45 Morphine Sulfate 2 mg Q30M PRN IV 11/05/24 22:45 Vancomycin HCl 0 ml @ 0 mls/hr UD IV 11/06/24 16:15 Dextrose 50 ml UD PRN IV 11/07/24 07:15 Cancel Cefepime HCl 50 ml @ 12.5 mls/hr DAILY IV 11/10/24 10:00 11/20/24 11:19 12.5 MLS/HR Labetalol HCl 10 mg Q4HPRN PRN IV 11/09/24 12:45 11/19/24 12:16 10 MG Dextrose 50 ml UD PRN IV 11/09/24 16:00 Cancel Diagnostic Test (Pha) 1 strip Q6HR 11/10/24 12:00 11/20/24 17:49 1 STRIP Insulin Human Regular FOLLOW SLIDING SCALE Q6HR SC 11/10/24 12:00 11/20/24 17:50 2 UNITS Dextrose 50 ml UD IV 11/10/24 11:45 Patient Own Medication 25 mg DAILY PO 11/13/24 10:00 UNV Potassium Chloride 100 ml @ 50 mls/hr Q2H IV 11/12/24 15:15 11/12/24 19:14 UNV Hydralazine HCl 10 mg Q6HP PRN IV 11/15/24 15:15 11/17/24 05:12 10 MG Artificial Tears 1 drop Q6HP PRN EACHEYE 11/17/24 23:00 Enteral Nutritional Formula 1,000 ml 30ML/HR GT 11/18/24 11:00 11/19/24 22:49 1,000 ML Levothyroxine Sodium 50 mcg QAM IV 11/20/24 07:00 11/20/24 05:43 50 MCG Laboratory Results Laboratory Tests 11/20/24 06:53 Chemistry Test 11/20/24 06:53 Calcium Level 10.0 mg/dL (8.7-10.4) Microbiology Microbiology Date/Time Source Procedure Growth Status 11/07/24 12:33 Foot Right Gram Stain - Final Complete 11/07/24 12:33 Wound Culture - Final Acinetobacter baumannii Enterococcus faecalis Acinetobacter baumanii/haemol Complete 11/06/24 20:44 Blood Blood Culture - Final NO GROWTH AFTER 5 DAYS OF INCUBATION. Complete Assessment/Plan Assessment/Plan 69-year-old male with a known history of end-stage renal disease on hemodialysis, CAD status post CABG, morbid obesity classIII, initially presented to the hospital with a altered mental status found to have 1. Acute metabolic/septic encephalopathy 2. Septic shock currently resolved 3. Osteomyelitis of the left foot with a S2 noted Bactrim vomiting knee as well as Enterococcus faecalis 4. End-stage renal disease on hemodialysis 5. CAD status post CABG 6. Bilateral heel wounds 7. History of CVA 8. 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
--- NOTE | 2024-11-20 22:58 | DVHPN2 ---
Progress Note - Dictate Date Seen: Nov 20, 2024 Has the PT tested + for MRSA If YES, has PT been informed?: Yes Medical Necessity Reason Pt with a Central, PICC or Fol: No Subjective Mr. Daniel is a 69 years old gentleman with a history of hypotension, diabetes, coronary artery disease, atrial fibrillation, end-stage kidney failure on hemodialysis, morbid obesity, he was brought to the [facility] on 11/05/2024 with a chief complaint of chest pain. I have seen and examined the patient, I have talked to his nurse, and sitter. He is awake, but isn't responsive to verbal stimuli He says 's name when he is asleep He can say "yes" and "no" according to his sitter Blood culture, 11/06/2024: Negative Wound code, 11/07/2024: Acinetobacter baumannii, Enterococcus faecalis, chronic pressure sore WBC/HB/PLT/MCV, 11/14/2024: 8.3/12.5/195/102.4 BUN/CR, 11/18/2024: 39/4.02 GFR, 11/18/2024: 19 HCO3, 11/05/24:28, 11/06/24: 28, 11/08/2019 5:17, 21, 21, 26 Glucose, 11/07/2024: 405, 421, 422, 280 Beta hydroxybutyric acid 11/17/2024: 0.701 Liver function tests, 11/07/2024: Unremarkable Vitamin B12, 11/19/2024: 1375 Folic acid, 11/19/2024: 19.27 CBC, 11/18/24: 14.44 FT4, 11/19/2024: 1.14 CT head, 11/05/2024: 1. No acute hemorrhage. 2. Area of encephalomalacia involving the mid left parietal lobe consistent with old infarct. No findings of craniotomy defect CT head, 11/10/2024: No intracranial hemorrhage or mass effect. Moderate chronic microvascular ischemic changes. Moderate global cerebral volume loss. Left frontal encephalomalacia. MRI, left foot, 11/11/2024: 1. Wound at the posterior plantar aspect of the foot adjacent to the posterior plantar aspect of the calcaneus with surrounding subcutaneous edema, possible cellulitis in the appropriate clinical setting. No organized fluid collection identified to suggest abscess. Marrow signal changes of the posterior calcaneus with associated STIR hyperintense and T1 hypointense signal, suspected osteomyelitis in the appropriate clinical setting. Correlate with clinical findings. 2. Additional findings as described above vital signs Vital Sign Date Time Temp Pulse Resp B/P (MAP) Pulse Ox O2 Delivery O2 Flow Rate FiO2 11/20/24 20:00 Nasal Cannula* 2 28 11/20/24 20:00 89 11/20/24 17:00 97.4 16 118/45 (69) 100 97.4 Total Intake and Output 11/19/24 11/19/24 11/20/24 15:00 23:00 07:00 Intake Total 0 ml Balance 0 ml medications Current Medications Medications Dose Ordered Sig/Haresh Route Start Time Stop Time Status Last Admin Dose Admin Famotidine 20 mg Q2D IV 11/05/24 22:00 11/19/24 22:48 20 MG Levetiracetam 100 ml @ 400 mls/hr BID IV 11/05/24 22:00 11/20/24 21:14 400 MLS/HR Atorvastatin Calcium 20 mg HS PO 11/05/24 22:00 11/20/24 21:14 20 MG Multivit/Ca Carb/ B Cmplx/FA/Prenat 1 tab DAILY PO 11/06/24 10:00 11/20/24 11:19 1 TAB Sevelamer HCl 800 mg TIDWM PO 11/06/24 08:00 11/20/24 18:27 800 MG Sodium Chloride 10 ml Q8HR IV 11/05/24 22:00 11/20/24 21:14 10 ML Acetaminophen/ Hydrocodone Bitart 1 tab Q4HP PRN PO 11/05/24 21:00 11/20/24 19:58 1 TAB Ondansetron HCl 4 mg Q4HP PRN IV 11/05/24 21:00 Docusate Sodium 100 mg BIDPRN PRN PO 11/05/24 21:00 Acetaminophen 650 mg Q6HP PRN PO 11/05/24 21:00 11/19/24 22:48 650 MG Nitroglycerin 0.4 mg Q5MINP PRN SL 11/05/24 22:45 Morphine Sulfate 2 mg Q30M PRN IV 11/05/24 22:45 Vancomycin HCl 0 ml @ 0 mls/hr UD IV 11/06/24 16:15 Dextrose 50 ml UD PRN IV 11/07/24 07:15 Cancel Cefepime HCl 50 ml @ 12.5 mls/hr DAILY IV 11/10/24 10:00 11/20/24 11:19 12.5 MLS/HR Labetalol HCl 10 mg Q4HPRN PRN IV 11/09/24 12:45 11/19/24 12:16 10 MG Dextrose 50 ml UD PRN IV 11/09/24 16:00 Cancel Diagnostic Test (Pha) 1 strip Q6HR 11/10/24 12:00 11/20/24 17:49 1 STRIP Insulin Human Regular FOLLOW SLIDING SCALE Q6HR SC 11/10/24 12:00 11/20/24 17:50 2 UNITS Dextrose 50 ml UD IV 11/10/24 11:45 Patient Own Medication 25 mg DAILY PO 11/13/24 10:00 UNV Potassium Chloride 100 ml @ 50 mls/hr Q2H IV 11/12/24 15:15 11/12/24 19:14 UNV Hydralazine HCl 10 mg Q6HP PRN IV 11/15/24 15:15 11/17/24 05:12 10 MG Artificial Tears 1 drop Q6HP PRN EACHEYE 11/17/24 23:00 Enteral Nutritional Formula 1,000 ml 30ML/HR GT 11/18/24 11:00 11/19/24 22:49 1,000 ML Levothyroxine Sodium 50 mcg QAM IV 11/20/24 07:00 11/20/24 05:43 50 MCG objective General: the patient is well developed and nourished. No acute distress. MUSCULOSKELETAL EXAM: Wounds in both feet MENTAL STATUS: Subjective for SPEECH, LANGUAGE, HIGHER CORTICAL FUNCTION: Subjective CRANIAL NERVES: #2: Deferred #3,4,6: Deferred #5: Facial sensation fine in all three divisions bilaterally. Mandibular strength intact. #7: Facial muscles symmetrical and strength intact. #8: Deferred #9,10: Deferred #11: Deferred #12: Deferred SENSATION: History painful stimuli bilaterally MOTOR: Normal tone in the upper and lower extremity. Normal muscle bulk. No fasciculations. No abnormal movements or posturing. He only moves the left upper extremity REFLEXES: Deep tendon reflexes are symmetrical. No pathological reflexes. CEREBELLAR/COORDINATION: Deferred GAIT/STATION: deferred laboratory and microbiology Laboratory Tests 11/20/24 06:53 Test 11/20/24 06:53 Range/Units Serum Glucose 172 H 74-106 mg/dL Problem List Altered mental status Metabolic encephalopathy secondary to sepsis, septic shock Chronic organic brain syndrome Dementia/vascular dementia Multiple stroke with residual right-sided hemiplegia Sepsis Osteomyelitis Kidney failure on hemodialysis For thyroidism Assessment/Plan Monitoring Supportive treatment Telemetry EEG IV antibiotics Synthroid 50 mcg IV daily Hemodialysis Wound Care More recommendation per clinical course He has a poor prognosis for meaningful/overall recovery Family is to discuss about his code status This medical document was created using an electronic medical record system with [employer] dictation system. Although this document has been carefully reviewed, there may still be some phonetic and typographical errors. These areas are purely typographical due to imperfections of the software programs, and do not reflect any compromise in the patient's medical care. Prognosis poor Dietary Evaluation Review Comments: 1) Initiate Pro-Stat @ 30 mL qd 2) If patient remains NPO > 7 days, consider EN/TPN to meet at least 75% of estimated daily needs 3) If GI is preferred, consider Nepro @ 35 mL/hr goalrate as tolerated. EN regimen (including Pro-Stat) provides 1612 kcals, 83g Pro, and 611 mL free H2O per 24 hrs. EN rate (including Pro-Stat) will meet 91% estimated energy needs and ~51% estimated protein needs 4) Advance to 60 CCHO renal diet when medically feasible, pending ST approval 5) Collect HbA1c 6) Refer to outpatient RD/CDCES for weight management 7) Follow-up with nephrology and cardiology 8) Continue to monitor I&O, labs, and skin integrity Expected Outcomes/Goals: 1) patient to receive nutrition support within 7 days of NPO status 2) labs and wounds to improve 3) diet to advance 4) gradual wt loss 5) f/u in 2-3 days Plan discussed with: Other ARELI YANG MD Nov 20, 2024 22:58
[2024-11-21] VITALS (7 sets, daily range): BP systolic 125–135; BP diastolic 30–62; PULSE 77–85; RESP 17–22; TEMP 97.8–98.3; O2SAT 96–100
[2024-11-21] MEDS: SODIUM CHL 0.9% 1000 ML BAG XX ONE (09:18)
[2024-11-21 09:39] LABS: Anion Gap 10 (5-15); Carbon Dioxide 27 mmol/L (20-31); Chloride 100 mmol/L (98-107); Potassium 4.3 mmol/L (3.5-5.1); Sodium 137 mmol/L (136-145)
[2024-11-21 09:40] LABS: Calcium 9.8 mg/dL (8.7-10.4)
[2024-11-21 09:45] LABS: BUN/Creatinine Ratio 7.9 (10.0-20.0); Blood Urea Nitrogen 28 mg/dL (9-23); Glucose 187 mg/dL (74-106)
--- NOTE | 2024-11-21 13:15 | DVHPN2 ---
Progress Note - Dictate Date Seen: Nov 21, 2024 Has the PT tested + for MRSA If YES, has PT been informed?: Yes Medical Necessity Reason Pt with a Central, PICC or Fol: No Subjective Lethargic vital signs Vital Sign Date Time Temp Pulse Resp B/P (MAP) Pulse Ox O2 Delivery O2 Flow Rate FiO2 11/21/24 01:00 98.3 77 17 125/51 (75) 99 98.3 11/20/24 20:00 Nasal Cannula* 2 28 Total Intake and Output 11/20/24 11/20/24 11/21/24 15:00 23:00 07:00 Intake Total 0 ml 0 ml Output Total 0 ml 0 ml Balance 0 ml 0 ml medications Current Medications Medications Dose Ordered Sig/Haresh Route Start Time Stop Time Status Last Admin Dose Admin Famotidine 20 mg Q2D IV 11/05/24 22:00 11/19/24 22:48 20 MG Levetiracetam 100 ml @ 400 mls/hr BID IV 11/05/24 22:00 11/21/24 09:34 400 MLS/HR Atorvastatin Calcium 20 mg HS PO 11/05/24 22:00 11/20/24 21:14 20 MG Multivit/Ca Carb/ B Cmplx/FA/Prenat 1 tab DAILY PO 11/06/24 10:00 11/20/24 11:19 1 TAB Sevelamer HCl 800 mg TIDWM PO 11/06/24 08:00 11/20/24 18:27 800 MG Sodium Chloride 10 ml Q8HR IV 11/05/24 22:00 11/21/24 05:38 10 ML Acetaminophen/ Hydrocodone Bitart 1 tab Q4HP PRN PO 11/05/24 21:00 11/20/24 19:58 1 TAB Ondansetron HCl 4 mg Q4HP PRN IV 11/05/24 21:00 Docusate Sodium 100 mg BIDPRN PRN PO 11/05/24 21:00 Acetaminophen 650 mg Q6HP PRN PO 11/05/24 21:00 11/19/24 22:48 650 MG Nitroglycerin 0.4 mg Q5MINP PRN SL 11/05/24 22:45 Morphine Sulfate 2 mg Q30M PRN IV 11/05/24 22:45 Vancomycin HCl 0 ml @ 0 mls/hr UD IV 11/06/24 16:15 Dextrose 50 ml UD PRN IV 11/07/24 07:15 Cancel Cefepime HCl 50 ml @ 12.5 mls/hr DAILY IV 11/10/24 10:00 11/20/24 11:19 12.5 MLS/HR Labetalol HCl 10 mg Q4HPRN PRN IV 11/09/24 12:45 11/19/24 12:16 10 MG Dextrose 50 ml UD PRN IV 11/09/24 16:00 Cancel Diagnostic Test (Pha) 1 strip Q6HR 11/10/24 12:00 11/21/24 05:47 1 STRIP Insulin Human Regular FOLLOW SLIDING SCALE Q6HR SC 11/10/24 12:00 11/21/24 05:46 4 UNITS Dextrose 50 ml UD IV 11/10/24 11:45 Patient Own Medication 25 mg DAILY PO 11/13/24 10:00 UNV Potassium Chloride 100 ml @ 50 mls/hr Q2H IV 11/12/24 15:15 11/12/24 19:14 UNV Hydralazine HCl 10 mg Q6HP PRN IV 11/15/24 15:15 11/17/24 05:12 10 MG Artificial Tears 1 drop Q6HP PRN EACHEYE 11/17/24 23:00 Enteral Nutritional Formula 1,000 ml 30ML/HR GT 11/18/24 11:00 11/19/24 22:49 1,000 ML Levothyroxine Sodium 50 mcg QAM IV 11/20/24 07:00 11/21/24 05:36 50 MCG objective Lethargic HEENT: No evidence of JVD, no oral ulcers. Pulmonary: Diminished on auscultation bilaterally Cardiovascular S1-S2, no S3 or S4 Abdomen: Bowel sounds positive, soft no rebound tenderness Skin: No rash Neurological: bed-bound, leg weakness Extremities: 1+ edema in the lower extremities laboratory and microbiology Laboratory Tests 11/21/24 08:53 11/20/24 06:53 Test 11/21/24 08:53 Range/Units Serum Glucose 187 H 74-106 mg/dL Problem List Assessment 1. End-stage renal disease on hemodialysis TTS schedule 2. Intra dialytic hypotension, he has chronic hypotension, on midodrine 3. Obesity 4. CAD 5. Bilateral feet wounds 6. History of CVA 7. Diabetes type 2, uncontrolled with hyperglycemia 8. Encephalopathy, oversedation Plan/recommendation: Continue HD on TTS schedule Midodrine t.i.d. 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 EN regimen (including Pro-Stat) provides 1612 kcals, 83g Pro, and 611 mL free H2O per 24 hrs. EN rate (including Pro-Stat) will meet 91% estimated energy needs and ~51% estimated protein needs 4) Advance to 60 CCHO renal diet when medically feasible, pending ST approval 5) Collect HbA1c 6) Refer to outpatient RD/[facility] for weight management 7) Follow-up with nephrology and cardiology 8) Continue to monitor I&O, labs, and skin integrity Expected Outcomes/Goals: 1) patient to receive nutrition support within 7 days of NPO status 2) labs and wounds to improve 3) diet to advance 4) gradual wt loss 5) f/u in 2-3 days Plan discussed with: Spouse KULDEEP HOOD MD Nov 21, 2024 13:15
--- NOTE | 2024-11-21 13:23 | DVH ---
EXAM DESCRIPTION: Chest 1 View CLINICAL HISTORY: NG tube placemnet COMPARISON: XY CHEST XRAY 1 VIEW on DOS: 11/20/24, XY CHEST XRAY 1 VIEW on DOS: 11/19/24, XY CHEST XRAY 1 VIEW on DOS: 11/19/24, XY CHEST XRAY 1 VIEW on DOS: 11/05/24 FINDINGS and IMPRESSION: Lines, tubes, and support devices: Enteric tube terminates in the distal stomach. Partially imaged tu nnel dialysis catheter in place. Lungs / Pleura: Trace bilateral pleural effusions. Mild-moderate pulmonary edema. Mediastinum: Enlarged cardiomediastinal silhouette. Osseous structures / Soft tissues: No acute findings.
--- NOTE | 2024-11-21 16:35 | DVHPN2 ---
Subjective Patient has remained confused, social welfare administrator was calling the [facility] for evaluation she will call us back. Reviewed: Care Plan, H&P, Labs, Medications, Previous Orders Changes from previous H/P or p: No Changes General: Per HPI Eyes: No Pain, No Vision change, No Conjunctivae inflammation, No Eyelid inflammation, No Other, No Redness ENT: No Ear pain, No Ear discharge, No Nose pain, No Nose discharge, No Nose congestion, No Mouth pain, No Mouth swelling, No Throat pain, No Throat swelling, No Other Cardiovascular: Chest Pain; No Palpitations, No Orthopnea, No Paroxysmal Noc. Dyspnea, No Edema, No Lt Headedness, No Other Respiratory: No Cough, No Dry; Shortness of breath; No SOB with excertion, No Wheezing, No Hemoptysis, No Pleuritic Pain, No Sputum; Other (SOB at rest) Gastrointestinal: No Nausea, No Vomiting, No Abdominal Pain, No Diarrhea, No Constipation, No Melena, No Hematochezia, No Other Genitourinary: No Dysuria, No Frequency, No Incontinence, No Hematuria, No Retention, No Other Musculoskeletal: No other, No neck pain, No shoulder pain, No arm pain, No back pain, No hand pain, No leg pain, No foot pain Skin: No Rash, No Lesions, No Jaundice, No Bruising, No Other Objective Vitals Vital Signs Date Time Temp Pulse Resp B/P (MAP) Pulse Ox O2 Delivery O2 Flow Rate FiO2 11/21/24 13:15 98.0 80 18 127/62 (83) 99 98.0 11/21/24 08:00 Nasal Cannula* 2 28 Intake/Output Intake and Output 11/21/24 07:00 Intake Total 0 ml Output Total 0 ml Balance 0 ml Intake Oral 0 ml Output Urine Total 0 ml # Bowel Movements 1 Exam HEENT pupils are reactive Neck is supple CV is S1-S2 regular rate and rhythm Respiratory diminished breath sounds bases GI positive bowel sound Extremity trace edema 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 General Appearance: mild distress, Other (Patient very hard to awaken.) HEENT: Atraumatic, PERRLA Lungs: Clear to auscultation, Normal air movement Cardiovascular: Normal S1, Normal S2 Abdomen: Normal bowel sounds, Soft, No tenderness, No hepatospenomegaly Skin: Wounds (See nurse notes and pictures) Psych/Mental Status: Other (Altered mental status) Medications Current Medications Medications Dose Ordered Sig/Haresh Route Start Time Stop Time Status Last Admin Dose Admin Famotidine 20 mg Q2D IV 11/05/24 22:00 11/19/24 22:48 20 MG Levetiracetam 100 ml @ 400 mls/hr BID IV 11/05/24 22:00 11/21/24 09:34 400 MLS/HR Atorvastatin Calcium 20 mg HS PO 11/05/24 22:00 11/20/24 21:14 20 MG Multivit/Ca Carb/ B Cmplx/FA/Prenat 1 tab DAILY PO 11/06/24 10:00 11/20/24 11:19 1 TAB Sevelamer HCl 800 mg TIDWM PO 11/06/24 08:00 11/20/24 18:27 800 MG Sodium Chloride 10 ml Q8HR IV 11/05/24 22:00 11/21/24 14:00 10 ML Acetaminophen/ Hydrocodone Bitart 1 tab Q4HP PRN PO 11/05/24 21:00 11/21/24 15:20 1 TAB Ondansetron HCl 4 mg Q4HP PRN IV 11/05/24 21:00 Docusate Sodium 100 mg BIDPRN PRN PO 11/05/24 21:00 Acetaminophen 650 mg Q6HP PRN PO 11/05/24 21:00 11/19/24 22:48 650 MG Nitroglycerin 0.4 mg Q5MINP PRN SL 11/05/24 22:45 Morphine Sulfate 2 mg Q30M PRN IV 11/05/24 22:45 Vancomycin HCl 0 ml @ 0 mls/hr UD IV 11/06/24 16:15 Dextrose 50 ml UD PRN IV 11/07/24 07:15 Cancel Cefepime HCl 50 ml @ 12.5 mls/hr DAILY IV 11/10/24 10:00 11/21/24 10:00 12.5 MLS/HR Labetalol HCl 10 mg Q4HPRN PRN IV 11/09/24 12:45 11/19/24 12:16 10 MG Dextrose 50 ml UD PRN IV 11/09/24 16:00 Cancel Diagnostic Test (Pha) 1 strip Q6HR 11/10/24 12:00 11/21/24 12:00 1 STRIP Insulin Human Regular FOLLOW SLIDING SCALE Q6HR SC 11/10/24 12:00 11/21/24 12:00 4 UNITS Dextrose 50 ml UD IV 11/10/24 11:45 Patient Own Medication 25 mg DAILY PO 11/13/24 10:00 UNV Potassium Chloride 100 ml @ 50 mls/hr Q2H IV 11/12/24 15:15 11/12/24 19:14 UNV Hydralazine HCl 10 mg Q6HP PRN IV 11/15/24 15:15 11/17/24 05:12 10 MG Artificial Tears 1 drop Q6HP PRN EACHEYE 11/17/24 23:00 Enteral Nutritional Formula 1,000 ml 30ML/HR GT 11/18/24 11:00 11/19/24 22:49 1,000 ML Levothyroxine Sodium 50 mcg QAM IV 11/20/24 07:00 11/21/24 05:36 50 MCG Laboratory Results Laboratory Tests 11/20/24 06:53 11/21/24 08:53 Chemistry Test 11/21/24 08:53 Calcium Level 9.8 mg/dL (8.7-10.4) Microbiology Microbiology Date/Time Source Procedure Growth Status 11/07/24 12:33 Foot Right Gram Stain - Final Complete 11/07/24 12:33 Wound Culture - Final Acinetobacter baumannii Enterococcus faecalis Acinetobacter baumanii/haemol Complete 11/06/24 20:44 Blood Blood Culture - Final NO GROWTH AFTER 5 DAYS OF INCUBATION. Complete Assessment/Plan Assessment/Plan 69-year-old male with a known history of end-stage renal disease on hemodialysis, CAD status post CABG, morbid obesity classIII, initially presented to the hospital with a altered mental status found to have 1. Acute metabolic/septic encephalopathy 2. Septic shock currently resolved 3. Osteomyelitis of the left foot with a S2 noted Bactrim vomiting knee as well as Enterococcus faecalis 4. End-stage renal disease on hemodialysis 5. CAD status post CABG 6. Bilateral heel wounds 7. History of CVA 8. Morbid obesity classIII -continue antibiotics dialysis per renal, plan of care discussed with the bedside RN, social welfare administrator consultation to reach out to the family regarding hospice evaluation Plan discussed with: Other My Orders Orders - AMANDA PARIKH MD Procedure Category Date Status Time Chest Xray 1 View XY 11/21/24 Resulted 12:31 Date of Service: Nov 21, 2024 Billing Provider: AMANDA PARIKH MD Common Visit Codes: [id number] INP/OBS CARE(MOD) AMANDA PARIKH MD Nov 21, 2024 16:35
[2024-11-22] VITALS (8 sets, daily range): BP systolic 102–158; BP diastolic 25–68; PULSE 78–100; RESP 16–22; TEMP 97.6–98; O2SAT 93–100
--- NOTE | 2024-11-22 12:50 | DVH ---
AP portable chest CLINICAL INDICATION: NG tube placement FINDINGS: NG tube tip in the stomach. Heart size is enlarged in the aorta is tortuous.. IMPRESSION: 1. Compared to previous day's examined NG tube is been placed with its tip in the stomach
--- NOTE | 2024-11-22 13:35 | DVHPN2 ---
Progress Note - Dictate Date Seen: Nov 22, 2024 Has the PT tested + for MRSA If YES, has PT been informed?: Yes Medical Necessity Reason Pt with a Central, PICC or Fol: No Subjective Family at bedside. Contemplating hospice vital signs Vital Sign Date Time Temp Pulse Resp B/P (MAP) Pulse Ox O2 Delivery O2 Flow Rate FiO2 11/22/24 05:00 97.6 78 22 102/25 (50) 100 97.6 11/21/24 20:00 Nasal Cannula* 2 28 Total Intake and Output 11/21/24 11/21/24 11/22/24 15:00 23:00 07:00 Intake Total 100 ml 750 ml 700 ml Output Total 0 ml 0 ml Balance 100 ml 750 ml 700 ml medications Current Medications Medications Dose Ordered Sig/Haresh Route Start Time Stop Time Status Last Admin Dose Admin Famotidine 20 mg Q2D IV 11/05/24 22:00 11/21/24 21:59 20 MG Levetiracetam 100 ml @ 400 mls/hr BID IV 11/05/24 22:00 11/22/24 10:49 400 MLS/HR Atorvastatin Calcium 20 mg HS PO 11/05/24 22:00 11/21/24 21:58 20 MG Multivit/Ca Carb/ B Cmplx/FA/Prenat 1 tab DAILY PO 11/06/24 10:00 11/20/24 11:19 1 TAB Sevelamer HCl 800 mg TIDWM PO 11/06/24 08:00 11/20/24 18:27 800 MG Sodium Chloride 10 ml Q8HR IV 11/05/24 22:00 11/22/24 06:00 10 ML Acetaminophen/ Hydrocodone Bitart 1 tab Q4HP PRN PO 11/05/24 21:00 11/22/24 12:08 1 TAB Ondansetron HCl 4 mg Q4HP PRN IV 11/05/24 21:00 Docusate Sodium 100 mg BIDPRN PRN PO 11/05/24 21:00 Acetaminophen 650 mg Q6HP PRN PO 11/05/24 21:00 11/19/24 22:48 650 MG Nitroglycerin 0.4 mg Q5MINP PRN SL 11/05/24 22:45 Morphine Sulfate 2 mg Q30M PRN IV 11/05/24 22:45 Vancomycin HCl 0 ml @ 0 mls/hr UD IV 11/06/24 16:15 Dextrose 50 ml UD PRN IV 11/07/24 07:15 Cancel Cefepime HCl 50 ml @ 12.5 mls/hr DAILY IV 11/10/24 10:00 11/22/24 10:49 12.5 MLS/HR Labetalol HCl 10 mg Q4HPRN PRN IV 11/09/24 12:45 11/19/24 12:16 10 MG Dextrose 50 ml UD PRN IV 11/09/24 16:00 Cancel Diagnostic Test (Pha) 1 strip Q6HR 11/10/24 12:00 11/22/24 06:19 1 STRIP Insulin Human Regular FOLLOW SLIDING SCALE Q6HR SC 11/10/24 12:00 11/22/24 12:28 4 UNITS Dextrose 50 ml UD IV 11/10/24 11:45 Patient Own Medication 25 mg DAILY PO 11/13/24 10:00 UNV Potassium Chloride 100 ml @ 50 mls/hr Q2H IV 11/12/24 15:15 11/12/24 19:14 UNV Hydralazine HCl 10 mg Q6HP PRN IV 11/15/24 15:15 11/17/24 05:12 10 MG Artificial Tears 1 drop Q6HP PRN EACHEYE 11/17/24 23:00 Enteral Nutritional Formula 1,000 ml 30ML/HR GT 11/18/24 11:00 11/19/24 22:49 1,000 ML Levothyroxine Sodium 50 mcg QAM IV 11/20/24 07:00 11/22/24 06:17 50 MCG objective Lethargic HEENT: No evidence of JVD, no oral ulcers. Pulmonary: Diminished on auscultation bilaterally Cardiovascular S1-S2, no S3 or S4 Abdomen: Bowel sounds positive, soft no rebound tenderness Skin: No rash Neurological: bed-bound Extremities: 1+ edema in the lower extremities laboratory and microbiology Laboratory Tests 11/21/24 08:53 11/20/24 06:53 Test 11/21/24 08:53 Range/Units Serum Glucose 187 H 74-106 mg/dL Problem List 1. End-stage renal disease on hemodialysis TTS schedule 2. Intra dialytic hypotension, he has chronic hypotension, on midodrine 3. Obesity 4. CAD 5. Bilateral feet wounds 6. History of CVA 7. Diabetes type 2, uncontrolled with hyperglycemia 8. Encephalopathy, oversedation 9. Hypothyroidism Assessment/Plan Continue HD on TTS schedule Midodrine t.i.d. Case management evaluation. Continue with IV antibiotics Dietary Evaluation Review Comments: 1) Initiate Pro-Stat @ 30 mL qd 2) If patient remains NPO > 7 days, consider EN/TPN to meet at least 75% of estimated daily needs 3) If GI is preferred, consider Nepro @ 35 mL/hr goalrate as tolerated. EN regimen (including Pro-Stat) provides 1612 kcals, 83g Pro, and 611 mL free H2O per 24 hrs. EN rate (including Pro-Stat) will meet 91% estimated energy needs and ~51% estimated protein needs 4) Advance to 60 CCHO renal diet when medically feasible, pending ST approval 5) Collect HbA1c 6) Refer to outpatient RD/CDCES for weight management 7) Follow-up with nephrology and cardiology 8) Continue to monitor I&O, labs, and skin integrity Expected Outcomes/Goals: 1) patient to receive nutrition support within 7 days of NPO status 2) labs and wounds to improve 3) diet to advance 4) gradual wt loss 5) f/u in 2-3 days Plan discussed with: Spouse MONICA FIELD MD Nov 22, 2024 13:35
[2024-11-22] MEDS ORDERED: clonazePAM 0.5 MG TAB PO ONE (14:15)
[2024-11-22] MEDS: clonazePAM 0.5 MG TAB PO SCH (14:45)
--- NOTE | 2024-11-22 16:32 | DVHPN2 ---
Subjective Patient has remained confused, family member including daughter at bedside were updated, patient is currently DNR DNI status now. Reviewed: Care Plan, H&P, Labs, Medications, Previous Orders Changes from previous H/P or p: Changes (Talked to family member including daughter at bedside, patient is currently DNR DNI as per family request.) General: Per HPI Eyes: No Pain, No Vision change, No Conjunctivae inflammation, No Eyelid inflammation, No Other, No Redness ENT: No Ear pain, No Ear discharge, No Nose pain, No Nose discharge, No Nose congestion, No Mouth pain, No Mouth swelling, No Throat pain, No Throat swelling, No Other Cardiovascular: Chest Pain; No Palpitations, No Orthopnea, No Paroxysmal Noc. Dyspnea, No Edema, No Lt Headedness, No Other Respiratory: No Cough, No Dry; Shortness of breath; No SOB with excertion, No Wheezing, No Hemoptysis, No Pleuritic Pain, No Sputum; Other (SOB at rest) Gastrointestinal: No Nausea, No Vomiting, No Abdominal Pain, No Diarrhea, No Constipation, No Melena, No Hematochezia, No Other Genitourinary: No Dysuria, No Frequency, No Incontinence, No Hematuria, No Retention, No Other Musculoskeletal: No other, No neck pain, No shoulder pain, No arm pain, No back pain, No hand pain, No leg pain, No foot pain Skin: No Rash, No Lesions, No Jaundice, No Bruising, No Other Objective Vitals Vital Signs Date Time Temp Pulse Resp B/P (MAP) Pulse Ox O2 Delivery O2 Flow Rate FiO2 11/22/24 13:00 97.9 89 16 157/68 (97) 95 97.9 11/21/24 20:00 Nasal Cannula* 2 28 Intake/Output Intake and Output 11/22/24 07:00 Intake Total 1550 ml Output Total 0 ml Balance 1550 ml Intake Oral 0 ml IV Total 150 ml Tube Feeding 1400 ml Output Urine Total 0 ml Stool Total 0 ml Exam HEENT pupils are reactive Neck is supple CV is S1-S2 regular rate and rhythm Respiratory diminished breath sounds bases GI positive bowel sound Extremity trace edema [employer] patient does not follow commands General Appearance: mild distress, Other (Patient very hard to awaken.) HEENT: Atraumatic, PERRLA Lungs: Clear to auscultation, Normal air movement Cardiovascular: Normal S1, Normal S2 Abdomen: Normal bowel sounds, Soft, No tenderness, No hepatospenomegaly Skin: Wounds (See nurse notes and pictures) Psych/Mental Status: Other (Altered mental status) Medications Current Medications Medications Dose Ordered Sig/Haresh Route Start Time Stop Time Status Last Admin Dose Admin Famotidine 20 mg Q2D IV 11/05/24 22:00 11/21/24 21:59 20 MG Levetiracetam 100 ml @ 400 mls/hr BID IV 11/05/24 22:00 11/22/24 10:49 400 MLS/HR Atorvastatin Calcium 20 mg HS PO 11/05/24 22:00 11/21/24 21:58 20 MG Multivit/Ca Carb/ B Cmplx/FA/Prenat 1 tab DAILY PO 11/06/24 10:00 11/20/24 11:19 1 TAB Sevelamer HCl 800 mg TIDWM PO 11/06/24 08:00 11/20/24 18:27 800 MG Sodium Chloride 10 ml Q8HR IV 11/05/24 22:00 11/22/24 14:00 10 ML Acetaminophen/ Hydrocodone Bitart 1 tab Q4HP PRN PO 11/05/24 21:00 11/22/24 12:08 1 TAB Ondansetron HCl 4 mg Q4HP PRN IV 11/05/24 21:00 Docusate Sodium 100 mg BIDPRN PRN PO 11/05/24 21:00 Acetaminophen 650 mg Q6HP PRN PO 11/05/24 21:00 11/19/24 22:48 650 MG Nitroglycerin 0.4 mg Q5MINP PRN SL 11/05/24 22:45 Morphine Sulfate 2 mg Q30M PRN IV 11/05/24 22:45 Vancomycin HCl 0 ml @ 0 mls/hr UD IV 11/06/24 16:15 Dextrose 50 ml UD PRN IV 11/07/24 07:15 Cancel Cefepime HCl 50 ml @ 12.5 mls/hr DAILY IV 11/10/24 10:00 11/22/24 10:49 12.5 MLS/HR Labetalol HCl 10 mg Q4HPRN PRN IV 11/09/24 12:45 11/19/24 12:16 10 MG Dextrose 50 ml UD PRN IV 11/09/24 16:00 Cancel Diagnostic Test (Pha) 1 strip Q6HR 11/10/24 12:00 11/22/24 12:00 1 STRIP Insulin Human Regular FOLLOW SLIDING SCALE Q6HR SC 11/10/24 12:00 11/22/24 12:28 4 UNITS Dextrose 50 ml UD IV 11/10/24 11:45 Patient Own Medication 25 mg DAILY PO 11/13/24 10:00 UNV Potassium Chloride 100 ml @ 50 mls/hr Q2H IV 11/12/24 15:15 11/12/24 19:14 UNV Hydralazine HCl 10 mg Q6HP PRN IV 11/15/24 15:15 11/17/24 05:12 10 MG Artificial Tears 1 drop Q6HP PRN EACHEYE 11/17/24 23:00 Enteral Nutritional Formula 1,000 ml 30ML/HR GT 11/18/24 11:00 11/19/24 22:49 1,000 ML Levothyroxine Sodium 50 mcg QAM IV 11/20/24 07:00 11/22/24 06:17 50 MCG Gabapentin 300 mg BID NG 11/22/24 22:00 Clonazepam 0.25 mg BID PO 11/22/24 14:45 11/22/24 14:45 0.25 MG Laboratory Results Laboratory Tests 11/20/24 06:53 11/21/24 08:53 Microbiology Microbiology Date/Time Source Procedure Growth Status 11/07/24 12:33 Foot Right Gram Stain - Final Complete 11/07/24 12:33 Wound Culture - Final Acinetobacter baumannii Enterococcus faecalis Acinetobacter baumanii/haemol Complete 11/06/24 20:44 Blood Blood Culture - Final NO GROWTH AFTER 5 DAYS OF INCUBATION. Complete Assessment/Plan Assessment/Plan 69-year-old male with a known history of end-stage renal disease on hemodialysis, CAD status post CABG, morbid obesity classIII, initially presented to the hospital with a altered mental status found to have 1. Acute metabolic/septic encephalopathy 2. Septic shock currently resolved 3. Osteomyelitis of the left foot with a S2 noted Bactrim vomiting knee as well as Enterococcus faecalis 4. End-stage renal disease on hemodialysis 5. CAD status post CABG 6. Bilateral heel wounds 7. History of CVA 8. Morbid obesity classIII 9. DNR/DNI status. -continue antibiotics dialysis per renal, plan of care discussed with the bedside RN, s Plan discussed with: Daughter, Son My Orders Orders - AMANDA PARIKH MD Procedure Category Date Status Time Gabapentin Capsule PHA 11/22/24 In Process (Neurontin Capsule) 22:00 Clonazepam Tablet PHA 11/22/24 In Process (Klonopin Tablet) 14:45 Date of Service: Nov 22, 2024 Billing Provider: AMANDA PARIKH MD Common Visit Codes: [id number] INP/OBS CARE(MOD) AMANDA PARIKH MD Nov 22, 2024 16:32
--- NOTE | 2024-11-22 20:46 | DVHPN2 ---
Progress Note - Dictate Date Seen: Nov 22, 2024 Has the PT tested + for MRSA If YES, has PT been informed?: Yes Medical Necessity Reason Pt with a Central, PICC or Fol: No Subjective Mr. Daniel is a 69 years old gentleman with a history of hypotension, diabetes, coronary artery disease, atrial fibrillation, end-stage kidney failure on hemodialysis, morbid obesity, he was brought to the [facility] on 11/05/2024 with a chief complaint of chest pain. I have seen and examined the patient, I have talked to his nurse, and sitter. He is awake, but isn't responsive to verbal stimuli, not cooperative, he does not vocalize Social service input appreciated Family to decide code status Blood culture, 11/06/2024: Negative Wound code, 11/07/2024: Acinetobacter baumannii, Enterococcus faecalis, chronic pressure sore WBC/HB/PLT/MCV, 11/14/2024: 8.3/12.5/195/102.4 BUN/CR, 11/18/2024: 39/4.02 GFR, 11/18/2024: 19 HCO3, 11/05/24:28, 11/06/24: 28, 11/08/2019 5:17, 21, 21, 26 Glucose, 11/07/2024: 405, 421, 422, 280 Beta hydroxybutyric acid 11/17/2024: 0.701 Liver function tests, 11/07/2024: Unremarkable Vitamin B12, 11/19/2024: 1375 Folic acid, 11/19/2024: 19.27 CBC, 11/18/24: 14.44 FT4, 11/19/2024: 1.14 CT head, 11/05/2024: 1. No acute hemorrhage. 2. Area of encephalomalacia involving the mid left parietal lobe consistent with old infarct. No findings of craniotomy defect CT head, 11/10/2024: No intracranial hemorrhage or mass effect. Moderate chronic microvascular ischemic changes. Moderate global cerebral volume loss. Left frontal encephalomalacia. MRI, left foot, 11/11/2024: 1. Wound at the posterior plantar aspect of the foot adjacent to the posterior plantar aspect of the calcaneus with surrounding subcutaneous edema, possible cellulitis in the appropriate clinical setting. No organized fluid collection identified to suggest abscess. Marrow signal changes of the posterior calcaneus with associated STIR hyperintense and T1 hypointense signal, suspected osteomyelitis in the appropriate clinical setting. Correlate with clinical findings. 2. Additional findings as described above vital signs Vital Sign Date Time Temp Pulse Resp B/P (MAP) Pulse Ox O2 Delivery O2 Flow Rate FiO2 11/22/24 16:48 97.9 89 17 155/53 (87) 96 97.9 11/22/24 08:00 Nasal Cannula* 2 28 Total Intake and Output 11/21/24 11/21/24 11/22/24 15:00 23:00 07:00 Intake Total 100 ml 750 ml 700 ml Output Total 0 ml 0 ml Balance 100 ml 750 ml 700 ml medications Current Medications Medications Dose Ordered Sig/Haresh Route Start Time Stop Time Status Last Admin Dose Admin Famotidine 20 mg Q2D IV 11/05/24 22:00 11/21/24 21:59 20 MG Levetiracetam 100 ml @ 400 mls/hr BID IV 11/05/24 22:00 11/22/24 10:49 400 MLS/HR Atorvastatin Calcium 20 mg HS PO 11/05/24 22:00 11/21/24 21:58 20 MG Multivit/Ca Carb/ B Cmplx/FA/Prenat 1 tab DAILY PO 11/06/24 10:00 11/20/24 11:19 1 TAB Sevelamer HCl 800 mg TIDWM PO 11/06/24 08:00 11/20/24 18:27 800 MG Sodium Chloride 10 ml Q8HR IV 11/05/24 22:00 11/22/24 14:00 10 ML Acetaminophen/ Hydrocodone Bitart 1 tab Q4HP PRN PO 11/05/24 21:00 11/22/24 12:08 1 TAB Ondansetron HCl 4 mg Q4HP PRN IV 11/05/24 21:00 Docusate Sodium 100 mg BIDPRN PRN PO 11/05/24 21:00 Acetaminophen 650 mg Q6HP PRN PO 11/05/24 21:00 11/19/24 22:48 650 MG Nitroglycerin 0.4 mg Q5MINP PRN SL 11/05/24 22:45 Morphine Sulfate 2 mg Q30M PRN IV 11/05/24 22:45 Vancomycin HCl 0 ml @ 0 mls/hr UD IV 11/06/24 16:15 Dextrose 50 ml UD PRN IV 11/07/24 07:15 Cancel Cefepime HCl 50 ml @ 12.5 mls/hr DAILY IV 11/10/24 10:00 11/22/24 10:49 12.5 MLS/HR Labetalol HCl 10 mg Q4HPRN PRN IV 11/09/24 12:45 11/19/24 12:16 10 MG Dextrose 50 ml UD PRN IV 11/09/24 16:00 Cancel Diagnostic Test (Pha) 1 strip Q6HR 11/10/24 12:00 11/22/24 18:16 1 STRIP Insulin Human Regular FOLLOW SLIDING SCALE Q6HR SC 11/10/24 12:00 11/22/24 17:41 2 UNITS Dextrose 50 ml UD IV 11/10/24 11:45 Patient Own Medication 25 mg DAILY PO 11/13/24 10:00 UNV Potassium Chloride 100 ml @ 50 mls/hr Q2H IV 11/12/24 15:15 11/12/24 19:14 UNV Hydralazine HCl 10 mg Q6HP PRN IV 11/15/24 15:15 11/17/24 05:12 10 MG Artificial Tears 1 drop Q6HP PRN EACHEYE 11/17/24 23:00 Enteral Nutritional Formula 1,000 ml 30ML/HR GT 11/18/24 11:00 11/19/24 22:49 1,000 ML Levothyroxine Sodium 50 mcg QAM IV 11/20/24 07:00 11/22/24 06:17 50 MCG Gabapentin 300 mg BID NG 11/22/24 22:00 Clonazepam 0.25 mg BID PO 11/22/24 14:45 11/22/24 14:45 0.25 MG objective General: the patient is well developed and nourished. No acute distress. MUSCULOSKELETAL EXAM: Wounds in both feet MENTAL STATUS: Subjective for SPEECH, LANGUAGE, HIGHER CORTICAL FUNCTION: Subjective CRANIAL NERVES: #2: Deferred #3,4,6: Deferred #5: Facial sensation fine in all three divisions bilaterally. Mandibular strength intact. #7: Facial muscles symmetrical and strength intact. #8: Deferred #9,10: Deferred #11: Deferred #12: Deferred SENSATION: History painful stimuli bilaterally MOTOR: Normal tone in the upper and lower extremity. Normal muscle bulk. No fasciculations. No abnormal movements or posturing. He only moves the left upper extremity REFLEXES: Deep tendon reflexes are symmetrical. No pathological reflexes. CEREBELLAR/COORDINATION: Deferred GAIT/STATION: deferred laboratory and microbiology Laboratory Tests 11/21/24 08:53 11/20/24 06:53 Test 11/21/24 08:53 Range/Units Serum Glucose 187 H 74-106 mg/dL Problem List Altered mental status Metabolic encephalopathy secondary to sepsis, septic shock Chronic organic brain syndrome Dementia/vascular dementia Multiple stroke with residual right-sided hemiplegia Sepsis Osteomyelitis Kidney failure on hemodialysis For thyroidism Assessment/Plan Monitoring Supportive treatment Telemetry EEG IV antibiotics Synthroid 50 mcg IV daily Hemodialysis Wound Care More recommendation per clinical course He has a poor prognosis for meaningful/overall recovery This medical document was created using an electronic medical record system with [employer] dictation system. Although this document has been carefully reviewed, there may still be some phonetic and typographical errors. These areas are purely typographical due to imperfections of the software programs, and do not reflect any compromise in the patient's medical care. Prognosis poor Dietary Evaluation Review Comments: 1) Initiate Pro-Stat @ 30 mL qd 2) If patient remains NPO > 7 days, consider EN/TPN to meet at least 75% of estimated daily needs 3) If GI is preferred, consider Nepro @ 35 mL/hr goalrate as tolerated. EN regimen (including Pro-Stat) provides 1612 kcals, 83g Pro, and 611 mL free H2O per 24 hrs. EN rate (including Pro-Stat) will meet 91% estimated energy needs and ~51% estimated protein needs 4) Advance to 60 CCHO renal diet when medically feasible, pending ST approval 5) Collect HbA1c 6) Refer to outpatient RD/[facility] for weight management 7) Follow-up with nephrology and cardiology 8) Continue to monitor I&O, labs, and skin integrity Expected Outcomes/Goals: 1) patient to receive nutrition support within 7 days of NPO status 2) labs and wounds to improve 3) diet to advance 4) gradual wt loss 5) f/u in 2-3 days Plan discussed with: Other ARELI YANG MD Nov 22, 2024 20:46
[2024-11-22] MEDS: GABAPENTIN 300 MG CAP NG SCH (21:54)
[2024-11-22] MEDS ORDERED: GABAPENTIN 300 MG CAP PO SCH (22:00)
--- NOTE | 2024-11-22 22:11 | DVHEEG2 ---
Neurology EEG Procedural Note Procedural Note EXAM DATE: 11/19/2024 REFERRING DOCTOR: Dr. Yang TECHNIQUE: Eighteen channels of EEG, 2 channels of EOG, and 1 channel of EKG were recorded using the [employer] 10/20 system. CLINICAL DATA: The patient was referred for an EEG evaluation for the evidence of seizure disorder. MEDICATIONS: See the chart BACKGROUND ACTIVITY: There was movement artifacts in the recording. The record showed diffuse most low-amplitude delta theta activity over both hemispheres ACTIVATION: Hyperventilation: Not done Photic Stimulation: Not done Sleep: Not seen IMPRESSION: This is a moderately abnormal EEG, this EEG is seen in moderate cerebral dysfunction secondary to metabolic/hypoxic encephalopathy or medication effect, please correlate clinically The EKG channel showed a regular heart rate of 90/min[place] [address] ARELI YANG MD Nov 22, 2024 22:11
[2024-11-23] VITALS (8 sets, daily range): BP systolic 90–153; BP diastolic 33–48; PULSE 66–99; RESP 12–22; TEMP 97.2–98.8; O2SAT 93–100
[2024-11-23] MEDS: SODIUM CHL 0.9% 1000 ML BAG XX ONE (07:00)
--- NOTE | 2024-11-23 08:56 | DVH ---
CHEST RADIOGRAPH Indication: ng tube placement confirmation Technique: Single frontal view of the chest was obtained COMPARISON: XY CHEST XRAY 1 VIEW on DOS: 11/05/24 FINDINGS: Lines and Tubes: Enteric catheter courses below the level of the diaphragm and terminates just beyond the level of the gastroesophageal junction. Right PermCath unchanged. Lungs: Moderate diffuse increased prominence of the pulmonary vasculature. Small right pleural effusion. No pneumothorax. Cardiomediastinal contours: Cardiomegaly status post median sternotomy. Bones: Unremarkable IMPRESSION: 1. Cardiomegaly, small right pleural effusion and diffuse increased prominence of the pulmonary vasculature. 2. Enteric catheter as above. 3. Right PermCath. TIAN IYER
[2024-11-23 09:42] LABS: Hematocrit 35.8 % (41.0-53.0); Hemoglobin 11.6 g/dL (13.5-17.5); Nucleated Red Blood Cells % 0.1 %
[2024-11-23 09:47] LABS: Mean Corpuscular Hemoglobin 32.9 pg (28.0-32.0); Mean Corpuscular Volume 101.7 fL (80.0-100.0)
--- NOTE | 2024-11-23 11:16 | DVHPN2 ---
Progress Note - Dictate Date Seen: Nov 23, 2024 Has the PT tested + for MRSA If YES, has PT been informed?: Yes Medical Necessity Reason Pt with a Central, PICC or Fol: No Subjective Mr. Daniel is a 69 years old gentleman with a history of hypotension, diabetes, coronary artery disease, atrial fibrillation, end-stage kidney failure on hemodialysis, morbid obesity, he was brought to the [facility] on 11/05/2024 with a chief complaint of chest pain. I have seen and examined the patient, I have talked to his nurse, and sitter. Her daughter are in the room with him. Without bilingual staff help, I have discussed with his and the daughter about the patient overall situation and the likely poor prognosis for recovery. Daughter mentioned all the Children but no his agree the patient to be treated conservatively, he voiced she wants to do everything for the patient Blood culture, 11/06/2024: Negative Wound code, 11/07/2024: Acinetobacter baumannii, Enterococcus faecalis, chronic pressure sore WBC/HB/PLT/MCV, 11/14/2024: 8.3/12.5/195/102.4 BUN/CR, 11/18/2024: 39/4.02 GFR, 11/18/2024: 19 HCO3, 11/05/24:28, 11/06/24: 28, 11/08/2019 5:17, 21, 21, 26 Glucose, 11/07/2024: 405, 421, 422, 280 Beta hydroxybutyric acid 11/17/2024: 0.701 Liver function tests, 11/07/2024: Unremarkable Vitamin B12, 11/19/2024: 1375 Folic acid, 11/19/2024: 19.27 CBC, 11/18/24: 14.44 FT4, 11/19/2024: 1.14 CT head, 11/05/2024: 1. No acute hemorrhage. 2. Area of encephalomalacia involving the mid left parietal lobe consistent with old infarct. No findings of craniotomy defect CT head, 11/10/2024: No intracranial hemorrhage or mass effect. Moderate chronic microvascular ischemic changes. Moderate global cerebral volume loss. Left frontal encephalomalacia. MRI, left foot, 11/11/2024: 1. Wound at the posterior plantar aspect of the foot adjacent to the posterior plantar aspect of the calcaneus with surrounding subcutaneous edema, possible cellulitis in the appropriate clinical setting. No organized fluid collection identified to suggest abscess. Marrow signal changes of the posterior calcaneus with associated STIR hyperintense and T1 hypointense signal, suspected osteomyelitis in the appropriate clinical setting. Correlate with clinical findings. 2. Additional findings as described above vital signs Vital Sign Date Time Temp Pulse Resp B/P (MAP) Pulse Ox O2 Delivery O2 Flow Rate FiO2 11/23/24 08:00 83 11/23/24 05:00 97.4 22 95/35 (55) 100 97.4 11/22/24 20:00 Room Air* 0 21 Total Intake and Output 11/22/24 11/22/24 11/23/24 15:00 23:00 07:00 Intake Total 100 ml 100 ml 0 ml Output Total 100 ml Balance 100 ml 0 ml 0 ml medications Current Medications Medications Dose Ordered Sig/Haresh Route Start Time Stop Time Status Last Admin Dose Admin Famotidine 20 mg Q2D IV 11/05/24 22:00 11/21/24 21:59 20 MG Levetiracetam 100 ml @ 400 mls/hr BID IV 11/05/24 22:00 11/22/24 21:53 400 MLS/HR Atorvastatin Calcium 20 mg HS PO 11/05/24 22:00 11/22/24 21:54 20 MG Multivit/Ca Carb/ B Cmplx/FA/Prenat 1 tab DAILY PO 11/06/24 10:00 11/20/24 11:19 1 TAB Sevelamer HCl 800 mg TIDWM PO 11/06/24 08:00 11/20/24 18:27 800 MG Sodium Chloride 10 ml Q8HR IV 11/05/24 22:00 11/23/24 06:13 10 ML Acetaminophen/ Hydrocodone Bitart 1 tab Q4HP PRN PO 11/05/24 21:00 11/22/24 12:08 1 TAB Ondansetron HCl 4 mg Q4HP PRN IV 11/05/24 21:00 Docusate Sodium 100 mg BIDPRN PRN PO 11/05/24 21:00 Acetaminophen 650 mg Q6HP PRN PO 11/05/24 21:00 11/19/24 22:48 650 MG Nitroglycerin 0.4 mg Q5MINP PRN SL 11/05/24 22:45 Morphine Sulfate 2 mg Q30M PRN IV 11/05/24 22:45 Vancomycin HCl 0 ml @ 0 mls/hr UD IV 11/06/24 16:15 Dextrose 50 ml UD PRN IV 11/07/24 07:15 Cancel Cefepime HCl 50 ml @ 12.5 mls/hr DAILY IV 11/10/24 10:00 11/22/24 10:49 12.5 MLS/HR Labetalol HCl 10 mg Q4HPRN PRN IV 11/09/24 12:45 11/19/24 12:16 10 MG Dextrose 50 ml UD PRN IV 11/09/24 16:00 Cancel Diagnostic Test (Pha) 1 strip Q6HR 11/10/24 12:00 11/23/24 06:22 1 STRIP Insulin Human Regular FOLLOW SLIDING SCALE Q6HR SC 11/10/24 12:00 11/23/24 06:00 4 UNITS Dextrose 50 ml UD IV 11/10/24 11:45 Patient Own Medication 25 mg DAILY PO 11/13/24 10:00 UNV Potassium Chloride 100 ml @ 50 mls/hr Q2H IV 11/12/24 15:15 11/12/24 19:14 UNV Hydralazine HCl 10 mg Q6HP PRN IV 11/15/24 15:15 11/17/24 05:12 10 MG Artificial Tears 1 drop Q6HP PRN EACHEYE 11/17/24 23:00 Enteral Nutritional Formula 1,000 ml 30ML/HR GT 11/18/24 11:00 11/19/24 22:49 1,000 ML Levothyroxine Sodium 50 mcg QAM IV 11/20/24 07:00 11/23/24 06:14 50 MCG Gabapentin 300 mg BID NG 11/22/24 22:00 11/22/24 21:54 300 MG Clonazepam 0.25 mg BID PO 11/22/24 14:45 11/22/24 21:54 0.25 MG objective General: the patient is well developed and nourished. No acute distress. MUSCULOSKELETAL EXAM: Wounds in both feet MENTAL STATUS: Subjective for SPEECH, LANGUAGE, HIGHER CORTICAL FUNCTION: Subjective CRANIAL NERVES: #2: Deferred #3,4,6: Deferred #5: Facial sensation fine in all three divisions bilaterally. Mandibular strength intact. #7: Facial muscles symmetrical and strength intact. #8: Deferred #9,10: Deferred #11: Deferred #12: Deferred SENSATION: History painful stimuli bilaterally MOTOR: Normal tone in the upper and lower extremity. Normal muscle bulk. No fasciculations. No abnormal movements or posturing. He only moves the left upper extremity REFLEXES: Deep tendon reflexes are symmetrical. No pathological reflexes. CEREBELLAR/COORDINATION: Deferred GAIT/STATION: deferred laboratory and microbiology Laboratory Tests 11/23/24 08:56 11/21/24 08:53 Test 11/21/24 08:53 Range/Units Serum Glucose 187 H 74-106 mg/dL Problem List Altered mental status Metabolic encephalopathy secondary to sepsis, septic shock Chronic organic brain syndrome Dementia/vascular dementia Multiple stroke with residual right-sided hemiplegia Sepsis Osteomyelitis Kidney failure on hemodialysis For thyroidism Assessment/Plan Monitoring Supportive treatment Telemetry EEG IV antibiotics Synthroid 50 mcg IV daily Hemodialysis Wound Care More recommendation per clinical course He has a poor prognosis for meaningful/overall recovery. decided on 11/23/2024 not to change code status This medical document was created using an electronic medical record system with Mamina Shkola dictation system. Although this document has been carefully reviewed, there may still be some phonetic and typographical errors. These areas are purely typographical due to imperfections of the software programs, and do not reflect any compromise in the patient's medical care. Prognosis poor Dietary Evaluation Review Comments: 1) Initiate Pro-Stat @ 30 mL qd 2) If patient remains NPO > 7 days, consider EN/TPN to meet at least 75% of estimated daily needs 3) If GI is preferred, consider Nepro @ 35 mL/hr goalrate as tolerated. EN regimen (including Pro-Stat) provides 1612 kcals, 83g Pro, and 611 mL free H2O per 24 hrs. EN rate (including Pro-Stat) will meet 91% estimated energy needs and ~51% estimated protein needs 4) Advance to 60 CCHO renal diet when medically feasible, pending ST approval 5) Collect HbA1c 6) Refer to outpatient RD/CD[facility] for weight management 7) Follow-up with nephrology and cardiology 8) Continue to monitor I&O, labs, and skin integrity Expected Outcomes/Goals: 1) patient to receive nutrition support within 7 days of NPO status 2) labs and wounds to improve 3) diet to advance 4) gradual wt loss 5) f/u in 2-3 days Plan discussed with: Spouse, Daughter, Other Total Time (mins): 40 ARELI YANG MD Nov 23, 2024 11:16
[2024-11-23] MEDS: VANCOMYCIN 500mg/100mL 100 ML IV ONE (14:18)
--- NOTE | 2024-11-23 16:37 | DVHPN2 ---
Progress Note - Dictate Date Seen: Nov 23, 2024 Has the PT tested + for MRSA If YES, has PT been informed?: Yes Medical Necessity Reason Pt with a Central, PICC or Fol: No Subjective Family at bedside. Contemplating hospice vital signs Vital Sign Date Time Temp Pulse Resp B/P (MAP) Pulse Ox O2 Delivery O2 Flow Rate FiO2 11/23/24 13:00 98.8 99 18 90/41 (57) 99 98.8 11/23/24 08:00 Room Air* 0 21 Total Intake and Output 11/22/24 11/22/24 11/23/24 15:00 23:00 07:00 Intake Total 100 ml 100 ml 0 ml Output Total 100 ml Balance 100 ml 0 ml 0 ml medications Current Medications Medications Dose Ordered Sig/Haresh Route Start Time Stop Time Status Last Admin Dose Admin Famotidine 20 mg Q2D IV 11/05/24 22:00 11/21/24 21:59 20 MG Levetiracetam 100 ml @ 400 mls/hr BID IV 11/05/24 22:00 11/23/24 13:43 400 MLS/HR Atorvastatin Calcium 20 mg HS PO 11/05/24 22:00 11/22/24 21:54 20 MG Multivit/Ca Carb/ B Cmplx/FA/Prenat 1 tab DAILY PO 11/06/24 10:00 11/23/24 13:56 1 TAB Sevelamer HCl 800 mg TIDWM PO 11/06/24 08:00 11/20/24 18:27 800 MG Sodium Chloride 10 ml Q8HR IV 11/05/24 22:00 11/23/24 14:19 10 ML Acetaminophen/ Hydrocodone Bitart 1 tab Q4HP PRN PO 11/05/24 21:00 11/23/24 13:56 1 TAB Ondansetron HCl 4 mg Q4HP PRN IV 11/05/24 21:00 Docusate Sodium 100 mg BIDPRN PRN PO 11/05/24 21:00 Acetaminophen 650 mg Q6HP PRN PO 11/05/24 21:00 11/19/24 22:48 650 MG Nitroglycerin 0.4 mg Q5MINP PRN SL 11/05/24 22:45 Morphine Sulfate 2 mg Q30M PRN IV 11/05/24 22:45 Vancomycin HCl 0 ml @ 0 mls/hr UD IV 11/06/24 16:15 Dextrose 50 ml UD PRN IV 11/07/24 07:15 Cancel Cefepime HCl 50 ml @ 12.5 mls/hr DAILY IV 11/10/24 10:00 11/22/24 10:49 12.5 MLS/HR Labetalol HCl 10 mg Q4HPRN PRN IV 11/09/24 12:45 11/19/24 12:16 10 MG Dextrose 50 ml UD PRN IV 11/09/24 16:00 Cancel Diagnostic Test (Pha) 1 strip Q6HR 11/10/24 12:00 11/23/24 12:27 1 STRIP Insulin Human Regular FOLLOW SLIDING SCALE Q6HR SC 11/10/24 12:00 11/23/24 12:25 2 UNITS Dextrose 50 ml UD IV 11/10/24 11:45 Patient Own Medication 25 mg DAILY PO 11/13/24 10:00 UNV Potassium Chloride 100 ml @ 50 mls/hr Q2H IV 11/12/24 15:15 11/12/24 19:14 UNV Hydralazine HCl 10 mg Q6HP PRN IV 11/15/24 15:15 11/17/24 05:12 10 MG Artificial Tears 1 drop Q6HP PRN EACHEYE 11/17/24 23:00 Enteral Nutritional Formula 1,000 ml 30ML/HR GT 11/18/24 11:00 11/19/24 22:49 1,000 ML Levothyroxine Sodium 50 mcg QAM IV 11/20/24 07:00 11/23/24 06:14 50 MCG Gabapentin 300 mg BID NG 11/22/24 22:00 11/23/24 13:56 300 MG Clonazepam 0.25 mg BID PO 11/22/24 14:45 11/22/24 21:54 0.25 MG objective Lethargic HEENT: No evidence of JVD, no oral ulcers. Pulmonary: Diminished on auscultation bilaterally Cardiovascular S1-S2, no S3 or S4 Abdomen: Bowel sounds positive, soft no rebound tenderness Skin: No rash Neurological: bed-bound Extremities: 1+ edema in the lower extremities laboratory and microbiology Laboratory Tests 11/23/24 08:56 11/21/24 08:53 Test 11/21/24 08:53 Range/Units Serum Glucose 187 H 74-106 mg/dL Problem List 1. End-stage renal disease on hemodialysis TTS schedule 2. Intra dialytic hypotension, he has chronic hypotension, on midodrine 3. Obesity 4. CAD 5. Bilateral feet wounds 6. History of CVA 7. Diabetes type 2, uncontrolled with hyperglycemia 8. Encephalopathy, oversedation 9. Hypothyroidism Assessment/Plan Continue HD on TTS schedule Midodrine t.i.d. awaiting family decision regarding hospice Continue with IV antibiotics Dietary Evaluation Review Comments: 1) Initiate Pro-Stat @ 30 mL qd 2) If patient remains NPO > 7 days, consider EN/TPN to meet at least 75% of estimated daily needs 3) If GI is preferred, consider Nepro @ 35 mL/hr goalrate as tolerated. EN regimen (including Pro-Stat) provides 1612 kcals, 83g Pro, and 611 mL free H2O per 24 hrs. EN rate (including Pro-Stat) will meet 91% estimated energy needs and ~51% estimated protein needs 4) Advance to 60 CCHO renal diet when medically feasible, pending ST approval 5) Collect HbA1c 6) Refer to outpatient RD/[facility] for weight management 7) Follow-up with nephrology and cardiology 8) Continue to monitor I&O, labs, and skin integrity Expected Outcomes/Goals: 1) patient to receive nutrition support within 7 days of NPO status 2) labs and wounds to improve 3) diet to advance 4) gradual wt loss 5) f/u in 2-3 days Plan discussed with: Spouse MONICA FIELD MD Nov 23, 2024 16:37
--- NOTE | 2024-11-23 17:51 | DVHPN2 ---
Subjective Patient has remained confused, family member including daughter at bedside were updated, patient is currently DNR DNI status now. Family will decide regarding the hospice in next day or so. Reviewed: Care Plan, H&P, Labs, Medications, Previous Orders Changes from previous H/P or p: No Changes General: Per HPI Eyes: No Pain, No Vision change, No Conjunctivae inflammation, No Eyelid inflammation, No Other, No Redness ENT: No Ear pain, No Ear discharge, No Nose pain, No Nose discharge, No Nose congestion, No Mouth pain, No Mouth swelling, No Throat pain, No Throat swelling, No Other Cardiovascular: Chest Pain; No Palpitations, No Orthopnea, No Paroxysmal Noc. Dyspnea, No Edema, No Lt Headedness, No Other Respiratory: No Cough, No Dry; Shortness of breath; No SOB with excertion, No Wheezing, No Hemoptysis, No Pleuritic Pain, No Sputum; Other (SOB at rest) Gastrointestinal: No Nausea, No Vomiting, No Abdominal Pain, No Diarrhea, No Constipation, No Melena, No Hematochezia, No Other Genitourinary: No Dysuria, No Frequency, No Incontinence, No Hematuria, No Retention, No Other Musculoskeletal: No other, No neck pain, No shoulder pain, No arm pain, No back pain, No hand pain, No leg pain, No foot pain Skin: No Rash, No Lesions, No Jaundice, No Bruising, No Other Objective Vitals Vital Signs Date Time Temp Pulse Resp B/P (MAP) Pulse Ox O2 Delivery O2 Flow Rate FiO2 11/23/24 17:00 98.6 80 18 107/33 (57) 98 98.6 11/23/24 08:00 Room Air* 0 21 Intake/Output Intake and Output 11/23/24 07:00 Intake Total 200 ml Output Total 100 ml Balance 100 ml Intake Oral 0 ml IV Total 200 ml Output Urine Total 100 ml # Bowel Movements 1 Exam HEENT pupils are reactive Neck is supple CV is S1-S2 regular rate and rhythm Respiratory diminished breath sounds bases GI positive bowel sound Extremity trace edema [employer] patient does not follow commands General Appearance: mild distress, Other (Patient very hard to awaken.) HEENT: Atraumatic, PERRLA Lungs: Clear to auscultation, Normal air movement Cardiovascular: Normal S1, Normal S2 Abdomen: Normal bowel sounds, Soft, No tenderness, No hepatospenomegaly Skin: Wounds (See nurse notes and pictures) Psych/Mental Status: Other (Altered mental status) Medications Current Medications Medications Dose Ordered Sig/Haresh Route Start Time Stop Time Status Last Admin Dose Admin Famotidine 20 mg Q2D IV 11/05/24 22:00 11/21/24 21:59 20 MG Levetiracetam 100 ml @ 400 mls/hr BID IV 11/05/24 22:00 11/23/24 13:43 400 MLS/HR Atorvastatin Calcium 20 mg HS PO 11/05/24 22:00 11/22/24 21:54 20 MG Multivit/Ca Carb/ B Cmplx/FA/Prenat 1 tab DAILY PO 11/06/24 10:00 11/23/24 13:56 1 TAB Sevelamer HCl 800 mg TIDWM PO 11/06/24 08:00 11/20/24 18:27 800 MG Sodium Chloride 10 ml Q8HR IV 11/05/24 22:00 11/23/24 14:19 10 ML Acetaminophen/ Hydrocodone Bitart 1 tab Q4HP PRN PO 11/05/24 21:00 11/23/24 13:56 1 TAB Ondansetron HCl 4 mg Q4HP PRN IV 11/05/24 21:00 Docusate Sodium 100 mg BIDPRN PRN PO 11/05/24 21:00 Acetaminophen 650 mg Q6HP PRN PO 11/05/24 21:00 11/19/24 22:48 650 MG Nitroglycerin 0.4 mg Q5MINP PRN SL 11/05/24 22:45 Morphine Sulfate 2 mg Q30M PRN IV 11/05/24 22:45 Dextrose 50 ml UD PRN IV 11/07/24 07:15 Cancel Cefepime HCl 50 ml @ 12.5 mls/hr DAILY IV 11/10/24 10:00 11/23/24 10:00 12.5 MLS/HR Labetalol HCl 10 mg Q4HPRN PRN IV 11/09/24 12:45 11/19/24 12:16 10 MG Dextrose 50 ml UD PRN IV 11/09/24 16:00 Cancel Diagnostic Test (Pha) 1 strip Q6HR 11/10/24 12:00 11/23/24 12:27 1 STRIP Insulin Human Regular FOLLOW SLIDING SCALE Q6HR SC 11/10/24 12:00 11/23/24 12:25 2 UNITS Dextrose 50 ml UD IV 11/10/24 11:45 Patient Own Medication 25 mg DAILY PO 11/13/24 10:00 UNV Potassium Chloride 100 ml @ 50 mls/hr Q2H IV 11/12/24 15:15 11/12/24 19:14 UNV Hydralazine HCl 10 mg Q6HP PRN IV 11/15/24 15:15 11/17/24 05:12 10 MG Artificial Tears 1 drop Q6HP PRN EACHEYE 11/17/24 23:00 Enteral Nutritional Formula 1,000 ml 30ML/HR GT 11/18/24 11:00 11/19/24 22:49 1,000 ML Levothyroxine Sodium 50 mcg QAM IV 11/20/24 07:00 11/23/24 06:14 50 MCG Gabapentin 300 mg BID NG 11/22/24 22:00 11/23/24 13:56 300 MG Clonazepam 0.25 mg BID PO 11/22/24 14:45 11/22/24 21:54 0.25 MG Laboratory Results Laboratory Tests 11/21/24 08:53 11/23/24 08:56 Microbiology Microbiology Date/Time Source Procedure Growth Status 11/07/24 12:33 Foot Right Gram Stain - Final Complete 11/07/24 12:33 Wound Culture - Final Acinetobacter baumannii Enterococcus faecalis Acinetobacter baumanii/haemol Complete 11/06/24 20:44 Blood Blood Culture - Final NO GROWTH AFTER 5 DAYS OF INCUBATION. Complete Assessment/Plan Assessment/Plan 69-year-old male with a known history of end-stage renal disease on hemodialysis, CAD status post CABG, morbid obesity classIII, initially presented to the hospital with a altered mental status found to have 1. Acute metabolic/septic encephalopathy 2. Septic shock currently resolved 3. Osteomyelitis of the left foot with a S2 noted Bactrim vomiting knee as well as Enterococcus faecalis 4. End-stage renal disease on hemodialysis 5. CAD status post CABG 6. Bilateral heel wounds 7. History of CVA 8. Morbid obesity classIII 9. DNR/DNI status. -continue antibiotics dialysis per renal, plan of care discussed with the bedside RN, s Plan discussed with: Spouse, Daughter, Other Date of Service: Nov 23, 2024 Billing Provider: AMANDA PARIKH MD Common Visit Codes: [id number] INP/OBS CARE(MOD) AMANDA PARIKH MD Nov 23, 2024 17:51
[2024-11-24] VITALS (21 sets, daily range): BP systolic 79–131; BP diastolic 28–63; PULSE 71–88; RESP 6–12; TEMP 97.5–98.3; O2SAT 98–100
--- NOTE | 2024-11-24 06:26 | DVH ---
CHEST RADIOGRAPH Indication: NG tube placement verification Technique: Single frontal view of the chest was obtained to assess for NG tube. Comparison: XY CHEST XRAY 1 VIEW on DOS: 11/22/24 FINDINGS: Problem oriented study specifically to evaluate for the position of the enteric tube demonstrating th e enteric tube terminating in the stomach. IMPRESSION: 1. Enteric tube terminating in the stomach.
[2024-11-24] MEDS ORDERED: VANCOMYCIN PER PHARMACY 0 MG IV SCH (09:30)
--- NOTE | 2024-11-24 16:00 | DVHPN2 ---
Progress Note - Dictate Date Seen: Nov 24, 2024 Has the PT tested + for MRSA If YES, has PT been informed?: Yes Medical Necessity Reason Pt with a Central, PICC or Fol: No Subjective No acute events vital signs Vital Sign Date Time Temp Pulse Resp B/P (MAP) Pulse Ox O2 Delivery O2 Flow Rate FiO2 11/24/24 15:00 98.3 73 8 90/36 (54) 100 98.3 11/23/24 20:00 Room Air* 0 21 Total Intake and Output 11/23/24 11/23/24 11/24/24 15:00 23:00 07:00 Intake Total 150 ml 0 ml 0 ml Output Total 0 ml Balance 150 ml 0 ml 0 ml medications Current Medications Medications Dose Ordered Sig/Haresh Route Start Time Stop Time Status Last Admin Dose Admin Famotidine 20 mg Q2D IV 11/05/24 22:00 11/23/24 21:59 20 MG Levetiracetam 100 ml @ 400 mls/hr BID IV 11/05/24 22:00 11/24/24 10:04 400 MLS/HR Atorvastatin Calcium 20 mg HS PO 11/05/24 22:00 11/23/24 21:55 20 MG Multivit/Ca Carb/ B Cmplx/FA/Prenat 1 tab DAILY PO 11/06/24 10:00 11/24/24 10:07 1 TAB Sevelamer HCl 800 mg TIDWM PO 11/06/24 08:00 11/24/24 10:07 800 MG Sodium Chloride 10 ml Q8HR IV 11/05/24 22:00 11/24/24 12:53 10 ML Ondansetron HCl 4 mg Q4HP PRN IV 11/05/24 21:00 Docusate Sodium 100 mg BIDPRN PRN PO 11/05/24 21:00 Acetaminophen 650 mg Q6HP PRN PO 11/05/24 21:00 11/19/24 22:48 650 MG Nitroglycerin 0.4 mg Q5MINP PRN SL 11/05/24 22:45 Dextrose 50 ml UD PRN IV 11/07/24 07:15 Cancel Cefepime HCl 50 ml @ 12.5 mls/hr DAILY IV 11/10/24 10:00 11/24/24 10:05 12.5 MLS/HR Labetalol HCl 10 mg Q4HPRN PRN IV 11/09/24 12:45 11/19/24 12:16 10 MG Dextrose 50 ml UD PRN IV 11/09/24 16:00 Cancel Diagnostic Test (Pha) 1 strip Q6HR 11/10/24 12:00 11/24/24 12:00 1 STRIP Insulin Human Regular FOLLOW SLIDING SCALE Q6HR SC 11/10/24 12:00 11/24/24 12:00 4 UNITS Dextrose 50 ml UD IV 11/10/24 11:45 Patient Own Medication 25 mg DAILY PO 11/13/24 10:00 UNV Potassium Chloride 100 ml @ 50 mls/hr Q2H IV 11/12/24 15:15 11/12/24 19:14 UNV Hydralazine HCl 10 mg Q6HP PRN IV 11/15/24 15:15 11/17/24 05:12 10 MG Artificial Tears 1 drop Q6HP PRN EACHEYE 11/17/24 23:00 Enteral Nutritional Formula 1,000 ml 30ML/HR GT 11/18/24 11:00 11/19/24 22:49 1,000 ML Levothyroxine Sodium 50 mcg QAM IV 11/20/24 07:00 11/24/24 06:05 50 MCG Gabapentin 300 mg BID NG 11/22/24 22:00 11/24/24 10:07 300 MG Clonazepam 0.25 mg BID PO 11/22/24 14:45 11/24/24 10:07 0.25 MG Vancomycin HCl 0 ml @ 0 mls/hr UD IV 11/24/24 09:30 objective Lethargic HEENT: No evidence of JVD, no oral ulcers. Pulmonary: Diminished on auscultation bilaterally Cardiovascular S1-S2, no S3 or S4 Abdomen: Bowel sounds positive, soft no rebound tenderness Skin: No rash Neurological: bed-bound Extremities: 1+ edema in the lower extremities laboratory and microbiology Laboratory Tests 11/24/24 09:12 11/23/24 08:56 11/21/24 08:53 Test 11/21/24 08:53 Range/Units Serum Glucose 187 H 74-106 mg/dL Problem List 1. End-stage renal disease on hemodialysis TTS schedule 2. Intra dialytic hypotension, he has chronic hypotension, on midodrine 3. Obesity 4. CAD 5. Bilateral feet wounds 6. History of CVA 7. Diabetes type 2, uncontrolled with hyperglycemia 8. Encephalopathy, oversedation 9. Hypothyroidism Assessment/Plan Continue HD on TTS schedule Midodrine t.i.d. awaiting family decision regarding hospice Continue with IV antibiotics continue TF Dietary Evaluation Review Comments: 1) Initiate Pro-Stat @ 30 mL qd 2) If patient remains NPO > 7 days, consider EN/TPN to meet at least 75% of estimated daily needs 3) If GI is preferred, consider Nepro @ 35 mL/hr goalrate as tolerated. EN regimen (including Pro-Stat) provides 1612 kcals, 83g Pro, and 611 mL free H2O per 24 hrs. EN rate (including Pro-Stat) will meet 91% estimated energy needs and ~51% estimated protein needs 4) Advance to 60 CCHO renal diet when medically feasible, pending ST approval 5) Collect HbA1c 6) Refer to outpatient RD/[facility] for weight management 7) Follow-up with nephrology and cardiology 8) Continue to monitor I&O, labs, and skin integrity Expected Outcomes/Goals: 1) patient to receive nutrition support within 7 days of NPO status 2) labs and wounds to improve 3) diet to advance 4) gradual wt loss 5) f/u in 2-3 days Plan discussed with: MONICA Laureano MD Nov 24, 2024 16:00
--- NOTE | 2024-11-24 16:12 | DVHPN2 ---
Subjective Patient has remained confused, family member including daughter at bedside were updated, patient is currently DNR DNI status now. Family will decide regarding the hospice in next day or so. Reviewed: Care Plan, H&P, Labs, Medications, Previous Orders Changes from previous H/P or p: No Changes General: Per HPI Eyes: No Pain, No Vision change, No Conjunctivae inflammation, No Eyelid inflammation, No Other, No Redness ENT: No Ear pain, No Ear discharge, No Nose pain, No Nose discharge, No Nose congestion, No Mouth pain, No Mouth swelling, No Throat pain, No Throat swelling, No Other Cardiovascular: Chest Pain; No Palpitations, No Orthopnea, No Paroxysmal Noc. Dyspnea, No Edema, No Lt Headedness, No Other Respiratory: No Cough, No Dry; Shortness of breath; No SOB with excertion, No Wheezing, No Hemoptysis, No Pleuritic Pain, No Sputum; Other (SOB at rest) Gastrointestinal: No Nausea, No Vomiting, No Abdominal Pain, No Diarrhea, No Constipation, No Melena, No Hematochezia, No Other Genitourinary: No Dysuria, No Frequency, No Incontinence, No Hematuria, No Retention, No Other Musculoskeletal: No other, No neck pain, No shoulder pain, No arm pain, No back pain, No hand pain, No leg pain, No foot pain Skin: No Rash, No Lesions, No Jaundice, No Bruising, No Other Objective Vitals Vital Signs Date Time Temp Pulse Resp B/P (MAP) Pulse Ox O2 Delivery O2 Flow Rate FiO2 11/24/24 15:00 98.3 73 8 90/36 (54) 100 98.3 11/23/24 20:00 Room Air* 0 21 Intake/Output Intake and Output 11/24/24 07:00 Intake Total 150 ml Output Total 0 ml Balance 150 ml Intake Oral 0 ml IV Total 150 ml Output Urine Total 0 ml # Bowel Movements 2 Exam HEENT pupils are reactive Neck is supple CV is S1-S2 regular rate and rhythm Respiratory diminished breath sounds bases GI positive bowel sound Extremity trace edema [employer] patient does not follow commands General Appearance: mild distress, Other (Patient very hard to awaken.) HEENT: Atraumatic, PERRLA Lungs: Clear to auscultation, Normal air movement Cardiovascular: Normal S1, Normal S2 Abdomen: Normal bowel sounds, Soft, No tenderness, No hepatospenomegaly Skin: Wounds (See nurse notes and pictures) Psych/Mental Status: Other (Altered mental status) Medications Current Medications Medications Dose Ordered Sig/Haresh Route Start Time Stop Time Status Last Admin Dose Admin Famotidine 20 mg Q2D IV 11/05/24 22:00 11/23/24 21:59 20 MG Levetiracetam 100 ml @ 400 mls/hr BID IV 11/05/24 22:00 11/24/24 10:04 400 MLS/HR Atorvastatin Calcium 20 mg HS PO 11/05/24 22:00 11/23/24 21:55 20 MG Multivit/Ca Carb/ B Cmplx/FA/Prenat 1 tab DAILY PO 11/06/24 10:00 11/24/24 10:07 1 TAB Sevelamer HCl 800 mg TIDWM PO 11/06/24 08:00 11/24/24 10:07 800 MG Sodium Chloride 10 ml Q8HR IV 11/05/24 22:00 11/24/24 12:53 10 ML Ondansetron HCl 4 mg Q4HP PRN IV 11/05/24 21:00 Docusate Sodium 100 mg BIDPRN PRN PO 11/05/24 21:00 Acetaminophen 650 mg Q6HP PRN PO 11/05/24 21:00 11/19/24 22:48 650 MG Nitroglycerin 0.4 mg Q5MINP PRN SL 11/05/24 22:45 Dextrose 50 ml UD PRN IV 11/07/24 07:15 Cancel Cefepime HCl 50 ml @ 12.5 mls/hr DAILY IV 11/10/24 10:00 11/24/24 10:05 12.5 MLS/HR Labetalol HCl 10 mg Q4HPRN PRN IV 11/09/24 12:45 11/19/24 12:16 10 MG Dextrose 50 ml UD PRN IV 11/09/24 16:00 Cancel Diagnostic Test (Pha) 1 strip Q6HR 11/10/24 12:00 11/24/24 12:00 1 STRIP Insulin Human Regular FOLLOW SLIDING SCALE Q6HR SC 11/10/24 12:00 11/24/24 12:00 4 UNITS Dextrose 50 ml UD IV 11/10/24 11:45 Patient Own Medication 25 mg DAILY PO 11/13/24 10:00 UNV Potassium Chloride 100 ml @ 50 mls/hr Q2H IV 11/12/24 15:15 11/12/24 19:14 UNV Hydralazine HCl 10 mg Q6HP PRN IV 11/15/24 15:15 11/17/24 05:12 10 MG Artificial Tears 1 drop Q6HP PRN EACHEYE 11/17/24 23:00 Enteral Nutritional Formula 1,000 ml 30ML/HR GT 11/18/24 11:00 11/19/24 22:49 1,000 ML Levothyroxine Sodium 50 mcg QAM IV 11/20/24 07:00 11/24/24 06:05 50 MCG Gabapentin 300 mg BID NG 11/22/24 22:00 11/24/24 10:07 300 MG Clonazepam 0.25 mg BID PO 11/22/24 14:45 11/24/24 10:07 0.25 MG Vancomycin HCl 0 ml @ 0 mls/hr UD IV 11/24/24 09:30 Laboratory Results Laboratory Tests 11/21/24 08:53 11/23/24 08:56 11/24/24 09:12 Microbiology Microbiology Date/Time Source Procedure Growth Status 11/07/24 12:33 Foot Right Gram Stain - Final Complete 11/07/24 12:33 Wound Culture - Final Acinetobacter baumannii Enterococcus faecalis Acinetobacter baumanii/haemol Complete 11/06/24 20:44 Blood Blood Culture - Final NO GROWTH AFTER 5 DAYS OF INCUBATION. Complete Assessment/Plan Assessment/Plan 69-year-old male with a known history of end-stage renal disease on hemodialysis, CAD status post CABG, morbid obesity classIII, initially presented to the hospital with a altered mental status found to have 1. Acute metabolic/septic encephalopathy 2. Septic shock currently resolved 3. Osteomyelitis of the left foot with a S2 noted Bactrim vomiting knee as well as Enterococcus faecalis 4. End-stage renal disease on hemodialysis 5. CAD status post CABG 6. Bilateral heel wounds 7. History of CVA 8. Morbid obesity classIII 9. DNR/DNI status. -continue antibiotics dialysis per renal, plan of care discussed with the bedside Ramila VARGAS Plan discussed with: Patient, Spouse My Orders Orders - AMANDA PARIKH MD Procedure Category Date Status Time Code Status CODE 11/23/24 Transmitted 18:38 Vancomycin Per [facility] 11/24/24 In Process Pharmacy 09:30 Date of Service: Nov 24, 2024 Billing Provider: AMANDA PARIKH MD Common Visit Codes: [id number] INP/OBS CARE(MOD) AMANDA PARIKH MD Nov 24, 2024 16:12
[2024-11-25] VITALS (14 sets, daily range): BP systolic 82–152; BP diastolic 32–63; PULSE 72–91; RESP 7–12; TEMP 97.7–98.5; O2SAT 98–100
[2024-11-25] MEDS: SODIUM CHL 0.9% 1000 ML BAG XX ONE (07:00)
--- NOTE | 2024-11-25 09:27 | DVHPN2 ---
Progress Note - Dictate Date Seen: Nov 25, 2024 Has the PT tested + for MRSA If YES, has PT been informed?: Yes Medical Necessity Reason Pt with a Central, PICC or Fol: No Subjective unndergoing HD vital signs Vital Sign Date Time Temp Pulse Resp B/P (MAP) Pulse Ox O2 Delivery O2 Flow Rate FiO2 11/25/24 08:52 97.7 88 115/47 (69) 100 97.7 11/25/24 08:00 8 Nasal Cannula* 4 36 Total Intake and Output 11/24/24 11/24/24 11/25/24 15:00 23:00 07:00 Intake Total 100 ml 320 ml Balance 100 ml 320 ml medications Current Medications Medications Dose Ordered Sig/Haresh Route Start Time Stop Time Status Last Admin Dose Admin Famotidine 20 mg Q2D IV 11/05/24 22:00 11/23/24 21:59 20 MG Levetiracetam 100 ml @ 400 mls/hr BID IV 11/05/24 22:00 11/24/24 22:20 400 MLS/HR Atorvastatin Calcium 20 mg HS PO 11/05/24 22:00 11/24/24 22:18 20 MG Multivit/Ca Carb/ B Cmplx/FA/Prenat 1 tab DAILY PO 11/06/24 10:00 11/24/24 20:00 1 TAB Sevelamer HCl 800 mg TIDWM PO 11/06/24 08:00 11/24/24 18:00 800 MG Sodium Chloride 10 ml Q8HR IV 11/05/24 22:00 11/25/24 08:38 10 ML Ondansetron HCl 4 mg Q4HP PRN IV 11/05/24 21:00 Docusate Sodium 100 mg BIDPRN PRN PO 11/05/24 21:00 Acetaminophen 650 mg Q6HP PRN PO 11/05/24 21:00 11/19/24 22:48 650 MG Nitroglycerin 0.4 mg Q5MINP PRN SL 11/05/24 22:45 Dextrose 50 ml UD PRN IV 11/07/24 07:15 Cancel Cefepime HCl 50 ml @ 12.5 mls/hr DAILY IV 11/10/24 10:00 11/24/24 10:05 12.5 MLS/HR Labetalol HCl 10 mg Q4HPRN PRN IV 11/09/24 12:45 11/19/24 12:16 10 MG Dextrose 50 ml UD PRN IV 11/09/24 16:00 Cancel Diagnostic Test (Pha) 1 strip Q6HR 11/10/24 12:00 11/25/24 06:22 1 STRIP Insulin Human Regular FOLLOW SLIDING SCALE Q6HR SC 11/10/24 12:00 11/25/24 06:24 4 UNITS Dextrose 50 ml UD IV 11/10/24 11:45 Patient Own Medication 25 mg DAILY PO 11/13/24 10:00 UNV Potassium Chloride 100 ml @ 50 mls/hr Q2H IV 11/12/24 15:15 11/12/24 19:14 UNV Hydralazine HCl 10 mg Q6HP PRN IV 11/15/24 15:15 11/17/24 05:12 10 MG Artificial Tears 1 drop Q6HP PRN EACHEYE 11/17/24 23:00 Enteral Nutritional Formula 1,000 ml 30ML/HR GT 11/18/24 11:00 11/19/24 22:49 1,000 ML Levothyroxine Sodium 50 mcg QAM IV 11/20/24 07:00 11/25/24 06:27 50 MCG Gabapentin 300 mg BID NG 11/22/24 22:00 11/24/24 22:18 300 MG Clonazepam 0.25 mg BID PO 11/22/24 14:45 11/24/24 22:18 0.25 MG Vancomycin HCl 0 ml @ 0 mls/hr UD IV 11/24/24 09:30 objective Lethargic HEENT: No evidence of JVD, no oral ulcers. Pulmonary: Diminished on auscultation bilaterally Cardiovascular S1-S2, no S3 or S4 Abdomen: Bowel sounds positive, soft no rebound tenderness Skin: No rash Neurological: bed-bound Extremities: 1+ edema in the lower extremities laboratory and microbiology Laboratory Tests 11/25/24 07:25 11/23/24 08:56 11/21/24 08:53 Test 11/21/24 08:53 Range/Units Serum Glucose 187 H 74-106 mg/dL Problem List 1. End-stage renal disease on hemodialysis TTS schedule 2. Intra dialytic hypotension, he has chronic hypotension, on midodrine 3. Obesity 4. CAD 5. Bilateral feet wounds 6. History of CVA 7. Diabetes type 2, uncontrolled with hyperglycemia 8. Encephalopathy, oversedation 9. Hypothyroidism Assessment/Plan HD today . Patient to go home on hospice today as per family Dietary Evaluation Review Comments: 1) Initiate Pro-Stat @ 30 mL qd 2) If patient remains NPO > 7 days, consider EN/TPN to meet at least 75% of estimated daily needs 3) If GI is preferred, consider Nepro @ 35 mL/hr goalrate as tolerated. EN regimen (including Pro-Stat) provides 1612 kcals, 83g Pro, and 611 mL free H2O per 24 hrs. EN rate (including Pro-Stat) will meet 91% estimated energy needs and ~51% estimated protein needs 4) Advance to 60 CCHO renal diet when medically feasible, pending ST approval 5) Collect HbA1c 6) Refer to outpatient RD/[facility] for weight management 7) Follow-up with nephrology and cardiology 8) Continue to monitor I&O, labs, and skin integrity Expected Outcomes/Goals: 1) patient to receive nutrition support within 7 days of NPO status 2) labs and wounds to improve 3) diet to advance 4) gradual wt loss 5) f/u in 2-3 days Plan discussed with: Spouse MONICA FIELD MD Nov 25, 2024 09:27
[2024-11-25] MEDS: VANCOMYCIN 500mg/100mL 100 ML IV ONE (15:56)
--- NOTE | 2024-11-25 17:51 | DVHPN2 ---
Subjective Patient has remained confused, family member including daughter at bedside were updated, patient is currently DNR DNI status now. Family will decide regarding the hospice in next day or so. Reviewed: Care Plan, H&P, Labs, Medications, Previous Orders Changes from previous H/P or p: No Changes General: Per HPI Eyes: No Pain, No Vision change, No Conjunctivae inflammation, No Eyelid inflammation, No Other, No Redness ENT: No Ear pain, No Ear discharge, No Nose pain, No Nose discharge, No Nose congestion, No Mouth pain, No Mouth swelling, No Throat pain, No Throat swelling, No Other Cardiovascular: Chest Pain; No Palpitations, No Orthopnea, No Paroxysmal Noc. Dyspnea, No Edema, No Lt Headedness, No Other Respiratory: No Cough, No Dry; Shortness of breath; No SOB with excertion, No Wheezing, No Hemoptysis, No Pleuritic Pain, No Sputum; Other (SOB at rest) Gastrointestinal: No Nausea, No Vomiting, No Abdominal Pain, No Diarrhea, No Constipation, No Melena, No Hematochezia, No Other Genitourinary: No Dysuria, No Frequency, No Incontinence, No Hematuria, No Retention, No Other Musculoskeletal: No other, No neck pain, No shoulder pain, No arm pain, No back pain, No hand pain, No leg pain, No foot pain Skin: No Rash, No Lesions, No Jaundice, No Bruising, No Other Objective Vitals Vital Signs Date Time Temp Pulse Resp B/P (MAP) Pulse Ox O2 Delivery O2 Flow Rate FiO2 11/25/24 17:00 98.5 84 11 120/32 (61) 100 98.5 11/25/24 08:00 Nasal Cannula* 4 36 Intake/Output Intake and Output 11/25/24 07:00 Intake Total 420 ml Balance 420 ml Intake Oral 0 ml IV Total 100 ml Tube Feeding 260 ml Other 60 ml Exam HEENT pupils are reactive Neck is supple CV is S1-S2 regular rate and rhythm Respiratory diminished breath sounds bases GI positive bowel sound Extremity trace edema [employer] patient does not follow commands General Appearance: mild distress, Other (Patient very hard to awaken.) HEENT: Atraumatic, PERRLA Lungs: Clear to auscultation, Normal air movement Cardiovascular: Normal S1, Normal S2 Abdomen: Normal bowel sounds, Soft, No tenderness, No hepatospenomegaly Skin: Wounds (See nurse notes and pictures) Psych/Mental Status: Other (Altered mental status) Medications Current Medications Medications Dose Ordered Sig/Haresh Route Start Time Stop Time Status Last Admin Dose Admin Famotidine 20 mg Q2D IV 11/05/24 22:00 11/23/24 21:59 20 MG Levetiracetam 100 ml @ 400 mls/hr BID IV 11/05/24 22:00 11/24/24 22:20 400 MLS/HR Atorvastatin Calcium 20 mg HS PO 11/05/24 22:00 11/24/24 22:18 20 MG Multivit/Ca Carb/ B Cmplx/FA/Prenat 1 tab DAILY PO 11/06/24 10:00 11/24/24 20:00 1 TAB Sevelamer HCl 800 mg TIDWM PO 11/06/24 08:00 11/25/24 17:45 800 MG Sodium Chloride 10 ml Q8HR IV 11/05/24 22:00 11/25/24 14:11 10 ML Ondansetron HCl 4 mg Q4HP PRN IV 11/05/24 21:00 Docusate Sodium 100 mg BIDPRN PRN PO 11/05/24 21:00 Acetaminophen 650 mg Q6HP PRN PO 11/05/24 21:00 11/19/24 22:48 650 MG Nitroglycerin 0.4 mg Q5MINP PRN SL 11/05/24 22:45 Dextrose 50 ml UD PRN IV 11/07/24 07:15 Cancel Cefepime HCl 50 ml @ 12.5 mls/hr DAILY IV 11/10/24 10:00 11/24/24 10:05 12.5 MLS/HR Labetalol HCl 10 mg Q4HPRN PRN IV 11/09/24 12:45 11/19/24 12:16 10 MG Dextrose 50 ml UD PRN IV 11/09/24 16:00 Cancel Diagnostic Test (Pha) 1 strip Q6HR 11/10/24 12:00 11/25/24 17:45 1 STRIP Insulin Human Regular FOLLOW SLIDING SCALE Q6HR SC 11/10/24 12:00 11/25/24 12:03 2 UNITS Dextrose 50 ml UD IV 11/10/24 11:45 Patient Own Medication 25 mg DAILY PO 11/13/24 10:00 UNV Potassium Chloride 100 ml @ 50 mls/hr Q2H IV 11/12/24 15:15 11/12/24 19:14 UNV Hydralazine HCl 10 mg Q6HP PRN IV 11/15/24 15:15 11/17/24 05:12 10 MG Artificial Tears 1 drop Q6HP PRN EACHEYE 11/17/24 23:00 Enteral Nutritional Formula 1,000 ml 30ML/HR GT 11/18/24 11:00 11/19/24 22:49 1,000 ML Levothyroxine Sodium 50 mcg QAM IV 11/20/24 07:00 11/25/24 06:27 50 MCG Gabapentin 300 mg BID NG 11/22/24 22:00 11/24/24 22:18 300 MG Clonazepam 0.25 mg BID PO 11/22/24 14:45 11/24/24 22:18 0.25 MG Vancomycin HCl 0 ml @ 0 mls/hr UD IV 11/24/24 09:30 Laboratory Results Laboratory Tests 11/21/24 08:53 11/23/24 08:56 11/25/24 07:25 Microbiology Microbiology Date/Time Source Procedure Growth Status 11/07/24 12:33 Foot Right Gram Stain - Final Complete 11/07/24 12:33 Wound Culture - Final Acinetobacter baumannii Enterococcus faecalis Acinetobacter baumanii/haemol Complete 11/06/24 20:44 Blood Blood Culture - Final NO GROWTH AFTER 5 DAYS OF INCUBATION. Complete Assessment/Plan Assessment/Plan 69-year-old male with a known history of end-stage renal disease on hemodialysis, CAD status post CABG, morbid obesity classIII, initially presented to the hospital with a altered mental status found to have 1. Acute metabolic/septic encephalopathy 2. Septic shock currently resolved 3. Osteomyelitis of the left foot with a S2 noted Bactrim vomiting knee as well as Enterococcus faecalis 4. End-stage renal disease on hemodialysis 5. CAD status post CABG 6. Bilateral heel wounds 7. History of CVA 8. Morbid obesity classIII 9. DNR/DNI status. -continue antibiotics dialysis per renal, plan of care discussed with the bedside RN, -discharge plan to [facility] once everything is arranged. Plan discussed with: Daughter, Son Date of Service: Nov 24, 2024 Billing Provider: AMANDA PARIKH MD Common Visit Codes: [id number] INP/OBS CARE(MOD) AMANDA PARIKH MD Nov 25, 2024 17:51
[2024-11-26] VITALS (8 sets, daily range): BP systolic 99–150; BP diastolic 26–60; PULSE 71–91; RESP 10–17; TEMP 97–98.9; O2SAT 97–100
--- NOTE | 2024-11-26 17:12 | DVHPN2 ---
Subjective Patient has remained confused, family member including daughter at bedside were updated, patient is currently DNR DNI status now. Family will decide regarding the hospice in next day or so. Reviewed: Care Plan, H&P, Labs, Medications, Previous Orders Changes from previous H/P or p: No Changes General: Per HPI Eyes: No Pain, No Vision change, No Conjunctivae inflammation, No Eyelid inflammation, No Other, No Redness ENT: No Ear pain, No Ear discharge, No Nose pain, No Nose discharge, No Nose congestion, No Mouth pain, No Mouth swelling, No Throat pain, No Throat swelling, No Other Cardiovascular: Chest Pain; No Palpitations, No Orthopnea, No Paroxysmal Noc. Dyspnea, No Edema, No Lt Headedness, No Other Respiratory: No Cough, No Dry; Shortness of breath; No SOB with excertion, No Wheezing, No Hemoptysis, No Pleuritic Pain, No Sputum; Other (SOB at rest) Gastrointestinal: No Nausea, No Vomiting, No Abdominal Pain, No Diarrhea, No Constipation, No Melena, No Hematochezia, No Other Genitourinary: No Dysuria, No Frequency, No Incontinence, No Hematuria, No Retention, No Other Musculoskeletal: No other, No neck pain, No shoulder pain, No arm pain, No back pain, No hand pain, No leg pain, No foot pain Skin: No Rash, No Lesions, No Jaundice, No Bruising, No Other Objective Vitals Vital Signs Date Time Temp Pulse Resp B/P (MAP) Pulse Ox O2 Delivery O2 Flow Rate FiO2 11/26/24 17:01 97.0 74 16 99/26 (50) 100 97.0 11/25/24 20:05 Nasal Cannula* 4 36 Intake/Output Intake and Output 11/26/24 07:00 Intake Total 900 ml Output Total 0 ml Balance 900 ml Intake Oral 0 ml IV Total 100 ml Tube Feeding 740 ml Other 60 ml Output Urine Total 0 ml Exam HEENT pupils are reactive Neck is supple CV is S1-S2 regular rate and rhythm Respiratory diminished breath sounds bases GI positive bowel sound Extremity trace edema [employer] patient does not follow commands General Appearance: mild distress, Other (Patient very hard to awaken.) HEENT: Atraumatic, PERRLA Lungs: Clear to auscultation, Normal air movement Cardiovascular: Normal S1, Normal S2 Abdomen: Normal bowel sounds, Soft, No tenderness, No hepatospenomegaly Skin: Wounds (See nurse notes and pictures) Psych/Mental Status: Other (Altered mental status) Medications Current Medications Medications Dose Ordered Sig/Haresh Route Start Time Stop Time Status Last Admin Dose Admin Famotidine 20 mg Q2D IV 11/05/24 22:00 11/25/24 21:50 20 MG Levetiracetam 100 ml @ 400 mls/hr BID IV 11/05/24 22:00 11/26/24 09:12 400 MLS/HR Atorvastatin Calcium 20 mg HS PO 11/05/24 22:00 11/25/24 21:50 20 MG Multivit/Ca Carb/ B Cmplx/FA/Prenat 1 tab DAILY PO 11/06/24 10:00 11/26/24 09:12 1 TAB Sevelamer HCl 800 mg TIDWM PO 11/06/24 08:00 11/26/24 09:12 800 MG Sodium Chloride 10 ml Q8HR IV 11/05/24 22:00 11/26/24 12:42 10 ML Ondansetron HCl 4 mg Q4HP PRN IV 11/05/24 21:00 Docusate Sodium 100 mg BIDPRN PRN PO 11/05/24 21:00 Acetaminophen 650 mg Q6HP PRN PO 11/05/24 21:00 11/19/24 22:48 650 MG Nitroglycerin 0.4 mg Q5MINP PRN SL 11/05/24 22:45 Dextrose 50 ml UD PRN IV 11/07/24 07:15 Cancel Labetalol HCl 10 mg Q4HPRN PRN IV 11/09/24 12:45 11/19/24 12:16 10 MG Dextrose 50 ml UD PRN IV 11/09/24 16:00 Cancel Diagnostic Test (Pha) 1 strip Q6HR 11/10/24 12:00 11/26/24 12:41 1 STRIP Insulin Human Regular FOLLOW SLIDING SCALE Q6HR SC 11/10/24 12:00 11/26/24 12:42 2 UNITS Dextrose 50 ml UD IV 11/10/24 11:45 Patient Own Medication 25 mg DAILY PO 11/13/24 10:00 UNV Potassium Chloride 100 ml @ 50 mls/hr Q2H IV 11/12/24 15:15 11/12/24 19:14 UNV Hydralazine HCl 10 mg Q6HP PRN IV 11/15/24 15:15 11/17/24 05:12 10 MG Artificial Tears 1 drop Q6HP PRN EACHEYE 11/17/24 23:00 Enteral Nutritional Formula 1,000 ml 30ML/HR GT 11/18/24 11:00 11/26/24 09:36 1,000 ML Levothyroxine Sodium 50 mcg QAM IV 11/20/24 07:00 11/26/24 05:58 50 MCG Gabapentin 300 mg BID NG 11/22/24 22:00 11/26/24 09:12 300 MG Clonazepam 0.25 mg BID PO 11/22/24 14:45 11/26/24 09:19 0.25 MG Vancomycin HCl 0 ml @ 0 mls/hr UD IV 11/24/24 09:30 Laboratory Results Laboratory Tests 11/21/24 08:53 11/23/24 08:56 11/26/24 08:33 Microbiology Microbiology Date/Time Source Procedure Growth Status 11/07/24 12:33 Foot Right Gram Stain - Final Complete 11/07/24 12:33 Wound Culture - Final Acinetobacter baumannii Enterococcus faecalis Acinetobacter baumanii/haemol Complete 11/06/24 20:44 Blood Blood Culture - Final NO GROWTH AFTER 5 DAYS OF INCUBATION. Complete Assessment/Plan Assessment/Plan 69-year-old male with a known history of end-stage renal disease on hemodialysis, CAD status post CABG, morbid obesity classIII, initially presented to the hospital with a altered mental status found to have 1. Acute metabolic/septic encephalopathy 2. Septic shock currently resolved 3. Osteomyelitis of the left foot with a S2 noted Bactrim vomiting knee as well as Enterococcus faecalis 4. End-stage renal disease on hemodialysis 5. CAD status post CABG 6. Bilateral heel wounds 7. History of CVA 8. Morbid obesity classIII 9. DNR/DNI status. -continue antibiotics dialysis per renal, plan of care discussed with the bedside RN, JUMANA plan to [facility]. Plan discussed with: Daughter, Son My Orders Orders - AMANDA PARIKH MD Procedure Category Date Status Time Vancomycin,Random LAB 11/28/24 Verified 04:00 Complete Blood Count LAB 11/28/24 Verified 04:00 Creatinine LAB 11/28/24 Verified 04:00 Date of Service: Nov 26, 2024 Billing Provider: AMANDA PARIKH MD Common Visit Codes: [id number] INP/OBS CARE(MOD) AMANDA PARIKH MD Nov 26, 2024 17:12
[2024-11-27] VITALS (7 sets, daily range): BP systolic 112–156; BP diastolic 41–53; PULSE 73–92; RESP 8–18; TEMP 97.3–98.4; O2SAT 97–100
--- NOTE | 2024-11-27 13:33 | DVHDS2 ---
Discharge Summary Date of Admission Nov 05, 2024 at 22:34 Date of Discharge: Nov 27, 2024 Labs/Diagnostic Data: Laboratory Results Test 11/27/24 06:33 11/26/24 08:33 11/23/24 08:56 11/21/24 08:53 POC Glucose 165 mg/dl (70-106) Creatinine 3.64 mg/dL (0.700-1.30) Glomerular Filtration Rate Calc 17 mL/min (>90) Random Vancomycin Level 28.2 ug/mL (5-10) White Blood Count 5.2 10^3/uL (4.4-10.8) Red Blood Count 3.52 10^6/uL (4.5-5.90) Hemoglobin 11.6 g/dL (13.5-17.5) Hematocrit 35.8 % (41.0-53.0) Mean Corpuscular Volume 101.7 fL (80.0-100.0) Mean Corpuscular Hemoglobin 32.9 pg (28.0-32.0) Mean Corpuscular Hemoglobin Concent 32.4 g/dL (32.0-36.0) Red Cell Distribution Width 17.5 % (11.8-14.3) Platelet Count 155 10^3/uL (140-450) Mean Platelet Volume 7.9 fL (6.9-10.8) Neutrophils (%) (Auto) 75.7 % (37.0-80.0) Lymphocytes (%) (Auto) 10.4 % (10.0-50.0) Monocytes (%) (Auto) 10.3 % (0.0-12.0) Eosinophils (%) (Auto) 2.8 % (0.0-7.0) Basophils (%) (Auto) 0.8 % (0.0-2.0) Neutrophils # (Auto) 4.0 10 ^3/uL (1.6-8.6) Lymphocytes # (Auto) 0.5 10 ^3/uL (0.4-5.4) Monocytes # (Auto) 0.5 10 ^3/uL (0-1.3) Eosinophils # (Auto) 0.1 10 ^3/uL (0-0.8) Basophils # (Auto) 0 10 ^3/uL (0-0.2) Nucleated Red Blood Cells 0.1 % Sodium Level 137 mmol/L (136-145) Potassium Level 4.3 mmol/L (3.5-5.1) Chloride Level 100 mmol/L (98-107) Carbon Dioxide Level 27 mmol/L (20-31) Anion Gap 10 (5-15) Blood Urea Nitrogen 28 mg/dL (9-23) BUN/Creatinine Ratio 7.9 (10.0-20.0) Serum Glucose 187 mg/dL (74-106) Calcium Level 9.8 mg/dL (8.7-10.4) Test 11/19/24 12:35 11/18/24 07:00 11/07/24 07:52 11/07/24 07:24 Phosphorus Level 2.8 mg/dL (2.4-5.1) Magnesium Level 1.9 mg/dL (1.6-2.6) Total Bilirubin 0.5 mg/dL (0.2-1.0) Aspartate Amino Transferase (AST) 21 U/L (13-40) Alanine Aminotransferase (ALT) 22 U/L (7-40) Alkaline Phosphatase 83 U/L (46-116) Total Protein 5.6 g/dL (5.7-8.2) Albumin 3.2 g/dL (3.2-4.8) Vitamin B12 Level 1375 pg/mL (211-911) Folic Acid 19.27 ng/mL (>5.38) Free Thyroxine (T4) Calculated 1.14 ng/dL (0.89-1.76) Estimated GFR () 19 mL/min Estimated GFR (Non- 16 mL/min Thyroid Stimulating Hormone (TSH) 14.55 uIU/mL (0.55-4.78) Serum Osmolality 321 mOsm/kg (278-298) Beta-Hydroxybutyric Acid 0.701 mmol/L (< 0.4) Hepatitis B Surface Antigen Negative (Negative) Blood Gas Specimen Type Arterial Blood Gas Sample Site Right radial Blood Gas Patient Temperature 37.0 Arterial Blood Date Drawn [id number] Arterial Blood pH 7.350 (7.350-7.450) Arterial Blood Partial Pressure CO2 38.6 mmHg (35.0-48.0) Arterial Blood Partial Pressure O2 94.8 mmHg (83.0-108.0) Arterial Blood HCO3 20.8 mmol/L (21.0-28.0) Arterial Blood Oxygen Saturation 96.3 % (94.0-98.0) Arterial Blood Base Excess -4.3 mmol/L (-2.0-3.0) Arterial Blood Oxyhemoglobin 95.0 % (94.0-98.0) Arterial Blood Carboxyhemoglobin 1.1 % (0.5-1.5) Arterial Blood Methemoglobin 0.2 % (0.0-1.5) Bucky Test Yes Blood Gas Total Hemoglobin 15.90 g/dL (13.5-17.5) Blood Gas Liter Flow 2.00 Blood Gas Modality Nasal cannula FiO2 % 28.0 Test 11/06/24 20:44 11/06/24 05:54 11/05/24 16:00 D-Dimer, Quantitative 1.52 mg/L FEU (0.0-0.49) Erythrocyte Sedimentation Rate 70 mm/hr (0-20) C-Reactive Protein High Sensitivity 11.98 mg/dL (<1.0) Prothrombin Time 11.5 sec (9.3-11.8) Prothrombin Time INR 1.09 (0.9-1.15) Activated Partial Thromboplast Time 31.6 SEC (24.5-34.5) Lactic Acid Level 1.9 mmol/L (0.4-2.0) Troponin I High Sensitivity 11 ng/L (</=54) Other Laboratory Tests 11/26/24 08:33 11/23/24 08:56 11/21/24 08:53 Brief Hx & Hospital Course: 69-year-old male with a known history of end-stage renal disease on hemodialysis, CAD status post CABG, morbid obesity classIII, initially presented to the hospital with a altered mental status found to have 1. Acute metabolic/septic encephalopathy 2. Septic shock currently resolved 3. Osteomyelitis of the left foot with a S2 noted Bactrim vomiting knee as well as Enterococcus faecalis 4. End-stage renal disease on hemodialysis 5. CAD status post CABG 6. Bilateral heel wounds 7. History of CVA 8. Morbid obesity classIII 9. DNR/DNI status. Final Diagnosis/Problems List 69-year-old male with a known history of end-stage renal disease on hemodialysis, CAD status post CABG, morbid obesity classIII, initially presented to the hospital with a altered mental status found to have 1. Acute metabolic/septic encephalopathy 2. Septic shock currently resolved 3. Osteomyelitis of the left foot with a S2 noted Bactrim vomiting knee as well as Enterococcus faecalis 4. End-stage renal disease on hemodialysis 5. CAD status post CABG 6. Bilateral heel wounds 7. History of CVA 8. Morbid obesity classIII 9. DNR/DNI status. Discharge Disposition: Hospice - Home Discharge Instruct/Medications Diet: See Comment Diet comment: Was on tube feeding Activity: See Comment Activity comment: Bedrest Follow Up/Referral: [facility] with [facility].. Scheduled Apixaban Base (Eliquis), 2.5 MG PO BID, (Reported) Atorvastatin Calcium (Atorvastatin Calcium), 40 MG PO DAILY, (Reported) Calcium Acetate (Calcium Acetate), 667 MG PO TID, (Reported) Clindamycin Hcl (Cleocin), 300 MG PO TID, (Reported) Ferric Citrate (Auryxia), 210 MG PO TID, (Reported) Gabapentin (Gabapentin), 300 MG PO BID, (Reported) Levetiracetam (Keppra), 100 MG PO BID, (Reported) Levofloxacin Hemihydrate (Levofloxacin), 500 MG PO DAILY, (Reported) Midodrine HCl (Midodrine HCl), 10 MG GT BID, (Reported) Montelukast Sodium (Montelukast Sodium), 1 TAB PO DAILY, (Reported) Pantoprazole Sodium (Pantoprazole Sodium), 40 MG PO DAILY, (Reported) Quetiapine Fumerate (Seroquel), 25 MG PO DAILY, (Reported) Miscellaneous Medications B-Complex W/ C & Folic Acid (Jaki-Sharonda), 1 OR, (Reported) Discharge Statement: "Patient was advised to return to the ER or call 911 if any headaches, dizziness, shortness of breath, chest pain, abdominal pain, bleeding, fevers, or worsening of medical condition. Patient was counseled about treatment plan, medications, possible side effects, patientverbalized understanding. All questions were answered to the best of my ability. This discharge took greater then 30 minutes in planning, reviewing documentation, counseling the patient, and discussing with other team members." ASSESSMENT ASSESSMENT Assessment 69-year-old male with a known history of end-stage renal disease on hemodialysis, CAD status post CABG, morbid obesity classIII, initially presented to the hospital with a altered mental status found to have 1. Acute metabolic/septic encephalopathy 2. Septic shock currently resolved 3. Osteomyelitis of the left foot with a S2 noted Bactrim vomiting knee as well as Enterococcus faecalis 4. End-stage renal disease on hemodialysis 5. CAD status post CABG 6. Bilateral heel wounds 7. History of CVA 8. Morbid obesity classIII 9. DNR/DNI status. AMANDA PARIKH MD Nov 27, 2024 13:33
--- NOTE | 2024-11-27 16:38 | DVHPN2 ---
Subjective Patient has remained confused, family member including daughter at bedside were updated, patient is currently DNR DNI status now. Family will decide regarding the hospice in next day or so. Reviewed: Care Plan, H&P, Labs, Medications, Previous Orders Changes from previous H/P or p: No Changes General: Per HPI Eyes: No Pain, No Vision change, No Conjunctivae inflammation, No Eyelid inflammation, No Other, No Redness ENT: No Ear pain, No Ear discharge, No Nose pain, No Nose discharge, No Nose congestion, No Mouth pain, No Mouth swelling, No Throat pain, No Throat swelling, No Other Cardiovascular: Chest Pain; No Palpitations, No Orthopnea, No Paroxysmal Noc. Dyspnea, No Edema, No Lt Headedness, No Other Respiratory: No Cough, No Dry; Shortness of breath; No SOB with excertion, No Wheezing, No Hemoptysis, No Pleuritic Pain, No Sputum; Other (SOB at rest) Gastrointestinal: No Nausea, No Vomiting, No Abdominal Pain, No Diarrhea, No Constipation, No Melena, No Hematochezia, No Other Genitourinary: No Dysuria, No Frequency, No Incontinence, No Hematuria, No Retention, No Other Musculoskeletal: No other, No neck pain, No shoulder pain, No arm pain, No back pain, No hand pain, No leg pain, No foot pain Skin: No Rash, No Lesions, No Jaundice, No Bruising, No Other Objective Vitals Vital Signs Date Time Temp Pulse Resp B/P (MAP) Pulse Ox O2 Delivery O2 Flow Rate FiO2 11/27/24 08:15 Nasal Cannula* 3 32 11/27/24 08:00 85 11/27/24 01:00 98.3 17 151/48 (82) 100 98.3 Intake/Output Intake and Output 11/27/24 07:00 Intake Total 415 ml Output Total 0 ml Balance 415 ml Intake Oral 0 ml Tube Feeding 415 ml Output Urine Total 0 ml Exam HEENT pupils are reactive Neck is supple CV is S1-S2 regular rate and rhythm Respiratory diminished breath sounds bases GI positive bowel sound Extremity trace edema APPLICATIONS ANALYST patient does not follow commands General Appearance: mild distress, Other (Patient very hard to awaken.) HEENT: Atraumatic, PERRLA Lungs: Clear to auscultation, Normal air movement Cardiovascular: Normal S1, Normal S2 Abdomen: Normal bowel sounds, Soft, No tenderness, No hepatospenomegaly Skin: Wounds (See nurse notes and pictures) Psych/Mental Status: Other (Altered mental status) Medications Current Medications Medications Dose Ordered Sig/Haresh Route Start Time Stop Time Status Last Admin Dose Admin Famotidine 20 mg Q2D IV 11/05/24 22:00 11/25/24 21:50 20 MG Levetiracetam 100 ml @ 400 mls/hr BID IV 11/05/24 22:00 11/27/24 10:03 400 MLS/HR Atorvastatin Calcium 20 mg HS PO 11/05/24 22:00 11/26/24 21:27 20 MG Multivit/Ca Carb/ B Cmplx/FA/Prenat 1 tab DAILY PO 11/06/24 10:00 11/27/24 10:03 1 TAB Sevelamer HCl 800 mg TIDWM PO 11/06/24 08:00 11/26/24 09:12 800 MG Sodium Chloride 10 ml Q8HR IV 11/05/24 22:00 11/27/24 13:27 10 ML Ondansetron HCl 4 mg Q4HP PRN IV 11/05/24 21:00 Docusate Sodium 100 mg BIDPRN PRN PO 11/05/24 21:00 Acetaminophen 650 mg Q6HP PRN PO 11/05/24 21:00 11/19/24 22:48 650 MG Nitroglycerin 0.4 mg Q5MINP PRN SL 11/05/24 22:45 Dextrose 50 ml UD PRN IV 11/07/24 07:15 Cancel Labetalol HCl 10 mg Q4HPRN PRN IV 11/09/24 12:45 11/19/24 12:16 10 MG Dextrose 50 ml UD PRN IV 11/09/24 16:00 Cancel Diagnostic Test (Pha) 1 strip Q6HR 11/10/24 12:00 11/27/24 13:26 1 STRIP Insulin Human Regular FOLLOW SLIDING SCALE Q6HR SC 11/10/24 12:00 11/27/24 13:25 4 UNITS Dextrose 50 ml UD IV 11/10/24 11:45 Patient Own Medication 25 mg DAILY PO 11/13/24 10:00 UNV Potassium Chloride 100 ml @ 50 mls/hr Q2H IV 11/12/24 15:15 11/12/24 19:14 UNV Hydralazine HCl 10 mg Q6HP PRN IV 11/15/24 15:15 11/17/24 05:12 10 MG Artificial Tears 1 drop Q6HP PRN EACHEYE 11/17/24 23:00 Enteral Nutritional Formula 1,000 ml 30ML/HR GT 11/18/24 11:00 11/27/24 10:31 1,000 ML Levothyroxine Sodium 50 mcg QAM IV 11/20/24 07:00 11/27/24 06:32 50 MCG Gabapentin 300 mg BID NG 11/22/24 22:00 11/27/24 10:03 300 MG Clonazepam 0.25 mg BID PO 11/22/24 14:45 11/27/24 10:12 0.25 MG Vancomycin HCl 0 ml @ 0 mls/hr UD IV 11/24/24 09:30 Laboratory Results Laboratory Tests 11/21/24 08:53 11/23/24 08:56 11/26/24 08:33 Microbiology Microbiology Date/Time Source Procedure Growth Status 11/07/24 12:33 Foot Right Gram Stain - Final Complete 11/07/24 12:33 Wound Culture - Final Acinetobacter baumannii Enterococcus faecalis Acinetobacter baumanii/haemol Complete 11/06/24 20:44 Blood Blood Culture - Final NO GROWTH AFTER 5 DAYS OF INCUBATION. Complete Assessment/Plan Assessment/Plan 69-year-old male with a known history of end-stage renal disease on hemodialysis, CAD status post CABG, morbid obesity classIII, initially presented to the hospital with a altered mental status found to have 1. Acute metabolic/septic encephalopathy 2. Septic shock currently resolved 3. Osteomyelitis of the left foot with a S2 noted Bactrim vomiting knee as well as Enterococcus faecalis 4. End-stage renal disease on hemodialysis 5. CAD status post CABG 6. Bilateral heel wounds 7. History of CVA 8. Morbid obesity classIII 9. DNR/DNI status. -continue antibiotics dialysis per renal, plan of care discussed with the bedside RN, JUMANA plan to [facility]. Plan discussed with: Florencio My Orders Orders - AMANDA PARIKH MD Procedure Category Date Status Time Mrsa Screen MICHELLE 11/27/24 In Process 13:53 Discharge DISCHARGE 11/27/24 Transmitted 13:32 Date of Service: Nov 27, 2024 Billing Provider: AMANDA PARIKH MD Common Visit Codes: [id number] INP/OBS CARE(MOD) AMANDA PARIKH MD Nov 27, 2024 16:38
[2024-11-27] MEDS ORDERED: clonazePAM 0.5 MG TAB GT SCH (23:00)
[2024-11-27] MEDS ORDERED: ATORVASTATIN 20 MG TAB GT SCH (23:00)
[2024-11-27] MEDS: ATORVASTATIN 20 MG TAB NG SCH (23:12)
[2024-11-27] MEDS: clonazePAM 0.5 MG TAB NG SCH (23:12)
[2024-11-28 01:00] VITALS: BP 150/51; PULSE 81; RESP 8; TEMP 97.5; O2SAT 99
[2024-11-28 05:00] VITALS: BP 150/55; PULSE 80; RESP 8; TEMP 97.5; O2SAT 98
[2024-11-28 06:36] LABS: Nucleated Red Blood Cells % 0.1 %
[2024-11-28 06:38] LABS: Hematocrit 35.5 % (41.0-53.0); Hemoglobin 11.2 g/dL (13.5-17.5); Mean Corpuscular Hemoglobin 33.0 pg (28.0-32.0); Mean Corpuscular Volume 104.3 fL (80.0-100.0)
[2024-11-28 08:00] VITALS: PULSE 86
[2024-11-28 09:00] VITALS: BP 138/44; PULSE 77; RESP 16; TEMP 98.3; O2SAT 97
[2024-11-28 13:00] VITALS: BP 106/48; PULSE 88; RESP 18; TEMP 98.6; O2SAT 97
--- NOTE | 2024-11-28 13:56 | DVH ---
EXAM: XY CHEST XRAY 1 VIEW TECHNIQUE: Single frontal chest radiograph CLINICAL HISTORY: check NG placement COMPARISON: XY CHEST PORTABLE on DOS: 11/24/24, XY CHEST XRAY 1 VIEW on DOS: 11/22/24, XY CHEST XRAY 1 VIEW on DOS: 11/21/24 Findings/Impression: Frontal chest radiograph demonstrates no acute osseous or superficial soft tissue abnormalities. Tunneled right-sided HD catheter terminates near the proximal SVC. Enteric tube is overlying the plan e of the stomach. The trachea is midline. Cardiomegaly. Low lung volumes with bronchovascular crowding and bibasilar atelectasis. No pneumothorax, pleural effusions, or consolidations.
[2024-11-28 16:00] VITALS: BP 131/42; PULSE 94; RESP 18; TEMP 37; O2SAT 96
--- NOTE | 2024-11-28 17:02 | DVHDS2 ---
Discharge Summary Date of Admission Nov 05, 2024 at 22:34 Date of Discharge: Nov 28, 2024 Labs/Diagnostic Data: Laboratory Results Test 11/28/24 12:36 11/28/24 06:01 11/21/24 08:53 11/19/24 12:35 POC Glucose 170 mg/dl (70-106) White Blood Count 6.5 10^3/uL (4.4-10.8) Red Blood Count 3.40 10^6/uL (4.5-5.90) Hemoglobin 11.2 g/dL (13.5-17.5) Hematocrit 35.5 % (41.0-53.0) Mean Corpuscular Volume 104.3 fL (80.0-100.0) Mean Corpuscular Hemoglobin 33.0 pg (28.0-32.0) Mean Corpuscular Hemoglobin Concent 31.7 g/dL (32.0-36.0) Red Cell Distribution Width 17.5 % (11.8-14.3) Platelet Count 169 10^3/uL (140-450) Mean Platelet Volume 7.6 fL (6.9-10.8) Neutrophils (%) (Auto) 67.3 % (37.0-80.0) Lymphocytes (%) (Auto) 15.7 % (10.0-50.0) Monocytes (%) (Auto) 12.6 % (0.0-12.0) Eosinophils (%) (Auto) 3.7 % (0.0-7.0) Basophils (%) (Auto) 0.7 % (0.0-2.0) Neutrophils # (Auto) 4.4 10 ^3/uL (1.6-8.6) Lymphocytes # (Auto) 1.0 10 ^3/uL (0.4-5.4) Monocytes # (Auto) 0.8 10 ^3/uL (0-1.3) Eosinophils # (Auto) 0.2 10 ^3/uL (0-0.8) Basophils # (Auto) 0 10 ^3/uL (0-0.2) Nucleated Red Blood Cells 0.1 % Creatinine 4.97 mg/dL (0.700-1.30) Glomerular Filtration Rate Calc 12 mL/min (>90) Random Vancomycin Level 27.0 ug/mL (5-10) Sodium Level 137 mmol/L (136-145) Potassium Level 4.3 mmol/L (3.5-5.1) Chloride Level 100 mmol/L (98-107) Carbon Dioxide Level 27 mmol/L (20-31) Anion Gap 10 (5-15) Blood Urea Nitrogen 28 mg/dL (9-23) BUN/Creatinine Ratio 7.9 (10.0-20.0) Serum Glucose 187 mg/dL (74-106) Calcium Level 9.8 mg/dL (8.7-10.4) Phosphorus Level 2.8 mg/dL (2.4-5.1) Magnesium Level 1.9 mg/dL (1.6-2.6) Total Bilirubin 0.5 mg/dL (0.2-1.0) Aspartate Amino Transferase (AST) 21 U/L (13-40) Alanine Aminotransferase (ALT) 22 U/L (7-40) Alkaline Phosphatase 83 U/L (46-116) Total Protein 5.6 g/dL (5.7-8.2) Albumin 3.2 g/dL (3.2-4.8) Vitamin B12 Level 1375 pg/mL (211-911) Folic Acid 19.27 ng/mL (>5.38) Free Thyroxine (T4) Calculated 1.14 ng/dL (0.89-1.76) Test 11/18/24 07:00 11/07/24 07:52 11/07/24 07:24 11/06/24 20:44 Estimated GFR () 19 mL/min Estimated GFR (Non- 16 mL/min Thyroid Stimulating Hormone (TSH) 14.55 uIU/mL (0.55-4.78) Serum Osmolality 321 mOsm/kg (278-298) Beta-Hydroxybutyric Acid 0.701 mmol/L (< 0.4) Hepatitis B Surface Antigen Negative (Negative) Blood Gas Specimen Type Arterial Blood Gas Sample Site Right radial Blood Gas Patient Temperature 37.0 Arterial Blood Date Drawn [id number] Arterial Blood pH 7.350 (7.350-7.450) Arterial Blood Partial Pressure CO2 38.6 mmHg (35.0-48.0) Arterial Blood Partial Pressure O2 94.8 mmHg (83.0-108.0) Arterial Blood HCO3 20.8 mmol/L (21.0-28.0) Arterial Blood Oxygen Saturation 96.3 % (94.0-98.0) Arterial Blood Base Excess -4.3 mmol/L (-2.0-3.0) Arterial Blood Oxyhemoglobin 95.0 % (94.0-98.0) Arterial Blood Carboxyhemoglobin 1.1 % (0.5-1.5) Arterial Blood Methemoglobin 0.2 % (0.0-1.5) Bucky Test Yes Blood Gas Total Hemoglobin 15.90 g/dL (13.5-17.5) Blood Gas Liter Flow 2.00 Blood Gas Modality Nasal cannula FiO2 % 28.0 D-Dimer, Quantitative 1.52 mg/L FEU (0.0-0.49) Test 11/06/24 05:54 11/05/24 16:00 Erythrocyte Sedimentation Rate 70 mm/hr (0-20) C-Reactive Protein High Sensitivity 11.98 mg/dL (<1.0) Prothrombin Time 11.5 sec (9.3-11.8) Prothrombin Time INR 1.09 (0.9-1.15) Activated Partial Thromboplast Time 31.6 SEC (24.5-34.5) Lactic Acid Level 1.9 mmol/L (0.4-2.0) Troponin I High Sensitivity 11 ng/L (</=54) Other Laboratory Tests 11/28/24 06:01 11/21/24 08:53 Brief Hx & Hospital Course: 69-year-old male with a known history of end-stage renal disease on hemodialysis, CAD status post CABG, morbid obesity classIII, initially presented to the hospital with a altered mental status found to have acute metabolic and septic encephalopathy. Patient's septic shock was resolved although started on IV antibiotics. Patient also has a osteomyelitis of the left foot which was treated with the IV antibiotics. Patient has a left foot wound with a Enterococcus faecalis and some other bacteria. Patient was getting end-stage renal disease on hemodialysis. Patient's has multiple comorbidities eventually qualify for hospice evaluation. Patient's has been accepted at [facility]. Patient's daughter and was updated at bedside today patient is transferred has been set up between 16 and 1700. All the questions were answered. Patient's family requested three days of tube feeding which will be ordered. Patient is DNR DNI status. Condition at Discharge: Stable Final Diagnosis/Problems List 69-year-old male with a known history of end-stage renal disease on hemodialysis, CAD status post CABG, morbid obesity classIII, initially presented to the hospital with a altered mental status found to have 1. Acute metabolic/septic encephalopathy 2. Septic shock currently resolved 3. Osteomyelitis of the left foot with a S2 noted Bactrim vomiting knee as well as Enterococcus faecalis 4. End-stage renal disease on hemodialysis 5. CAD status post CABG 6. Bilateral heel wounds 7. History of CVA 8. Morbid obesity classIII 9. DNR/DNI status. Discharge Disposition: Hospice - Home SNF Discharge Will this Physician continue t: No Discharge Instruct/Medications Diet: See Comment Diet comment: Was on tube feeding Activity: See Comment Activity comment: Bedrest Follow Up/Referral: Follow up with the [facility].. Scheduled Apixaban Base (Eliquis), 2.5 MG PO BID, (Reported) Atorvastatin Calcium (Atorvastatin Calcium), 40 MG PO DAILY, (Reported) Calcium Acetate (Calcium Acetate), 667 MG PO TID, (Reported) Clindamycin Hcl (Cleocin), 300 MG PO TID, (Reported) Ferric Citrate (Auryxia), 210 MG PO TID, (Reported) Gabapentin (Gabapentin), 300 MG PO BID, (Reported) Levetiracetam (Keppra), 100 MG PO BID, (Reported) Levofloxacin Hemihydrate (Levofloxacin), 500 MG PO DAILY, (Reported) Midodrine HCl (Midodrine HCl), 10 MG GT BID, (Reported) Montelukast Sodium (Montelukast Sodium), 1 TAB PO DAILY, (Reported) Pantoprazole Sodium (Pantoprazole Sodium), 40 MG PO DAILY, (Reported) Quetiapine Fumerate (Seroquel), 25 MG PO DAILY, (Reported) Miscellaneous Medications B-Complex W/ C & Folic Acid (Jaki-Sharonda), 1 OR, (Reported) Discharge Statement: "Patient was advised to return to the ER or call 911 if any headaches, dizziness, shortness of breath, chest pain, abdominal pain, bleeding, fevers, or worsening of medical condition. Patient was counseled about treatment plan, medications, possible side effects, patientverbalized understanding. All questions were answered to the best of my ability. This discharge took greater then 30 minutes in planning, reviewing documentation, counseling the patient, and discussing with other team members." ASSESSMENT ASSESSMENT Assessment 69-year-old male with a known history of end-stage renal disease on hemodialysis, CAD status post CABG, morbid obesity classIII, initially presented to the hospital with a altered mental status found to have 1. Acute metabolic/septic encephalopathy 2. Septic shock currently resolved 3. Osteomyelitis of the left foot with a S2 noted Bactrim vomiting knee as well as Enterococcus faecalis 4. End-stage renal disease on hemodialysis 5. CAD status post CABG 6. Bilateral heel wounds 7. History of CVA 8. Morbid obesity classIII 9. DNR/DNI status. Date of Service: Nov 28, 2024 Billing Provider: AMANDA PARIKH MD Common Visit Codes: [id number] DISCH DAY >30min AMANDA PARIKH MD Nov 28, 2024 17:02
== END 2024-11-28 16:38 | disposition hospice, home (50) | DRG 871 ==
LOC: EDBD 14:52 → ER 14:52 → OVERFLOW 22:34 → ICU WEST 11-06 23:17 → TELE-WESTW 11-08 22:58
PROVIDERS: ADMIT Internal Medicine; ATTEND Internal Medicine
PROC: 5A1D70Z Performance of Urinary Filtration, Intermittent, Less than 6 Hours Per Day (ICD-10-PCS; 2024-11-07)
PROC: 5A1D70Z Performance of Urinary Filtration, Intermittent, Less than 6 Hours Per Day (ICD-10-PCS; 2024-11-08)
PROC: 5A1D70Z Performance of Urinary Filtration, Intermittent, Less than 6 Hours Per Day (ICD-10-PCS; 2024-11-10)
PROC: 5A1D70Z Performance of Urinary Filtration, Intermittent, Less than 6 Hours Per Day (ICD-10-PCS; 2024-11-12)
PROC: 5A1D70Z Performance of Urinary Filtration, Intermittent, Less than 6 Hours Per Day (ICD-10-PCS; 2024-11-15)
PROC: 5A1D70Z Performance of Urinary Filtration, Intermittent, Less than 6 Hours Per Day (ICD-10-PCS; 2024-11-16)
PROC: 5A1D70Z Performance of Urinary Filtration, Intermittent, Less than 6 Hours Per Day (ICD-10-PCS; 2024-11-18)
PROC: 5A1D70Z Performance of Urinary Filtration, Intermittent, Less than 6 Hours Per Day (ICD-10-PCS; 2024-11-20)
PROC: 05HF33Z Insertion of Infusion Device into Left Cephalic Vein, Percutaneous Approach (ICD-10-PCS; principal; 2024-11-22)
PROC: B54NZZA Ultrasonography of Left Upper Extremity Veins, Guidance (ICD-10-PCS; 2024-11-22)
PROC: 5A1D70Z Performance of Urinary Filtration, Intermittent, Less than 6 Hours Per Day (ICD-10-PCS; 2024-11-23)
PROC: 5A1D70Z Performance of Urinary Filtration, Intermittent, Less than 6 Hours Per Day (ICD-10-PCS; 2024-11-25)
DX: A41.9 Sepsis, unspecified organism (principal); G93.41 Metabolic encephalopathy; R65.21 Severe sepsis with septic shock; N18.6 End stage renal disease; M86.8X7 Other osteomyelitis, ankle and foot; J81.1 Chronic pulmonary edema; I69.351 Hemiplegia and hemiparesis following cerebral infarction affecting right dominant side; I12.0 Hypertensive chronic kidney disease with stage 5 chronic kidney disease or end stage renal disease; I25.10 Atherosclerotic heart disease of native coronary artery without angina pectoris; K59.00 Constipation, unspecified; Z99.2 Dependence on renal dialysis; E11.22 Type 2 diabetes mellitus with diabetic chronic kidney disease; E11.65 Type 2 diabetes mellitus with hyperglycemia; I95.3 Hypotension of hemodialysis; L89.890 Pressure ulcer of other site, unstageable; S91.302A Unspecified open wound, left foot, initial encounter; S91.301A Unspecified open wound, right foot, initial encounter; F01.50 Vascular dementia, unspecified severity, without behavioral disturbance, psychotic disturbance, mood disturbance, and anxiety; Z66 Do not resuscitate; E66.813 Obesity, class 3; B95.2 Enterococcus as the cause of diseases classified elsewhere; F09 Unspecified mental disorder due to known physiological condition; E87.6 Hypokalemia; B96.83 Acinetobacter baumannii as the cause of diseases classified elsewhere; E11.69 Type 2 diabetes mellitus with other specified complication; I95.89 Other hypotension; I48.91 Unspecified atrial fibrillation; I25.2 Old myocardial infarction; Z68.38 Body mass index [BMI] 38.0-38.9, adult; E03.9 Hypothyroidism, unspecified; E87.70 Fluid overload, unspecified; Z74.01 Bed confinement status; Z95.1 Presence of aortocoronary bypass graft; Z79.899 Other long term (current) drug therapy
CPT/HCPCS: 36415; 36600; 70450; 71045; 73620; 73700; 73718; 74176; 80048; 80053; 80069; 80202; 82010; 82565; 82607; 82746; 82805; 82962; 83605; 83735; 83930; 84100; 84439; 84443; 84484; 85025; 85379; 85610; 85652; 85730; 86141; 87040; 87077; 87081; 87186; 87205; 87340; 90935; 92610; 93005; 95819; 99291; G0378; J1642; J1815; J3480; J3490; P9047